=== PATIENT | male | born 1955 | race Caucasian/White ===

== ENCOUNTER 2021-09-06 19:02 | Inpatient (IN) | payer OTHER, SELFPAY ==
--- NOTE | 2021-08-29 16:23 | PTCARENOTE ---
Abnormal EKG. Dr. Massey made aware. No intervention needed.
[2021-09-06] VITALS (19 sets, daily range): BP systolic 2–166; BP diastolic 86–100; BMI 31.4
[2021-09-06 10:07] LABS: Glucose - Point of Care 189 mg/dl (65-99)
[2021-09-06] MEDS: NORMOSOL-R 1000 IV (10:10)
[2021-09-06 12:01] LABS: Glucose - Point of Care 175 mg/dl (65-99)
[2021-09-06 14:08] LABS: Glucose - Point of Care 209 mg/dl (65-99)
[2021-09-06 16:04] LABS: Glucose - Point of Care 207 mg/dl (65-99)
[2021-09-06] MEDS: MORPHINE SULFATE 2 MG IV (16:25)
[2021-09-06] MEDS: MORPHINE SULFATE 4 MG IV ×2 (16:43→20:44)
[2021-09-06] MEDS: SUBLIMAZE 50 MCG IV (17:13)
[2021-09-06] MEDS: NOVOLOG vial 2 UNITS SC (17:15)
[2021-09-06] MEDS: D5/0.45%NSS with KCL 20 MEQ 1000 IV (17:25)
[2021-09-06] MEDS: SUBLIMAZE 25 MCG IV (17:33)
[2021-09-06] MEDS: ANCEF 10 IV (20:44)
[2021-09-06] MEDS: COREG 12.5 MG PO (20:45)
[2021-09-06 23:46] LABS: Glucose - Point of Care 229 mg/dl (65-99)
[2021-09-06] MEDS: NOVOLOG FLEXPEN-MODERATE RESISTANCE SC (23:58)
[2021-09-07] VITALS (7 sets, daily range): BP systolic 124–191; BP diastolic 65–112
[2021-09-07] MEDS: D5/0.45%NSS with KCL 20 MEQ 1000 IV ×2 (02:44→13:16)
[2021-09-07] MEDS: ANCEF 10 IV ×3 (04:25→19:43)
[2021-09-07] MEDS: LOPRESSOR 5 MG IV (04:25)
[2021-09-07 04:55] LABS: Hematocrit 41.8 % (39.0-52.0); Hemoglobin 13.8 g/dL (13.0-18.0); Mean Corpuscular Hgb 30.1 pg (27.0-31.0); Mean Corpuscular Volume 91.3 fL (80.0-94.0); Platelet Count 234 10^3/uL (130-400); Red Blood Cell Count 4.58 10^6/uL (4.70-6.10); Red Cell Dist. Width 13.8 % (11.5-14.5); White Blood Cell Count 13.8 10^3/uL (4.8-10.8)
[2021-09-07 05:40] LABS: ALT (SGPT) 49 U/L (0-50); AST (SGOT) 59 U/L (17-59); Albumin 3.9 g/dl (3.5-5.0); Alkaline Phosphatase 80 U/L (38-126); Blood Urea Nitrogen 14 mg/dl (9-20); Calcium 8.9 mg/dl (8.4-10.2); Carbon Dioxide 27 mmol/L (22-30); Chloride 104 mmol/L (98-107); Estimated Creatinine Clearance > 125 ml/min; Glomerular Filtration Rate > 60.0; Glucose 246 mg/dl (65-99); Potassium 4.6 mmol/L (3.5-5.1); Sodium 137 mmol/L (135-145); Total Bilirubin 0.7 mg/dl (0.2-1.3); Total Protein 6.2 g/dl (6.3-8.2)
[2021-09-07 06:16] LABS: Glucose - Point of Care 226 mg/dl (65-99)
[2021-09-07] MEDS: MORPHINE SULFATE 2 MG IV (06:27)
[2021-09-07] MEDS: NOVOLOG FLEXPEN-MODERATE RESISTANCE 3 UNITS SC (06:31)
[2021-09-07] MEDS: ORETIC 25 MG PO (08:56)
[2021-09-07] MEDS: ZESTRIL 40 MG PO (08:56)
[2021-09-07] MEDS: COREG 12.5 MG PO ×2 (08:56→19:43)
[2021-09-07 09:23] LABS: Glycohemoglobin (HgbA1c) 6.9 % (4.0-5.6)
[2021-09-07] MEDS: MORPHINE SULFATE 4 MG IV ×3 (09:36→21:30)
--- NOTE | 2021-09-07 09:44 | W.PN.GS2 ---
Addendum entered and electronically signed by Karan Gonzales MD 09/07/21 17:35:
Pt. with adequate pain control. Avel. clears.
Abd.: soft, ND, mild inc. tenderness, drsg. WILFRIDO malik with non-bilious output.
POD#1 s/p lap converted to open simran
Adv. to low fat diet as avel.
Original Note:
Today's Communication / Plan
-
see below
Assessment / Plan
-
Assessment: 66M POD#1 s/p open cholecystectomy, recovering well.
Plan:
-- continue pain control prn
-- maintain drain to bulb suction, continue to monitor output
-- start clear liquid diet, advance as tolerated to low fat diet
-- continue to monitor glucose as diet is advanced, restart home diabetes medications (metformin, jardiance)
-- restart other po home medications, including aspirin
-- start lovenox for vte prophylaxis
Subjective Data
-
Patient seen and examined at bedside. He reports significant pain at the RUQ incision site, worsened by moving. He otherwise feels well. He denies nausea, vomiting, distension. He reports good appetite. Denies fever, chills.
Objective Data
-
Intake and Output
09/06/21 09/07/21 09/08/21
06:59 06:59 06:59
Intake Total 1580 / 1580
Output Total 902 / 902
Balance 678 / 678
Intake:
Oral fluids 60 / 60
IV fluids (Total) 1500 / 1500
Normosol R 300 / 300
IV piggybacks 20 / 20
Output:
Drain Output (Total) 2 / 2
Abdomen Reilly-Mark 2 / 2
Urine, Voided 900 / 900
Vital Signs
Temp Pulse Resp BP Pulse Ox
98.9 F 88 18 175/90 99
09/07/21 07:30 09/07/21 07:30 09/07/21 07:30 09/07/21 07:30 09/07/21 07:30
Lab Results
09/07/21 04:04
09/07/21 04:04
Calcium 8.9 mg/dl (8.4-10.2) 09/07/21 04:04
Total Bilirubin 0.7 mg/dl (0.2-1.3) 09/07/21 04:04
AST 59 U/L (17-59) 09/07/21 04:04
ALT 49 U/L (0-50) 09/07/21 04:04
Alkaline Phosphatase 80 U/L (38-126) 09/07/21 04:04
Total Protein 6.2 g/dl (6.3-8.2) L 09/07/21 04:04
Albumin 3.9 g/dl (3.5-5.0) 09/07/21 04:04
Physical Exam
-
General: lying in bed, NAD, uncomfortable-appearing when moving
Neuro: in tact, A&Ox3
Resp: breathing comfortably on room air
CV: warm and well perfused; tachycardic to 100s overnight, VSS this morning
Abd: soft, nontender, nondistended; tenderness noted at RUQ incision site; dressings dry; drain maintaining suction with 2cc serosanguinous output
[2021-09-07] MEDS: LIPITOR 40 MG PO (10:20)
[2021-09-07] MEDS: WELLBUTRIN XL (24 hour extended release) 300 MG PO (10:20)
[2021-09-07] MEDS: ASPIR LOW (ENTERIC COATED) 81 MG PO (10:20)
[2021-09-07] MEDS: CYMBALTA DELAYED RELEASE 60 MG PO (10:20)
[2021-09-07 11:53] LABS: Glucose - Point of Care 338 mg/dl (65-99)
[2021-09-07] MEDS: NOVOLOG FLEXPEN-MODERATE RESISTANCE 7 UNITS SC (11:56)
--- NOTE | 2021-09-07 13:39 | CM ---
Chart Reviewed.
Met with the pt and his at bedside to complete the initial assessment.
Pt lives with his in a 1SH with 10 steps to enter.
The pt stated that he has no hx with DME but did have [facility] prior to admission.
Pt stated that he has been independent with all care prior to admission.
Explained CM role and possible discharge planning needs.
Pt denies any concerns about his ability to return home but is requesting that [facility] resumes care.
Pharm: [facility] [address]
PCP: Jo Angeles
PLAN: Pt to return home with [facility] to resume care.
Pt's to provide transport to home.
CM to follow for ongoing discharge planning needs.
[2021-09-07 17:31] LABS: Glucose - Point of Care 252 mg/dl (65-99)
[2021-09-07] MEDS: LOVENOX 40 MG SC (17:53)
[2021-09-07] MEDS: NOVOLOG FLEXPEN-MODERATE RESISTANCE 5 UNITS SC (17:53)
[2021-09-07] MEDS: GLUCOPHAGE 1000 MG PO (17:53)
[2021-09-07 21:25] LABS: Glucose - Point of Care 229 mg/dl (65-99)
[2021-09-08] MEDS: D5/0.45%NSS with KCL 20 MEQ IV (01:07)
[2021-09-08] MEDS: ANCEF 10 IV ×3 (03:49→20:08)
[2021-09-08 05:54] VITALS: BMI 30.9
[2021-09-08 07:03] LABS: Glucose - Point of Care 249 mg/dl (65-99)
[2021-09-08 07:35] VITALS: BP 116/61
[2021-09-08] MEDS: MORPHINE SULFATE 4 MG IV (07:49)
[2021-09-08] MEDS: CYMBALTA DELAYED RELEASE 60 MG PO (07:51)
[2021-09-08] MEDS: COREG 12.5 MG PO ×2 (07:51→20:07)
[2021-09-08] MEDS: ZESTRIL 40 MG PO (07:51)
[2021-09-08] MEDS: ZETIA 10 MG PO (07:51)
[2021-09-08] MEDS: JARDIANCE 10 MG PO (07:52)
[2021-09-08] MEDS: WELLBUTRIN XL (24 hour extended release) 300 MG PO (07:52)
[2021-09-08] MEDS: ORETIC 25 MG PO (07:52)
[2021-09-08] MEDS: ASPIR LOW (ENTERIC COATED) 81 MG PO (07:52)
[2021-09-08] MEDS: GLUCOPHAGE 1000 MG PO ×2 (07:52→16:35)
[2021-09-08] MEDS: LIPITOR 40 MG PO (07:52)
[2021-09-08] MEDS: FLUSH (NSS) 2 FLUSH IV ×2 (07:53→12:15)
[2021-09-08] MEDS: NOVOLOG FLEXPEN-MODERATE RESISTANCE 3 UNITS SC (07:54)
--- NOTE | 2021-09-08 10:07 | W.PN.GS2 ---
Addendum entered and electronically signed by Karan Gonzales MD 09/08/21 19:28:
Pt. with adequate pain control. Avel. full liquids.
Abd.: soft, ND, mild inc. tenderness, drsg. okay, WILFRIDO with non-bilious output.
POD#2 s/p lap converted to open simran
Adv. to low fat diet for dinner.
Anticipate D/C home tomorrow with removal of WILFRIDO drain prior.
Original Note:
Today's Communication / Plan
-
see below
Assessment / Plan
-
Assessment: 66M POD#2 s/p laparoscopic converted to open cholecystectomy, recovering well. Pain is improving, and he is tolerating clear liquid diet with plan to advance today.
Plan:
-- advance diet to full liquids for lunch, with plan to advance to low fat diet for dinner if tolerating
-- continue pain control prn
-- maintain drain to bulb suction, continue to monitor output
-- continue to monitor glucose as diet is advanced, continue home PO diabetes medications
-- continue lovenox for vte prophylaxis
Subjective Data
-
Patient seen and examined at bedside. He reports feeling well this morning, with significantly improved incisional pain compared to yesterday. He denies abdominal discomfort, bloating, nausea, vomiting. He reports that he tolerated clear liquids
well yesterday; he did not advance to full liquids because he forgot. He is eager to trial full liquids for lunch and low fat diet for dinner if tolerated. No other acute complaints.
Objective Data
-
Intake and Output
09/07/21 09/08/21 09/09/21
06:59 06:59 06:59
Intake Total 1580 / 1580 1280 / 1280
Output Total 902 / 902 5 / 5
Balance 678 / 678 1275 / 1275
Intake:
Oral fluids 60 / 60 960 / 960
IV fluids (Total) 1500 / 1500 300 / 300
Normosol R 300 / 300
IV piggybacks
Output:
Drain Output (Total)
Abdomen Reilly-Mark
Urine, Voided 900 / 900
Other:
Number of approximated MODERATE 1
amounts of urine
Vital Signs
Temp Pulse Resp BP Pulse Ox
98.2 F 70 16 116/61 95
09/08/21 07:35 09/08/21 07:35 09/08/21 07:35 09/08/21 07:35 09/08/21 07:35
Lab Results
09/07/21 04:04
09/07/21 04:04
Calcium 8.9 mg/dl (8.4-10.2) 09/07/21 04:04
Total Bilirubin 0.7 mg/dl (0.2-1.3) 09/07/21 04:04
AST 59 U/L (17-59) 09/07/21 04:04
ALT 49 U/L (0-50) 09/07/21 04:04
Alkaline Phosphatase 80 U/L (38-126) 09/07/21 04:04
Total Protein 6.2 g/dl (6.3-8.2) L 09/07/21 04:04
Albumin 3.9 g/dl (3.5-5.0) 09/07/21 04:04
Physical Exam
-
General: NAD, sitting comfortably in bed
Neuro: A&Ox3, in tact, no focal deficits
CV: warm and well perfused
Resp: breathing comfortably on RA
Abd: soft, nontender, nondistended; dressings clean and dry; drain maintaining suction with minimal serosanguinous output
[2021-09-08] MEDS: NOVOLOG FLEXPEN-MODERATE RESISTANCE SC (12:17)
[2021-09-08 12:18] LABS: Glucose - Point of Care 147 mg/dl (65-99)
[2021-09-08 16:44] LABS: Glucose - Point of Care 166 mg/dl (65-99)
[2021-09-08 17:07] VITALS: BP 146/79
[2021-09-08] MEDS: NOVOLOG FLEXPEN-MODERATE RESISTANCE 1 UNITS SC (17:10)
[2021-09-08] MEDS: LOVENOX 40 MG SC (17:11)
[2021-09-08] MEDS: FLUSH (NSS) 1 FLUSH IV (20:08)
[2021-09-08] MEDS: PERCOCET 5/325 1 TABLET PO (20:15)
[2021-09-08 21:15] LABS: Glucose - Point of Care 175 mg/dl (65-99)
[2021-09-08 23:09] VITALS: BP 115/67
[2021-09-09] MEDS: PERCOCET 5/325 1 TABLET PO (03:29)
[2021-09-09] MEDS: ANCEF 10 IV (04:25)
--- NOTE | 2021-09-09 07:01 | W.PN.GS2 ---
Addendum entered and electronically signed by Karan Gonzales MD 09/27/21 15:10:
Apparently the gangrenous nature of the pt.'s GB qualifies his hospitalization as an inpatient admission as opposed to the post procedure/surgery recovery status which was selected at the time he was hospitalized.
Addendum entered and electronically signed by Ramone Cain MD 09/09/21 08:25:
Patient seen and examined.
Recovering well, without any complaints or issues. Pain well controlled. Tolerating a low-fat diet. Voiding. Ambulating.
Gen: NAD
Abd: soft, appropriately tender, obese, ND, nonperitoneal, incisions c/d/i - no erythema, ecchymosis, or drainage, geovanny in place, WILFRIDO drain removed with minor serous oozing from site
Patient is a 66 yo M POD#3 s/p laparoscopic converted to open cholecystectomy, recovering well
-- DC WILFRIDO
-- Resume home medications
-- DC today, follow-up with Dr. gonzales as outpatient
Original Note:
Today's Communication / Plan
-
see below
Assessment / Plan
-
Assessment: 66M POD#3 s/p laparoscopic converted to open cholecystectomy, recovering well. Pain is improving, and he is tolerating low fat diet with plan to pull drain and dc home today.
Plan:
-- continue low fat diet
-- pull WILFRIDO drain
-- continue pain control prn
-- continue lovenox for vte prophylaxis
-- d/c home today
Subjective Data
-
Patient seen and examined at bedside. He reports feeling well this morning, with improved incisional tenderness. He tolerated low fat diet yesterday, with continued flatus and a BM. Denies nausea, vomiting, diarrhea. No other acute complaints.
Objective Data
-
Intake and Output
09/08/21 09/09/21 09/10/21
06:59 06:59 06:59
Intake Total 1280 / 1280 1879
Output Total
Balance 1275 / 1275 1879
Intake:
Oral fluids 960 / 960 1879
IV fluids (Total) 300 / 300 0 / 0
IV piggybacks 0 / 0
Output:
Drain Output (Total)
Abdomen Reilly-Mark
Other:
Number of approximated MODERATE 1 4
amounts of urine
Vital Signs
Temp Pulse Resp BP Pulse Ox
97.9 F 78 20 115/67 95
09/08/21 23:09 09/08/21 23:09 09/08/21 23:09 09/08/21 23:09 09/08/21 23:09
Lab Results
09/07/21 04:04
09/07/21 04:04
Calcium 8.9 mg/dl (8.4-10.2) 09/07/21 04:04
Total Bilirubin 0.7 mg/dl (0.2-1.3) 09/07/21 04:04
AST 59 U/L (17-59) 09/07/21 04:04
ALT 49 U/L (0-50) 09/07/21 04:04
Alkaline Phosphatase 80 U/L (38-126) 09/07/21 04:04
Total Protein 6.2 g/dl (6.3-8.2) L 09/07/21 04:04
Albumin 3.9 g/dl (3.5-5.0) 09/07/21 04:04
Physical Exam
-
General: lying in bed comfortably, NAD
Neuro: in tact, A&Ox3
Resp: breathing comfortably on room air
CV: warm and well perfused
Abd: soft, nondistended, appropriately tender at incision; incisions c/d/i; drain with minimal serosanguinous output
[2021-09-09 07:40] LABS: Glucose - Point of Care 165 mg/dl (65-99)
[2021-09-09 07:50] VITALS: BP 159/89
[2021-09-09] MEDS: NOVOLOG FLEXPEN-MODERATE RESISTANCE 1 UNITS SC (08:06)
[2021-09-09] MEDS: CYMBALTA DELAYED RELEASE 60 MG PO (08:07)
[2021-09-09] MEDS: ZETIA 10 MG PO (08:07)
[2021-09-09] MEDS: ASPIR LOW (ENTERIC COATED) 81 MG PO (08:08)
[2021-09-09] MEDS: JARDIANCE 10 MG PO (08:08)
[2021-09-09] MEDS: COREG 12.5 MG PO (08:08)
[2021-09-09] MEDS: ORETIC 25 MG PO (08:08)
[2021-09-09] MEDS: GLUCOPHAGE 1000 MG PO (08:08)
[2021-09-09] MEDS: ZESTRIL 40 MG PO (08:08)
[2021-09-09] MEDS: WELLBUTRIN XL (24 hour extended release) 300 MG PO (08:08)
[2021-09-09] MEDS: LIPITOR 40 MG PO (08:09)
--- NOTE | 2021-09-09 08:25 | W.DS.TRANS ---
DC Summary - [employer]
-
Discharge Instructions:
Discharge Diagnosis/Procedures s/p laparoscopic converted to open
cholecystectomy
Diet Low Fat
Additional Diets low fat diet for one week.
Activity No strenuous activity,Other activity
Additional Activity No lifting >15-20 lbs.
Driving Restrictions None for 3-4 days.
Bathing Restrictions OK to Shower
Wound Care Apply a dry dressing as needed.
Instructions:
Stand-Alone Forms:
Changes to Home Medications: No
Discharge Medications:
DC Medications w/original date entered in [employer]
duloxetine 60 mg capsule,delayed release 60 mg PO DAILY Mental Health/Anxiety 10/15/15
insulin aspart U-100 100 unit/mL (3 mL) subcutaneous pen (Novolog Flexpen U-100 Insulin aspart) 20 - 25 units SC AC Diabetes 10/15/15
metformin 1,000 mg tablet 1,000 mg PO BID Diabetes 07/16/17
nitroglycerin 0.4 mg sublingual tablet 0.4 mg sublingual [id number] PRN cp 07/16/17
aspirin 81 mg tablet,delayed release 81 mg PO DAILY Blood clot prevention/tx 06/24/21
bupropion HCl 300 mg 24 hr tablet, extended release 300 mg PO DAILY Mental Health/Anxiety 06/24/21
carvedilol 12.5 mg tablet 12.5 mg PO BID Blood pressure 06/24/21
empagliflozin 10 mg tablet (Jardiance) 10 mg PO DAILY Diabetes 06/24/21
ezetimibe 10 mg tablet 10 mg PO DAILY High cholesterol 06/24/21
fexofenadine-pseudoephedrine ER 180 mg-240 mg tablet,ext.release 24 hr (Yelitza-D 24 Hour) 1 ea PO DAILY PRN allergies 06/24/21
insulin detemir U-100 100 unit/mL (3 mL) subcutaneous pen (Levemir FlexTouch U-100 Insulin) 100 unit SC HS Diabetes 06/24/21
atorvastatin 40 mg tablet 40 mg PO DAILY High cholesterol ##0 07/03/21
lisinopril 20 mg-hydrochlorothiazide 12.5 mg tablet 2 tab PO DAILY 09/05/21
oxycodone-acetaminophen 5 mg-325 mg tablet 1 tab PO Q4HPRN PRN moderate pain when phill PO's #20 tabs 09/09/21
Home Medication Changes
Pending Results: No
--- NOTE | 2021-09-09 09:53 | CM ---
Addendum entered by Lesly Scott RN 09/09/21 13:56:
CM received request from [facility] to check patient's actual address. Demographics just has a PO box.
CM called to the patient.
Provided address [address]
[place]
CM provided address to .
Original Note:
Patient is ready for discharge.
Patient would like to resume [facility] services.
CM sent referral in [facility].
CM notified [facility] of the referral.
CM messaged physician to please add the VN order.
PLAN:DC to home with [facility]
== END 2021-09-09 11:30 | disposition home health service (06) | DRG 415 ==
LOC: 2 SOUTH 19:02
PROVIDERS: ADMITTING PHYSICIAN Surgery
PROC: 0FT40ZZ Resection of Gallbladder, Open Approach (ICD-10-PCS; 2021-09-06)
DX: K80.00 Calculus of gallbladder with acute cholecystitis without obstruction (principal); K82.A2 Perforation of gallbladder in cholecystitis; K82.A1 Gangrene of gallbladder in cholecystitis; K66.0 Peritoneal adhesions (postprocedural) (postinfection); I10 Essential (primary) hypertension; I25.10 Atherosclerotic heart disease of native coronary artery without angina pectoris; E11.9 Type 2 diabetes mellitus without complications; Y83.6 Removal of other organ (partial) (total) as the cause of abnormal reaction of the patient, or of later complication, without mention of misadventure at the time of the procedure; I25.2 Old myocardial infarction; Z53.31 Laparoscopic surgical procedure converted to open procedure; Z79.4 Long term (current) use of insulin
CPT/HCPCS: 47600; 88304; 80053; 82962; 83036; 85027; A4648; J3480

== ENCOUNTER 2023-04-30 09:08 | Emergency (ER) | payer OTHER, SELFPAY ==
[2023-04-30 09:22] VITALS: BP 178/111
--- NOTE | 2023-04-30 09:49 | ED.GENMED ---
History of Present Illness
General
Chief Complaint: Back Pain
Time Seen by Provider: 04/30/23 09:30
Travel History
Have you had any contact with someone who has COVID-19?: No
Do you have any symptoms of coronavirus? Fever > 100 degrees, chills, cough, shortness of breath, sore throat, loss of taste or smell, muscle aches, or headache?: No
History of Present Illness
History of Present Illness:
67-year-old male with known history of lumbar spinal stenosis presents to the emergency department for evaluation of increased right lumbar radicular pain ongoing for the past 5 days. He did have an MRI performed approximately 6 weeks ago at this
hospital showing diffuse lumbar spine degenerative disc disease most pronounced at L4 and L5 noting increased central canal and lateral recess stenosis bilaterally. He reports worsening radiating symptoms down the right leg, cannot ambulate for
more than 20-30 steps before pain becomes limiting. He has been taking naproxen without relief. Denies any loss of bladder or bowel function, saddle anesthesias, or fevers. He is scheduled for an epidural injection on Thursday through his pain and
network diagnostic support specialist.
Past History
Past History
ED Past Medical History: CAD, HTN, IDDM and Other (kidney stones,)
ED Past Surgical History: None (Noncontributory)
Patient has exhibited threatening behavior?: No
PSI?: No
Social History
Tobacco: Non-smoker
Alcohol: None
Drug: None
Personal:
Living: with family
Employment: Employed
Family History
Family History: Other (Father with Parkinson's and diabetes)
Review of Systems
Review of Systems
Allergies reviewed?: Yes
All Other Systems: ROS reviewed and negative except as documented in HPI and ROS
Phy Exam
Physical Exam
Physical Exam:
GEN: Well appearing, NAD, WDWN
HEENT: Oral mucosa moist, no scleral icterus
Cardiac: Regular rate
Lung: No respiratory distress, no tachypnea
MSK: No gross deformity or injuries
Skin: Good color, no pallor or jaundice, no rashes
Neuro: AO x3, moves all extremities freely
Psych: Calm, cooperative
Course
Vital Signs
Initial and Last Documented VS:
Initial Vital Signs
Temp Pulse Resp BP Pulse Ox
97.9 F 101 18 178/111 96
04/30/23 09:22 04/30/23 09:22 04/30/23 09:22 04/30/23 09:22 04/30/23 09:22
Last Documented Vital Signs
Temp Pulse Resp BP Pulse Ox
97.9 F 101 18 178/111 96
04/30/23 09:22 04/30/23 09:22 04/30/23 09:22 04/30/23 09:22 04/30/23 09:22
MDM/Problems Addressed
MDM/Problems Addressed:
Patient with worsening pain secondary to known spinal stenosis. He has no new neurologic symptoms concerning for cauda equina. Will hold off on NSAIDs giving upcoming epidural injection, will start on opioids and muscle relaxants for supportive
relief. No indication for repeat imaging today
*Critical Care Note
Total Time (30-74mins, 75-104mins- exclusive of procedures): Not Applicable
ED Attending Note
-
Portions of this chart may have been created with voice recognition software.� Occasional wrong word or��sound alike� substitutions may have occurred due to the inherent limitations of voice recognition software.
Discharge Plan
Departure
Patient Disposition: Home (Routine Discharge)
Date of Disposition: 04/30/23
Time of Disposition: 09:52
Patient with high blood pressure during this ER visit?: No
Discharge Problem:
Lumbar spinal stenosis
Instructions: Radiculopathy (DC)
Prescriptions:
New
tizanidine 4 mg tablet
4 mg PO HS PRN (Reason: muscle spasticity) Qty: 10 0RF
oxycodone-acetaminophen [Percocet] 5-325 mg tablet
1 tab PO Q6HPRN PRN (Reason: pain) Qty: 15 0RF
No Action
insulin aspart U-100 [Novolog FlexPen U-100 Insulin] 300 UNITS/3 ML insulin pen
0 sliding scale dose SC MEALS
duloxetine 60 MG capsule,delayed release(DR/EC)
120 mg PO DAILY
metformin 1,000 MG tablet
1,000 mg PO BID
nitroglycerin 0.4 MG tablet, sublingual
0.4 mg sublingual [id number] PRN (Reason: chest pain)
Hold Instructions: until follow up with your primary care doctor
ezetimibe 10 MG tablet
10 mg PO DAILY
carvedilol 12.5 MG tablet
6.25 mg PO BID
Hold Instructions: until follow up with your primary care doctor
bupropion HCl 300 MG tablet extended release 24 hr
300 mg PO DAILY
atorvastatin 40 MG tablet
40 mg PO DAILY Qty: 0 0RF
Rx Instructions:
DO NOT RESUME UNTIL DIRECTED BY YOUR PHYSICIAN
lisinopril-hydrochlorothiazide 20-12.5 mg Tablet
1 tab PO DAILY
Hold Instructions: until follow up with your primary care doctor
temazepam 15 mg Capsule
15 mg PO HS
Patient Comments:
01/22/2022: last filled 12/25/21, 30 tabs for 30 days from [facility]#[id number]
tamsulosin 0.4 mg Capsule
0.4 mg PO QPM
Hold Instructions: until follow up with your primary care doctor
Levemir FlexTouch U100 Insulin 100 unit/mL (3 mL) insulin pen
0 unit SC HS
Jardiance 25 mg tablet
25 mg PO DAILY
lisinopril 10 mg tablet
10 mg PO DAILY Qty: 60 0RF
Referrals:
Jorge Angeles CRNP [Family Provider] -
Interventions
Interventions:
*Risk Screen - Suicide Last Done: 04/30/23 09:24
*General Assessment Last Done: 04/30/23 09:24
*Neglect/Abuse Screening Last Done: 04/30/23 09:24
*Nursing Disposition Last Done: 04/30/23 10:05
ED-Musculoskeletal Assessment Last Done: 04/30/23 10:04
Discharge Date and Time
Discharge Date/Time: 04/30/23 10:06
== END 2023-04-30 10:06 | disposition home or self-care (01) ==
LOC: EMR 09:08
PROVIDERS: EMERGENCY PHYSICIAN Emergency Medicine; FAMILY PHYSICIAN Nurse Practitioner Adult Health
DX: M48.061 Spinal stenosis, lumbar region without neurogenic claudication (principal)
CPT/HCPCS: 99283

== ENCOUNTER 2023-05-17 12:24 | Inpatient (IN) | payer OTHER, SELFPAY ==
[2023-05-16 23:17] VITALS: BMI 30.9
[2023-05-16 23:32] VITALS: BP 178/100
[2023-05-17] VITALS (28 sets, daily range): BP systolic 142–212; BP diastolic 79–134; BMI 30.6
--- NOTE | 2023-05-17 03:13 | ED.GENMED ---
History of Present Illness
<FANI Briones - Last Filed: 05/17/23 04:56>
General
Chief Complaint: Back Pain
Source: patient
Exam Limitations: none
Time Seen by Provider: 05/17/23 03:10
Nursing documentation reviewed up to this point in time: agreed with
Travel History
Have you had any contact with someone who has COVID-19?: No
Do you have any symptoms of coronavirus? Fever > 100 degrees, chills, cough, shortness of breath, sore throat, loss of taste or smell, muscle aches, or headache?: No
History of Present Illness
History of Present Illness:
patient is a 67 y/o male with PMH of diabetic neuropathy and lumbar spinal stenosis presenting for worsening back pain. Patient admits that he was sitting down when the pain began earlier today. patient admits that he sees a pain management doctor
for his spinal stenosis, which he received an epidural treatment for 2 weeks ago. Patient admits that he has felt this pain previously. Patient admits to bilateral pain that radiates to the anterior thigh, bilateral posterior thigh and groin region.
Patient admits that the pain become a 'pins and needles pain long-term through his thigh and to his toes.' Patient admits that the pain is bilateral but worse on the left side. Patient admits to urinating and having a bowel movement since the pain has
begun. Patient admits to weakness in b/l extremities which decreases his mobility. Patient was in the ED last week for the same problem and was prescribed oxycodone and a muscle relaxant which he said worked for his pain. Patients pressures on
admission were 198/108.
Past History
<FANI Briones - Last Filed: 05/17/23 04:56>
Past History
ED Past Medical History: CAD, HTN, IDDM and Other (kidney stones,)
ED Past Surgical History: None (Noncontributory)
Patient has exhibited threatening behavior?: No
PSI?: No
Social History
Tobacco: Non-smoker
Alcohol: None
Drug: None
Personal:
Living: with family
Employment: Employed
Family History
Family History: Other (Father with Parkinson's and diabetes)
Review of Systems
<ST [facility]ali[facility] - [facility] Filed: 05/17/23 04:56>
Review of Systems
All Other Systems: Not applicable
Constitutional: Reports no symptoms
EENT: Reports no symptoms
Respiratory: Reports no symptoms
Cardiac: Reports no symptoms
ABD/GI: Reports no symptoms
: Reports no symptoms
Musculoskeletal: Reports back pain
Skin: Reports no symptoms
Neurological: Reports no symptoms
Endocrine: Reports no symptoms
Hematologic/Lymphatic: Reports no symptoms
Psychiatric: Reports no symptoms
Phy Exam
<Gwendolyn Castellano [facility] Filed: 05/17/23 04:56>
General Physical Exam
General Presentation: well appearing and no apparent distress
General Skin: warm and dry
General Habitus: normal
General Mental: alert
General Hydration: appears well hydrated
ENT Exam
ENT Exam: EOMI, pharynx normal, neck supple and normocephalic
Eye Exam
Eye Exam: PERRL, cornea clear and conjunctiva normal
Cardiovascular Exam
Cardiovascular Exam: regular rate/rhythm, no edema, no murmur and normal peripheral pulses
Pulmonary Exam
Pulmonary Exam: lungs clear, no respiratory distress, no rales, no crackles, no rhonchi, no stridor, no wheezing and no cough
Gastrointestinal Exam
Gastrointestinal Exam: normal bowel sounds, non tender, soft, no organomegaly, no pulsatile mass and non distended
Neurological Exam
Neurological Exam: sensory deficit
Musculoskeletal Exam
Musculoskeletal Exam: back tenderness
Skin Exam
Skin Exam: normal color, warm/dry, no rash and no petechia
Psychiatric Exam
Psychiatric Exam: normal mood/affect
Course
<ST AnaliPA - Last Filed: 05/17/23 04:56>
Orders/Labs/Results
Orders:
Orders
05/17/23 04:10
Ketorolac [Toradol] 60 mg IM NOW STA
Lisinopril [Zestril] 10 mg PO NOW STA
05/17/23 04:57
Ketorolac [Toradol] 30 mg .ROUTE .STK-MED ONE
05/17/23 04:58
Ketorolac [Toradol] 30 mg IV NOW STA
05/17/23 06:11
Tizanidine [Zanaflex] 4 mg PO NOW STA
05/17/23 07:01
Oxycodone/Acetaminophen [Percocet 5/325] 2 tablet PO NOW STA
Vital Signs
Initial and Last Documented VS:
Initial Vital Signs
Temp Pulse Resp BP Pulse Ox
98.2 F 94 18 178/100 97
05/16/23 23:32 05/16/23 23:32 05/16/23 23:32 05/16/23 23:32 05/16/23 23:32
Last Documented Vital Signs
Temp Pulse Resp BP Pulse Ox
98.2 F 100 18 210/120 90
05/16/23 23:32 05/17/23 04:30 05/16/23 23:32 05/17/23 06:00 05/17/23 06:45
<Hector Nixon DO - Last Filed: 05/17/23 07:29>
Orders/Labs/Results
Orders:
Orders
05/17/23 04:10
Ketorolac [Toradol] 60 mg IM NOW STA
Lisinopril [Zestril] 10 mg PO NOW STA
05/17/23 04:57
Ketorolac [Toradol] 30 mg .ROUTE .STK-MED ONE
05/17/23 04:58
Ketorolac [Toradol] 30 mg IV NOW STA
05/17/23 06:11
Tizanidine [Zanaflex] 4 mg PO NOW STA
05/17/23 07:01
Oxycodone/Acetaminophen [Percocet 5/325] 2 tablet PO NOW STA
Vital Signs
Initial and Last Documented VS:
Initial Vital Signs
Temp Pulse Resp BP Pulse Ox
98.2 F 94 18 178/100 97
05/16/23 23:32 05/16/23 23:32 05/16/23 23:32 05/16/23 23:32 05/16/23 23:32
Last Documented Vital Signs
Temp Pulse Resp BP Pulse Ox
98.2 F 100 18 210/120 90
05/16/23 23:32 05/17/23 04:30 05/16/23 23:32 05/17/23 06:00 05/17/23 06:45
<FANI Briones - Last Filed: 05/17/23 04:56>
MDM/Problems Addressed
Differential Diagnosis Includes:
spinal stenosis worsening
cauda equina
herniated disc
sciatica
diabetic neuropathy
MDM/Problems Addressed:
worsening back pain
Chronic conditions affecting care: DM
<FANI Briones - Last Filed: 05/17/23 04:56>
*Critical Care Note
Total Time (30-74mins, 75-104mins- exclusive of procedures): Not Applicable
<Hector Nixon DO - Last Filed: 05/17/23 07:29>
*Pulse Oximetry
Patient hypoxic: no
<FANI Briones - Last Filed: 05/17/23 04:56>
Update Note
Update Note:
patient given lisinopril for HTn; patient denies history of high blood pressure; most recent BP 211/113
ED Attending Note
<FANI Briones - Last Filed: 05/17/23 04:56>
-
Portions of this chart may have been created with voice recognition software.� Occasional wrong word or��sound alike� substitutions may have occurred due to the inherent limitations of voice recognition software.
<Hector Nixon DO - Last Filed: 05/17/23 07:29>
ED Attending Note
Patient seen and examined by attending physician: Yes
I performed the substantive portion of visit, reviewed & personally made and approve the management plan that is documented in note by myself or CHASE.: Yes
ED Attending Note:
Pleasant 67-year-old male presents with back pain. Patient does have a history of lumbar spinal stenosis. He is followed by pain management. He has had several epidural injections for this pain. He is due to see his pain management physician on
Thursday. Patient states that the pain began yesterday midmorning. He states he was sitting down when he exacerbated his pain. Patient initially reported that the pain was [id number] but that has also since resolved. Patient was seen in the
emergency department 1 week ago for identical pain. He was prescribed oxycodone and muscle relaxant which did help but he has since ran out. Denies bowel or bladder retention or incontinence. Patient was seen in conjunction with the PA student.
I have reviewed and agree with the history and treatment plan presented. On my independent physical exam, patient is awake, alert, and oriented x3, resting comfortably on the bed. He is in minor acute distress. Moves all 4 extremities. Abdomen
soft and nontender. Skin is warm and dry.
Discharge Plan
Departure
Patient Disposition: Admit
Date of Disposition: 05/17/23
Time of Disposition: 07:28
Admit to: Telemetry
Presentation/result/management discussed w/ accepting MD/DO: Hospitalist
Patient with high blood pressure during this ER visit?: Yes
Condition: Good
Discharge Problem:
Back pain, Hypertension
Instructions: Low Back Pain (DC), BLOOD PRESSURE
Prescriptions:
No Action
insulin aspart U-100 [Novolog FlexPen U-100 Insulin] 300 UNITS/3 ML insulin pen
0 sliding scale dose SC MEALS
duloxetine 60 MG capsule,delayed release(DR/EC)
120 mg PO DAILY
metformin 1,000 MG tablet
1,000 mg PO BID
nitroglycerin 0.4 MG tablet, sublingual
0.4 mg sublingual [id number] PRN (Reason: chest pain)
Hold Instructions: Resume on 02/28/22. DO NOT RESUME TAKING THIS MEDICATION UNTIL INSTRUCTED TO DO SO BY YOUR PRIMARY CARE PROVIDER AND/OR GLASS LOADING EQUIPMENT TENDER
ezetimibe 10 MG tablet
10 mg PO DAILY
carvedilol 12.5 MG tablet
6.25 mg PO BID
Hold Instructions: Resume on 02/28/22. DO NOT START TAKING THIS MEDICATION AGAIN UNTIL INSTRUCTED BY YOUR PRIMARY CARE DOCTOR AND/OR YOUR GLASS LOADING EQUIPMENT TENDER
bupropion HCl 300 MG tablet extended release 24 hr
300 mg PO DAILY
atorvastatin 40 MG tablet
40 mg PO DAILY Qty: 0 0RF
Rx Instructions:
DO NOT RESUME UNTIL DIRECTED BY YOUR PHYSICIAN
tamsulosin 0.4 mg Capsule
0.4 mg PO QPM
Hold Instructions: until follow up with your primary care doctor
Levemir FlexTouch U100 Insulin 100 unit/mL (3 mL) insulin pen
0 unit SC HS
Jardiance 25 mg tablet
25 mg PO DAILY
lisinopril 10 mg tablet
10 mg PO DAILY Qty: 60 0RF
oxycodone-acetaminophen [Percocet] 5-325 mg tablet
1 tab PO Q6HPRN PRN (Reason: pain) Qty: 15 0RF
Referrals:
Jorge Angeles CRNP [Family Provider] -
Interventions
Interventions:
*Risk Screen - Suicide Last Done: 05/17/23 02:50
*General Assessment Last Done: 05/17/23 02:50
*Neglect/Abuse Screening Last Done: 05/17/23 00:30
*ED COVID-19 Vaccine History Last Done: 05/17/23 02:50
ED-Musculoskeletal Assessment Last Done: 05/17/23 02:50
[2023-05-17] MEDS: ZESTRIL 10 MG PO (04:30)
[2023-05-17] MEDS: TORADOL 30 MG IV (04:59)
[2023-05-17] MEDS: ZANAFLEX 4 MG PO (06:22)
[2023-05-17] MEDS: PERCOCET 5/325 2 TABLET PO (07:20)
--- NOTE | 2023-05-17 07:30 | EDRN ---
the pt pressed the call cotto and this RN entered the pts room, the pt stated to this RN, 'I really need a muscle relaxer or something, whatever you people are giving me isn't working for the pain and you people keep promising that you will help me
but nothing is helping', this RN assured the pt that he was just given oral pain medication and that he should give it some time to work, this RN also stated to the pt that Dr. Nixon would be notified, the pt stated to this RN, 'I just need you
to fix my problem, and people keep making promises that they can't keep, i'm not sure what's going on here, but i need help', this RN assured the pt that this RN would speak to the provider about medication for relief and about a plan if the oral
pain medication does not work, this RN notified Dr. Nixon and provider is currently at the pts bedside speaking to the pt, will continue to monitor the pt closely
--- NOTE | 2023-05-17 08:49 | EDRN ---
Dr. Saba notified of the pts elevated blood pressure
--- NOTE | 2023-05-17 08:58 | EDRN ---
provider notified again of the pts elevated blood pressure, this RN looked back into the pts past vital signs and the pt has been having elevated blood pressures since 0200, provider notified of this
--- NOTE | 2023-05-17 10:05 | EDRN ---
this RN checked the pts blood pressure and the pts blood pressure is currently still high at 202/120 (145), a hospitalist has not yet signed up for the pt to admit the pt, this RN notified Dr. Saba
--- NOTE | 2023-05-17 10:10 | EDRN ---
this RN entered the pts room and this RN repositioned the pt and retook the pts blood pressure, blood pressure 180/108 (128), the pt c/o headache, provider notified
--- NOTE | 2023-05-17 10:54 | HPS.HSE ---
Family Physician
-
Family Physician: Jorge Angeles
Chief Complaint
-
back pain
History of Present Illness
67-year-old male past medical history of severe lumbar spinal stenosis who is presenting with worsening back pain. Patient with a back pain has recently worsened in the last 3 days. Patient said he received epidural injection 2 weeks ago by his
pain doctor. States status post injection he did not notice any significant improvement in pain. States he continues remains with qsyu-rar-[id number] sensation bilateral thighs with radiation to his toes. States of severe amount of pain with
exertion/activity. Denies urinary or fecal incontinence. Denies any recent increase in loss of sensation. States he was unable to better pain overnight. Patient was in ER last week for similar follow-up and was prescribed pain meds and muscle
relaxant which she states led to improvement in pain. Overnight patient was also found to have a severely uncontrolled blood pressure. Denies any chest pain or headache or nausea or vomiting or palpitations. Currently watching TV.
Medical History
Past Medical History
Past Medical History: Reports Other
Additional Past Medical History:
Primary hypertension
Mood disorder
Neuropathy
Lumbar spinal stenosis
Hyperlipidemia
Diabetes mellitus
Chronic opioid dependent
CAD history of anterior wall motion NC
History of recurrent syncope
Past Surgical History: Reports Cholecystectomy
Social History
Tobacco: Non-smoker
Alcohol: None
Personal:
Living: With Family
Family History
Family History: Not pertinent
Allergies / Home Medications
Allergies reflects when Allergies were last updated in [facility].
Home Medications with original date entered in [facility]
Allergy/Medication List:
Allergies
Allergy/AdvReac Type Severity Reaction Status Date / Time
hydromorphone [From Dilaudid] Allergy Unknown Verified 05/16/23 23:26
Home Medications
duloxetine 60 mg capsule,delayed release 120 mg PO DAILY Mental Health/Anxiety 10/15/15
metformin 1,000 mg tablet 1,000 mg PO BID Diabetes 07/16/17
bupropion HCl 300 mg 24 hr tablet, extended release 300 mg PO DAILY Mental Health/Anxiety 06/24/21
ezetimibe 10 mg tablet 10 mg PO DAILY High cholesterol 06/24/21
atorvastatin 40 mg tablet 40 mg PO DAILY High cholesterol ##0 07/03/21
tamsulosin 0.4 mg capsule 0.4 mg PO HS Urinary issue 01/10/22
empagliflozin 25 mg tablet (Jardiance) 25 mg PO DAILY 01/22/22
lisinopril 10 mg tablet 10 mg PO DAILY #60 tabs 01/24/22
Metamucil 1 tbsp PO DAILYPRN PRN constipation 05/17/23
carvedilol 6.25 mg tablet 6.25 mg PO BID 05/17/23
dulaglutide 0.75 mg/0.5 mL subcutaneous pen injector (Trulicity) 0.75 mg SC TU@0800 05/17/23
insulin aspart U-100 100 unit/mL (3 mL) subcutaneous pen (Novolog FlexPen U-100 Insulin aspart) 15 - 20 sliding scale dose SC DIRECTED 05/17/23
insulin glargine 100 unit/mL (3 mL) subcutaneous pen (Lantus Solostar U-100 Insulin) 80 unit SC HS 05/17/23
meloxicam 7.5 mg tablet 7.5 mg PO DAILY 05/17/23
naproxen sodium 220 mg tablet (Aleve) 220 mg PO BID PRN mild pain 05/17/23
oxycodone-acetaminophen 5 mg-325 mg tablet (Percocet) 1 tab PO Q6HPRN PRN severe pain 05/17/23
tizanidine 4 mg tablet 4 mg PO HS PRN muscle spasms 05/17/23
Review of Systems
-
A 12 point ROS was completed and negative except as noted: Yes
Physical Exam
Vital Signs
Vital Signs
Temp Pulse Resp BP Pulse Ox
98.5 F 98 16 202/120 95
05/17/23 07:25 05/17/23 07:25 05/17/23 07:25 05/17/23 10:02 05/17/23 10:02
Physical Exam
General: Well Developed, Well Nourished, No Apparent Distress and Conversant
HEENT: NormoCephalic, Moist mucous membranes, Atraumatic, Nose Appears Normal and Ears Appear Normal
Respiratory: Clear
Cardiac: S1/S2 and Regular Rhythm; No Murmur or Rub
GI: Soft, Non Tender, Non Distended, Normal Bowel Sounds and Other (Right upper quadrant prior surgical scar noted); No Organomegaly
Rectal: Deferred by Provider
Genito-urinary: Deferred by me
Musculoskeletal: No Clubbing, No Cyanosis, No Edema and Other (No step-off. Tender to palpation lower back.)
Skin: No Rash
Neuro: Awake, Alert, Oriented, AO x 3, No Motor Deficits, Nonfocal/grossly intact and Other (Gait noted testing due to pain )
Psych: Calm
Impression/Plan
-
#Acute on chronic lumbar radiculopathy spondylosis secondary to severe spinal stenosis
Recent lumbar MRI 03/10/2023 with severe L4-L5 with increased spur disk and increased central canal and lateral recess stenosis bilaterally. Multilevel degenerative spinal disease noted.
X-ray of the lumbar spine without any fractures
Plan for pain control with p.o. meds and morphine as needed for severe breakthrough pain
Tolerated morphine .Dilaudid with hallucinations/delirium in past.
Valium for muscle spasm
PT and OT in the morning
Patient has outpatient pain management follow-up on Thursday which she said he will postpone for later in the week.
#Primary hypertension
#Hypertension urgency
Likely exacerbated due to severe pain
Restart carvedilol and lisinopril
IV hydralazine as needed
Monitor blood pressure with pain control
May need up titration of meds
Of note has history of recurrent syncope in the past with orthostatic hypotension
#Diabetes mellitus insulin-dependent
Restart Lantus takes 80 units nightly
Insulin sliding scale Accu-Cheks
Continue Jardiance
Continue metformin
Update a1c
#CAD
Not on any antiplatelet agents
No prior history of stents
#Hyperlipidemia
Continue statin
Diabetic neuropathy
Continue bupropion and duloxetine
BPH
Continue Flomax
Hypokalemia
Replete KCl
DVT prophylaxis heparin
I spent a total of 78 minutes with the patient or on the floor. More than 50% of this time involved counseling and coordination of care.
--- NOTE | 2023-05-17 11:10 | EDRN ---
this RN notified Dr. Hernandes the hospitalist that the pts blood pressures have been elevated, awaiting for orders
[2023-05-17] MEDS: APRESOLINE 10 MG IV ×3 (11:25→23:02)
[2023-05-17] MEDS: COREG 6.25 MG PO ×2 (11:27→19:46)
[2023-05-17 11:37] LABS: % Basophils 0.4 % (0-2); % Immature Granulocytes 0.3 % (0-0.5); % Lymphocytes 20.4 % (20.5-51.1); % Monocytes 9.2 % (1.7-9.3); % Neutrophils 68.7 % (42.2-75.2); Absolute Eosinophils 0.1 10^3/uL (0-0.7); Absolute Monocytes 0.9 10^3/uL (0.1-0.6); Absolute Neutrophils 6.7 10^3/uL (1.4-6.5); Hematocrit 47.2 % (39.0-52.0); Hemoglobin 16.1 g/dL (13.0-18.0); Mean Corp Hgb Conc. 34.1 g/dL (33.0-37.0); Mean Corpuscular Hgb 30.9 pg (27.0-31.0); Mean Corpuscular Volume 90.6 fL (80.0-94.0); Mean Platelet Volume 8.9 fL (7.4-10.4); Nucleated Red Blood Cells % 0 % (-); Platelet Count 242 10^3/uL (130-400); Red Blood Cell Count 5.21 10^6/uL (4.70-6.10); Red Cell Dist. Width 14.2 % (11.5-14.5); White Blood Cell Count 9.7 10^3/uL (4.8-10.8)
[2023-05-17 11:53] LABS: Blood Urea Nitrogen 15 mg/dl (9-20); Calcium 8.8 mg/dl (8.4-10.2); Carbon Dioxide 25 mmol/L (22-30); Chloride 105 mmol/L (98-107); Estimated Creatinine Clearance 117 ml/min; Glucose 157 mg/dl (70-99); Potassium 3.4 mmol/L (3.5-5.1); Sodium 137 mmol/L (135-145); eGFR > 60.00
--- NOTE | 2023-05-17 11:58 | EDRN ---
the pt is resting in stretcher in the lowest position, side rails up x2, call cotto within reach, HOB elevated, no s/o chest pain, no c/o SOB, pt back pain is currently a /, last BP 192/96 (123), no c/o headache, provider notified, will continue
to monitor the pt closely
--- NOTE | 2023-05-17 12:44 | EDRN ---
the pt does not want to change into a patient gown, the pt states to this RN, 'I don't want to get into a gown, i am comfortable in my clothes, there is no reason for me to get into a gown', this RN stated to the pt that this RN understands not
wanting to get into a patient gown, the pt remains in his street clothes, the pt is resting in stretcher in the lowest position, side rails up x2, call cotto within reach, HOB elevated, NSR in the 80's, last BP 181/109 (129) and provider was
notified, RA Sp02 96%, no c/o chest pain, no c/o SOB, no c/o headache, back pain currently a 2/10, will continue to monitor the pt closely
[2023-05-17] MEDS: VALIUM 2 MG PO (12:50)
[2023-05-17] MEDS: KCL 20 MEQ PO (12:50)
--- NOTE | 2023-05-17 12:52 | EDRN ---
the pt received dose of valium for c/o muscle spasms in his back
--- NOTE | 2023-05-17 14:00 | EDRN ---
this RN called the receiving unit and notified them that paper report was going to be tubed up
--- NOTE | 2023-05-17 14:38 | EDRN ---
this RN notified the pt that a bed is available for him and that he would be taken to the floor, this RN asked the pt if he would mind getting into a gown before he went up to the floor and the pt stated that he would not mind now getting into a
gown, the pt was able to get into patient gown with no issues, pt will be taken up to floor by PCT
[2023-05-17] MEDS: ROXICODONE 7.5 MG PO (16:12)
[2023-05-17] MEDS: HEPARIN 5000 UNITS SC ×2 (16:12→23:11)
--- NOTE | 2023-05-17 16:15 | PTCARENOTE ---
Pt admitted into room 403-1, ambulated with steady gait into room. AAOx3. BP elevated and patient reporting 8/10 back pain. PRN hydralazine and oxycodone administered. Tele showing NSR - ST 90-100's. Pt oriented to room and call cotto within reach.
[2023-05-17 16:37] LABS: Glucose - Point of Care 137 mg/dl (70-99)
[2023-05-17] MEDS: NOVOLOG FLEXPEN-LOW RESISTANCE SC (16:41)
[2023-05-17] MEDS: GLUCOPHAGE 1000 MG PO (16:41)
[2023-05-17] MEDS: FLOMAX 0.400000000000000022 MG PO (17:30)
[2023-05-17 21:10] LABS: Glucose - Point of Care 129 mg/dl (70-99)
[2023-05-17] MEDS: LANTUS 0.400000000000000022 UNITS SC (21:33)
[2023-05-17] MEDS: PERCOCET 5/325 1 TABLET PO (23:20)
[2023-05-18] VITALS (10 sets, daily range): BP systolic 104–162; BP diastolic 65–93
[2023-05-18] MEDS: APRESOLINE 10 MG IV (04:06)
--- NOTE | 2023-05-18 04:14 | PTCARENOTE ---
Pt with 10 beat run v tach on telemetry, asymptomatic, house [employer] aware strip mounted in chart.
[2023-05-18] MEDS: ROXICODONE 7.5 MG PO ×3 (05:23→20:05)
[2023-05-18 07:25] LABS: % Basophils 0.2 % (0-2); % Eosinophils 1.4 % (0-6); % Immature Granulocytes 0.1 % (0-0.5); % Lymphocytes 16.5 % (20.5-51.1); % Monocytes 9.4 % (1.7-9.3); % Neutrophils 72.4 % (42.2-75.2); Absolute Eosinophils 0.1 10^3/uL (0-0.7); Absolute Lymphocytes 1.4 10^3/uL (1.2-3.4); Absolute Monocytes 0.8 10^3/uL (0.1-0.6); Absolute Neutrophils 6.1 10^3/uL (1.4-6.5); Hemoglobin 15.1 g/dL (13.0-18.0); Mean Corp Hgb Conc. 32.1 g/dL (33.0-37.0); Mean Corpuscular Volume 93.3 fL (80.0-94.0); Mean Platelet Volume 9.2 fL (7.4-10.4); Nucleated Red Blood Cells % 0 % (-); Platelet Count 240 10^3/uL (130-400); Red Blood Cell Count 5.04 10^6/uL (4.70-6.10); Red Cell Dist. Width 14.6 % (11.5-14.5); White Blood Cell Count 8.5 10^3/uL (4.8-10.8)
[2023-05-18 07:36] LABS: Glucose - Point of Care 143 mg/dl (70-99)
[2023-05-18 07:51] LABS: Blood Urea Nitrogen 30 mg/dl (9-20); Calcium 8.9 mg/dl (8.4-10.2); Carbon Dioxide 24 mmol/L (22-30); Chloride 101 mmol/L (98-107); Estimated Creatinine Clearance 102 ml/min; Glucose 159 mg/dl (70-99); Magnesium 1.9 mg/dl (1.6-2.3); Potassium 3.5 mmol/L (3.5-5.1); Sodium 136 mmol/L (135-145); eGFR > 60.00
[2023-05-18] MEDS: CYMBALTA DELAYED RELEASE 120 MG PO (08:14)
[2023-05-18] MEDS: COREG 6.25 MG PO ×2 (08:14→19:56)
[2023-05-18] MEDS: ZETIA 10 MG PO (08:14)
[2023-05-18] MEDS: WELLBUTRIN XL (24 hour extended release) 300 MG PO (08:15)
[2023-05-18] MEDS: JARDIANCE 25 MG PO (08:15)
[2023-05-18] MEDS: GLUCOPHAGE 1000 MG PO ×2 (08:15→16:56)
[2023-05-18] MEDS: HEPARIN 5000 UNITS SC ×2 (08:15→16:57)
[2023-05-18] MEDS: ZESTRIL 10 MG PO (08:15)
[2023-05-18] MEDS: PERCOCET 5/325 1 TABLET PO (08:24)
[2023-05-18] MEDS: NOVOLOG FLEXPEN-LOW RESISTANCE SC (08:26)
[2023-05-18 10:05] LABS: Glycohemoglobin (HgbA1c) 6.7 % (4.0-5.6)
--- NOTE | 2023-05-18 10:18 | W.PN.HOSP.TC ---
Today's Communication/Plan
-
start gabapentin
PT/OT
Assessment / Plan
Assessment / Plan
#Acute on chronic lumbar radiculopathy spondylosis secondary to severe spinal stenosis
Recent lumbar MRI 03/10/2023 with severe L4-L5 with increased spur disk and increased central canal and lateral recess stenosis bilaterally. � Multilevel degenerative spinal disease noted.
Patient follows with outpatient follow up specialist
X-ray of the lumbar spine without any fractures
continue percocet/oxycodone PRN
start Gabapentin - can increase dose to 300 TID if tolerates
Tolerated morphine .Dilaudid with hallucinations/delirium in past.
Valium for muscle spasm
PT and OT in the morning
Patient has outpatient pain management follow-up on Thursday which she said he will postpone for later in the week.
#Primary hypertension
#Hypertension urgency
Likely exacerbated due to severe pain
Restart carvedilol and lisinopril
IV hydralazine as needed
Monitor blood pressure with pain control
May need up titration of meds
Of note has history of recurrent syncope in the past with orthostatic hypotension
#Diabetes mellitus insulin-dependent
Restart Lantus takes 80 units nightly
Insulin sliding scale Accu-Cheks
Continue Jardiance
Continue metformin
Update a1c
#CAD
Not on any antiplatelet agents
No prior history of stents
#Hyperlipidemia
Continue statin
Diabetic neuropathy
Continue bupropion and duloxetine
BPH
Continue Flomax
Hypokalemia
Replete KCl
DVT prophylaxis heparin
Anticipated Discharge: 24 - 48 hours
Subjective/Interval History
-
Date of Service: May 18, 2023
continues to have pain
states he follows with spine surgeon/specialist outpatient and surgery not recommended but procedure is that is hard for insurance to cover
states he is not leaving here unless pain < 5
Objective Data
-
Labs:
Laboratory Results
05/18/23
06:42
WBC 8.5
Hgb 15.1
Hct 47.0
Plt Count 240
Sodium 136
Potassium 3.5
Chloride 101
Carbon Dioxide 24
BUN 30 H
Creatinine 0.8
Glucose 159 H
Calcium 8.9
Vital Signs:
Vital Signs
Temp Pulse Resp BP Pulse Ox
98.2 F 100 16 149/93 97
05/18/23 07:20 05/18/23 08:14 05/18/23 07:20 05/18/23 08:14 05/18/23 07:20
I&O
05/17/23 05/18/23 05/19/23
06:59 06:59 06:59
Intake Total 480 / 480
Balance 480 / 480
Review of Systems
-
History Source: Patient
All other systems: Reviewed and negative
Physical Exam
-
General: No Apparent Distress
HEENT: Normocephalic and Atraumatic
Respiratory: Clear to Auscultation
Cardiac: Regular Rhythm and S1/S2
Breast: Deferred by me
GI: Soft, Nontender and Nondistended
Rectal: Deferred by Provider
Genito-urinary: Deferred by me
Musculoskeletal: No Clubbing, No Cyanosis, No Edema and Other (pain with lifting LE)
Neuro: AO x 3
Psych: Calm
Data Reviewed
-
Diagnostic Radiology: Report Reviewed by me
Labs: Labs Reviewed by me
[2023-05-18] MEDS: NEURONTIN 200 MG PO ×3 (10:54→21:48)
[2023-05-18 11:20] LABS: Glucose - Point of Care 233 mg/dl (70-99)
[2023-05-18] MEDS: NOVOLOG FLEXPEN-LOW RESISTANCE 2 UNITS SC (12:40)
[2023-05-18 16:49] LABS: Glucose - Point of Care 165 mg/dl (70-99)
[2023-05-18] MEDS: NOVOLOG FLEXPEN-LOW RESISTANCE 1 UNITS SC (16:59)
[2023-05-18] MEDS: FLOMAX 0.400000000000000022 MG PO (17:14)
--- NOTE | 2023-05-18 17:57 | CM ---
Alert awake oriented patient who lives with his Lisa in an apartment with 4and 6 steps to enter.HE is independent in driving and all activities of daily living.Offered VN she declined. No adaptive devices
No SNF/DH VN hx
Pharmacy [facility] [address]
PCP Jazmine
PLAN Home no needs
[2023-05-18 21:29] LABS: Glucose - Point of Care 131 mg/dl (70-99)
[2023-05-18] MEDS: LANTUS 0.400000000000000022 UNITS SC (21:44)
[2023-05-18] MEDS: SENOKOT-S 1 TABLET PO (21:48)
[2023-05-19] VITALS (8 sets, daily range): BP systolic 137–176; BP diastolic 83–102; PULSE 89
[2023-05-19] MEDS: HEPARIN 5000 UNITS SC ×3 (00:31→15:45)
[2023-05-19] MEDS: ROXICODONE 7.5 MG PO (06:42)
[2023-05-19 07:22] LABS: Glucose - Point of Care 129 mg/dl (70-99)
[2023-05-19] MEDS: NEURONTIN 200 MG PO (07:49)
[2023-05-19] MEDS: JARDIANCE 25 MG PO (07:49)
[2023-05-19] MEDS: ZETIA 10 MG PO (07:49)
[2023-05-19] MEDS: WELLBUTRIN XL (24 hour extended release) 300 MG PO (07:49)
[2023-05-19] MEDS: SENOKOT-S 1 TABLET PO (07:49)
[2023-05-19] MEDS: ZESTRIL 10 MG PO (07:49)
[2023-05-19] MEDS: COREG 6.25 MG PO ×2 (07:49→20:37)
[2023-05-19] MEDS: GLUCOPHAGE 1000 MG PO ×2 (07:49→17:40)
[2023-05-19] MEDS: NOVOLOG FLEXPEN-LOW RESISTANCE SC ×3 (07:50→17:40)
[2023-05-19] MEDS: CYMBALTA DELAYED RELEASE 120 MG PO (09:40)
--- NOTE | 2023-05-19 09:48 | W.PN.HOSP.TC ---
Today's Communication/Plan
-
increase gabapentin
lidocaine patch
standing tylenol
Assessment / Plan
Assessment / Plan
#Acute on chronic lumbar radiculopathy spondylosis secondary to severe spinal stenosis
Recent lumbar MRI 03/10/2023 with severe L4-L5 with increased spur disk and increased central canal and lateral recess stenosis bilaterally. � Multilevel degenerative spinal disease noted.
Patient follows with outpatient survival specialist
X-ray of the lumbar spine without any fractures
continue percocet/oxycodone PRN
increase gabapentin
lidocaine patch
standing tylenol
Tolerated morphine .Dilaudid with hallucinations/delirium in past.
Valium for muscle spasm
PT and OT - home versus outpatient
Patient has outpatient pain management follow-up on Thursday (rescheduled)
#Primary hypertension
#Hypertension urgency
Likely exacerbated due to severe pain
Restart carvedilol and lisinopril
IV hydralazine as needed
Monitor blood pressure with pain control
May need up titration of meds
Of note has history of recurrent syncope in the past with orthostatic hypotension
#Diabetes mellitus insulin-dependent
Restart Lantus takes 80 units nightly
Insulin sliding scale Accu-Cheks
Continue Jardiance
Continue metformin
Update a1c
#CAD
Not on any antiplatelet agents
No prior history of stents
#Hyperlipidemia
Continue statin
Diabetic neuropathy
Continue bupropion and duloxetine
BPH
Continue Flomax
Hypokalemia
Replete KCl
DVT prophylaxis heparin
Anticipated Discharge: 24 - 48 hours
Subjective/Interval History
-
Date of Service: May 19, 2023
patient still complains of pain
difficulty ambulating
has outpatient spine appt rescheduled for Thursday
Objective Data
-
Vital Signs:
Vital Signs
Temp Pulse Resp BP Pulse Ox
98.3 F 92 18 161/86 97
05/19/23 07:00 05/19/23 07:49 05/19/23 07:00 05/19/23 07:49 05/19/23 07:00
I&O
05/18/23 05/19/23 05/20/23
06:59 06:59 06:59
Intake Total 480 / 480 1160 / 1160
Balance 480 / 480 1160 / 1160
Review of Systems
-
History Source: Patient
All other systems: Reviewed and negative
Physical Exam
-
General: No Apparent Distress
HEENT: Normocephalic and Atraumatic
Respiratory: Clear to Auscultation
Cardiac: Regular Rhythm and S1/S2
Breast: Deferred by me
GI: Soft, Nontender and Nondistended
Rectal: Deferred by Provider
Genito-urinary: Deferred by me
Musculoskeletal: No Clubbing, No Cyanosis, No Edema and Other (pain with lifting LE; no midspine pain)
Neuro: AO x 3
Psych: Calm
Data Reviewed
-
Diagnostic Radiology: Report Reviewed by me
Labs: Labs Reviewed by me
[2023-05-19] MEDS: TYLENOL 1000 MG PO ×3 (09:59→21:25)
[2023-05-19] MEDS: LIDOCAINE 4% PATCH 1 PATCH TOPICAL (10:01)
[2023-05-19] MEDS: NEURONTIN 100 MG PO (10:01)
[2023-05-19 11:52] LABS: Glucose - Point of Care 97 mg/dl (70-99)
[2023-05-19] MEDS: NEURONTIN 300 MG PO ×2 (15:46→21:26)
[2023-05-19 16:51] LABS: Glucose - Point of Care 120 mg/dl (70-99)
[2023-05-19] MEDS: FLOMAX 0.400000000000000022 MG PO (17:40)
[2023-05-19] MEDS: SENOKOT-S PO (20:40)
[2023-05-19 21:25] LABS: Glucose - Point of Care 104 mg/dl (70-99)
[2023-05-19] MEDS: LANTUS 0.400000000000000022 UNITS SC (21:27)
[2023-05-19] MEDS: APRESOLINE 10 MG IV (22:22)
[2023-05-20] MEDS: HEPARIN 5000 UNITS SC ×2 (00:41→07:55)
[2023-05-20 03:55] VITALS: BP 156/90
[2023-05-20] MEDS: ROXICODONE 7.5 MG PO (05:34)
[2023-05-20 07:00] VITALS: BP 140/79
[2023-05-20 07:12] LABS: Glucose - Point of Care 112 mg/dl (70-99)
[2023-05-20] MEDS: NOVOLOG FLEXPEN-LOW RESISTANCE SC ×2 (07:52→12:16)
[2023-05-20] MEDS: GLUCOPHAGE 1000 MG PO (07:55)
[2023-05-20] MEDS: TYLENOL 1000 MG PO (07:56)
[2023-05-20] MEDS: CYMBALTA DELAYED RELEASE 120 MG PO (07:56)
[2023-05-20] MEDS: ZETIA 10 MG PO (07:56)
[2023-05-20] MEDS: NEURONTIN 300 MG PO (07:57)
[2023-05-20] MEDS: SENOKOT-S 1 TABLET PO (07:57)
[2023-05-20] MEDS: WELLBUTRIN XL (24 hour extended release) 300 MG PO (07:57)
[2023-05-20] MEDS: JARDIANCE 25 MG PO (07:58)
[2023-05-20] MEDS: COREG 6.25 MG PO (07:58)
[2023-05-20] MEDS: ZESTRIL 10 MG PO (07:58)
[2023-05-20] MEDS: LIDOCAINE 4% PATCH 1 PATCH TOPICAL (08:02)
--- NOTE | 2023-05-20 11:09 | W.PN.HOSP.TC ---
Today's Communication/Plan
-
OK for DC. Patient has an appt with Dr. Mora today at 3PM.
Assessment / Plan
Assessment / Plan
#Acute on chronic lumbar radiculopathy spondylosis secondary to severe spinal stenosis
Recent lumbar MRI 03/10/2023 with severe L4-L5 with increased spur disk and increased central canal and lateral recess stenosis bilaterally. � Multilevel degenerative spinal disease noted.
Patient follows with outpatient disability benefits specialist
X-ray of the lumbar spine without any fractures
*I discussed case with Dr. Mora on 05/18 and patient has an appt today to follow up at [address] Mora he likely needs surgery.
increased gabapentin
lidocaine patch
standing tylenol
Patient has outpatient pain management follow-up on Thursday (rescheduled)
#Primary hypertension
#Hypertension urgency
Likely exacerbated due to severe pain
Restart carvedilol and lisinopril
Monitor blood pressure with pain control
#Diabetes mellitus insulin-dependent
Restart Lantus takes 80 units nightly
Insulin sliding scale Accu-Cheks
Continue Jardiance
Continue metformin
Update a1c
#CAD
Not on any antiplatelet agents
No prior history of stents
#Hyperlipidemia
Continue statin
Diabetic neuropathy
Continue bupropion and duloxetine
BPH
Continue Flomax
Hypokalemia
Replete KCl
DVT prophylaxis heparin
Anticipated Discharge: Today
Subjective/Interval History
-
Date of Service: May 20, 2023
pain improved
feels ready to leave today and get to appointment with Dr. Mora
Objective Data
-
Vital Signs:
Vital Signs
Temp Pulse Resp BP Pulse Ox
97.9 F 90 16 140/79 100
05/20/23 07:00 05/20/23 07:58 05/20/23 07:00 05/20/23 07:58 05/20/23 07:00
I&O
05/19/23 05/20/23 05/21/23
06:59 06:59 06:59
Intake Total 1160 / 1160
Balance 1160 / 1160
Review of Systems
-
History Source: Patient
All other systems: Reviewed and negative
Physical Exam
-
General: No Apparent Distress
HEENT: Normocephalic and Atraumatic
Respiratory: Clear to Auscultation
Cardiac: Regular Rhythm and S1/S2
Breast: Deferred by me
GI: Soft, Nontender and Nondistended
Rectal: Deferred by Provider
Genito-urinary: Deferred by me
Musculoskeletal: No Clubbing, No Cyanosis, No Edema and Other (pain with lifting LE; no midspine pain)
Neuro: AO x 3
Psych: Calm
Data Reviewed
-
Diagnostic Radiology: Report Reviewed by me
Labs: Labs Reviewed by me
--- NOTE | 2023-05-20 11:20 | W.DS.TRANS ---
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
-
Discharge Instructions:
Discharge Diagnosis/Procedures acute on chronic back pain; degenerative disc
disease
Diet Diabetic, Carb Controlled
Activity No restrictions,As tolerated
Driving Restrictions As prior to admission
Bathing Restrictions None
Instructions:
Stand-Alone Forms:
Changes to Home Medications: Yes
Discharge Medications:
DC Medications w/original date entered in [facility]
duloxetine 60 mg capsule,delayed release 120 mg PO DAILY Mental Health/Anxiety 10/15/15
metformin 1,000 mg tablet 1,000 mg PO BID Diabetes 07/16/17
bupropion HCl 300 mg 24 hr tablet, extended release 300 mg PO DAILY Mental Health/Anxiety 06/24/21
ezetimibe 10 mg tablet 10 mg PO DAILY High cholesterol 06/24/21
atorvastatin 40 mg tablet 40 mg PO DAILY High cholesterol ##0 07/03/21
tamsulosin 0.4 mg capsule 0.4 mg PO HS Urinary issue 01/10/22
empagliflozin 25 mg tablet (Jardiance) 25 mg PO DAILY 01/22/22
lisinopril 10 mg tablet 10 mg PO DAILY #60 tabs 01/24/22
Metamucil 1 tbsp PO DAILYPRN PRN constipation 05/17/23
carvedilol 6.25 mg tablet 6.25 mg PO BID 05/17/23
dulaglutide 0.75 mg/0.5 mL subcutaneous pen injector (Trulicity) 0.75 mg SC TU@0800 05/17/23
insulin aspart U-100 100 unit/mL (3 mL) subcutaneous pen (Novolog FlexPen U-100 Insulin aspart) 15 - 20 sliding scale dose SC DIRECTED 05/17/23
insulin glargine 100 unit/mL (3 mL) subcutaneous pen (Lantus Solostar U-100 Insulin) 80 unit SC HS 05/17/23
meloxicam 7.5 mg tablet 7.5 mg PO DAILY 05/17/23
tizanidine 4 mg tablet 4 mg PO HS PRN muscle spasms 05/17/23
acetaminophen 500 mg tablet (Tylenol Extra Strength) 1,000 mg PO TID #0 tabs 05/20/23
gabapentin 300 mg capsule 300 mg PO TID #90 caps 05/20/23
lidocaine 4 % topical patch 1 patch topical DAILY #30 ea 05/20/23
oxycodone-acetaminophen 5 mg-325 mg tablet (Percocet) 1 tab PO Q6HPRN PRN severe pain #20 tabs 05/20/23
Home Medication Changes
addition lidocaine patch; gabapentin
refill percocet
Pending Results: No
[2023-05-20 12:00] LABS: Glucose - Point of Care 91 mg/dl (70-99)
--- NOTE | 2023-05-20 12:35 | CM ---
MD entered order for discharge.
Spoke with patient he said he was ready for dc and his Lisa will drive him home.
Offered VN he declined ,
IMM reviewed signed on chart.
PLAn Home no needs
[2023-05-20 12:42] VITALS: BP 144/82
--- NOTE | 2023-05-20 13:02 | PTCARENOTE ---
Reviewed discharge instructions with patient. Patient verbalizes understanding of all instructions and denies questions at this time. IV removed. Tele removed. Patient left via wheelchair with staff escort. is transport home.
--- NOTE | 2023-05-20 14:16 | W.DCSUMMARY ---
Discharge Summary
Discharge Data
Date of Admission: 05/17/23
Date of Discharge: 05/20/23
-
Pending Results: No
Hospital Course
Discharging Physician : Dr. Juanita Otero
Disposition : Home
Primary care physician : Dr. Jorge Angeles
Principal Discharge diagnosis : acute on chronic back pain from degenerative disc disease, spinal stenosis
Hospital Course :
Mr. Rohith Lacy is a 67 yo man with history essential hypertension, CAD, lumbar spinal stenosis and chronic back pain (follows with pain management spine) s/p recent epidural injection without relief of symptoms presents to the ER with worsening
pain. Patient denied any new bowel/bladder changes or saddle anesthesia. Ambulation limited 2/2 pain. Triage vitals signfiicant for hypertension 2/2 pain. He was admitted to medicine. During hospitalization he was started on Gabapentin,
uptitrated to 300mg PO TID. Lidocaine patch ordered, standing tylenol and he was given oxycodone PRN. Case discussed with neurosurgeon, Dr. Mora, who reviewed films from March and patient was able to arrange inpatient clinic appointment
today, on 05/20/23 to discuss further therapeutic options.
Patient is discharged with refill of Percocet (20 tabs); new script for Gabapentin and lidocaine patch. He is seeing Dr. Mora today at 3PM.
Time spent on discharge was 32 minutes.
Important imaging findings :
MRI 03/10/23
FINDINGS: I have labeled the lumbar spine vertebral bodies in keeping with the previous examination.
The vertebral bodies are normal in height and configuration without fracture. There is disk dehydration and desiccation at each level. There is mild disk narrowing in the lower thoracic levels, however no disk herniation. The conus medullaris is at
the L1 level and appears normal.
There is moderate spurring anteriorly at L1-2 and L2-3. The canal appears congenitally narrowed at L3 and L4.
Repeat imaging due to motion was performed with the axial T1-weighted images. Images however are still degraded by patient motion.
L1-L2: Broad-based disk bulge. Slight increase in facet and ligamentous hypertrophy, with increased inferior foraminal narrowing and lateral recess stenosis. No focal disk herniation.
L2-L3: Moderate broad-based diffuse disk bulge and posterior spurring. Moderate facet and ligamentous hypertrophy, slightly increased overall. No focal disk herniation. Slight increase in central canal and lateral recess stenosis. Spur disk abuts
and minimally impinges upon the exiting left L2 nerve root.
L3-L4: Moderate broad-based diffuse disk bulge, shallow central disk protrusion. Increased facet and ligamentous hypertrophy with slight increase in central canal and lateral recess stenosis. Spur disk extends into the exit foramen and may cause
minimal impingement upon the exiting right L3 nerve root. Moderate foraminal narrowing bilaterally.
L4-L5: Moderate broad-based diffuse disk bulge. Significant increase in overall bulge/protrusion, with significant increase in facet and ligamentous hypertrophy right greater than left with moderate to severe central canal and severe lateral recess
stenosis right greater than left. Spur disk abuts the exiting L4 nerve root on the left, and causes impingement on the right. Overall increased.
L5-S1: Slight increase in facet arthropathy on the left. This contributes to left lateral recess stenosis abutting the descending left S1 nerve root. There is mild diffuse disk bulge.
IMPRESSION:
Overall increased degenerative disk and joint disease when compared to the previous exam from 2 years ago. Please see above text for specific detail at each level.
This is most significant at L4-5, with increased spur disk and increased central canal and lateral recess stenosis bilaterally.
Procedure findings :
Discharge Plan
-
Patient Disposition: Home (Routine Discharge)
Discharge Diagnosis/Procedures: acute on chronic back pain; degenerative disc disease
Condition: Good
Diet: Diabetic, Carb Controlled
Activity: No restrictions and As tolerated
Driving Restrictions: As prior to admission
Bathing Restrictions: None
Referrals:
Jorge Angeles CRNP [Family Provider] -
Cosme Mora DO [Active] - 05/20/23 3:00 pm
Prescriptions:
New
lidocaine 4 % Adhesive Patch,Medicated
1 patch topical DAILY Qty: 30 0RF
acetaminophen [Tylenol Extra Strength] 500 mg Tablet
1,000 mg PO TID Qty: 0 0RF
gabapentin 300 mg capsule
300 mg PO TID Qty: 90 0RF
Continued
duloxetine 60 MG capsule,delayed release(DR/EC)
120 mg PO DAILY
metformin 1,000 MG tablet
1,000 mg PO BID
ezetimibe 10 MG tablet
10 mg PO DAILY
Patient Comments:
05/17/2023, last filled on 09/17/2022 for 90-day supply; per pt., he is finishing up his last prescription.
bupropion HCl 300 MG tablet extended release 24 hr
300 mg PO DAILY
atorvastatin 40 MG tablet
40 mg PO DAILY Qty: 0 0RF
tamsulosin 0.4 mg Capsule
0.4 mg PO HS
Hold Instructions: until follow up with your primary care doctor
Jardiance 25 mg tablet
25 mg PO DAILY
lisinopril 10 mg tablet
10 mg PO DAILY Qty: 60 0RF
carvedilol 6.25 mg Tablet
6.25 mg PO BID
tizanidine 4 mg Tablet
4 mg PO HS PRN (Reason: muscle spasms)
meloxicam 7.5 mg Tablet
7.5 mg PO DAILY
insulin aspart U-100 [Novolog FlexPen U-100 Insulin] 100 unit/mL (3 mL) Insulin Pen
15 - 20 sliding scale dose SC DIRECTED
Patient Comments:
05/17/2023, pt. unsure of breakdown of his sliding scale but states that he injects no less than 15 units per meal and other dosing depends on BS and what meal is.
insulin glargine [Lantus Solostar U-100 Insulin] 100 unit/mL (3 mL) Insulin Pen
80 unit SC HS
Trulicity 0.75 mg/0.5 mL Pen Injector
0.75 mg SC TU@0800
Metamucil
1 tbsp PO DAILYPRN PRN (Reason: constipation)
oxycodone-acetaminophen [Percocet] 5-325 mg tablet
1 tab PO Q6HPRN PRN (Reason: severe pain) Qty: 20 0RF
Discontinued
naproxen sodium [Aleve] 220 mg Tablet
220 mg PO BID PRN (Reason: mild pain)
Discharge Orders:
Discharge Patient (As Directed); Ordered 05/20/23
Ordered By: Juanita Otero
Discharge Date and Time
Discharge Date/Time: 05/20/23 12:52
== END 2023-05-20 12:52 | disposition home or self-care (01) | DRG 552 ==
LOC: 4 EAST ACU 12:24
PROVIDERS: ADMITTING PHYSICIAN Hospitalist; ATTENDING PHYSICIAN Student in an Organized Health Care Education/Training Program; EMERGENCY PHYSICIAN Student in an Organized Health Care Education/Training Program; FAMILY PHYSICIAN Nurse Practitioner Adult Health
DX: M54.16 Radiculopathy, lumbar region (principal); I10 Essential (primary) hypertension; I16.0 Hypertensive urgency; Z83.3 Family history of diabetes mellitus; E11.40 Type 2 diabetes mellitus with diabetic neuropathy, unspecified; Z79.4 Long term (current) use of insulin; I25.10 Atherosclerotic heart disease of native coronary artery without angina pectoris; E78.5 Hyperlipidemia, unspecified; N40.0 Benign prostatic hyperplasia without lower urinary tract symptoms; E87.6 Hypokalemia; G89.29 Other chronic pain; M48.061 Spinal stenosis, lumbar region without neurogenic claudication
CPT/HCPCS: 72100; 80048; 82962; 83036; 83735; 85025; 96372; 96374; 97162; 97166; 97530; 97535; 99284

== ENCOUNTER 2023-09-04 17:19 | Observation (INO) | payer OTHER, SELFPAY ==
[2023-09-04] VITALS (9 sets, daily range): BP systolic 141–187; BP diastolic 81–109; BMI 32.6; BMI 32.2
[2023-09-04 14:26] LABS: % Basophils 0.7 % (0-2); % Eosinophils 3.5 % (0-6); % Immature Granulocytes 0.5 % (0-0.5); % Lymphocytes 24.2 % (20.5-51.1); % Monocytes 8.4 % (1.7-9.3); % Neutrophils 62.7 % (42.2-75.2); Absolute Basophils 0.1 10^3/uL (0-0.2); Absolute Eosinophils 0.3 10^3/uL (0-0.7); Absolute Monocytes 0.7 10^3/uL (0.1-0.6); Absolute Neutrophils 5.2 10^3/uL (1.4-6.5); Hematocrit 42.9 % (39.0-52.0); Hemoglobin 14.9 g/dL (13.0-18.0); Mean Corp Hgb Conc. 34.7 g/dL (33.0-37.0); Mean Corpuscular Hgb 31.4 pg (27.0-31.0); Mean Corpuscular Volume 90.3 fL (80.0-94.0); Mean Platelet Volume 9.1 fL (7.4-10.4); Nucleated Red Blood Cells % 0 % (-); Platelet Count 247 10^3/uL (130-400); Red Blood Cell Count 4.75 10^6/uL (4.70-6.10); White Blood Cell Count 8.3 10^3/uL (4.8-10.8)
[2023-09-04 14:32] LABS: Urine Albumin 2+ (Neg - Trace); Urine Bilirubin Negative (Negative); Urine Character Clear (Clear); Urine Color Yellow; Urine Glucose 3+ (Negative); Urine Ketone Negative (Negative); Urine Leukocyte Negative (Negative); Urine Nitrite Negative (Negative); Urine Occult Blood Negative (Negative); Urine Urobilinogen Negative (Neg - 1+); Urine pH 6.5 (5.0-9.0)
[2023-09-04 14:36] LABS: INR 1.03; PT 13.4 Sec (11.4-14.6)
[2023-09-04 14:37] LABS: APTT 26.7 Sec (23.4-35.0)
[2023-09-04 14:42] LABS: ALT (SGPT) 19 U/L (0-50); AST (SGOT) 27 U/L (17-59); Alkaline Phosphatase 101 U/L (38-126); Blood Urea Nitrogen 14 mg/dl (9-20); Calcium 9.3 mg/dl (8.4-10.2); Carbon Dioxide 28 mmol/L (22-30); Chloride 104 mmol/L (98-107); Estimated Creatinine Clearance 92 ml/min; Glucose 97 mg/dl (70-99); Potassium 3.8 mmol/L (3.5-5.1); Sodium 140 mmol/L (135-145); Total Bilirubin 0.6 mg/dl (0.2-1.3); Total Protein 6.2 g/dl (6.3-8.2); eGFR > 60.00
[2023-09-04 14:52] LABS: Urine Granular Cast 0-2 /LPF (0)
[2023-09-04 14:53] LABS: Urine Urothelial Cell 0-2 /LPF (FEW); Urine White Cell 0-2 /HPF (0-5)
[2023-09-04 15:00] LABS: Troponin I 0.044 ng/ml
--- NOTE | 2023-09-04 16:04 | ED.GENMED ---
History of Present Illness
General
Chief Complaint: Change in Mental Status
Time Seen by Provider: 09/04/23 13:40
History of Present Illness
History of Present Illness:
68-year-old male with history of hypertension and diabetes presenting to the emergency department for brain fog and forgetfulness. Patient reports symptoms for the past 2 to 3 days. He arrives with his . He notes several episodes of complete
forgetfulness. Notes that he was driving, and suddenly did not know where he was going. Prior to arrival, he went to the [employer] to print out some form not operate the computer. His also reports that he has had increased agitation. He
denies focal weakness or sensory deficits to his extremities. He denies chest pain, reports some nausea. Notes history of cardiac event in the past. Denies difficulty breathing. Denies abdominal pain or GI symptoms. Denies any recent fall or
trauma. Denies any known history of dementia or Alzheimer's. Denies fever or infectious symptoms denies additional acute medical complaints
Past History
Past History
ED Past Medical History: CAD, HTN, IDDM and Other (kidney stones,)
ED Past Surgical History: None (Noncontributory)
Patient has exhibited threatening behavior?: No
PSI?: No
Social History
Tobacco: Non-smoker
Alcohol: None
Drug: None
Personal:
Living: with family
Employment: Employed
Family History
Family History: Other (Father with Parkinson's and diabetes)
Phy Exam
Physical Exam
Physical Exam:
General: Well-appearing, no clinical signs of dehydration, nontoxic and in no acute distress
HEENT: protecting airway
Neck: appears supple
CV: Normal heart rate, regular rhythm, no evidence of cyanosis
Resp: No accessory muscle use, no increased work of breathing, lungs clear to auscultation bilaterally
Abd: Soft and non-distended, no tenderness to palpation, normal bowel sounds
Extremities: No deformities, no swelling, no erythema, pulses and sensation intact
Neuro: alert, no focal neurologic deficit. Ambulating without difficulty
: deferred
Rectal: deferred
Psych: Normal affect
Skin: Intact
Scores
NIH Stroke Score
Level of Consciousness: 0 - Alert
LOC Questions: 0-Answers both correctly
LOC Commands: 0-Performs both correctly
Best Horizontal Gaze: 0-Normal
Visual Mistry: 0=Normal, no visual loss
Facial Palsy: 0=Normal, symmetrical
Motor - Right Arm: 0=No drift 10 seconds
Motor - Left Arm: 0=No drift 10 seconds
Motor - Right Le-No drift 5 seconds
Motor - Left Le-No drift 5 seconds
Limb Ataxia: 0-Absent
Sensation: 0-Normal
Best Language: 0-No aphasia
Dysarthria: 0-Normal
Extinction and Inattention: 0-No abnormality
Total Score:: 0
Course
Orders/Labs/Results
Orders:
Orders
09/04/23 14:13
Electrocardiogram (*1) Stat
Reason for Study: Other
Other Reason for Exam: neuro symptoms
CT Head W/o Iv Contrast Urgent
Comment:
Reason For Exam: forgetfulness
EKG- Treatment ONCE
09/04/23 14:19
Complete Blood Count/With Diff Urgent
Comprehensive Metabolic Panel Urgent
PTT Urgent
Prothrombin Time Urgent
Troponin I Urgent
Urinalysis Urgent
Date Specimen was Collected: 09/04/23
Time Specimen was Collected: 14:16
Urine Microscopic Urgent
Date Specimen was Collected: 09/04/23
Time Specimen was Collected: 14:16
Abnormal Lab Results
09/04/23 09/04/23
14:19 16:18
MCH 31.4 H pg
(27.0-31.0)
Absolute Monos (auto) 0.7 H 10^3/uL
(0.1-0.6)
Troponin I 0.044 H* ng/ml
Total Protein 6.2 L g/dl
(6.3-8.2)
Urine RBC 3-6 A /HPF
(0-2)
Urine Glucose 3+ A
(Negative)
Urine Albumin 2+ A
(Neg - Trace)
POC Glucose 69 L mg/dl
(70-99)
09/04/23 14:19
09/04/23 14:19
Vital Signs
Initial and Last Documented VS:
Initial Vital Signs
Temp Pulse BP Pulse Ox
98.1 F 85 149/85 96
09/04/23 13:22 09/04/23 13:22 09/04/23 13:22 09/04/23 13:22
Last Documented Vital Signs
Temp Pulse Resp BP Pulse Ox
98.1 F 79 9 147/88 94
09/04/23 13:22 09/04/23 14:15 09/04/23 14:15 09/04/23 15:00 09/04/23 15:15
MDM/Problems Addressed
MDM/Problems Addressed:
68-year-old male with history of diabetes and hypertension presenting for increased forgetfulness and brain fog for 2 to 3 days. Vital signs on arrival significant for mild hypertension.
On exam, patient resting comfortably, no acute distress or discomfort. Overall unremarkable neurologic exam. is at bedside, notes that patient is currently at his baseline. NIH stroke scale of 0. Patient not candidate for tPA, out of
window, and no significant deficits on exam. However concern for possible intracranial abnormality, with symptoms appearing acute to subacute in nature.. For this reason, will obtain CT brain imaging. Will also obtain EKG and screening laboratory
analysis.
16:15 - CT without acute intracranial abnormality. Discussed with neurology, feels can likely continue to be worked up outpatient. However, workup was additionally remarkable for elevated troponin with EKG changes. When discussing with patient,
notes about 6 years ago he did have a cardiac event where he was told he had a heart attack, presented with confusion, minimal chest pain. For this reason, do feel patient warrants admission for continued cardiac monitoring and troponin trending.
Will administer aspirin. Cardiology made aware.
*EKG
Interpreted by ED Provider?: Yes
EKG Intrepretation Date: 09/04/23
EKG Intrepretation Time: 15:00
Interpretation: abnormal
Comparison EKG: changes noted (01/22/22)
Heart Rate: 76
Rate: normal
Rhythm: sinus
[place]: normal axis
Interval: normal interval
QRS Pattern: normal QRS
Ischemia: T-wave inversion (Laterally, aVL and flattening V4 to V6)
*Critical Care Note
Total Time (30-74mins, 75-104mins- exclusive of procedures): Not Applicable
ED Attending Note
-
Portions of this chart may have been created with voice recognition software.� Occasional wrong word or��sound alike� substitutions may have occurred due to the inherent limitations of voice recognition software.
Discharge Plan
Departure
Prescriptions:
No Action
duloxetine 60 MG capsule,delayed release(DR/EC)
120 mg PO DAILY
metformin 1,000 MG tablet
1,000 mg PO BIDWMEAL
bupropion HCl 300 MG tablet extended release 24 hr
300 mg PO DAILY
atorvastatin 40 MG tablet
40 mg PO DAILY Qty: 0 0RF
tamsulosin 0.4 mg Capsule
0.4 mg PO HS
Hold Instructions: until follow up with your primary care doctor
Jardiance 25 mg tablet
25 mg PO DAILY
lisinopril 10 mg tablet
10 mg PO DAILY Qty: 60 0RF
carvedilol 6.25 mg Tablet
6.25 mg PO BID
meloxicam 7.5 mg Tablet
7.5 mg PO DAILY
insulin aspart U-100 [Novolog FlexPen U-100 Insulin] 100 unit/mL (3 mL) Insulin Pen
20 - 25 sliding scale dose SC DIRECTED
Patient Comments:
09/04/2023, pt. unsure of breakdown of his sliding scale but states that he injects no less than 20 units per meal and other dosing depends on BS and what meal is.
insulin glargine [Lantus Solostar U-100 Insulin] 100 unit/mL (3 mL) Insulin Pen
80 unit SC HS
Trulicity 0.75 mg/0.5 mL Pen Injector
0.75 mg SC TU@0800
gabapentin 300 mg capsule
300 mg PO TID Qty: 90 0RF
Patient Comments:
09/04/2023, last filled on 06/15/2023 for 30-day supply.
tizanidine 2 mg Tablet
2 mg PO BID
tetrahydrozoline [Visine] 0.05 % Drops
1 drp BOTH EYES BIDPRN PRN (Reason: dry eyes)
acetaminophen [Tylenol Extra Strength] 500 mg tablet
1,000 mg PO TIDPRN PRN (Reason: mild pain)
Referrals:
Jorge Angeles CRNP [Family Provider] -
Interventions
Interventions:
*Risk Screen - Suicide Last Done: 09/04/23 13:23
*General Assessment Last Done: 09/04/23 13:23
*Neglect/Abuse Screening Last Done: 09/04/23 13:23
*ED COVID-19 Vaccine History Last Done: 09/04/23 14:05
ED- Neurological Assessment Last Done: 09/04/23 14:06
ED Swallowing Screen Last Done: 09/04/23 14:06
Discharge Date and Time
Print Language: BENGALI
[2023-09-04 16:20] LABS: Glucose - Point of Care 69 mg/dl (70-99)
[2023-09-04 16:41] LABS: Glucose - Point of Care 88 mg/dl (70-99)
--- NOTE | 2023-09-04 16:47 | CON.CAR ---
Consultation
Consultation Request
Date/Time Consultation Requested: 09/04/2023 at 1600
Date/Time Consultation Performed: 09/04/2023 at 1700
Requesting Provider: Dr. Odette Suggs
Performing Provider: Dr. Tuan Sellers
Reason for Consultation: Detectable troponin
Medical History
-
Chief Complaint: Confusion
History of Present Illness:
68-year-old man with history of diabetes, hypertension, hyperlipidemia as well as CAD with a non-ST segment elevation PR in 2015 at which time he had 'brain fog' as the primary manifestation. Last seen in our office few months ago and doing well
from a cardiac standpoint. However over the last few days, he has had a change in mental status again, forgets where he is going, making mistakes, and wonders if this is a harbinger of recurrent coronary events. at bedside and states that he
is much different than usual. He has a lot of daytime fatigue and snores. Sugars have been poorly controlled of late, back pain remains his major symptom. He denies chest pain, shortness of breath, palpitations etc. no fevers, chills, anything to
suggest infection or inflammatory condition. He denies temporal artery discomfort, jaw claudication, etc. increasing visual problems.
Past Medical History
Past Medical History: CAD (Non-ST segment elevation anterior myocardial infarction 2015 with subtotal LAD occlusion and peak troponin of 1.9, treated conservatively), HTN, Hypercholesterolemia, NIDDM and Other (Orthostatic hypotension, renal
calculi, degenerative lumbar disc disease, chronic pain, diabetic retinopathy, history of malignant melanoma)
Past Surgical History: Cholecystectomy and Orthopedic (Lumbar laminectomy, deviated septum repair, cholecystostomy tube 2021 for hepatic abscess, open cholecystectomy)
Social History
Tobacco: Non-Smoker
Alcohol: None
Drug: None
Personal:
Living: With Family
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
Family History
Family History: Reviewed & Not Pertinent
Allergies / Home Medications
Allergy/AdvReac Type Severity Reaction Status Date / Time
hydromorphone [From Dilaudid] Allergy Unknown Verified 09/04/23 13:23
�Medication �Instructions �Recorded �Confirmed �Type
duloxetine 60 mg capsule,delayed 120 mg PO DAILY Mental 10/15/15 09/04/23 History
release Health/Anxiety
metformin 1,000 mg tablet 1,000 mg PO BIDWMEAL Diabetes 07/16/17 09/04/23 History
bupropion HCl 300 mg 24 hr tablet, 300 mg PO DAILY Mental 06/24/21 09/04/23 History
extended release Health/Anxiety
atorvastatin 40 mg tablet 40 mg PO DAILY High cholesterol ##0 07/03/21 09/04/23 Rx
tamsulosin 0.4 mg capsule 0.4 mg PO HS Urinary issue 01/10/22 09/04/23 History
empagliflozin 25 mg tablet 25 mg PO DAILY 01/22/22 09/04/23 History
(Jardiance)
lisinopril 10 mg tablet 10 mg PO DAILY #60 tabs 01/24/22 09/04/23 Rx
carvedilol 6.25 mg tablet 6.25 mg PO BID 05/17/23 09/04/23 History
dulaglutide 0.75 mg/0.5 mL 0.75 mg SC TU@0800 05/17/23 09/04/23 History
subcutaneous pen injector
(Trulicity)
insulin aspart U-100 100 unit/mL 20 - 25 sliding scale dose SC 05/17/23 09/04/23 History
(3 mL) subcutaneous pen (Novolog DIRECTED
FlexPen U-100 Insulin aspart)
insulin glargine 100 unit/mL (3 80 unit SC HS 05/17/23 09/04/23 History
mL) subcutaneous pen (Lantus
Solostar U-100 Insulin)
meloxicam 7.5 mg tablet 7.5 mg PO DAILY 05/17/23 09/04/23 History
gabapentin 300 mg capsule 300 mg PO TID #90 caps 05/20/23 09/04/23 Rx
acetaminophen 500 mg tablet 1,000 mg PO TIDPRN PRN mild pain 07/05/24 07/05/24 History
(Tylenol Extra Strength)
tetrahydrozoline 0.05 % eye drops 1 drp BOTH EYES BIDPRN PRN dry eyes 09/04/23 09/04/23 History
(Visine)
tizanidine 2 mg tablet 2 mg PO BID 09/04/23 09/04/23 History
Review of Systems
-
All other systems: Negative unless noted
Physical Exam
Vital Signs
Temp Pulse Resp BP Pulse Ox
36.7 C 79 9 147/88 94
09/04/23 13:22 09/04/23 14:15 09/04/23 14:15 09/04/23 15:00 09/04/23 15:15
Lab Results
09/04/23 14:19
09/04/23 14:19
Troponin I 0.044 ng/ml H* 09/04/23 14:19
Physical Exam
General: Other (Obese)
HEENT: Normocephalic (Prominent nontender temporal arteries)
Respiratory: Clear
Cardiac: S1/S2, Regular Rhythm and Murmur (No murmur)
GI: Soft, Non Tender and Normal Bowel Sounds
Musculoskeletal: No Edema
Skin: Warm and Dry
Neuro: AO x 3
Psych: Calm
Impression / Plan
-
Impression:
Brain fog/change in mental status
CAD, cardiac catheterization 2016 as below
Hypertension
Hyperlipidemia
Diabetes
Diabetic retinopathy
Degenerative disc disease
Orthostatic hypotension with history of syncope
Suspected obstructive sleep apnea
Echo March 2022: EF 50-55% without regional wall motion abnormality, mild LVH, mild mitral annular calcification, mild mitral regurgitation, aortic sclerosis with mild aortic regurgitation, normal RV, normal atria, normal pulmonary artery pressure
Exercise sestamibi study September 2020: 7 minutes Bryson protocol, small mildly decreased partially reversible basal inferior, mid inferior apical and apical inferior defect improving with prone imaging, EF is 44% but visually normal at 50 to 55%, no
ST segment changes, no 3 times daily
Cardiac catheterization October 2015: Normal left main, first diagonal with 60-70% stenosis at origin and midportion, moderate diffuse LAD atherosclerosis, very small caliber at apex and subtotally occluded wrapping around the apex, luminal
irregularities of circumflex, small RCA, nondominant, 99% mid stenosis, normal LV function, EF 65%
Plan:
He presents with 'brain fog' not classic transient global amnesia, with mental status changes of uncertain etiology. Screening CT scan of the head is unremarkable.
Would consider neurologic evaluation.
I suspect that his minimally elevated troponin is a nonischemic myocardial injury. It seems unlikely that his troponin represents an acute coronary syndrome, but we will trend troponin and consider repeat ischemic evaluation, likely a sestamibi
stress test as an outpatient and possibly with a repeat echocardiogram.
He should be on aspirin. It would be desirable to limit meloxicam. Continue carvedilol at this time.
I have taken the liberty of ordering a CRP, sed rate in the event that he has an underlying vasculitis causing mental status changes.
I have also taken the liberty of ordering nocturnal pulse oximetry as a screen for sleep apnea.
If his troponin and EKG remain unchanged he would be okay for discharge from a cardiac standpoint in the morning.
Data Reviewed
-
EKG: Tracing Personally Visualized and interpreted (Normal sinus rhythm, left anterior fascicular block, LVH, septal PR,)
CT Scan: Report Reviewed by me (CT 09/04/2023 parenchymal atrophy, no acute findings)
Medical Tests (Nuc Med, Echo etc): Report Reviewed by me
Labs: Labs Reviewed by me (Normal CBC, BUN and creatinine 14 and 0.9, potassium 3.8, troponin 0.044,)
Old Records: Reviewed
--- NOTE | 2023-09-04 17:04 | HPS.HSE ---
Family Physician
-
Family Physician: Jorge Angeles
Chief Complaint
-
brain fog/confusion
History of Present Illness
68-year-old male past medical history of CAD with IL 5 years ago without stent, hyperlipidemia, hypertension, diabetes, diabetic neuropathy, BPH, kidney stones, spinal stenosis status post laminectomy 2 weeks ago, presenting for brain fog and
forgetfulness for the past 2 to 3 days. 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 Yesterday he had an episode where he was going to the library to copy some pages and
print them and he forgot what he was trying to do. As per these episodes of confusion occur in discrete movements and patient is aware that he is confused during these episodes. Patient is normally agitated and gets angry when requested to do
certain things but notes that he has been more agitated and angry over the past few days when asked to do something he does not want to do. He notes that he does have some blurry vision when he gets confused. He denies any headache. He has
also been sleeping a lot recently. He denies any focal weakness or numbness and tingling apart from chronic weakness and numbness and tingling from spinal stenosis in his left lower extremity.
He had laminectomy 2 weeks ago for spinal stenosis. Since then he has not had any pain and has actually had relief from chronic pain. He has been taking tizanidine twice a day which is a new medication. He was started on gabapentin a month ago.
He denies taking any opiates which he was taking before the surgery. He denies any other new medications.
He did have some intermittent nausea but denies any vomiting. He denies any fevers or chills. He denies any chest pain or shortness of breath. He denies any diarrhea.
He states that his blood sugars have been fluctuating and they were as low as 60s today and he did have some headache at that time but this had improved after he was eating.
He denies smoking or alcohol use.
His father had Parkinson disease and stroke.
Medical History
Past Medical History
Past Medical History: Reports Other (CAD with IL 5 years ago without stent, hyperlipidemia, hypertension, diabetes, diabetic neuropathy, BPH, kidney stones, spinal stenosis status post laminectomy 2 weeks ago)
Past Surgical History: Reports Cholecystectomy and Other (laminectomy)
Social History
Tobacco: Non-smoker
Alcohol: None
Drug: None
Family History
Family History: Other
Allergies / Home Medications
Allergies reflects when Allergies were last updated in [employer].
Home Medications with original date entered in [employer]
Allergy/Medication List:
Allergies
Allergy/AdvReac Type Severity Reaction Status Date / Time
hydromorphone [From Dilaudid] Allergy Unknown Verified 09/04/23 13:23
Home Medications
duloxetine 60 mg capsule,delayed release 120 mg PO DAILY Mental Health/Anxiety 10/15/15
metformin 1,000 mg tablet 1,000 mg PO BIDWMEAL Diabetes 07/16/17
bupropion HCl 300 mg 24 hr tablet, extended release 300 mg PO DAILY Mental Health/Anxiety 06/24/21
atorvastatin 40 mg tablet 40 mg PO DAILY High cholesterol ##0 07/03/21
tamsulosin 0.4 mg capsule 0.4 mg PO HS Urinary issue 01/10/22
empagliflozin 25 mg tablet (Jardiance) 25 mg PO DAILY 01/22/22
lisinopril 10 mg tablet 10 mg PO DAILY #60 tabs 01/24/22
carvedilol 6.25 mg tablet 6.25 mg PO BID 05/17/23
dulaglutide 0.75 mg/0.5 mL subcutaneous pen injector (Trulicity) 0.75 mg SC TU@0800 05/17/23
insulin aspart U-100 100 unit/mL (3 mL) subcutaneous pen (Novolog FlexPen U-100 Insulin aspart) 20 - 25 sliding scale dose SC DIRECTED 05/17/23
insulin glargine 100 unit/mL (3 mL) subcutaneous pen (Lantus Solostar U-100 Insulin) 80 unit SC HS 05/17/23
meloxicam 7.5 mg tablet 7.5 mg PO DAILY 05/17/23
gabapentin 300 mg capsule 300 mg PO TID #90 caps 05/20/23
acetaminophen 500 mg tablet (Tylenol Extra Strength) 1,000 mg PO TIDPRN PRN mild pain 09/04/23
tetrahydrozoline 0.05 % eye drops (Visine) 1 drp BOTH EYES BIDPRN PRN dry eyes 09/04/23
tizanidine 2 mg tablet 2 mg PO BID 09/04/23
Review of Systems
-
History Source: Patient
A 12 point ROS was completed and negative except as noted: Yes
Constitutional: Reports No Symptoms
EENT: Reports No Symptoms
Respiratory: Reports No Symptoms
Cardiac: Reports No Symptoms
Abdomen/GI: Reports No Symptoms
: Reports No Symptoms
Musculoskeletal: Reports No Symptoms
Skin: Reports No Symptoms
Neurological: Reports No Symptoms
Endocrine: Reports No Symptoms
Hematologic/Lymphatic: Reports No Symptoms
Psych: Reports No Symptoms
Physical Exam
Vital Signs
Vital Signs
Temp Pulse Resp BP Pulse Ox
98.1 F 79 9 147/88 94
09/04/23 13:22 09/04/23 14:15 09/04/23 14:15 09/04/23 15:00 09/04/23 15:15
Physical Exam
General: Well Developed, Well Nourished and No Apparent Distress
HEENT: NormoCephalic, Moist mucous membranes and Atraumatic
Respiratory: Clear
Cardiac: S1/S2 and Regular Rhythm; No Murmur or Rub
GI: Soft, Non Tender, Non Distended and Normal Bowel Sounds; No Organomegaly
Rectal: Deferred by Provider
Musculoskeletal: No Clubbing, No Cyanosis and No Edema
Skin: No Rash
Neuro: Nonfocal/grossly intact
Laboratory Results
-
09/04/23 14:19
09/04/23 14:19
Laboratory Results
PT 13.4 Sec (11.4-14.6) 09/04/23 14:19
INR 1.03 09/04/23 14:19
APTT 26.7 Sec (23.4-35.0) 09/04/23 14:19
Total Bilirubin 0.6 mg/dl (0.2-1.3) 09/04/23 14:19
AST 27 U/L (17-59) 09/04/23 14:19
ALT 19 U/L (0-50) 09/04/23 14:19
Alkaline Phosphatase 101 U/L (38-126) 09/04/23 14:19
Troponin I 0.044 ng/ml H* 09/04/23 14:19
Data Reviewed
-
Lab Data: Labs Reviewed by me
Old Records: Reviewed
Impression/Plan
-
IMPRESSION:
PLAN:
# Episodic brain fog/memory impairment associated with blurry vision unclear etiology possibly secondary to metabolic encephalopathy from tizanidine/gabapentin vs CVA versus vs atypical presentation of IL
-Cognition is normal at this time
-No focal neurological deficits
-Hold tizanidine and gabapentin
-Check MRI brain
# Nonischemic myocardial injury versus IL
# History of CAD
-Troponin 0.044, continue to trend
-EKG shows sinus rhythm with sinus arrhythmia first-degree AV block with perhaps subtle nonspecific T wave changes in anterior lateral leads
-Cardiology consulted recommended aspirin
-Aspirin 325 mg followed by daily aspirin started
Essential hypertension
-Continue Coreg
-Continue lisinopril
Type 2 diabetes
-Possibly having hypoglycemic episodes
-Reduce Lantus from 80 to 40 units,
-Continue metformin
-High-dose insulin sliding scale
-Continue Jardiance
-On Trulicity
Diabetic neuropathy
Hyperlipidemia
-Continue statin
BPH
-Continue tamsulosin
Kidney stones
Severe spinal stenosis
-Continue meloxicam
-Hold tizanidine and gabapentin
Anxiety/depression
-Continue bupropion, duloxetine
Full code
DVT prophylaxis�SCDs
Diabetic diet
[2023-09-04] MEDS: ASPIRIN 325 MG PO (17:56)
[2023-09-04 19:11] LABS: Glucose - Point of Care 171 mg/dl (70-99)
[2023-09-04] MEDS: GLUCOPHAGE 1000 MG PO (19:25)
[2023-09-04 19:58] LABS: Erythrocyte Sed Rate 17 mm/hour (0-20)
[2023-09-04 20:06] LABS: C-Reactive Protein < 5.00 mg/L (0.0-10.00)
[2023-09-04 20:25] LABS: Troponin I 0.037 ng/ml
[2023-09-04 21:53] LABS: Glucose - Point of Care 104 mg/dl (70-99)
[2023-09-04] MEDS: COREG 6.25 MG PO (21:54)
[2023-09-04] MEDS: FLOMAX 0.400000000000000022 MG PO (21:54)
[2023-09-04] MEDS: LANTUS 0.400000000000000022 UNITS SC (21:55)
[2023-09-05] MEDS: APRESOLINE 10 MG IV (00:10)
[2023-09-05 01:14] LABS: Troponin I 0.042 ng/ml
[2023-09-05 03:49] VITALS: BP 153/96
[2023-09-05 07:00] VITALS: BP 147/68
[2023-09-05 07:31] LABS: Glucose - Point of Care 134 mg/dl (70-99)
[2023-09-05] MEDS: COREG 6.25 MG PO (08:16)
[2023-09-05] MEDS: WELLBUTRIN XL (24 hour extended release) 300 MG PO (08:16)
[2023-09-05] MEDS: ZESTRIL 10 MG PO (08:16)
[2023-09-05] MEDS: CYMBALTA DELAYED RELEASE 120 MG PO (08:16)
[2023-09-05] MEDS: GLUCOPHAGE 1000 MG PO (08:16)
[2023-09-05] MEDS: JARDIANCE 25 MG PO (08:16)
[2023-09-05] MEDS: MOBIC 7.5 MG PO (08:16)
[2023-09-05] MEDS: LOW STRENGTH ASPIRIN 81 MG PO (08:16)
[2023-09-05] MEDS: LIPITOR 40 MG PO (08:17)
[2023-09-05 09:20] LABS: % Basophils 0.5 % (0-2); % Eosinophils 3.3 % (0-6); % Immature Granulocytes 0.3 % (0-0.5); % Lymphocytes 17.9 % (20.5-51.1); % Monocytes 6.9 % (1.7-9.3); % Neutrophils 71.1 % (42.2-75.2); Absolute Eosinophils 0.3 10^3/uL (0-0.7); Absolute Lymphocytes 1.4 10^3/uL (1.2-3.4); Absolute Monocytes 0.6 10^3/uL (0.1-0.6); Absolute Neutrophils 5.6 10^3/uL (1.4-6.5); Hematocrit 42.3 % (39.0-52.0); Hemoglobin 14.6 g/dL (13.0-18.0); Mean Corp Hgb Conc. 34.5 g/dL (33.0-37.0); Mean Corpuscular Hgb 31.3 pg (27.0-31.0); Mean Corpuscular Volume 90.8 fL (80.0-94.0); Mean Platelet Volume 9.2 fL (7.4-10.4); Nucleated Red Blood Cells % 0 % (-); Platelet Count 217 10^3/uL (130-400); Red Blood Cell Count 4.66 10^6/uL (4.70-6.10); Red Cell Dist. Width 13.2 % (11.5-14.5); White Blood Cell Count 7.9 10^3/uL (4.8-10.8)
[2023-09-05 09:42] LABS: Troponin I 0.034 ng/ml
[2023-09-05 10:01] LABS: Glycohemoglobin (HgbA1c) 7.5 % (4.0-5.6)
[2023-09-05 10:14] LABS: ALT (SGPT) 19 U/L (0-50); AST (SGOT) 26 U/L (17-59); Albumin 3.8 g/dl (3.5-5.0); Alkaline Phosphatase 89 U/L (38-126); Blood Urea Nitrogen 14 mg/dl (9-20); Calcium 8.9 mg/dl (8.4-10.2); Carbon Dioxide 24 mmol/L (22-30); Chloride 102 mmol/L (98-107); Estimated Creatinine Clearance 117 ml/min; Glucose 222 mg/dl (70-99); Potassium 3.9 mmol/L (3.5-5.1); Sodium 135 mmol/L (135-145); Total Bilirubin 1.2 mg/dl (0.2-1.3); eGFR > 60.00
[2023-09-05 11:00] VITALS: BP 154/88
--- NOTE | 2023-09-05 12:01 | W.PN.HOSP.TC ---
Addendum entered and electronically signed by Hudson Pierre MD 09/05/23 12:08:
time of discharge 36-minutes
Original Note:
Today's Communication/Plan
-
Monitor vital signs see plan
Discharge today
cw aspirin
Assessment / Plan
Assessment / Plan
General: Well Developed, Well Nourished and No Apparent Distress
HEENT: Normocephalic, Moist mucous membranes and Atraumatic
Respiratory: Clear
Cardiac: S1/S2 and Regular Rhythm; No Murmur or Rub
GI: Soft, Non Tender, Non Distended and Normal Bowel Sounds
Musculoskeletal: No Clubbing, No Cyanosis and No Edema
Neuro: Nonfocal/grossly intact
Episodic brain fog/memory impairment associated with blurry vision unclear etiology possibly secondary to metabolic encephalopathy from tizanidine/gabapentin vs CVA versus vs atypical presentation of CT
-Cognition is normal at this time
-No focal neurological deficits
-Hold tizanidine; advised patient to dc; restart gabapentin on dc
-Check MRI brain neg for CVA; does show atrophy; advised patient to follow with neurology outpatient
# Nonischemic myocardial injury likely
# History of CADcardiology rec outpatient stress likely
-EKG shows sinus rhythm with sinus arrhythmia first-degree AV block with perhaps subtle nonspecific T wave changes in anterior lateral leads
-Cardiology consulted recommended aspirin
cw aspirin
Essential hypertension
-Continue Coreg
-Continue lisinopril
Type 2 diabetes
-Possibly having hypoglycemic episodes
-Reduce Lantus from 80 to 40 units,
-Continue metformin
-High-dose insulin sliding scale
-Continue Jardiance
-On Trulicity
Diabetic neuropathy
Hyperlipidemia
-Continue statin
BPH
-Continue tamsulosin
Kidney stones
Severe spinal stenosis
-Continue meloxicam
-Hold tizanidine and gabapentin
Anxiety/depression
-Continue bupropion, duloxetine
Full code
DVT prophylaxis�SCDs
Anticipated Discharge: Today
Subjective/Interval History
-
Date of Service: September 05, 2023
denies pain
Objective Data
-
Labs:
Laboratory Results
09/05/23
09:04
WBC 7.9
Hgb 14.6
Hct 42.3
Plt Count 217
Sodium 135
Potassium 3.9
Chloride 102
Carbon Dioxide 24
BUN 14
Creatinine 0.7
Glucose 222 H
Calcium 8.9
Total Bilirubin 1.2
AST 26
ALT 19
Alkaline Phosphatase 89
Vital Signs:
Vital Signs
Temp Pulse Resp BP Pulse Ox
97.7 F 90 14 147/68 97
09/05/23 07:00 09/05/23 08:16 09/05/23 07:00 09/05/23 08:16 09/05/23 10:43
I&O
09/04/23 09/05/23 09/06/23
06:59 06:59 06:59
Intake Total 640 / 640
Balance 640 / 640
--- NOTE | 2023-09-05 12:08 | W.DCSUMMARY ---
Discharge Summary
Discharge Data
Date of Admission: 09/04/23
Date of Discharge: 09/05/23
-
Pending Results: No
Hospital Course
68-year-old male with past medical history of type 2 diabetes mellitus, essential hypertension, diabetic neuropathy, hyperlipidemia, BPH, kidney stones, severe spinal stenosis, anxiety, depression came to the hospital with episodic brain fog/memory
impairment. Patient symptoms were likely thought was related to recent tizanidine use. CT scan and MRI was done which was negative for any acute CVA. MRI did show atrophy for which patient was instructed to follow-up with neurology for full neuro
examination. On admission patient also had mild troponin elevation which was likely thought was secondary to nonischemic myocardial injury. Patient was seen by cardiology and was instructed to follow-up with them outpatient. Given all these
findings patient was started on aspirin which was continued upon discharge. Patient Lantus was also decreased on this hospitalization due to episodes of hypoglycemia. Once patient symptoms continue to improve, he was then discharged home with
instructions to follow-up with all his physicians outpatient.
Discharge Plan
-
Patient Disposition: Home (Routine Discharge)
Discharge Diagnosis/Procedures: Memory impairment likely secondary to recent tizanidine use and possible progressing dementia
Nonischemic myocardial injury
Diet: As tolerated
Activity: As tolerated
Driving Restrictions: As prior to admission
Bathing Restrictions: None
Activity Restrictions/Additional Instructions:
Please stop tizanidine
Referrals:
Jorge Angeles CRNP [Family Provider] - in less than 1 week
Darvin Menchaca MD [Active] - in two to three weeks
Tuan Sellers MD [Active] -
Prescriptions:
New
aspirin 81 mg Tablet,Chewable
81 mg PO DAILY Qty: 30 0RF
Continued
duloxetine 60 MG capsule,delayed release(DR/EC)
120 mg PO DAILY
metformin 1,000 MG tablet
1,000 mg PO BIDWMEAL
bupropion HCl 300 MG tablet extended release 24 hr
300 mg PO DAILY
atorvastatin 40 MG tablet
40 mg PO DAILY Qty: 0 0RF
tamsulosin 0.4 mg Capsule
0.4 mg PO HS
Hold Instructions: until follow up with your primary care doctor
Jardiance 25 mg tablet
25 mg PO DAILY
lisinopril 10 mg tablet
10 mg PO DAILY Qty: 60 0RF
carvedilol 6.25 mg Tablet
6.25 mg PO BID
meloxicam 7.5 mg Tablet
7.5 mg PO DAILY
insulin aspart U-100 [Novolog FlexPen U-100 Insulin] 100 unit/mL (3 mL) Insulin Pen
20 - 25 sliding scale dose SC DIRECTED
Patient Comments:
09/04/2023, pt. unsure of breakdown of his sliding scale but states that he injects no less than 20 units per meal and other dosing depends on BS and what meal is.
Trulicity 0.75 mg/0.5 mL Pen Injector
0.75 mg SC TU@0800
tetrahydrozoline [Visine] 0.05 % Drops
1 drp BOTH EYES BIDPRN PRN (Reason: dry eyes)
acetaminophen [Tylenol Extra Strength] 500 mg tablet
1,000 mg PO TIDPRN PRN (Reason: mild pain)
gabapentin 300 mg capsule
300 mg PO TID
Patient Comments:
09/04/2023, last filled on 06/15/2023 for 30-day supply.
Changed
insulin glargine [Lantus Solostar U-100 Insulin] 100 unit/mL (3 mL) Insulin Pen
40 unit SC HS Qty: 0 0RF
Discontinued
tizanidine 2 mg Tablet
2 mg PO BID
Discharge Orders:
Discharge Patient (As Directed); Ordered 09/05/23
Ordered By: Hudson Pierre
Discharge Date and Time
Discharge Date/Time: 09/05/23 13:23
Print Language: KHMER
[2023-09-05 12:10] LABS: Glucose - Point of Care 142 mg/dl (70-99)
--- NOTE | 2023-09-05 12:19 | W.PN.CARDCBS ---
Today's Communication / Plan
-
Okay for discharge
Cardiac status stable
We will arrange for outpatient stress test given detectable troponin and outpatient follow-up
Impression / Plan
-
Impression:
Brain fog/change in mental status
CAD, cardiac catheterization 2015 as below
Hypertension
Hyperlipidemia
Diabetes
Diabetic retinopathy
Degenerative disc disease
Orthostatic hypotension with history of syncope
Suspected obstructive sleep apnea
Echo March 2022: EF 50-55% without regional wall motion abnormality, mild LVH, mild mitral annular calcification, mild mitral regurgitation, aortic sclerosis with mild aortic regurgitation, normal RV, normal atria, normal pulmonary artery pressure
Exercise sestamibi study September 2020: 7 minutes Bryson protocol, small mildly decreased partially reversible basal inferior, mid inferior apical and apical inferior defect improving with prone imaging, EF is 44% but visually normal at 50 to 55%, no
ST segment changes, no 3 times daily
Cardiac catheterization October 2015: Normal left main, first diagonal with 60-70% stenosis at origin and midportion, moderate diffuse LAD atherosclerosis, very small caliber at apex and subtotally occluded wrapping around the apex, luminal
irregularities of circumflex, small RCA, nondominant, 99% mid stenosis, normal LV function, EF 65%
Plan:
He looks better. Cardiac status is stable.
EKG and troponin acceptable.
Sed rate and CRP are normal.
He has mild desaturation on nocturnal pulse oximetry, unclear that CPAP is required, can be followed as outpatient.
Okay for discharge, we will set up sestamibi study and consider echo as outpatient.
We will arrange for outpatient cardiac follow-up.
Progress Note - Wire Web Worker
Subjective
Date of Service: September 05, 2023:
PMH/PSH/FH/SH: Reviewed
Allergies: Dilaudid
Outpatient medications: Aspirin 81 mg daily, atorvastatin 40 mg a day, Wellbutrin, carvedilol 6.25 twice daily, duloxetine, gabapentin, insulin, Jardiance, lisinopril 10 mg a day, meloxicam, metformin, tamsulosin, Trulicity
Current meds atorvastatin 40 mg a day, bupropion 300 mg a day, carvedilol 6.25 twice daily, duloxetine 120 mg a day, Jardiance 25 mg a day, lisinopril 10 mg daily, meloxicam 7.5 twice daily, metformin, tamsulosin 0.4 at bedtime, aspirin 81 mg a day,
insulin
ROS: Negative except as above
MRI brain no acute abnormality
ECG sinus rhythm, LVH, cannot exclude anterior DE, left anterior fascicular block
Hemoglobin 14.6, BUN and creatinine 14 and 0.7, potassium 3.9, troponin peak 0.042, CRP, sed rate normal,
Nocturnal pulse oximetry, some desaturations but total time below 89% 11 minutes 46 seconds, longest episode 22 seconds, minimal pulse ox was 83%
Objective
Labs:
09/05/23 09:04
09/05/23 09:04
Labs
Hgb 14.6 g/dL (13.0-18.0) 09/05/23 09:04
Hct 42.3 % (39.0-52.0) 09/05/23 09:04
Plt Count 217 10^3/uL (130-400) 09/05/23 09:04
PT 13.4 Sec (11.4-14.6) 09/04/23 14:19
INR 1.03 09/04/23 14:19
APTT 26.7 Sec (23.4-35.0) 09/04/23 14:19
Sodium 135 mmol/L (135-145) 09/05/23 09:04
Potassium 3.9 mmol/L (3.5-5.1) 09/05/23 09:04
BUN 14 mg/dl (9-20) 09/05/23 09:04
Creatinine 0.7 mg/dL (0.7-1.3) 09/05/23 09:04
Glucose 222 mg/dl (70-99) H 09/05/23 09:04
Troponins
09/04/23 09/04/23 09/05/23
14:19 19:38 00:43
Troponin I 0.044 H* 0.037 H* 0.042 H*
09/05/23
09:04
Troponin I 0.034
Vital Signs and I&O:
Vital Signs
Temp Pulse Resp BP Pulse Ox
36.7 C 83 18 154/88 97
09/05/23 11:00 09/05/23 11:00 09/05/23 11:00 09/05/23 11:00 09/05/23 11:00
Vital Signs
Temp Pulse Resp BP Pulse Ox
36.7 C 83 18 154/88 97
09/05/23 11:00 09/05/23 11:00 09/05/23 11:00 09/05/23 11:00 09/05/23 11:00
Intake & Output
09/03/23 09/04/23 09/05/23 09/06/23
07:59 07:59 07:59 07:59
Intake Total 640 / 640
Balance 640 / 640
Physical Exam
Physical Exam
154/88, pulse 83, respirate 18, head neck exam unremarkable, lungs are clear, soft systolic murmur, JVD okay, abdomen benign extremities without clubbing cyanosis or edema, patient states neurostatus is improved
--- NOTE | 2023-09-05 17:17 | CM ---
Alert awake oriented patient who lives with his iLsa who lives in an apartment 10 steps to enter.He is independent in driving and in all activities of daily living.He was offered VN he declined need.[facility] letter copy given reviewed . Signed on
chart.
DH VN hx / No SNF history
Pharmacy [facility]
PCP DR Angeles
PLAN Home Declined VN
== END 2023-09-05 13:23 | disposition home or self-care (01) ==
LOC: 3 WEST ACU 17:19
PROVIDERS: ADMITTING PHYSICIAN Hospitalist; ATTENDING PHYSICIAN Internal Medicine; CONSULT PHYSICIAN Internal Medicine Cardiovascular Disease; EMERGENCY PHYSICIAN Student in an Organized Health Care Education/Training Program; FAMILY PHYSICIAN Nurse Practitioner Adult Health
DX: R41.82 Altered mental status, unspecified (principal); I5A Non-ischemic myocardial injury (non-traumatic); H53.8 Other visual disturbances; M48.00 Spinal stenosis, site unspecified; R53.1 Weakness; I25.10 Atherosclerotic heart disease of native coronary artery without angina pectoris; E11.9 Type 2 diabetes mellitus without complications; I10 Essential (primary) hypertension; N20.0 Calculus of kidney; E78.5 Hyperlipidemia, unspecified; E11.40 Type 2 diabetes mellitus with diabetic neuropathy, unspecified; N40.0 Benign prostatic hyperplasia without lower urinary tract symptoms; R20.0 Anesthesia of skin; R20.2 Paresthesia of skin; F41.9 Anxiety disorder, unspecified; F32.A Depression, unspecified; R53.83 Other fatigue; R06.83 Snoring; I95.1 Orthostatic hypotension; G89.29 Other chronic pain; E78.00 Pure hypercholesterolemia, unspecified; I49.8 Other specified cardiac arrhythmias; I44.0 Atrioventricular block, first degree; E11.319 Type 2 diabetes mellitus with unspecified diabetic retinopathy without macular edema; G47.33 Obstructive sleep apnea (adult) (pediatric); I25.2 Old myocardial infarction; Z90.49 Acquired absence of other specified parts of digestive tract; Z88.5 Allergy status to narcotic agent; Z87.442 Personal history of urinary calculi; Z83.3 Family history of diabetes mellitus; Z79.84 Long term (current) use of oral hypoglycemic drugs; Z79.1 Long term (current) use of non-steroidal anti-inflammatories (NSAID); Z79.4 Long term (current) use of insulin; Z79.85 Long-term (current) use of injectable non-insulin antidiabetic drugs; Z85.820 Personal history of malignant melanoma of skin
CPT/HCPCS: 70450; 70551; 80053; 81003; 81015; 82962; 83036; 84484; 85025; 85610; 85652; 85730; 86140; 93005; 94762; 99285; G0378

== ENCOUNTER → 2023-09-14 06:49 | Outpatient (REF) | payer OTHER, SELFPAY | LOC: RCS 06:49 | PROVIDERS: ATTENDING PHYSICIAN Internal Medicine Cardiovascular Disease; FAMILY PHYSICIAN Nurse Practitioner Adult Health | DX: I25.10 Atherosclerotic heart disease of native coronary artery without angina pectoris (principal); R07.89 Other chest pain | CPT/HCPCS: 78452; 93017; A9500; J2785 ==

== ENCOUNTER → 2023-09-22 06:54 | Outpatient (REF) | payer OTHER, SELFPAY | LOC: RCS 06:54 | PROVIDERS: ATTENDING PHYSICIAN Internal Medicine Cardiovascular Disease; FAMILY PHYSICIAN Nurse Practitioner Adult Health | DX: I42.9 Cardiomyopathy, unspecified (principal) | CPT/HCPCS: 93306 ==

== ENCOUNTER 2024-03-17 03:15 | Inpatient (IN) | payer OTHER, SELFPAY ==
[2024-03-16 20:42] VITALS: BP 177/118
[2024-03-16 21:04] LABS: % Basophils 0.5 % (0-2); % Eosinophils 2.3 % (0-6); % Immature Granulocytes 0.2 % (0-0.5); % Lymphocytes 25.2 % (20.5-51.1); % Monocytes 9.8 % (1.7-9.3); Absolute Eosinophils 0.2 10^3/uL (0-0.7); Absolute Lymphocytes 2.2 10^3/uL (1.2-3.4); Absolute Monocytes 0.8 10^3/uL (0.1-0.6); Absolute Neutrophils 5.3 10^3/uL (1.4-6.5); Hematocrit 40.9 % (39.0-52.0); Hemoglobin 13.6 g/dL (13.0-18.0); Mean Corp Hgb Conc. 33.3 g/dL (33.0-37.0); Mean Corpuscular Volume 93.2 fL (80.0-94.0); Mean Platelet Volume 8.9 fL (7.4-10.4); Nucleated Red Blood Cells % 0 % (-); Platelet Count 238 10^3/uL (130-400); Red Blood Cell Count 4.39 10^6/uL (4.70-6.10); Red Cell Dist. Width 14.1 % (11.5-14.5); White Blood Cell Count 8.6 10^3/uL (4.8-10.8)
[2024-03-16 21:24] LABS: ALT (SGPT) 17 U/L (0-50); AST (SGOT) 24 U/L (17-59); Albumin 3.5 g/dl (3.5-5.0); Alkaline Phosphatase 113 U/L (38-126); Blood Urea Nitrogen 16 mg/dl (9-20); Calcium 9.2 mg/dl (8.4-10.2); Carbon Dioxide 27 mmol/L (22-30); Chloride 103 mmol/L (98-107); Glucose 114 mg/dl (70-99); Potassium 3.2 mmol/L (3.5-5.1); Sodium 136 mmol/L (135-145); Total Bilirubin 0.7 mg/dl (0.2-1.3); Total Protein 5.9 g/dl (6.3-8.2); eGFR > 60.00
[2024-03-16 21:38] LABS: Troponin I 0.086 ng/ml
[2024-03-16 22:39] LABS: NT-proBNP 2360 pg/ml
[2024-03-16 23:00] VITALS: BP 167/113
--- NOTE | 2024-03-16 23:05 | ED.GENMED ---
History of Present Illness
General
Chief Complaint: Swelling
Source: patient, spouse and previous hospital records (Hospitalizations August 2023 for confusion, elevated troponin. Confusion thought to be related to tizanidine use. Evaluated by cardiology who felt elevated troponins related to nonischemic
myocardial injury)
Time Seen by Provider: 03/16/24 22:16
History of Present Illness
History of Present Illness:
This is a 68-year-old gentleman with history of insulin requiring diabetes, hypertension, hyperlipidemia, CAD with non-STEMI 2015 which at that time he presented with fatigue/brain fog as primary manifestation.
Last hospitalized August of this year with somewhat similar complaint of brain fog. Unremarkable neurologic evaluation, MRI showing no evidence of stroke. Troponins were mildly elevated 0.044 peak. Evaluated by cardiology did not feel that this was
ACS. Confusion thought to be related to tizanidine use. He had follow-up nuclear stress test September 13 which showed no evidence of ischemia but noted EF of 33% which was significantly reduced from previous stress test 2020. An echocardiogram in
August showed EF of 44%.
Patient has history of chronic low back pain, lumbar DJD and underwent lumbar laminectomy end of August and does admit to significant improvement in low back pain but admits that he has not followed up with physical therapy recommendations and admits
that his overall physical stamina remains limited.
He started Trulicity 2 months ago and admits to modest weight loss, his blood sugars have been fairly well-controlled with a few mild hypoglycemic episodes, he has been titrating his insulin down.
Over the past few days he has noticed some bilateral feet swelling, progressive and much worse today. He is also noticed some moderate fatigue, night sweats and a several day history of 'congestion in his throat' with no definitive cough, no chest
pain or palpitations, no shortness of breath but does admit to feeling that he is unable to take a full deep breath. He admits to some dyspnea on exertion but believes this is somewhat chronic, unsure if dyspnea on exertion has worsened over the
past few days.
He has not noticed a fever. No close contacts with similar symptoms.
No recent travel.
Patient does note that he yesterday, after unplugging an air conditioner, he lost his balance and fell backward. He denies injury, no head injury nor loss of consciousness. He admits to chronic issues with balance. He denies frequent falls. He
takes no anticoagulants.
Blood pressure moderately elevated in the ED. Patient states his blood pressure is generally well-controlled 130/80.
Other than addition of Trulicity, no other medication changes recently.
Past History
Past History
ED Past Medical History: CAD, Cancer (Malignant melanoma), HTN, Hypercholesterolemia, IDDM, NE (Non-STEMI 2016 peak troponin 1.9-treated conservatively. Cath at that time showed subtotal LAD occlusion) and Other (kidney stones, lumbar DJD,
peripheral neuropathy)
ED Past Surgical History: Cholecystectomy and Orthopedic (Lumbar laminectomy August 2023)
Patient has exhibited threatening behavior?: No
PSI?: No
Social History
Tobacco: Non-smoker
Alcohol: None
Drug: None
Personal:
Living: with family
Employment: Retired
Family History
Family History: Other (Father with Parkinson's and diabetes)
Phy Exam
Physical Exam
Physical Exam:
GENERAL: 68-year-old gentleman appears his stated age, bright and alert, pleasant, appears in no acute distress. is accompanying. Oral temperature 98.9 �F. BP 167/113
EYE: pupils equal and reactive. anicteric
NECK: Supple, nontender, no meningismus, no significant adenopathy.
ENT: posterior pharynx is without injection, scant clear to pearly postnasal drip is noted, oral mucosa is moist. TM clear b/l, nares patent.
CARDIAC: Regular rate and rhythm. no murmur.
LUNGS: no acute respiratory distress, scant rales at bases.
ABDOMEN: Soft, nondistended, without focal tenderness, no r/g, no cvat. normoactive BS.
NEUROLOGICAL: Alert and oriented x3, no focal neuro deficits. Motor strength is 5/5 bilaterally. Gross sensation is intact.
SKIN: Warm and dry, normal color, skin intact. No rash.
MUSCULOSKELETAL: No clubbing or cyanosis. Trace pretibial edema bilateral lower extremities. Peripheral pulses are full and equal b/l. No palpable tenderness.
PSYCH: Normal and appropriate interaction.
Scores
Heart Failure Risk
Heart Failure Risk Score: Yes
History of Stroke or TIA: No
History of intubation for respiratory distress: No
Heart rate on ED arrival >/= 110: No
SaO2 <90% on arrival on room air: No
HR >/=110 during 3min walk test (or too ill to perform test): Yes
ECG has acute ischemic changes: Yes
Urea >/=12mmol/L (BUN 33.6mg/dL): No
Serum CO2>/=35mmol/L: No
Troponin I or T elevated to NE Level (0.4mg/dL): No
NT-proBNP >/=5,000ng/L (5,000pg/ml): No
HF Risk Score: 4
Admission Status: HIGH RISK 26.1% Consider SNF treatment or admission to hospital
Course
Orders/Labs/Results
Orders:
Orders
03/16/24 20:44
Electrocardiogram (*1) Urgent
Reason for Study: Chest Pain
EKG- Treatment ONCE
03/16/24 20:56
Complete Blood Count/With Diff Urgent
Comprehensive Metabolic Panel Urgent
NT-proBNP Urgent
Comment: ADD ON
Troponin I Urgent
03/16/24 21:55
Add On- LAB Urgent
Tests Added?: bnp
03/16/24 23:04
Electrocardiogram (*1) Urgent
Reason for Study: Shortness of Breath
Other Reason for Exam: repeat with troponin
EKG- Treatment ONCE
03/16/24 23:41
COVID-19 Antigen Urgent
Source: Nasal Swab
Troponin I Urgent
Influenza A+B Rapid Molecular Urgent
MARIZOL Source: Nasal Swab
Specimen Description:
03/17/24 00:00
CR Chest - 2 Views Urgent
Reason For Exam: congestion x few days, MARTINEZ
US Periph Venous LOWER Ext Ananda Urgent
03/17/24 01:30
Potassium Chloride [KCl] 40 meq PO NOW STA
03/17/24 01:31
Furosemide [Lasix] 20 mg IV NOW STA
03/17/24 01:32
Nitroglycerin Ointment [Nitro-Bid] 1 inch TOPICAL NOW STA
Abnormal Lab Results
03/16/24 03/16/24
20:56 23:41
RBC 4.39 L 10^6/uL
(4.70-6.10)
Absolute Monos (auto) 0.8 H 10^3/uL
(0.1-0.6)
Monocytes % 9.8 H %
(1.7-9.3)
Potassium 3.2 L mmol/L
(3.5-5.1)
Glucose 114 H mg/dl
(70-99)
Troponin I 0.086 H* ng/ml 0.087 H* ng/ml
Total Protein 5.9 L g/dl
(6.3-8.2)
03/16/24 20:56
03/16/24 20:56
Vital Signs
Initial and Last Documented VS:
Initial Vital Signs
Temp Pulse Resp BP Pulse Ox
97.7 F 93 16 177/118 100
03/16/24 20:42 03/16/24 20:42 03/16/24 20:42 03/16/24 20:42 03/16/24 20:42
Last Documented Vital Signs
Temp Pulse Resp BP Pulse Ox
97.7 F 94 22 180/108 92
03/16/24 20:42 03/17/24 01:30 03/17/24 01:30 03/17/24 01:27 03/17/24 01:30
MDM/Problems Addressed
Differential Diagnosis Includes:
Concern for CHF, ACS, DVT, anemia, pneumonia, viral URI such as COVID/flu. He is noted to have borderline low-grade fever. Will check COVID and influenza as well as chest x-ray.
EKG shows normal sinus rhythm, LVH with left bundle branch block which is unchanged from previous however there is flattened to mild ST depression laterally in V5 and V6 which is new compared to previous EKG August 2023.
Troponin is again mildly elevated 0.086. Concerning for coronary ischemia.
BNP is elevated at 2360 which is much higher than previous result May 2021 at 200.
Will check ultrasound bilateral lower extremities assess for potential DVT.
He does have history of peripheral neuropathy which may be exacerbated. There is no evidence of arterial ischemia on exam and nothing in history to suggest peripheral vascular disease. He denies claudication symptoms.
Will repeat troponin and EKG.
Patient has CGM in place. Current blood sugar reading of 68. He may still need 1 piece of pizza for dinner. Currently eating a snack.
Will continue to monitor blood sugar frequently.
Chronic conditions affecting care: DM, HTN, CAD and Neurological disorder
*Radiology
Radiology exam reviewed: preliminary read by ED provider (Chest x-ray concerning for mild interstitial fullness, concerning for mild CHF.) and other (Preliminary report; venous Doppler bilateral lower extremities negative for DVT)
*Pulse Oximetry
Patient hypoxic: no
*EKG
Interpreted by ED Provider?: Yes
Comparison EKG: changes noted (Lateral flipped T waves/mild ST depression in V3 5 and V6 are new compared to previous EKG)
Rate: normal
Rhythm: sinus
Prospect: left axis deviation
Interval: first degree heart block
QRS Pattern: left bundle branch block and left vent hypertrophy
Ischemia: ST depression
*Animation Producer Interpretation
Rate: normal
Rhythm: sinus
*Critical Care Note
Total Time (30-74mins, 75-104mins- exclusive of procedures): Not Applicable
Update Note
Update Note:
01:30
Repeat troponin 0.087.
Venous Doppler bilateral lower extremities negative for DVT.
Chest x-ray concerning for mild bilateral interstitial fullness concerning for mild CHF.
Patient continues with moderate hypertension, continues to deny chest pain but with known CAD, diabetes, hyperlipidemia significant concern for silent ischemia, ACS with concern for CHF.
He is mildly hypokalemic thus will replete with oral potassium 40 mg first and then plan for a small dose of IV Lasix at 20 mg.
Will initiate Nitropaste and will admit to hospitalist service.
Initial hypoglycemia resolved with consumption of a snack and orange juice.
Will continue frequent CGM monitoring.
ED Attending Note
-
Portions of this chart may have been created with voice recognition software.� Occasional wrong word or��sound alike� substitutions may have occurred due to the inherent limitations of voice recognition software.
Discharge Plan
Departure
Patient Disposition: Admit
Date of Disposition: 03/17/24
Time of Disposition: 01:40
Admit to: Telemetry
Admit to doctor: Tonio
Presentation/result/management discussed w/ accepting MD/DO: Hospitalist
Condition: Fair
Discharge Problem:
Acute CHF (congestive heart failure), Elevated troponin I level
Prescriptions:
No Action
carvedilol 6.25 mg Tablet
6.25 mg PO BID
insulin glargine [Lantus U-100 Insulin] 100 unit/mL Solution
0 unit SC QPM
insulin aspart U-100 [Novolog U-100 Insulin aspart] 100 unit/mL Solution
1 sliding scale dose SC .WITH MEALS
Rx Instructions:
MAX 20 UNITS
metformin 1,000 mg Tablet
1,000 mg PO BID
lisinopril 10 mg Tablet
10 mg PO DAILY
duloxetine [Cymbalta] 60 mg Capsule,Delayed Release(Dr/Ec)
120 mg PO DAILY
Jardiance
1 tab PO DAILY
Rx Instructions:
DOESNT KNOW MG
bupropion HCl
30 mg PO DAILY
Referrals:
Jorge Angeles CRNP [Family Provider] -
Interventions
Interventions:
*Risk Screen - Suicide Last Done: 03/16/24 20:42
*Neglect/Abuse Screening Last Done: 03/16/24 20:42
ED- Fall Risk Assessment Last Done: 03/16/24 23:15
ED- Cardiac Assessment Last Done: 03/16/24 23:15
ED- Pulmonary Assessment Last Done: 03/16/24 23:15
ED-Skin Assessment Last Done: 03/16/24 23:15
Discharge Date and Time
Print Language: WELSH
[2024-03-16 23:30] VITALS: BP 186/113
[2024-03-17] VITALS (54 sets, daily range): BP systolic 125–199; BP diastolic 80–115; BMI 30.5
[2024-03-17 00:10] LABS: COVID-19 Antigen Negative (Negative)
[2024-03-17 00:29] LABS: Troponin I 0.087 ng/ml
[2024-03-17] MEDS: KCL 40 MEQ PO (01:48)
[2024-03-17] MEDS: NITRO-BID 1 INCH TOPICAL (01:49)
[2024-03-17] MEDS: LASIX 20 MG IV (01:49)
--- NOTE | 2024-03-17 02:53 | HPS.HSE ---
Family Physician
-
Family Physician: Jorge Angeles
Chief Complaint
-
LE swelling, SOB
History of Present Illness
Patient is a 68y M with PMH significant for ASCVD, hypertension and DM-II who presents to ED complaining of LE swelling and SOB. Patient states that he has appreciated swelling in the legs / ankles over the past 2-3 days. He notes that he has
been feeling more SOB with exertion / activity over the past week or so. Patient denies any chest pain or pressure. Not lightheaded or dizzy. No fevers or chills. No cough. No GI complaints.
His most recent medication change was Trulicity which was started about 2 months ago. He reports some weight loss since beginning this.
Medical History
Past Medical History
Past Medical History: Reports Other
Additional Past Medical History:
Coronary Artery Disease
Essential Hypertension
Hyperlipidemia
Insulin-Dependent Type II Diabetes Mellitus
Mood Disorder
BPH
Recurrent Syncope secondary to Orthostatic Hypotension
Past Surgical History: Reports Other
Additional Past Surgical History:
Cholecystectomy
Laminectomy
Deviated Septum
Social History
Tobacco: Non-smoker
Alcohol: None
Drug: None
Personal:
Living: With Family
Family History
Family History: Not pertinent
Allergies / Home Medications
Allergies reflects when Allergies were last updated in [facility].
Home Medications with original date entered in [facility]
Allergy/Medication List:
Allergies
Allergy/AdvReac Type Severity Reaction Status Date / Time
hydromorphone [From Dilaudid] Allergy Unknown Verified 03/16/24 20:42
Home Medications
Jardiance 1 tab PO DAILY 03/17/24
bupropion HCl 30 mg PO DAILY 03/17/24
carvedilol 6.25 mg tablet 6.25 mg PO BID 03/17/24
duloxetine 60 mg capsule,delayed release (Cymbalta) 120 mg PO DAILY 03/17/24
insulin aspart U-100 100 unit/mL subcutaneous solution (Novolog U-100 Insulin aspart) 1 sliding scale dose SC .WITH MEALS 03/17/24
insulin glargine 100 unit/mL subcutaneous solution (Lantus U-100 Insulin) 0 unit SC QPM SLIDING SCALE 0 TO 40 03/17/24
lisinopril 10 mg tablet 10 mg PO DAILY 03/17/24
metformin 1,000 mg tablet 1,000 mg PO BID 03/17/24
Review of Systems
-
History Source: Patient
A 12 point ROS was completed and negative except as noted: Yes
Constitutional: Reports Fatigue; Denies Fever or Chills
EENT: Denies Sore Throat
Respiratory: Reports Trouble Breathing; Denies Cough
Cardiac: Denies Chest Pain
Abdomen/GI: Denies Abdominal Pain, Nausea, Vomiting or Diarrhea
: Denies Dysuria, Frequency or Flank Pain
Musculoskeletal: Reports Edema
Neurological: Denies Dizzy or Headache
Psych: Denies Depression or Anxiety
Physical Exam
Vital Signs
Vital Signs
Temp Pulse Resp BP Pulse Ox
97.7 F 93 22 180/108 92
03/16/24 20:42 03/17/24 01:49 03/17/24 01:30 03/17/24 01:49 03/17/24 01:30
Physical Exam
General: Other (68y M in no acute distress.)
HEENT: Moist mucous membranes, PERRLA and Other (No JVD. )
Respiratory: Other (Few bibasilar rales.)
Cardiac: S1/S2 and Regular Rhythm (with ectopy.); No Murmur
GI: Soft, Non Tender, Non Distended and Normal Bowel Sounds
Musculoskeletal: No Clubbing, No Cyanosis and Other (1+ edema b/l ankles.)
Neuro: AO x 3
Laboratory Results
-
03/16/24 20:56
03/16/24 20:56
Laboratory Results
Total Bilirubin 0.7 mg/dl (0.2-1.3) 03/16/24 20:56
AST 24 U/L (17-59) 03/16/24 20:56
ALT 17 U/L (0-50) 03/16/24 20:56
Alkaline Phosphatase 113 U/L (38-126) 03/16/24 20:56
Troponin I 0.087 ng/ml H* 03/16/24 23:41
Impression/Plan
-
A/P: Patient is a 68y M with PMH significant for ASCVD, HTN and DM-II who presents to ED complaining of lower extremity swelling, MARTINEZ and weakness over the past several days.
Hypertensive Emergency
Abnormal Troponin - Likely BP / CHF > ACS
- Admit for further evaluation and treatment.
- BP in the ED 180-200 systolic / 100+ diastolic.
- No chest pain, but detectable troponin. EKG with chronic LBBB / repol changes.
- New edema and dyspnea concerning for development of CHF (see below).
- Begin IV NTG and titrate as needed for BP control.
- Trend troponin and follow for any new symptoms / complaints.
- Adjust PO antihypertensive regimen as needed for improved control.
- Cardiology evaluation.
Acute HFmrEF
- New edema, MARTINEZ and 10-fold increase in BNP.
- Not on chronic diuretics (other than Jardiance).
- Last Echo (August 2023) with LVEF = 45-50% and severe LVH.
- Begin IV Lasix and follow I/Os, daily weights, etc.
- Update Echo.
- Cardiology evaluation.
Hypokalemia
- Potassium replacement now prior to initiation of Lasix.
- Continue KCl BID and adjust dosing as needed.
DM-II
- Stable. Adjusting insulin regimen since initiation of Trulicity about 2 months ago.
- Continue basal : bolus insulin at decreased doses.
- Follow glucose and cover with SSI as needed.
- Update A1C.
ASCVD
- No complaints of chest pain - but elevated troponin as noted above.
- Continue CV med regimen. ASA daily (not on current OP list?)
- Follow troponin, etc as noted above.
Mood Disorder
- Stable. Continue current med regimen.
DVT Prophylaxis: Lovenox
Code Status: Full
[2024-03-17] MEDS: KCL ELIXIR 40 MEQ PO (03:36)
[2024-03-17] MEDS: FLUSH (NSS) 1 FLUSH IV (03:38)
[2024-03-17] MEDS: NITROGLYCERIN PREMIX 250 IV (03:43)
[2024-03-17 06:32] LABS: Hematocrit 43.6 % (39.0-52.0); Hemoglobin 14.3 g/dL (13.0-18.0); Mean Corp Hgb Conc. 32.8 g/dL (33.0-37.0); Mean Corpuscular Hgb 30.8 pg (27.0-31.0); Mean Platelet Volume 9.3 fL (7.4-10.4); Platelet Count 239 10^3/uL (130-400); Red Blood Cell Count 4.64 10^6/uL (4.70-6.10); Red Cell Dist. Width 14.2 % (11.5-14.5); White Blood Cell Count 9.5 10^3/uL (4.8-10.8)
[2024-03-17 06:40] LABS: Blood Urea Nitrogen 14 mg/dl (9-20); Calcium 8.8 mg/dl (8.4-10.2); Carbon Dioxide 25 mmol/L (22-30); Chloride 106 mmol/L (98-107); Glucose 141 mg/dl (70-99); HDL Cholesterol 52 mg/dl; LDL Cholesterol, Calculated 39 mg/dl; Sodium 140 mmol/L (135-145); Total Cholesterol 117 mg/dl (50-199); Triglyceride 132 mg/dl (10-149); Very Low Density Lipoprotein 26 mg/dl (0-30); eGFR > 60.00
[2024-03-17 06:55] LABS: Troponin I 0.088 ng/ml
[2024-03-17 07:26] LABS: TSH Reflex To Free T4 2.52 uIU/ml (0.47-4.68)
[2024-03-17 08:06] LABS: Glucose - Point of Care 138 mg/dl (70-99)
[2024-03-17] MEDS: NOVOLOG FLEXPEN-MODERATE RESISTANCE SC ×2 (08:22→17:04)
[2024-03-17] MEDS: FARXIGA 10 MG PO (08:24)
[2024-03-17] MEDS: CYMBALTA DELAYED RELEASE 120 MG PO (08:24)
[2024-03-17] MEDS: WELLBUTRIN XL (24 hour extended release) 300 MG PO (08:24)
[2024-03-17] MEDS: COREG 6.25 MG PO ×2 (08:25→20:07)
[2024-03-17] MEDS: ZESTRIL 10 MG PO (08:25)
[2024-03-17] MEDS: LOW STRENGTH ASPIRIN 81 MG PO (08:25)
[2024-03-17] MEDS: KLOR-CON 20 MEQ PO ×2 (08:25→20:07)
[2024-03-17] MEDS: LASIX 40 MG IV ×2 (08:28→16:03)
[2024-03-17 08:51] LABS: Glycohemoglobin (HgbA1c) 7.3 % (4.0-5.6)
--- NOTE | 2024-03-17 09:11 | W.PN.HOSP.TC ---
Today's Communication/Plan
-
Continue diuresis
Transfer to IVU
Wean off nitro drip
Cath Tomorrow
Assessment / Plan
Assessment / Plan
68-year-old with lower extremity edema also shortness of breath with exertion
Awake alert
Feels a lot better
Cardiovascular system S1-S2 appreciated
Chest decreased breath sounds, no rales
Lower extremity edema Much better
# Hypertensive emergency blood pressure was 199/101 mm HG in ER
Started on IV nitroglycerin, weaning now
Continue Coreg, lisinopril
# Acute HFrEF
Chest x-ray reviewed by me-pulmonary edema with mild bilateral effusions
Elevated proBNP
Echo August 2023-EF 40 to 45% and severe LVH
Stress test 09/14/2023-no ischemia. Fixed inferior and inferior apical defects artifact versus chronic infarct
IV Lasix to be continued
Continue Coreg, Jardiance, lisinopril
Check repeat echo
Cardiology evaluation noted
Planning for cardiac catheterization tomorrow
# Mild troponin elevation-likely nonischemic myocardial injury secondary to CHF
# Bmlhfkjgedr-fttdehrj-[id number] with Lasix
# Diabetes type 2 -Hemoglobin A1c 7.3
On Trulicity as outpatient-started 2 months ago
Also on Lantus insulin on a sliding scale from 0-40 and NovoLog sliding scale as outpatient
Patient stated that he has required Much lower amounts of Lantus recently
Lantus 20 units and NovoLog sliding scale
Continue metformin, Jardiance
# Anxiety/depression-continue Cymbalta
# Multinodular goiter-normal TSH
# History of melanoma removal from chest in 2004
# Lumbar laminectomy 2004/spinal stenosis
# History of nephrolithiasis
# Diverticulosis
# Obesity per BMI criteria
# DVT prophylaxis-Lovenox
Discussed with cardiology
Discussed with nursing
Called and discussed
cc time more than 30 min
Anticipated Discharge: 24 - 48 hours
Subjective/Interval History
-
Date of Service: March 17, 2024
Objective Data
-
Labs:
Laboratory Results
03/16/24 03/17/24
20:56 06:15
WBC 9.5
Hgb 14.3
Hct 43.6
Plt Count 239
Sodium 136 140
Potassium 3.2 L 4.0
Chloride 103 106
Carbon Dioxide 27 25
BUN 16 14
Creatinine 0.9 0.8
Glucose 114 H 141 H
Calcium 9.2 8.8
Total Bilirubin 0.7
AST 24
ALT 17
Alkaline Phosphatase 113
Vital Signs:
Vital Signs
Temp Pulse Resp BP Pulse Ox
97.2 F 87 20 179/96 88
03/17/24 08:49 03/17/24 07:20 03/17/24 07:20 03/17/24 07:20 03/17/24 08:22
I&O
03/16/24 03/17/24 03/18/24
06:59 06:59 06:59
Output Total 700 / 700
Balance -700 / -700
--- NOTE | 2024-03-17 09:19 | CON.CAR ---
Addendum entered and electronically signed by Jo Mulligan MD 03/17/24 11:54:
I saw and examined the patient.
The De Alcoholizer's note was reviewed and I agree with the note.
Comment: Patient known to our service who tells me that for the past few months he is having dyspnea on exertion. Over the past 2 weeks he has noted worsening dyspnea on exertion, decline in activity level at home and increasing lower extremity
edema prompting ER visit. His blood pressure was elevated, he was in pulmonary edema with hypertensive urgency. He is on an IV nitroglycerin drip and has been diuresing with improving blood pressure and is feeling better overall. Echocardiogram
with slight decline in left ventricular ejection fraction 35 to 40% (previously 46%). Troponin is mildly elevated 0.8. Recent previous admission with troponin 0.4 and stress test without significant ischemia. Given new heart failure with
decompensation/pulmonary edema which is acute on chronic onset, change in echocardiogram and troponin likely representing non-Q wave myocardial infarction the risks and benefits of proceeding with more invasive testing including cardiac
catheterization discussed with the patient and then later his .
Plan at this time:
-Continue diuresis
-Continue IV nitroglycerin
-Start IV heparin
-Continue to trend troponins
-Continue with good blood pressure control
-Add statin
-Follow telemetry
-Echocardiogram reviewed.
-We discussed the risks and benefits of proceeding with cardiac catheterization and they are agreeable to proceed. Would like to see patient diuresed a little bit more so plan for cardiac catheterization tomorrow unless any acute change. Patient
without chest pain. EKG without acute abnormalities today but initial EKG with some more pronounced T wave abnormalities. Discussed with primary service.
Original Note:
Consultation
Consultation Request
Date/Time Consultation Requested: 03/17/24 at 0518
Date/Time Consultation Performed: 03/17/24 at 1024
Requesting Provider: Dr. Reilly
Performing Provider: Dr. Jo Mulligan
Reason for Consultation: Elevated troponin, acute HF
Medical History
-
History of Present Illness:
Patient came to [facility] last night with MARTINEZ and edema and was admitted with HTN emergency and acute HF and cardiology has been consulted. Patient started with MARTINEZ months ago and in the last 2-3 weeks he started with LE edema. He denies chest pain.
Patient's forced him to go to the ER last night because his shoes no longer fit on his feet and he was markedly HTN at 177/118. Initial Troponin 0.086 and then flat. Patient was started on NTP and then switched to Nitro gtt. pro-BNP 2360 and
CXR with interstitial pulmonary edema. Patient was admitted with acute HF. Patient reports symptomatic improvement overnight and is down to 1 L NC and LE edema has improved.
PMH:
CAD
NSTEMI and subtotal occlusion of LAD by cath 2015
HTN
Hyperlipidemia
DM 2
Diabetic retinopathy
Degenerative disc disease
Orthostatic hypotension with history of syncope
Suspected obstructive sleep apnea
Possible dementia, work-up ongoing at [facility]
Past Medical History
Past Medical History: CAD (Non-ST segment elevation anterior myocardial infarction 2015 with subtotal LAD occlusion and peak troponin of 1.9, treated conservatively), HTN, Hypercholesterolemia, NIDDM and Other (Orthostatic hypotension, renal
calculi, degenerative lumbar disc disease, chronic pain, diabetic retinopathy, history of malignant melanoma)
Past Surgical History: Cholecystectomy and Orthopedic (Lumbar laminectomy, deviated septum repair, cholecystostomy tube 2021 for hepatic abscess, open cholecystectomy)
Social History
Tobacco: Non-Smoker
Alcohol: None
Drug: None
Personal:
Living: With Family
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
Family History
Family History: Cancer, Diabetes and Hypertension
Allergies / Home Medications
Allergy/AdvReac Type Severity Reaction Status Date / Time
hydromorphone [From Dilaudid] Allergy Unknown Verified 03/16/24 20:42
�Medication �Instructions �Recorded �Confirmed �Type
Jardiance 1 tab PO DAILY 03/17/24 03/17/24 History
bupropion HCl 300 mg PO DAILY 03/17/24 03/17/24 History
carvedilol 6.25 mg tablet 6.25 mg PO BID 03/17/24 03/17/24 History
duloxetine 60 mg capsule,delayed 120 mg PO DAILY 03/17/24 03/17/24 History
release (Cymbalta)
insulin aspart U-100 100 unit/mL 1 sliding scale dose SC .WITH MEALS 03/17/24 03/17/24 History
subcutaneous solution (Novolog
U-100 Insulin aspart)
insulin glargine 100 unit/mL 0 unit SC QPM SLIDING SCALE 0 TO 40 03/17/24 03/17/24 History
subcutaneous solution (Lantus
U-100 Insulin)
lisinopril 10 mg tablet 10 mg PO DAILY 03/17/24 03/17/24 History
metformin 1,000 mg tablet 1,000 mg PO BID 03/17/24 03/17/24 History
Review of Systems
-
History Source: Patient and Family ( helping with HPI by phone)
All other systems: Negative unless noted
Physical Exam
Vital Signs
Temp Pulse Resp BP Pulse Ox
97.2 F 87 20 179/96 98
03/17/24 08:49 03/17/24 07:20 03/17/24 07:20 03/17/24 07:20 03/17/24 08:51
GEN: NAD. AAOx3
HEENT: EOMI, MMM
LUNGS: 1 L NC. Coarse BS throughout with slight expiratory wheeze
CV: SR on tele. Reg, S1/S2, no murmur
ABD: soft, BS+, NT, ND
EXT: +1-2 B/L LE edema. No clubbing, cyanosis or lesions B/L
NEURO: Gross non-focal
SKIN: Warm, dry and pink. No rash
Lab Results
03/17/24 06:15
03/17/24 06:15
Troponin I 0.088 ng/ml H* 03/17/24 06:15
Lwa-N-Tpxudndkhbx Pept 2360 pg/ml 03/16/24 20:56
Impression / Plan
-
PCP: Karthik SHARMA
Cardiology: Dr. Yañez
Impression:
Admitted with edema, MARTINEZ, CHF and HTN 03/16/24
HTN emergency
NSTEMI
Acute HFrEF
Hypokalemia
CAD
NSTEMI and subtotal occlusion of LAD by cath 2015
HTN
Hyperlipidemia
DM 2
Diabetic retinopathy
Degenerative disc disease
Orthostatic hypotension with history of syncope
Suspected obstructive sleep apnea
Possible dementia, work-up ongoing at [facility]
Lexiscan nuclear stress test 09/14/23: Negative Lexiscan sestamibi for ischemia, fixed inferior and inferior apical defects C/W soft tissue attenuation, moderately decreased systolic function EF 33% with global hypokinesis
Echo 03/2022: EF 50-55% without regional wall motion abnormality, mild LVH, mild mitral annular calcification, mild mitral regurgitation, aortic sclerosis with mild aortic regurgitation, normal RV, normal atria, normal pulmonary artery pressure
Echo 03/07/2024: EF 35% by Grayson's method but closer to 35 to 40% visually, segmental wall motion abnormalities most pronounced in the mid to distal anterior, mid to distal lateral, mid to distal septal and possibly mild hypokinesis inferior wall,
mild concentric LVH, stage I diastolic dysfunction, normal RV size and function, mild MR, trace aortic regurgitation
Plan:
-Patient came to [facility] last night with MARTINEZ and edema and was admitted with HTN emergency and acute HF and cardiology has been consulted. Patient started with MARTINEZ months ago and in the last 2-3 weeks he started with LE edema. He denies chest pain.
Patient's forced him to go to the ER last night because his shoes no longer fit on his feet and he was markedly HTN at 177/118. Initial Troponin 0.086 and then flat. Patient was started on NTP and then switched to Nitro gtt. pro-BNP 2360 and
CXR with interstitial pulmonary edema. Patient was admitted with acute HF. Patient reports symptomatic improvement overnight and is down to 1 L NC and LE edema has improved.
-ECG reviewed by me shows SR with LVH. Tele reviewed by me and is SR.
-Echo noted above. EF reduced with new WMA. Troponin was 0.088 and flat, will check again in AM, ordered by me.
-Talked with patient in room while his was on speakerphone and reviewed hospital course and findings thus far. Patient and agreeable to cardiac cath in AM. Patient added to cath schedule and updated hospitalist attending.
-Cont aspirin 81 mg daily which is new this admission.
-Check CVE. Patient was not taking a statin prior to admission.
-EF 35% by echo.
-Outpatient dose of Coreg 6.25 mg BID has been continued.
-Outpatient dose of lisinopril 10 mg daily has been continued.
-Outpatient dose of Jardiance 25 mg daily has been continued.
-Nitro gtt started in ER last night and running at 60 mcg. Will cont Nitro gtt with weaning protocol as BP improves with diuresis.
-Weight is down at least 2 lbs overnight and LE edema has improved. Cont Lasix 40 mg IV BID. Patient was not taking a diuretic prior to admission.
-Outpatient dose of metformin on hold. Insulin ordered.
--- NOTE | 2024-03-17 09:42 | PTCARENOTE ---
Pt arrived from ED via stretcher. Ambulated to unit bed with minimal assistance. AAOx3. Denying pain. SaO2 88% on room air. 2L NC applied and SaO2 to 98%. Lungs clear to auscultation. Sinus tach on heel cementer. HR 90s - 100s. Trace pitting LE
edema. Palpable pedal pulses. Nitro gtt infusing @ 65mcg/min with goal of SBP < 160. Abdomen full. (+) bowel sounds. Good appetite. Ate 100% of breakfast. Voiding yellow into urinal. Heart failure education packet provided.
--- NOTE | 2024-03-17 11:03 | CM ---
CM following re: discharge planning.
Reviewed pt's chart, met with pt.
Pt is a 68 year old male, admitted with primary dx of Hypertensive emergency, Acute HFrEF.
Pt reports he lives with spouse in an apartment, 4+5 steps to enter, has supportive son. 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 No DME, VN or SNF history.
PCP: Jo Angeles
Pharmacy: [facility]
D/C plan: home with anticipated no needs. Spouse to transport at discharge.
CM will follow with discharge plan updates as hospitalization progresses
[2024-03-17 11:13] LABS: Magnesium 1.4 mg/dl (1.6-2.3)
[2024-03-17 12:08] LABS: Troponin I 0.079 ng/ml
[2024-03-17] MEDS: HEPARIN 25000 UNITS/250 ML IV (12:39)
[2024-03-17 12:42] LABS: APTT 28.9 Sec (23.4-35.0)
[2024-03-17 13:00] LABS: Glucose - Point of Care 178 mg/dl (70-99)
[2024-03-17] MEDS: NOVOLOG FLEXPEN-MODERATE RESISTANCE 1 UNITS SC (13:20)
--- NOTE | 2024-03-17 16:50 | PTCARENOTE ---
Rec'd pt from ICU. Pt is AOx3. Tele - SR 90s. BP 142/93. Nitro gtt infusing at 20 mcg/min and heparin gtt infusing at 1000 units/hr. Pt has no complaints at this time. Voiding clear yellow urine into urinal. Oriented pt to room. Call kirti w/in
reach.
[2024-03-17 17:03] LABS: Glucose - Point of Care 136 mg/dl (70-99)
[2024-03-17] MEDS: LIPITOR 40 MG PO (17:47)
[2024-03-17 18:12] LABS: APTT 32.9 Sec (23.4-35.0)
[2024-03-17 18:27] LABS: Troponin I 0.079 ng/ml
--- NOTE | 2024-03-17 20:14 | PTCARENOTE ---
pt received at change of shift, pt seen and assessed in room. Pt AOx3, tele reading NSR w occ PVCs. Nitro gtt running at 40mcg/min, titrating per protocol. Heparin gtt running at 1200u/hr next PTT at 12:15am. This RN explained plan of care to
patient, pt verbalizes understanding. No complaints of pain at this time. Call cotto within reach. Continuing to monitor at this time.
[2024-03-17] MEDS: TYLENOL 650 MG PO (22:18)
[2024-03-17 22:19] LABS: Glucose - Point of Care 131 mg/dl (70-99)
[2024-03-17] MEDS: LANTUS 0.2 UNITS SC (22:19)
[2024-03-18] VITALS (22 sets, daily range): BP systolic 135–184; BP diastolic 83–119; BMI 30.1
[2024-03-18 00:31] LABS: APTT 41.6 Sec (23.4-35.0)
[2024-03-18 01:07] LABS: Troponin I 0.071 ng/ml
[2024-03-18] MEDS: HEPARIN 25000 UNITS/250 ML IV (04:27)
[2024-03-18 06:32] LABS: Hematocrit 37.8 % (39.0-52.0); Hemoglobin 12.7 g/dL (13.0-18.0); Mean Corp Hgb Conc. 33.6 g/dL (33.0-37.0); Mean Corpuscular Hgb 31.1 pg (27.0-31.0); Mean Corpuscular Volume 92.6 fL (80.0-94.0); Mean Platelet Volume 9.3 fL (7.4-10.4); Platelet Count 220 10^3/uL (130-400); Red Blood Cell Count 4.08 10^6/uL (4.70-6.10); Red Cell Dist. Width 14.1 % (11.5-14.5)
[2024-03-18 06:41] LABS: APTT 42.3 Sec (23.4-35.0)
[2024-03-18 06:50] LABS: Blood Urea Nitrogen 17 mg/dl (9-20); Calcium 8.3 mg/dl (8.4-10.2); Carbon Dioxide 28 mmol/L (22-30); Chloride 102 mmol/L (98-107); Estimated Creatinine Clearance 88 ml/min; Glucose 127 mg/dl (70-99); Potassium 3.5 mmol/L (3.5-5.1); Sodium 138 mmol/L (135-145); eGFR > 60.00
[2024-03-18] MEDS: FARXIGA 10 MG PO (07:41)
[2024-03-18] MEDS: LOW STRENGTH ASPIRIN 81 MG PO (07:41)
[2024-03-18] MEDS: KLOR-CON 20 MEQ PO ×2 (07:41→19:44)
[2024-03-18] MEDS: COREG 6.25 MG PO (07:42)
[2024-03-18] MEDS: NOVOLOG FLEXPEN-MODERATE RESISTANCE SC ×2 (07:42→13:20)
[2024-03-18] MEDS: CYMBALTA DELAYED RELEASE 120 MG PO (07:42)
[2024-03-18] MEDS: WELLBUTRIN XL (24 hour extended release) 300 MG PO (07:42)
[2024-03-18] MEDS: ZESTRIL 10 MG PO (07:42)
--- NOTE | 2024-03-18 07:52 | PTCARENOTE ---
Addendum entered by Sona Stapleton RN 03/18/24 07:58:
4 beat runs of VT noted on the monitor at 0027 & 0209
Original Note:
The patient is aaox3, vss, 98% on RA. NSR with a 1st degree AVB is noted on the monitor. Heparin gtt running at 1600 units/hr. Nitro gtt running at 5.3ml/hr. He has no complaints of cough, SOB, or pain.
[2024-03-18 08:11] LABS: Glucose - Point of Care 114 mg/dl (70-99)
--- NOTE | 2024-03-18 08:31 | W.PN.HOSP.TC ---
Today's Communication/Plan
-
Cardiac catheterization today
Continue diuresis
Assessment / Plan
Assessment / Plan
68-year-old with lower extremity edema also shortness of breath with exertion
Awake alert
Cardiovascular system S1-S2 appreciated
Chest decreased breath sounds, no rales
Lower extremity edema
# Hypertensive emergency blood pressure was 199/101 mm HG in ER
Started on IV nitroglycerin, weaning slowly
Continue Coreg, lisinopril
# Acute HFrEF
Chest x-ray reviewed by me-pulmonary edema with mild bilateral effusions
Elevated proBNP
Stress test 09/14/2023-no ischemia. Fixed inferior and inferior apical defects artifact versus chronic infarct
Echo 03/17/2024-normal LV size. EF 35% segmental wall motion abnormalities mid to distal anterior, mid to distal lateral, mid to distal septal and possibly mild hypokinesis inferior wall. Mild concentric LVH. Stage I diastolic dysfunction. Mild
MR. Trace AI.
IV Lasix to be continued
Continue Coreg, Jardiance, lisinopril, Statin added this admit
Planning for cardiac catheterization today
# NSTEMI - IV Heparin,ASA, BB, lisinopril
# [id number] with Lasix
# Diabetes type 2 -Hemoglobin A1c 7.3
On Trulicity as outpatient-started 2 months ago
Also on Lantus insulin on a sliding scale from 0-40 and NovoLog sliding scale as outpatient
Patient stated that he has required Much lower amounts of Lantus recently
Lantus 20 units and NovoLog sliding scale
Continue Jardiance.
Hold Metformin for cath
# Anxiety/depression-continue Cymbalta
# Multinodular goiter-normal TSH
# History of melanoma removal from chest in 2004
# Lumbar laminectomy 2004/spinal stenosis
# History of nephrolithiasis
# Diverticulosis
# Obesity per BMI criteria
# DVT prophylaxis-Heparin gtt
Discussed with nursing at bed side
Anticipated Discharge: 24 - 48 hours
Subjective/Interval History
-
Date of Service: March 18, 2024
Objective Data
-
Labs:
Laboratory Results
03/18/24 03/18/24 03/18/24
00:12 05:56 12:10
WBC 8.0
Hgb 12.7 L
Hct 37.8 L
Plt Count 220
APTT 41.6 H 42.3 H Cancelled
Sodium 138
Potassium 3.5
Chloride 102
Carbon Dioxide 28
BUN 17
Creatinine 0.9
Glucose 127 H
Calcium 8.3 L
03/18/24
12:45
WBC
Hgb
Hct
Plt Count
APTT Pending
Sodium
Potassium
Chloride
Carbon Dioxide
BUN
Creatinine
Glucose
Calcium
Vital Signs:
Vital Signs
Temp Pulse Resp BP Pulse Ox
98.5 F 97 20 157/91 98
03/18/24 07:31 03/18/24 07:32 03/18/24 07:31 03/18/24 07:32 03/18/24 07:31
I&O
03/17/24 03/18/24 03/19/24
06:59 06:59 06:59
Intake Total 882.7 / 882.7
Output Total 700 / 700 4200 / 4200
Balance -700 / -700 -3317.3 / -3317.3
--- NOTE | 2024-03-18 09:15 | PTCARENOTE ---
The patient went to the bathroom in an attempt to have a BM. I removed his O2 to see how his oxygen sat was without O2. The patient was in the bathroom for approximately 10-15 minutes. When returned from the bathroom, his O2 on RA was 96%. He has no
complaint of SOB. Will leave the O2 off the patient
[2024-03-18] MEDS: LASIX 40 MG IV ×2 (12:40→16:31)
[2024-03-18] MEDS: FLUSH (NSS) 2 FLUSH IV ×2 (12:42→16:32)
--- NOTE | 2024-03-18 12:48 | PTCARENOTE ---
Received the patient from the landscape laborer in his bed. The patient is aaox3. Sinus tach is noted on the monitor with a HR of 102. His right R-band is in place. A right radial pulse is noted. Right brachial dressing is c/d/i. He has no complaints other
than being thirsty. I instructed him on his activity restrictions and his fluid restrictions.
He used the urinal upon returning from the landscape laborer and his urine is a milky maxx color. Dr. Reilly notified.
--- NOTE | 2024-03-18 13:02 | W.PN.UPDATE ---
Update Note
Progress Note Update
urine cloudy . Will get UA and CX
[2024-03-18 13:08] LABS: Glucose - Point of Care 121 mg/dl (70-99)
[2024-03-18] MEDS: PLAVIX 300 MG PO (13:24)
[2024-03-18] MEDS: NORVASC 2.5 MG PO (13:24)
[2024-03-18] MEDS: PROTONIX 40 MG PO (13:24)
[2024-03-18 13:29] LABS: Urine Albumin 3+ (Neg - Trace); Urine Bilirubin Negative (Negative); Urine Character Very Cloudy (Clear); Urine Color Brown; Urine Glucose 3+ (Negative); Urine Ketone 1+ (Negative); Urine Leukocyte 2+ (Negative); Urine Nitrite Negative (Negative); Urine Occult Blood 4+ (Negative); Urine Urobilinogen Negative (Neg - 1+)
[2024-03-18 13:41] LABS: Urine Red Blood Cell >100 /HPF (0-2); Urine White Cell >100 /HPF (0-5)
--- NOTE | 2024-03-18 14:32 | CM ---
CM following for DC planning needs.
Met w/ patient at bedside. He has been transferred to IVU from alternative unit.
Pt. confirms that he resides in a private apartment w/ spouse. Apartment has approx. [address]. Functionally, patient is quiet indep. w/ ADLs, mobility without the use of any assisted device.
Pt. anticipates DC to home once medically stable, without needs.
Plan is for home, no needs.
Will remain available.
--- NOTE | 2024-03-18 15:11 | ITS.CL.CATH ---
Plant Protection Supervisor - Catheterization
Cardiac Catheterization
Procedure Report:
RIGHT AND LEFT HEART STUDY
Date of Procedure: March 18, 2024
Referring: Dr. Jose Yañez
PROCEDURES:
1. Right heart catheterization
2. Left heart catheterization with coronary and single-plane left ventriculography
INDICATION: This is a has a 68-year-old gentleman who presented to [facility] with a few month history of increased dyspnea on exertion and a 2-week history of worsened lower extremity edema and weight gain. He generally follows with
[facility] once per year. His blood pressures were quite elevated and he was started on an IV nitroglycerin drip. Blood pressures have been improving and diuresis has been ongoing. A repeat echocardiogram was notable for worsening in heart function
with an estimated ejection fraction of 35-40%. His troponin peaked at 0.088 ng/mL and trended lower. His diabetes has been under reasonable control within the past several months but states that it had been poorly controlled previously. His last
cardiac catheterization from October 15, 2015 was notable for diffuse distal LAD atherosclerosis and occlusion of the apical LAD. The right coronary artery was a nondominant vessel that was subtotally occluded in its midportion. This branch vessel
disease was managed conservatively. He denies any active anginal symptoms stating that his only symptoms related to exertional dyspnea but no chest discomfort.
ACCESS: Right radial artery, 6 Grenadian sheath in right brachial vein, 5 Grenadian sheath. Ultrasound guidance was utilized to access both vessels.
HEMODYNAMICS : mmHg
RA (m) : 12
RV (s/d) : 52/8
PA (s/d, m) : 56/26, 39
PCWP (m) : 32
AO (s/d, m) : 154/91, 118
LV (s/d) : 155/20
LVEDP : 34
Estimated Evelyne Cardiac Output: 5.8 L / min and Cardiac Index: 2.7 L/ min / m-2
Systemic vascular resistance: 18.3 Wood units or 1462 [id number]-pg(-5)
Pulmonary vascular resistance: 1.2 Wood units or 96.6 zedop-wco-vo(-5)
CORONARY FINDINGS :
Dominance: Left
LEFT MAIN: Normal
LEFT ANTERIOR DESCENDING: The LAD arises from the left main and has a 40% proximal stenosis. The mid LAD beyond the origin of the first diagonal branch has a 30% stenosis. The LAD tapers to a very small caliber vessel as it approaches the apex and
becomes occluded apically with the distal LAD filling via left to left collaterals. The first diagonal branch arises from the proximal third of the LAD and is a medium caliber vessel that has an 80% ostial stenosis then bifurcates proximally to a
larger and smaller daughter branch. The larger daughter branch has a 90% proximal stenosis.
CIRCUMFLEX: The circumflex is a medium caliber nondominant vessel. The first sizable obtuse marginal branch arises from the mid circumflex and has an 80% ostial/proximal stenosis and 70% stenosis in its midportion the circumflex continues in the AV
groove supplying a moderate caliber terminal obtuse marginal branch
RIGHT CORONARY ARTERY: Small nondominant vessel occluded in its midportion
VENTRICULOGRAPHY: Left ventriculography was performed in an AGRAWAL projection. The digital single-plane left ventricular ejection fraction is visually estimated at 20%. The ventricle is dilated and globally hypokinetic.
RADIATION SUMMARY: Fluoro Time (min): 4.7, Dose (mGy): 581.4, DAP (Gy.cm2) : 48.2
CONCLUSIONS
1. Elevated right and left ventricular filling pressures
2. Severe branch vessel coronary artery disease involving the first diagonal branch, mid to distal/apical LAD, and proximal to mid OM1. Troponin peaked at 0.088 ng/mL and trending lower.
RECOMMENDATIONS
1. Continue IV diuresis
2. Needs aggressive titration for blood pressure control and initiation of guideline directed medical therapy for LV dysfunction. Have increased carvedilol to 12.5 mg p.o. twice daily, lisinopril to 20 mg daily, and added amlodipine 2.5 mg daily
for better blood pressure control. He states that home blood pressures typically run above 150 mmHg for the past several years. Would consider changing MICHELLE to ARNI at some point, however, for now I would like achieve better blood pressure control.
3. Add spironolactone if renal function remains stable on higer doses of MICHELLE
Copy to: Dr. Jose Yañez
[2024-03-18 16:41] LABS: Glucose - Point of Care 179 mg/dl (70-99)
[2024-03-18] MEDS: NOVOLOG FLEXPEN-MODERATE RESISTANCE 1 UNITS SC (16:41)
[2024-03-18] MEDS: LIPITOR 40 MG PO (17:22)
[2024-03-18] MEDS: KCL 20 MEQ PO (17:22)
[2024-03-18] MEDS: COREG 12.5 MG PO (19:44)
[2024-03-18 20:55] LABS: Glucose - Point of Care 178 mg/dl (70-99)
[2024-03-18] MEDS: LANTUS 0.2 UNITS SC (22:18)
[2024-03-19] VITALS (7 sets, daily range): BP systolic 115–138; BP diastolic 77–92; BMI 29.0
[2024-03-19 03:48] LABS: Hematocrit 42.8 % (39.0-52.0); Hemoglobin 14.2 g/dL (13.0-18.0); Mean Corp Hgb Conc. 33.2 g/dL (33.0-37.0); Mean Corpuscular Hgb 30.9 pg (27.0-31.0); Platelet Count 226 10^3/uL (130-400); Red Cell Dist. Width 14.2 % (11.5-14.5); White Blood Cell Count 7.5 10^3/uL (4.8-10.8)
--- NOTE | 2024-03-19 03:49 | PTCARENOTE ---
Pt rec'd at change of shift sleeping ,easily aroused. Slept until approx 0300. Sinus with first degree block on telemetry. Pt reports having voided only once in bathroom. Pt states it still looked cloudy, denies blood. right radial and right
brachial site with DDI. No hematoma noted-good radial pulse.
[2024-03-19 04:10] LABS: Blood Urea Nitrogen 17 mg/dl (9-20); Calcium 8.7 mg/dl (8.4-10.2); Carbon Dioxide 32 mmol/L (22-30); Chloride 99 mmol/L (98-107); Estimated Creatinine Clearance 79 ml/min; Glucose 127 mg/dl (70-99); Magnesium 1.6 mg/dl (1.6-2.3); Potassium 3.5 mmol/L (3.5-5.1); Sodium 138 mmol/L (135-145); eGFR > 60.00
--- NOTE | 2024-03-19 04:43 | PTCARENOTE ---
Pt had 18 beat run of VT while sitting oob in recliner chair, asympt denied palpitations or dizziness. . b/p 137/84. House Lead Producer notified. am labs showed K+ of 3.5, mag 1.6. Awaiting orders by TRUCK OPERATOR to replace.
[2024-03-19] MEDS: KCL 20 MEQ PO ×4 (04:59→21:26)
[2024-03-19] MEDS: MAGNESIUM SULFATE 102 GRAMS IV (05:29)
[2024-03-19] MEDS: REFRESH EYE DROPS (PF) 1 DROPS OPHTH (05:36)
--- NOTE | 2024-03-19 05:59 | W.PN.HOSP.TC ---
Today's Communication/Plan
-
Cont diuresis, ASA Plavix, Blood pressure control as per Cardio
Glycemic control
Lovenox DVT ppx
Monitor and replete K as necessary
Assessment / Plan
Assessment / Plan
Physical Exam
General: no acute distress appears comfortable at this time.
HEENT: normocephalic atraumatic PERRLA EOMI
Pulm: clear to auscultation b/l
Cardio: S1 S2 NSR no murmurs/rub/gallops
Abd: soft nontender bowel sounds present
Ext: no cyanosis, clubbing, edema
Neuro: AOx3
Psych: Calm intact insight/judgement
68M ASCVD HTN DMII here for acute HFrEF and NSTEMI
# Hypertensive emergency blood pressure was 199/101 mm HG in ER
Started on IV nitroglycerin, weaned off
Continue Coreg, lisinopril titrated up as per cardio
Amlodipine added as per cardio, cont
#Acute HFrEF
Chest x-ray appreciated interstitial pulm edema, small bilateral pleural effusion
Elevated proBNP 2360
Stress test 09/14/2023-no ischemia. Fixed inferior and inferior apical defects artifact versus chronic infarct
Echo 03/17/2024-normal LV size. EF 35% segmental wall motion abnormalities mid to distal anterior, mid to distal lateral, mid to distal septal and possibly mild hypokinesis inferior wall. Mild concentric LVH. Stage I diastolic dysfunction. Mild
MR. Trace AI.
cont IV Lasix as per Cardio
Continue Coreg, Jardiance substitute Farxiga while inpt (to resume home Jardiance on discharge), lisinopril, Statin added this admit
# NSTEMI
Cardiac Cath appreciated severe branch CAD 1st diagonal branch, mid to distal/apical LAD, and proximal to mid OM1
troponin peaked 0.088 since trended down
IV hep gtt completed
cont ASA plavix as per cardio
# Hypokalemia
monitor and replete as necessary
PO K 20MeQ TID as per cardio
# Diabetes type 2 -Hemoglobin A1c 7.3
On Trulicity as outpatient-started 2 months ago
cont Lantus 20 units and NovoLog sliding scale
Continue Farxiga (substitute for Jardiance while Inpt)
cont hold Metformin following recent cath
# Anxiety/depression-continue Cymbalta
# Multinodular goiter-normal TSH
# History of melanoma removal from chest in 2004
# Lumbar laminectomy 2004/spinal stenosis
# History of nephrolithiasis
# Diverticulosis
# Obesity per BMI criteria
# DVT prophylaxis Lovenox
I spent a total of 50 minutes with the patient or on the floor. More than 50% of this time involved counseling and coordination of care.
Anticipated Discharge: 24 - 48 hours
Subjective/Interval History
-
Date of Service: March 19, 2024
No acute distress sitting up comfortably in chair. Overall reports feeling well. Denies dyspnea chest pain palpitations.
Objective Data
-
Labs:
Laboratory Results
03/19/24
03:18
WBC 7.5
Hgb 14.2
Hct 42.8
Plt Count 226
Sodium 138
Potassium 3.5
Chloride 99
Carbon Dioxide 32 H
BUN 17
Creatinine 0.9
Glucose 127 H
Calcium 8.7
Vital Signs:
Vital Signs
Temp Pulse Resp BP Pulse Ox
98.0 F 80 18 138/84 95
03/19/24 03:06 03/19/24 03:05 03/19/24 03:06 03/19/24 03:05 03/19/24 03:06
I&O
03/17/24 03/18/24 03/19/24
06:59 06:59 06:59
Intake Total 882.7 / 882.7 1300 / 1300
Output Total 700 / 700 4200 / 4200 3275 / 3275
Balance -700 / -700 -3317.3 / -3317.3 -1974 /
[2024-03-19 07:17] LABS: Glucose - Point of Care 100 mg/dl (70-99)
[2024-03-19] MEDS: NOVOLOG FLEXPEN-MODERATE RESISTANCE SC ×3 (07:18→16:35)
[2024-03-19] MEDS: FARXIGA 10 MG PO (07:45)
[2024-03-19] MEDS: CYMBALTA DELAYED RELEASE 120 MG PO (07:45)
[2024-03-19] MEDS: PROTONIX 40 MG PO (07:45)
[2024-03-19] MEDS: WELLBUTRIN XL (24 hour extended release) 300 MG PO (07:45)
[2024-03-19] MEDS: COREG 12.5 MG PO ×2 (07:45→19:57)
[2024-03-19] MEDS: PLAVIX 75 MG PO (07:45)
[2024-03-19] MEDS: KLOR-CON 20 MEQ PO (07:46)
[2024-03-19] MEDS: FLUSH (NSS) 3 FLUSH IV (07:46)
[2024-03-19] MEDS: NORVASC 2.5 MG PO (07:46)
[2024-03-19] MEDS: ZESTRIL 20 MG PO (07:46)
[2024-03-19] MEDS: LASIX 40 MG IV ×2 (07:46→16:20)
[2024-03-19] MEDS: LOW STRENGTH ASPIRIN 81 MG PO (07:46)
--- NOTE | 2024-03-19 08:26 | PTCARENOTE ---
Addendum entered by Sona Stapleton RN 03/19/24 09:06:
Urine is a cloudy tea color this morning
Original Note:
Received the patient at change of shift. He is aaox3, vss, 97% on RA. NSR with a 1st degree AVB. His right wrist and right brachial dressings are c/d/i. No edema noted in his legs BL, lungs are clear. His weight is down 7.48 lbs since yesterday.
Reiterated his fluid restriction with the patient.
--- NOTE | 2024-03-19 08:59 | W.PN.CARDCBS ---
Addendum entered and electronically signed by Kevin Mulligan MD 03/19/24 11:45:
Patient seen, interviewed and examined by me.
Well-appearing, no acute distress
Regular rate and rhythm with normal S1 and S2, no S3 no S4. There is a grade 1/6 apical holosystolic murmur and no rubs. PMI is normally placed.
Lungs are clear to auscultation bilaterally without wheezes rales or rhonchi.
Abdomen soft nontender nondistended with normoactive bowel sounds
Extremities show trace pretibial edema bilaterally no clubbing or cyanosis.
Neurologic exam is grossly nonfocal.
Assessment and plan
HTN emergency
Blood pressure trend is improving
Maintain carvedilol 12.5 mg twice daily, lisinopril 20 mg daily, Norvasc 2.5 mg daily
NSTEMI
Cath 03/18/24: Severe branch vessel coronary artery disease involving the first diagonal branch, mid to distal/apical LAD, and proximal to mid OM1
Plan is medical therapy which would include aggressive blood pressure control
Acute HFrEF
On right heart cath 03/18/2024 elevated filling pressures with pulmonary capillary wedge pressure of 32, and clinically still volume overloaded
Continue diuresis 40 mg IV twice daily as he is diuresing well and weight continues to drop, creatinine stable at 0.9. Keep K 4-5 and magnesium 2-3
Continue carvedilol which has been recently uptitrated
He does have HFrEF, ideally he would be an ARNI but this will require discontinuation of lisinopril for 48 hours and given hypertensive emergency on presentation we will hold off on this for now, consider when BP stable
Continued empagliflozin
Can consider addition of spironolactone
Original Note:
Today's Communication / Plan
-
Increase daily dose of potassium to 60 mEq daily (20 meq TID)
Check daily K and mag
Carvedilol doubled to 12.5 mg twice daily yesterday, could consider further up titration.
Impression / Plan
-
PCP: Karthik BOX PULLER
Cardiology: Dr. Yañez
Impression:
Admitted with edema, MARTINEZ, CHF and HTN 03/16/24
HTN emergency
NSTEMI
Acute HFrEF
Nonsustained VT on telemetry
Hypokalemia
CAD
NSTEMI and subtotal occlusion of LAD by cath 2015
HTN
Hyperlipidemia
DM 2
Diabetic retinopathy
Degenerative disc disease
Orthostatic hypotension with history of syncope
Suspected obstructive sleep apnea
Possible dementia, work-up ongoing at [facility]
Cardiac cath 03/18/2024: RA 12, PA 56/26, PCWP 32, CO/CI 5.8/2.7.
Left main: Normal
LAD: 40% proximal, 30% mid, occluded apically with the distal LAD filling via [id number] collaterals
D1 80% ostial stenosis that bifurcates to a larger and smaller branch. Larger branch has 90% proximal stenosis
Circumflex: OM1 80% ostial/proximal stenosis and 70% mid stenosis
RCA small nondominant vessel occluded at midportion
Lexiscan nuclear stress test 09/14/23: Negative Lexiscan sestamibi for ischemia, fixed inferior and inferior apical defects C/W soft tissue attenuation, moderately decreased systolic function EF 33% with global hypokinesis
Echo 03/2022: EF 50-55% without regional wall motion abnormality, mild LVH, mild mitral annular calcification, mild mitral regurgitation, aortic sclerosis with mild aortic regurgitation, normal RV, normal atria, normal pulmonary artery pressure
Echo 03/07/2024: EF 35% by Grayson's method but closer to 35 to 40% visually, segmental wall motion abnormalities most pronounced in the mid to distal anterior, mid to distal lateral, mid to distal septal and possibly mild hypokinesis inferior wall,
mild concentric LVH, stage I diastolic dysfunction, normal RV size and function, mild MR, trace aortic regurgitation
Plan:
-Patient came to [facility] 03/16/2024 with MARTINEZ and edema and was admitted with HTN emergency and acute HF and cardiology has been consulted. Patient started with MARTINEZ months ago and in the last 2-3 weeks he started with LE edema. He denies chest pain.
Patient's forced him to go to the ER last night because his shoes no longer fit on his feet and he was markedly HTN at 177/118. Initial Troponin 0.086 and then flat. Patient was started on NTP and then switched to Nitro gtt. pro-BNP 2360 and
CXR with interstitial pulmonary edema. Patient was admitted with acute HF. Patient reports symptomatic improvement overnight and is down to 1 L NC and LE edema has improved.
-Echo 03/07/2024 with new WMAs and reduced EF to 35%
-s/p cath 03/18/2024 Showing elevated right and left filling pressures and severe branch vessel coronary disease of the first diagonal branch, mid to distal apical LAD and proximal to mid OM1.
-Plavix added post cath 03/18/2024, continues on ASA 81 mg which is new this admission
-Aggressive diuresis advised as well as up titration for blood pressure control and initiation of GDMT for LV dysfunction
-Carvedilol increased to 12.5 mg twice daily 03/18/2024
�Lisinopril increased to 20 mg daily 03/18/2024, could consider change to ARNI in future
�Amlodipine 2.5 mg added 03/18/2024
--Outpatient dose of Jardiance 25 mg daily has been continued.
�If renal function stable on higher dose MICHELLE to consider spironolactone. Will monitor renal function for now.
-Labs today 03/19/2524: BUN/creatinine 17/0.9, K3.5, NA 138, mag 1.6
-BPs today 03/19/2024 improved 130s/80s
-Had 18 beat run nonsustained VT at 0430 today. Patient was awake sitting in chair. Denies palpitations, lightheadedness. Of note K3.5, mag 1.6. Received 1 g of IV mag and extra 20 mEq of potassium chloride.
-On standing dose of KCl 20 mEq twice daily and has received a couple PRN doses. K has been 3.2-4 during admission. Would increase daily potassium dose to total of 60 mEq daily (20 meq TID) and check daily K and mag. I ordered
-FLP 03/17/2024: LDL 39,HDL 52, TG 132, Tchol 117 Patient was not taking a statin prior to admission but now on Atorvastatin 40 mg daily
-Weight is down at least 12 lbs since admission. overnight and LE edema has improved. Cont Lasix 40 mg IV BID. Patient was not taking a diuretic prior to admission.
-Outpatient dose of metformin on hold. Insulin ordered.
Progress Note - Dumpling Machine Operator
Subjective
Date of Service: March 19, 2024
BPs improved overnight with up titration of antihypertensives
Had 18 beat run nonsustained VT, asymptomatic, K3.5, mag 1.6, both repleted
Objective
Labs:
03/19/24 03:18
03/19/24 03:18
Labs
Hgb 14.2 g/dL (13.0-18.0) 03/19/24 03:18
Hct 42.8 % (39.0-52.0) 03/19/24 03:18
Plt Count 226 10^3/uL (130-400) 03/19/24 03:18
APTT Cancelled 03/18/24 12:45
Sodium 138 mmol/L (135-145) 03/19/24 03:18
Potassium 3.5 mmol/L (3.5-5.1) 03/19/24 03:18
BUN 17 mg/dl (9-20) 03/19/24 03:18
Creatinine 0.9 mg/dL (0.7-1.3) 03/19/24 03:18
Glucose 127 mg/dl (70-99) H 03/19/24 03:18
Troponins
03/16/24 03/16/24 03/17/24
20:56 23:41 06:15
Troponin I 0.086 H* 0.087 H* 0.088 H*
01/16/25 01/16/25 01/17/25
11:18 17:55 00:12
Troponin I 0.079 H* 0.079 H* 0.071 H*
03/18/24 03/18/24
06:00 12:10
Troponin I Cancelled Cancelled
Vital Signs and I&O:
Vital Signs
Temp Pulse Resp BP Pulse Ox
98.2 F 78 18 138/82 97
03/19/24 07:18 03/19/24 07:14 03/19/24 07:18 03/19/24 07:14 03/19/24 07:18
Vital Signs
Temp Pulse Resp BP Pulse Ox
98.2 F 78 18 138/82 97
03/19/24 07:18 03/19/24 07:14 03/19/24 07:18 03/19/24 07:14 03/19/24 07:18
Intake & Output
03/17/24 03/18/24 03/19/24 03/20/24
06:59 06:59 06:59 06:59
Intake Total 882.7 / 882.7 1300 / 1300 360 / 360
Output Total 700 / 700 4200 / 4200 3275 / 3275
Balance -700 / -700 -3317.3 / -3317.3 -1974 / -1974 360 / 360
Physical Exam
Physical Exam
GEN: No distress, awake, Ox3
HEENT: supple, anicteric, mmm
LUNGS: CTA, no wheezes/rales
CV: Reg, S1/S2, no murmur
ABD: soft, BS+, NT/ND
EXT: No edema
NEURO: Gross non-focal
SKIN: No rash
[2024-03-19 12:18] LABS: Glucose - Point of Care 141 mg/dl (70-99)
[2024-03-19] MEDS: FLUSH (NSS) 2 FLUSH IV (16:20)
[2024-03-19 16:27] LABS: Glucose - Point of Care 127 mg/dl (70-99)
[2024-03-19] MEDS: LIPITOR 40 MG PO (17:49)
[2024-03-19] MEDS: LOVENOX 40 MG SC (17:49)
--- NOTE | 2024-03-19 20:25 | PTCARENOTE ---
Received patient at change of shift. Patient sitting on side of bed, awake and oriented x3. Right radial site clean, dry, and intact. Right brachial site clean, dry, and intact. Positive pulses, extremity warm, pink and cap refill <2 seconds. BP
115/92, SR w/ 1st degree and BBB 80s, occasional PVCs , 96% on room air. Discussed plan of care for evening. Patient verbalized understanding. Call cotto within reach.
[2024-03-19 21:26] LABS: Glucose - Point of Care 129 mg/dl (70-99)
[2024-03-19] MEDS: LANTUS 0.2 UNITS SC (21:28)
[2024-03-20] VITALS (7 sets, daily range): BP systolic 119–146; BP diastolic 77–92; BMI 29.0
[2024-03-20 03:33] LABS: Hematocrit 42.2 % (39.0-52.0); Hemoglobin 13.9 g/dL (13.0-18.0); Mean Corp Hgb Conc. 32.9 g/dL (33.0-37.0); Mean Corpuscular Hgb 31.1 pg (27.0-31.0); Mean Corpuscular Volume 94.4 fL (80.0-94.0); Platelet Count 233 10^3/uL (130-400); Red Blood Cell Count 4.47 10^6/uL (4.70-6.10); White Blood Cell Count 6.5 10^3/uL (4.8-10.8)
[2024-03-20 03:59] LABS: Blood Urea Nitrogen 22 mg/dl (9-20); Calcium 8.6 mg/dl (8.4-10.2); Carbon Dioxide 33 mmol/L (22-30); Chloride 99 mmol/L (98-107); Estimated Creatinine Clearance 71 ml/min; Glucose 132 mg/dl (70-99); Potassium 4.9 mmol/L (3.5-5.1); Sodium 138 mmol/L (135-145); eGFR > 60.00
--- NOTE | 2024-03-20 06:24 | W.PN.HOSP.TC ---
Today's Communication/Plan
-
monitor
cont blood pressure control
PO lasix as per Cardio
possible discharge tomorrow when clear as per Cardio
Assessment / Plan
Assessment / Plan
Physical Exam
General: no acute distress appears comfortable at this time.
HEENT: normocephalic atraumatic PERRLA EOMI
Pulm: clear to auscultation b/l
Cardio: S1 S2 NSR no murmurs/rub/gallops
Abd: soft nontender bowel sounds present
Ext: no cyanosis, clubbing, edema
Neuro: AOx3
Psych: Calm intact insight/judgement
68M ASCVD HTN DMII here for acute HFrEF and NSTEMI
# Hypertensive emergency blood pressure was 199/101 mm HG in ER
Started on IV nitroglycerin, weaned off
Continue Coreg, lisinopril titrated up as per cardio
Amlodipine added as per cardio, cont
#Acute HFrEF
Chest x-ray appreciated interstitial pulm edema, small bilateral pleural effusion
Elevated proBNP 2360
Stress test 09/14/2023-no ischemia. Fixed inferior and inferior apical defects artifact versus chronic infarct
Echo 03/17/2024-normal LV size. EF 35% segmental wall motion abnormalities mid to distal anterior, mid to distal lateral, mid to distal septal and possibly mild hypokinesis inferior wall. Mild concentric LVH. Stage I diastolic dysfunction. Mild
MR. Trace AI.
cont Lasix transitioned to PO as per Cardio
Continue Coreg, Jardiance substitute Farxiga while inpt (to resume home Jardiance on discharge), lisinopril, Statin added this admit
# NSTEMI
Cardiac Cath appreciated severe branch CAD 1st diagonal branch, mid to distal/apical LAD, and proximal to mid OM1
troponin peaked 0.088 since trended down
IV hep gtt completed
cont ASA plavix as per cardio
# Hypokalemia
monitor and replete as necessary
# Diabetes type 2 -Hemoglobin A1c 7.3
On Trulicity as outpatient-started 2 months ago
cont Lantus 20 units and NovoLog sliding scale
Continue Farxiga (substitute for Jardiance while Inpt)
cont hold Metformin following recent cath
# Anxiety/depression-continue Cymbalta
# Multinodular goiter-normal TSH
# History of melanoma removal from chest in 2004
# Lumbar laminectomy 2004/spinal stenosis
# History of nephrolithiasis
# Diverticulosis
# Obesity per BMI criteria
# DVT prophylaxis Lovenox
I spent a total of 35 minutes with the patient or on the floor. More than 50% of this time involved counseling and coordination of care.
Anticipated Discharge: Within 24 hours
Subjective/Interval History
-
Date of Service: March 20, 2024
No acute distress sitting up comfortably in chair. overall reports feeling well. Denies new acute issues at this time.
Objective Data
-
Labs:
Laboratory Results
03/20/24
03:19
WBC 6.5
Hgb 13.9
Hct 42.2
Plt Count 233
Sodium 138
Potassium 4.9 D
Chloride 99
Carbon Dioxide 33 H
BUN 22 H
Creatinine 1.0
Glucose 132 H
Calcium 8.6
Vital Signs:
Vital Signs
Temp Pulse Resp BP Pulse Ox
98.0 F 81 18 125/79 97
03/20/24 03:13 03/20/24 02:00 03/20/24 03:13 03/19/24 23:25 03/20/24 03:13
I&O
03/18/24 03/19/24 03/20/24
06:59 06:59 06:59
Intake Total 882.7 / 882.7 1300 / 1300 1320 / 1320
Output Total 4200 / 4200 3275 / 3275 1974
Balance -3317.3 / -3317.3 -1974 -1974 -655 / -655
[2024-03-20] MEDS: FLUSH (NSS) 3 FLUSH IV (08:09)
[2024-03-20] MEDS: PROTONIX 40 MG PO (08:10)
[2024-03-20] MEDS: COREG 12.5 MG PO ×2 (08:10→20:58)
[2024-03-20] MEDS: KCL 20 MEQ PO (08:10)
[2024-03-20] MEDS: NORVASC 2.5 MG PO (08:10)
[2024-03-20] MEDS: PLAVIX 75 MG PO (08:10)
[2024-03-20] MEDS: CYMBALTA DELAYED RELEASE 120 MG PO (08:10)
[2024-03-20] MEDS: ZESTRIL 20 MG PO (08:10)
[2024-03-20] MEDS: WELLBUTRIN XL (24 hour extended release) 300 MG PO (08:10)
[2024-03-20] MEDS: FARXIGA 10 MG PO (08:10)
[2024-03-20] MEDS: LASIX 40 MG IV (08:10)
[2024-03-20] MEDS: LOW STRENGTH ASPIRIN 81 MG PO (08:10)
--- NOTE | 2024-03-20 08:10 | W.PN.CARDCBS ---
Today's Communication / Plan
-
No more chest pain.
Blood pressure is better controlled
He has diuresed rather effectively
Will stop IV Lasix today and start oral Lasix 40 mg daily
Impression / Plan
-
PCP: Karthik SHARMA
Cardiology: Dr. Yañez
Patient came to [facility] 03/16/2024 with MARTINEZ and edema and was admitted with HTN emergency and acute HF and cardiology has been consulted. Patient started with MARTINEZ months ago and in the last 2-3 weeks he started with LE edema. He denies chest pain.
Patient's forced him to go to the ER last night because his shoes no longer fit on his feet and he was markedly HTN at 177/118. Initial Troponin 0.086 and then flat. Patient was started on NTP and then switched to Nitro gtt. pro-BNP 2360 and
CXR with interstitial pulmonary edema. Patient was admitted with acute HF and hypertensive emergency
Impression:
Admitted with edema, MARTINEZ, CHF and HTN 03/16/24
HTN emergency
NSTEMI
Acute HFrEF
Nonsustained VT on telemetry
Hypokalemia
CAD
NSTEMI and subtotal occlusion of LAD by cath 2015
HTN
Hyperlipidemia
DM 2
Diabetic retinopathy
Degenerative disc disease
Orthostatic hypotension with history of syncope
Suspected obstructive sleep apnea
Possible dementia, work-up ongoing at [facility]
Cardiac cath 03/18/2024: RA 12, PA 56/26, PCWP 32, CO/CI 5.8/2.7.
Left main: Normal
LAD: 40% proximal, 30% mid, occluded apically with the distal LAD filling via [id number] collaterals
D1 80% ostial stenosis that bifurcates to a larger and smaller branch. Larger branch has 90% proximal stenosis
Circumflex: OM1 80% ostial/proximal stenosis and 70% mid stenosis
RCA small nondominant vessel occluded at midportion
Lexiscan nuclear stress test 09/14/23: Negative Lexiscan sestamibi for ischemia, fixed inferior and inferior apical defects C/W soft tissue attenuation, moderately decreased systolic function EF 33% with global hypokinesis
Echo 03/2022: EF 50-55% without regional wall motion abnormality, mild LVH, mild mitral annular calcification, mild mitral regurgitation, aortic sclerosis with mild aortic regurgitation, normal RV, normal atria, normal pulmonary artery pressure
Echo 03/07/2024: EF 35% by Grayson's method but closer to 35 to 40% visually, segmental wall motion abnormalities most pronounced in the mid to distal anterior, mid to distal lateral, mid to distal septal and possibly mild hypokinesis inferior wall,
mild concentric LVH, stage I diastolic dysfunction, normal RV size and function, mild MR, trace aortic regurgitation
Assessment and plan:
HTN emergency
Blood pressure trend is improving
Maintain carvedilol 12.5 mg twice daily, lisinopril 20 mg daily, Norvasc 2.5 mg daily
NSTEMI
Echo 03/07/2024 with new WMAs and reduced EF to 35%
Cath 03/18/24: Severe branch vessel coronary artery disease involving the first diagonal branch, mid to distal/apical LAD, and proximal to mid OM1
Plan is medical therapy which would include aggressive blood pressure control
Plavix added post cath 03/18/2024, continues on ASA 81 mg which is new this admission
LDL 39,HDL 52, TG 132, Tchol 117 Patient was not taking a statin prior to admission but now on Atorvastatin 40 mg daily
Acute HFrEF
On right heart cath 03/18/2024 elevated filling pressures with pulmonary capillary wedge pressure of 32, and clinically still volume overloaded
With diuresis, Lasix 40 mg IV twice daily, weight is down 13 pounds since admission and BUN creatinine ratio was starting to rise along with the development of an alkalosis, likely contraction alkalosis
Will stop IV Lasix today and start oral Lasix 40 mg daily. Of note patient was not taking a diuretic prior to this admission
Continue carvedilol which has been recently uptitrated
He does have HFrEF, ideally he would be an ARNI but this will require discontinuation of lisinopril for 48 hours and given hypertensive emergency on presentation we will hold off on this for now, consider when BP stable
Continued empagliflozin
Can consider addition of spironolactone
total time 51 min
Progress Note - Roving Technician
Subjective
Date of Service: March 20, 2024
Denies chest pain shortness of breath palpitations or dizziness.
Objective
Labs:
03/20/24 03:19
03/20/24 03:19
Labs
Hgb 13.9 g/dL (13.0-18.0) 03/20/24 03:19
Hct 42.2 % (39.0-52.0) 03/20/24 03:19
Plt Count 233 10^3/uL (130-400) 03/20/24 03:19
APTT Cancelled 03/18/24 12:45
Sodium 138 mmol/L (135-145) 03/20/24 03:19
Potassium 4.9 mmol/L (3.5-5.1) D 03/20/24 03:19
BUN 22 mg/dl (9-20) H 03/20/24 03:19
Creatinine 1.0 mg/dL (0.7-1.3) 03/20/24 03:19
Glucose 132 mg/dl (70-99) H 03/20/24 03:19
Troponins
03/17/24 03/17/24 03/18/24
11:18 17:55 00:12
Troponin I 0.079 H* 0.079 H* 0.071 H*
03/18/24 03/18/24
06:00 12:10
Troponin I Cancelled Cancelled
Vital Signs and I&O:
Vital Signs
Temp Pulse Resp BP Pulse Ox
97.9 F 74 18 137/80 97
03/20/24 07:30 03/20/24 06:00 03/20/24 07:30 03/20/24 03:12 03/20/24 07:30
Vital Signs
Temp Pulse Resp BP Pulse Ox
97.9 F 74 18 137/80 97
03/20/24 07:30 03/20/24 06:00 03/20/24 07:30 03/20/24 03:12 03/20/24 07:30
Intake & Output
03/18/24 03/19/24 03/20/24 03/21/24
06:59 06:59 06:59 06:59
Intake Total 882.7 / 882.7 1300 / 1300 1320 / 1320
Output Total 4200 / 4200 3275 / 3275 1974
Balance -3317.3 / -3317.3 -1974 / -1974 -655 / -655
Physical Exam
Physical Exam
Well-appearing, no acute distress
Regular rate and rhythm with normal S1 and S2, no S3 no S4. There is a grade 1/6 apical holosystolic murmur and no rubs. PMI is normally placed.
Lungs are clear to auscultation bilaterally without wheezes rales or rhonchi.
Abdomen soft nontender nondistended with normoactive bowel sounds
Extremities show trace pretibial edema bilaterally no clubbing or cyanosis.
Neurologic exam is grossly nonfocal.
[2024-03-20 08:14] LABS: Glucose - Point of Care 124 mg/dl (70-99)
[2024-03-20] MEDS: NOVOLOG FLEXPEN-MODERATE RESISTANCE SC (08:14)
[2024-03-20] MEDS: LASIX PO (08:55)
--- NOTE | 2024-03-20 11:20 | PTCARENOTE ---
The patient is aaox3, vss, NSR with a 1st degree AVB noted on the monitor. His right wrist and right brachial dressings were removed. A positive right radial pulse is noted. His urine is a cloudy tea color. He has no complaints. He has been
compliant with his fluid restriction.
[2024-03-20 11:55] LABS: Glucose - Point of Care 167 mg/dl (70-99)
[2024-03-20] MEDS: NOVOLOG FLEXPEN-MODERATE RESISTANCE 1 UNITS SC ×2 (12:33→17:36)
[2024-03-20] MEDS: LOVENOX 40 MG SC (17:14)
[2024-03-20] MEDS: LIPITOR 40 MG PO (17:15)
[2024-03-20 17:17] LABS: Glucose - Point of Care 152 mg/dl (70-99)
--- NOTE | 2024-03-20 19:59 | PTCARENOTE ---
Received patient at change of shift. Patient sitting in chair, oriented x3. Right radial and brachial sites SCHEDULE MANAGER. No swelling or ecchymosis. No c/o of SOB. BP 132/87, NSR with 1st degree and BBB, PVCS, PACs 80s, 96% on room air. Discussed plan of
care for the evening. Patient verbalized understanding. Call cotto within reach.
[2024-03-20 20:58] LABS: Glucose - Point of Care 153 mg/dl (70-99)
[2024-03-20] MEDS: LANTUS 0.2 UNITS SC (20:59)
[2024-03-21 03:22] VITALS: BP 134/86
[2024-03-21 03:40] LABS: Hematocrit 41.7 % (39.0-52.0); Hemoglobin 13.9 g/dL (13.0-18.0); Mean Corp Hgb Conc. 33.3 g/dL (33.0-37.0); Mean Corpuscular Volume 92.9 fL (80.0-94.0); Mean Platelet Volume 8.9 fL (7.4-10.4); Platelet Count 260 10^3/uL (130-400); Red Blood Cell Count 4.49 10^6/uL (4.70-6.10); Red Cell Dist. Width 13.7 % (11.5-14.5); White Blood Cell Count 7.1 10^3/uL (4.8-10.8)
[2024-03-21 03:54] VITALS: BMI 28.9
[2024-03-21 04:04] LABS: Blood Urea Nitrogen 24 mg/dl (9-20); Calcium 8.5 mg/dl (8.4-10.2); Carbon Dioxide 27 mmol/L (22-30); Chloride 101 mmol/L (98-107); Estimated Creatinine Clearance 71 ml/min; Glucose 135 mg/dl (70-99); Phosphorus 3.1 mg/dl (2.5-4.5); Potassium 3.8 mmol/L (3.5-5.1); Sodium 135 mmol/L (135-145); eGFR > 60.00
--- NOTE | 2024-03-21 06:23 | W.PN.HOSP.TC ---
Today's Communication/Plan
-
Possible discharge later today if medically cleared as per Cardiology.
Assessment / Plan
Assessment / Plan
Physical Exam
General: no acute distress appears comfortable at this time.
HEENT: normocephalic atraumatic PERRLA EOMI
Pulm: clear to auscultation b/l
Cardio: S1 S2 NSR no murmurs/rub/gallops
Abd: soft nontender bowel sounds present
Ext: no cyanosis, clubbing, edema
Neuro: AOx3
Psych: Calm intact insight/judgement
68M ASCVD HTN DMII here for acute HFrEF and NSTEMI
# Hypertensive emergency blood pressure was 199/101 mm HG in ER
Started on IV nitroglycerin, weaned off
Continue Coreg, lisinopril titrated up as per cardio
Amlodipine added as per cardio, cont
#Acute HFrEF
Chest x-ray appreciated interstitial pulm edema, small bilateral pleural effusion
Elevated proBNP 2360
Stress test 09/14/2023-no ischemia. Fixed inferior and inferior apical defects artifact versus chronic infarct
Echo 03/17/2024-normal LV size. EF 35% segmental wall motion abnormalities mid to distal anterior, mid to distal lateral, mid to distal septal and possibly mild hypokinesis inferior wall. Mild concentric LVH. Stage I diastolic dysfunction. Mild
MR. Trace AI.
cont Lasix transitioned to PO as per Cardio
Continue Coreg, Jardiance substitute Farxiga while inpt (to resume home Jardiance on discharge), lisinopril, Statin added this admit
# NSTEMI
Cardiac Cath appreciated severe branch CAD 1st diagonal branch, mid to distal/apical LAD, and proximal to mid OM1
troponin peaked 0.088 since trended down
IV hep gtt completed
cont ASA plavix as per cardio
# Hypokalemia
monitor and replete as necessary
# Diabetes type 2 -Hemoglobin A1c 7.3
On Trulicity as outpatient-started 2 months ago
cont Lantus 20 units and NovoLog sliding scale
Continue Farxiga (substitute for Jardiance while Inpt)
cont hold Metformin following recent cath
# Anxiety/depression-continue Cymbalta
# Multinodular goiter-normal TSH
# History of melanoma removal from chest in 2004
# Lumbar laminectomy 2004/spinal stenosis
# History of nephrolithiasis
# Diverticulosis
# Obesity per BMI criteria
# DVT prophylaxis Lovenox
I spent a total of 35 minutes with the patient or on the floor. More than 50% of this time involved counseling and coordination of care.
Anticipated Discharge: Today
Subjective/Interval History
-
Date of Service: March 21, 2024
No acute distress. overall reports feeling well. denies new acute issues. Eager to go home.
Objective Data
-
Labs:
Laboratory Results
03/21/24
03:32
WBC 7.1
Hgb 13.9
Hct 41.7
Plt Count 260
Sodium 135
Potassium 3.8
Chloride 101
Carbon Dioxide 27
BUN 24 H
Creatinine 1.0
Glucose 135 H
Calcium 8.5
Vital Signs:
Vital Signs
Temp Pulse Resp BP Pulse Ox
98.2 F 79 16 134/86 97
03/21/24 03:54 03/21/24 03:22 03/21/24 03:54 03/21/24 03:22 03/21/24 03:54
I&O
03/19/24 03/20/24 03/21/24
06:59 06:59 06:59
Intake Total 1300 / 1300 1320 / 1320 960 / 960
Output Total 3275 / 3275 1974 / 1974 1500 / 1500
Balance -1974 / -1974 -5 / -65 - / -540
[2024-03-21 07:19] LABS: Glucose - Point of Care 136 mg/dl (70-99)
[2024-03-21] MEDS: NOVOLOG FLEXPEN-MODERATE RESISTANCE SC (07:52)
--- NOTE | 2024-03-21 08:25 | W.PN.CARDCBS ---
Addendum entered and electronically signed by Scotty Perez DO 03/21/24 12:19:
I saw and examined the patient.
The Bridal Sales Consultant's note was reviewed and I agree with the note.
Comment:
Plan:
Transition to oral diuretics, lasix 40 mg daily.
Cont medical therapy of CAD
Cont DAPT
Echo reviewed.
CM noted and pt will have repeat echo as outpt after further med titration as outpt.
Outpt cardiac follow up.
Stable cardiac status for d/c.
Original Note:
Today's Communication / Plan
-
-transition to oral diuretic today
-discharge planning
Impression / Plan
-
PCP: Karthik SHARMA
Cardiology: Dr. Yañez
Patient came to [facility] 03/16/2024 with MARTINEZ and edema and was admitted with HTN emergency and acute HF and cardiology has been consulted. Patient started with MARTINEZ months ago and in the last 2-3 weeks he started with LE edema. He denies chest pain.
Patient's forced him to go to the ER last night because his shoes no longer fit on his feet and he was markedly HTN at 177/118. Initial Troponin 0.086 and then flat. Patient was started on NTP and then switched to Nitro gtt. pro-BNP 2360 and
CXR with interstitial pulmonary edema. Patient was admitted with acute HF and hypertensive emergency
Impression:
Admitted with edema, MARTINEZ, CHF and HTN 03/16/24
HTN emergency
NSTEMI
Acute HFrEF
Nonsustained VT on telemetry
Hypokalemia
CAD
NSTEMI and subtotal occlusion of LAD by cath 2015
cardiac cath 03/18/2024: severe branch vessel disease, RA 12, PA 56/26, PCWP 32, CO/CI 5.8/2.7.
HTN
Hyperlipidemia
DM 2
Diabetic retinopathy
Degenerative disc disease
Orthostatic hypotension with history of syncope
Suspected obstructive sleep apnea
Possible dementia, work-up ongoing at [facility]
Cardiac cath 03/18/2024: RA 12, PA 56/26, PCWP 32, CO/CI 5.8/2.7.
Left main: Normal
LAD: 40% proximal, 30% mid, occluded apically with the distal LAD filling via [id number] collaterals
D1 80% ostial stenosis that bifurcates to a larger and smaller branch. Larger branch has 90% proximal stenosis
Circumflex: OM1 80% ostial/proximal stenosis and 70% mid stenosis
RCA small nondominant vessel occluded at midportion
Lexiscan nuclear stress test 09/14/23: Negative Lexiscan sestamibi for ischemia, fixed inferior and inferior apical defects C/W soft tissue attenuation, moderately decreased systolic function EF 33% with global hypokinesis
Echo 03/2022: EF 50-55% without regional wall motion abnormality, mild LVH, mild mitral annular calcification, mild mitral regurgitation, aortic sclerosis with mild aortic regurgitation, normal RV, normal atria, normal pulmonary artery pressure
Echo 03/07/2024: EF 35% by Grayson's method but closer to 35 to 40% visually, segmental wall motion abnormalities most pronounced in the mid to distal anterior, mid to distal lateral, mid to distal septal and possibly mild hypokinesis inferior wall,
mild concentric LVH, stage I diastolic dysfunction, normal RV size and function, mild MR, trace aortic regurgitation
Assessment and plan:
HTN emergency
Blood pressure trend is improving, but still elevated 130s/80s
Maintain carvedilol 12.5 mg twice daily, lisinopril 20 mg daily, Norvasc 2.5 mg daily
NSTEMI
Echo 03/07/2024 with new WMAs and reduced EF to 35%
Cath 03/18/24: Severe branch vessel coronary artery disease involving the first diagonal branch, mid to distal/apical LAD, and proximal to mid OM1
Plan is medical therapy which would include aggressive blood pressure control
Plavix added post cath 03/18/2024, continues on ASA 81 mg which is new this admission
LDL 39,HDL 52, TG 132, Tchol 117 Patient was not taking a statin prior to admission but now on Atorvastatin 40 mg daily
Acute HFrEF
On right heart cath 03/18/2024 elevated filling pressures with pulmonary capillary wedge pressure of 32, and clinically still volume overloaded
With diuresis, Lasix 40 mg IV twice daily, weight is down 13 pounds since admission and stable at 201 lbs. BUN creatinine ratio was starting to rise along with the development of an alkalosis, likely contraction alkalosis
starting oral Lasix as of today 03/21/2024. Of note patient was not taking a diuretic prior to this admission. Will discharge on daily diuretic, Lasix 40 mg daily
Continue carvedilol which has been recently uptitrated
He does have HFrEF, ideally he would be an ARNI but this will require discontinuation of lisinopril for 48 hours and given hypertensive emergency on presentation we will hold off on this for now, consider when BP stable
Continued empagliflozin
consider addition of spironolactone, K had been low earlier in admission. K 03/21/2024 3.8.
check BMP one week after discharge
outpt cardiology f/u is arranged
Telemetry personally reviewed: NSR 70-90.
total time35
Progress Note - Lamination Assembler
Subjective
Date of Service: March 21, 2024
feels good, no SOB, CP, edema
BPs improved
transitioning to oral Lasix today
Objective
Labs:
03/21/24 03:32
03/21/24 03:32
Labs
Hgb 13.9 g/dL (13.0-18.0) 03/21/24 03:32
Hct 41.7 % (39.0-52.0) 03/21/24 03:32
Plt Count 260 10^3/uL (130-400) 03/21/24 03:32
APTT Cancelled 03/18/24 12:45
Sodium 135 mmol/L (135-145) 03/21/24 03:32
Potassium 3.8 mmol/L (3.5-5.1) 03/21/24 03:32
BUN 24 mg/dl (9-20) H 03/21/24 03:32
Creatinine 1.0 mg/dL (0.7-1.3) 03/21/24 03:32
Glucose 135 mg/dl (70-99) H 03/21/24 03:32
Vital Signs and I&O:
Vital Signs
Temp Pulse Resp BP Pulse Ox
98.2 F 79 16 134/86 97
03/21/24 03:54 03/21/24 03:22 03/21/24 03:54 03/21/24 03:22 03/21/24 03:54
Vital Signs
Temp Pulse Resp BP Pulse Ox
98.2 F 79 16 134/86 97
03/21/24 03:54 03/21/24 03:22 03/21/24 03:54 03/21/24 03:22 03/21/24 03:54
Intake & Output
03/19/24 03/20/24 03/21/24 03/22/24
06:59 06:59 06:59 06:59
Intake Total 1300 / 1300 1320 / 1320 960 / 960
Output Total 3275 / 3275 1974 1500 / 1500
Balance -1974 / -655 / -655 - / -540
Physical Exam
Physical Exam
GEN: No distress, awake, Ox3
HEENT: supple, anicteric, mmm
LUNGS: CTA, no wheezes/rales
CV: Reg, S1/S2, 1/6 syst mumur apex
ABD: soft, BS+, NT/ND
EXT: No edema
NEURO: Gross non-focal
SKIN: No rash
[2024-03-21 08:31] VITALS: BP 139/79
[2024-03-21] MEDS: PLAVIX 75 MG PO (08:40)
[2024-03-21] MEDS: CYMBALTA DELAYED RELEASE 120 MG PO (08:41)
[2024-03-21] MEDS: LASIX 40 MG PO (08:41)
[2024-03-21] MEDS: COREG 12.5 MG PO (08:41)
[2024-03-21] MEDS: WELLBUTRIN XL (24 hour extended release) 300 MG PO (08:41)
[2024-03-21] MEDS: FARXIGA 10 MG PO (08:41)
[2024-03-21] MEDS: LOW STRENGTH ASPIRIN 81 MG PO (08:42)
[2024-03-21] MEDS: ZESTRIL 20 MG PO (08:42)
[2024-03-21] MEDS: PROTONIX 40 MG PO (08:42)
[2024-03-21] MEDS: NORVASC 2.5 MG PO (08:42)
--- NOTE | 2024-03-21 10:02 | PTCARENOTE ---
Pt ambulating in room ,gait steady, offers no complaints.
[2024-03-21 12:00] LABS: Glucose - Point of Care 151 mg/dl (70-99)
[2024-03-21] MEDS: NOVOLOG FLEXPEN-MODERATE RESISTANCE 1 UNITS SC (12:03)
--- NOTE | 2024-03-21 12:16 | CM ---
Reviewedchart. Met with Mr. Lacy to review discharge plans. He states he is feeling well and maybe able to go home soon. He states prior to admission he resides with his spouse in an apartment with fourteen steps to enter. He states prior to
admission he was independent with ambulation and adls. He states he does not have any DME in the home. He states he was concerned about his co-pay for Jardiance. Last year he did not have a co-pay. Telephone call to [facility] to check on
co-pay. His first script will be $860.16 . He has a $530.00 yearly deductible that has to be met, then he pays 25 percent of the medications. which would be $329.47 a month. Once he gets to $2000.00 out of pocket his medications will be free. If
he is having trouble covering the cost of medications. He can call [facility], ([phone]) to see if they can lower his co-pay. He can also call [facility] for living ([phone]) to see if they can provide any assistance with his deductibles.
Reviewed about with him and he states he was getting extra help last year. He will call them to see if they can assist him with his co-pays. Gave him the one month free coupon for Jardiance. Medical work-up in progress. The discharge plan is to
return home with his spouse when medically stable.
--- NOTE | 2024-03-21 12:37 | W.DCSUMMARY ---
Discharge Summary
Discharge Data
Date of Admission: 03/17/24
Date of Discharge: 03/21/24
-
Pending Results: No
Discharge Plan
-
Patient Disposition: Home (Routine Discharge)
Discharge Diagnosis/Procedures: Cardiac catheterization
Hypertensive emergency
Acute Heart Failure with Restricted Ejection Fraction
NSTEMI
Coronary Artery Disease
Condition: Fair
Diet: Low Cholesterol, 2 Gram Sodium and Restrict fluids to 48 oz
Activity: As tolerated
Driving Restrictions: No driving for 24 hours
Bathing Restrictions: None
Blood Work: Repeat BMP with primary care provider in 1 week of discharge.
Specialty Instructions: Weigh Daily- Call MD for wt gain/loss 3 lbs overnight/5 lbs in 1 week
Activity Restrictions/Additional Instructions:
Please follow up with primary care provider in 1 week of discharge and keep your appointment with Cardiology.
amlodipine 2.5 mg tablet 2.5 mg PO DAILY started for hypertension
aspirin 81 mg chewable tablet 81 mg PO DAILY started for coronary artery disease
atorvastatin 40 mg tablet 40 mg PO QPM started for coronary artery disease
carvedilol 12.5 mg tablet 12.5 mg PO BID increased from home dose 6.25 mg BID for better blood pressure control
clopidogrel 75 mg tablet 75 mg PO DAILY started for coronary artery disease
furosemide 40 mg tablet 40 mg PO DAILY started for Heart Failure
lisinopril 20 mg tablet 20 mg PO DAILY Started for better blood pressure control and treatment Heart Failure
Please take medications as prescribed/recommended and follow up with primary care provider and/or other healthcare provider involved in your care for refills and/or further adjustment of your medication regimen as necessary.
Instructions: *DCA Heart Failure Instructions
Stand Alone Forms: DC Instructions- Cath/EP Lab
Referrals:
Jorge Angeles CRNP [Family Provider] - in one week
Livia Price CRNP [Specified Professional Personl] - 04/08/24 2:20 pm
Prescriptions:
New
furosemide 40 mg Tablet
40 mg PO DAILY Qty: 30 0RF
atorvastatin 40 mg Tablet
40 mg PO QPM Qty: 30 0RF
carvedilol 12.5 mg Tablet
12.5 mg PO BID Qty: 60 0RF
lisinopril 20 mg Tablet
20 mg PO DAILY Qty: 30 0RF
amlodipine 2.5 mg Tablet
2.5 mg PO DAILY Qty: 30 0RF
clopidogrel 75 mg Tablet
75 mg PO DAILY Qty: 30 0RF
aspirin 81 mg Tablet,Chewable
81 mg PO DAILY Qty: 30 0RF
Continued
insulin glargine [Lantus U-100 Insulin] 100 unit/mL Solution
0 - 40 unit SC QPM
insulin aspart U-100 [Novolog U-100 Insulin aspart] 100 unit/mL Solution
1 sliding scale dose SC .WITH MEALS
Rx Instructions:
MAX 20 UNITS
metformin 1,000 mg Tablet
1,000 mg PO BID
lisinopril 10 mg Tablet
10 mg PO DAILY
duloxetine [Cymbalta] 60 mg Capsule,Delayed Release(Dr/Ec)
120 mg PO DAILY
bupropion HCl 300 mg Tablet Extended Release 24 Hr
300 mg PO DAILY
empagliflozin 25 mg Tablet
25 mg PO DAILY
Discontinued
carvedilol 6.25 mg Tablet
6.25 mg PO BID
Discharge Orders:
Discharge Patient (As Directed); Ordered 03/21/24
Ordered By: Sherman Mehta
Care Plan Goals
Care Plan Goals:
Problem: Readiness for enhanced knowledge related to diagnosis and treatment plan
Goal: Understand your diagnosis and treatment plan needs, including medications if applicable.
Instructions: Know your diagnosis, underlying causes and treatment plan options, including medications if applicable. Consult with your health care team to learn about your diagnosis and treatment plan, including medications if applicable.
Discharge Date and Time
Print Language: GUATEMALAN
--- NOTE | 2024-03-22 15:00 | W.HF.CON ---
Heart Failure
- LV Function
Left ventricular function study result: LV Ejection fraction 36-40%
Ejection Fraction Percentage: 35-40
- ARNI
Patient already on ARNI: No
Heart Failure ARNI Contraindication: Worsening Renal Function
- ACEI/ARB
Patient already on ACEI/ARB: Yes
- Beta Liz
Patient already on Evidence Based Beta Liz: Yes
- Mineralocorticord Receptor Antagonist
Patient already on MRA: No
Heart Failure MRA Contraindication: Potentially Non-compliant (dementia)
- SGLT-2 Inhibitor
Patient already on SGLT-2 Inhibitor: Yes
- NYHA CHF Classification
NYHA CHF Classification Level: Class III - Symptoms w/ min exertion, interferes w/ nml daily activity
- ACC/AHA Stage
ACC/AHA Stage: Stage C: Symptomatic Heart Failure
== END 2024-03-21 14:40 | disposition home or self-care (01) | DRG 280 ==
LOC: IVU 03:15
PROVIDERS: Emergency Medicine; Hospitalist; Internal Medicine Interventional Cardiology; Physician Assistant Medical; ADMITTING PHYSICIAN Hospitalist; ATTENDING PHYSICIAN Internal Medicine; EMERGENCY PHYSICIAN Emergency Medicine; FAMILY PHYSICIAN Nurse Practitioner Adult Health; OTHER PHYSICIAN Internal Medicine Cardiovascular Disease
PROC: B2151ZZ Fluoroscopy of Left Heart using Low Osmolar Contrast (ICD-10-PCS; 2024-03-18)
PROC: 4A023N8 Measurement of Cardiac Sampling and Pressure, Bilateral, Percutaneous Approach (ICD-10-PCS; 2024-03-18)
PROC: B2111ZZ Fluoroscopy of Multiple Coronary Arteries using Low Osmolar Contrast (ICD-10-PCS; 2024-03-18)
DX: I16.1 Hypertensive emergency (principal); I50.21 Acute systolic (congestive) heart failure; I21.4 Non-ST elevation (NSTEMI) myocardial infarction; I25.10 Atherosclerotic heart disease of native coronary artery without angina pectoris; E11.319 Type 2 diabetes mellitus with unspecified diabetic retinopathy without macular edema; I11.0 Hypertensive heart disease with heart failure; E78.00 Pure hypercholesterolemia, unspecified; Z79.4 Long term (current) use of insulin; N40.0 Benign prostatic hyperplasia without lower urinary tract symptoms; I95.1 Orthostatic hypotension; Z90.49 Acquired absence of other specified parts of digestive tract; Z79.84 Long term (current) use of oral hypoglycemic drugs; Z79.899 Other long term (current) drug therapy; E87.6 Hypokalemia; F41.9 Anxiety disorder, unspecified; F32.A Depression, unspecified; E04.2 Nontoxic multinodular goiter; Z85.820 Personal history of malignant melanoma of skin; K57.90 Diverticulosis of intestine, part unspecified, without perforation or abscess without bleeding; E66.9 Obesity, unspecified; E11.40 Type 2 diabetes mellitus with diabetic neuropathy, unspecified; E11.649 Type 2 diabetes mellitus with hypoglycemia without coma; I25.2 Old myocardial infarction; I44.0 Atrioventricular block, first degree; I44.7 Left bundle-branch block, unspecified; M51.369 Other intervertebral disc degeneration, lumbar region without mention of lumbar back pain or lower extremity pain; W01.0XXA Fall on same level from slipping, tripping and stumbling without subsequent striking against object, initial encounter; Z82.0 Family history of epilepsy and other diseases of the nervous system; Z83.3 Family history of diabetes mellitus; F03.90 Unspecified dementia, unspecified severity, without behavioral disturbance, psychotic disturbance, mood disturbance, and anxiety; Z68.28 Body mass index [BMI] 28.0-28.9, adult; Z11.52 Encounter for screening for COVID-19
CPT/HCPCS: 71046; 80048; 80053; 80061; 81003; 81015; 82962; 83036; 83735; 83880; 84100; 84443; 84484; 85025; 85027; 85730; 87086; 87502; 87811; 93005; 93306; 93460; 93970; 96365; 96366; 96375; 99285; C1894; Q9967

== ENCOUNTER → 2024-07-06 07:56 | Outpatient (REF) | payer OTHER, SELFPAY | LOC: RCS 07:56 | PROVIDERS: ATTENDING PHYSICIAN Nurse Practitioner; FAMILY PHYSICIAN Nurse Practitioner Adult Health | DX: I50.23 Acute on chronic systolic (congestive) heart failure (principal) | CPT/HCPCS: 93306 ==

== ENCOUNTER 2024-07-08 19:57 | Emergency (ER) | payer OTHER, SELFPAY ==
[2024-07-08] VITALS (7 sets, daily range): BP systolic 170–200; BP diastolic 82–106
[2024-07-08 20:28] LABS: % Basophils 0.5 % (0-2); % Eosinophils 2.9 % (0-6); % Immature Granulocytes 0.4 % (0-0.5); % Lymphocytes 31.7 % (20.5-51.1); % Monocytes 10.5 % (1.7-9.3); Absolute Eosinophils 0.2 10^3/uL (0-0.7); Absolute Lymphocytes 2.4 10^3/uL (1.2-3.4); Absolute Monocytes 0.8 10^3/uL (0.1-0.6); Absolute Neutrophils 4.2 10^3/uL (1.4-6.5); Hematocrit 38.6 % (39.0-52.0); Hemoglobin 13.1 g/dL (13.0-18.0); Mean Corp Hgb Conc. 33.9 g/dL (33.0-37.0); Mean Corpuscular Hgb 31.4 pg (27.0-31.0); Mean Corpuscular Volume 92.6 fL (80.0-94.0); Mean Platelet Volume 9.1 fL (7.4-10.4); Nucleated Red Blood Cells % 0 % (-); Platelet Count 241 10^3/uL (130-400); Red Blood Cell Count 4.17 10^6/uL (4.70-6.10); Red Cell Dist. Width 13.9 % (11.5-14.5); White Blood Cell Count 7.7 10^3/uL (4.8-10.8)
--- NOTE | 2024-07-08 20:41 | ED.GENMED ---
History of Present Illness
General
Chief Complaint: Blood Pressure Problem
Source: patient
Exam Limitations: none
Time Seen by Provider: 07/08/24 20:38
Nursing documentation reviewed up to this point in time: agreed with
History of Present Illness
History of Present Illness:
68-year-old male with history of diabetic neuropathy, IDDM, CHF, CAD, HTN, HLD, AL, edema, GERD, diabetic retinopathy, anxiety/depression presents for high blood pressure. States his BP typically 130's/70-80s. At 4 p.m. he started feeling fatigued,
lightheaded, slightly nauseous (this has subsided), took his blood pressure and it was:
6 p.m. 181/112
6:30 p.m. 192/110
7:15 p.m. 179/100
Pt states he's afraid he's having a heart attack. He had no chest pain with his last AL he states.
Pt denies CP, SOB but states she has noted him being SOB at times.
Started on Spironolactone one month ago and had the dose increased from 1/2 a pill to a whole pill 2 weeks ago. Takes his Lisinopril, Amlodipine and Carvedilol as ordered
states 'I gave him some bad news earlier' and he cuts her off and tells her to stop talking. When asked about it he states there is financial problem and 'that's the end of it!'
Past History
Past History
ED Past Medical History: CAD, Cancer (Malignant melanoma), HTN, Hypercholesterolemia, IDDM, AL (Non-STEMI 2015 peak troponin 1.9-treated conservatively. Cath at that time showed subtotal LAD occlusion) and Other (kidney stones, lumbar DJD,
peripheral neuropathy)
ED Past Surgical History: Cholecystectomy and Orthopedic (Lumbar laminectomy August 2023)
Patient has exhibited threatening behavior?: No
PSI?: No
Social History
Tobacco: Non-smoker
Alcohol: None
Drug: None
Personal:
Living: with family
Employment: Retired
Family History
Family History: Other (Father with Parkinson's and diabetes)
Review of Systems
Review of Systems
Allergies reviewed?: Yes
All Other Systems: ROS reviewed and negative except as documented in HPI and ROS
Constitutional: Reports fatigue; Denies fever
Respiratory: Denies trouble breathing
Cardiac: Denies chest pain, diaphoresis or palpitations
ABD/GI: Reports nausea (nausea earlier this evening, none now) and diarrhea (chronic intermittent diarrhea); Denies abdominal pain, vomiting, bloody stools or black stools
: Reports difficulty voiding (chronic); Denies dysuria
Musculoskeletal: Reports no symptoms; Denies edema
Skin: Reports no symptoms
Neurological: Reports no symptoms
Phy Exam
Physical Exam
Physical Exam:
GENERAL: No acute distress. A&Ox3.
CONSTITUTIONAL: Afebrile.
EYES: clear, conjunctivae normal
ENMT: moist mucus membranes, Pharynx nl
RESPIRATORY: Regular respirations, nonlabored, lungs clear.
CARDIOVASCULAR: Regular rate and rhythm, no murmurs, no rubs.
GI: Soft, nontender, normal BS
MUSCULOSKELETAL: Moves with ease. Well perfused.
SKIN: Warm, dry, pink
PSYCH: Normal mood and affect. Well kept, interactive and appropriate
NEUROLOGIC: Awake, alert and oriented.Speech clear. No focal neurological deficits
Course
Orders/Labs/Results
Orders:
Orders
07/08/24 20:01
Electrocardiogram (*1) Urgent
Reason for Study: Hypertension, Benign
EKG- Treatment ONCE
07/08/24 20:11
Complete Blood Count/With Diff Urgent
Comprehensive Metabolic Panel Urgent
NT-proBNP Urgent
Comment: ADD ON
07/08/24 21:10
Troponin I Urgent
07/08/24 21:16
Carvedilol [Coreg] 12.5 mg PO NOW STA
07/09/24 00:02
Troponin I Urgent
Abnormal Lab Results
07/08/24 07/08/24 07/09/24
20:11 21:10 00:02
RBC 4.17 L 10^6/uL
(4.70-6.10)
Hct 38.6 L %
(39.0-52.0)
MCH 31.4 H pg
(27.0-31.0)
Absolute Monos (auto) 0.8 H 10^3/uL
(0.1-0.6)
Monocytes % 10.5 H %
(1.7-9.3)
BUN 22 H mg/dl
(9-20)
Glucose 169 H mg/dl
(70-99)
Alkaline Phosphatase 156 H U/L
(38-126)
Troponin I 0.069 H* ng/ml 0.073 H* ng/ml
07/08/24 20:11
07/08/24 20:11
Vital Signs
Initial and Last Documented VS:
Initial Vital Signs
Temp Pulse Resp BP Pulse Ox
98.7 F 89 16 200/106 96
07/08/24 20:00 07/08/24 20:00 07/08/24 20:00 07/08/24 20:00 07/08/24 20:00
Last Documented Vital Signs
Temp Pulse Resp BP Pulse Ox
98.1 F 76 23 172/90 97
07/09/24 00:39 07/09/24 00:39 07/09/24 00:39 07/09/24 00:39 07/09/24 00:39
Floriculturist consulted with Physician
Floriculturist consulted with physician?: Yes
Name of Physician Consulted: Xenia
MDM/Problems Addressed
Differential Diagnosis Includes:
ACS, AL, stress. Hypertensive urgency
MDM/Problems Addressed:
68-year-old male with history of diabetic neuropathy, IDDM, CHF, CAD, HTN, HLD, AL, edema, GERD, diabetic retinopathy, anxiety/depression presents for high blood pressure. States his BP typically 130's/70-80s. At 4 p.m. he started feeling fatigued,
lightheaded, slightly nauseous (this has subsided), took his blood pressure and it was:
6 p.m. 181/112
6:30 p.m. 192/110
7:15 p.m. 179/100
Pt states he's afraid he's having a heart attack. He had no chest pain with his last AL he states.
Started on Spironolactone one month ago and had the dose increased from 1/2 a pill to a whole pill 2 weeks ago. Takes his Lisinopril, Amlodipine and Carvedilol as ordered
Pt denies CP, SOB but states she has noted him being SOB at times.
states 'I gave him some bad news earlier' and he cuts her off and tells her to stop talking. When asked about it he states there is financial problem and 'that's the end of it!'
9:30 p.m.
Echocardiogram from 2 days ago reviewed, EF 44% which has improved from 35% on 03/17/2024
CBC unremarkable.
CMP unremarkable
Troponin: 0.069 (has chronic elevated Troponin, no chest pain, doubt acute cardiac etiology)
No neuro symptoms, BP coming down after his p.m. dose of Carvedilol
Case discussed with Dr. Michaels who will assume care from this point. Agrees pt can be discharged if Troponin #2 unremarkable. He will check it.
Chronic conditions affecting care: DM, HTN and CAD
*Critical Care Note
Total Time (30-74mins, 75-104mins- exclusive of procedures): Not Applicable
ED Attending Note
-
Portions of this chart may have been created with voice recognition software.� Occasional wrong word or��sound alike� substitutions may have occurred due to the inherent limitations of voice recognition software.
Discharge Plan
Departure
Patient Disposition: Home (Routine Discharge)
Patient with high blood pressure during this ER visit?: Yes
Condition: Fair
Discharge Problem:
Hypertension, Stress
Prescriptions:
No Action
insulin glargine [Lantus U-100 Insulin] 100 unit/mL Solution
0 - 40 unit SC QPM
insulin aspart U-100 [Novolog U-100 Insulin aspart] 100 unit/mL Solution
1 sliding scale dose SC .WITH MEALS
Rx Instructions:
MAX 20 UNITS
metformin 1,000 mg Tablet
1,000 mg PO BID
lisinopril 10 mg Tablet
10 mg PO DAILY
duloxetine [Cymbalta] 60 mg Capsule,Delayed Release(Dr/Ec)
120 mg PO DAILY
bupropion HCl 300 mg Tablet Extended Release 24 Hr
300 mg PO DAILY
empagliflozin 25 mg Tablet
25 mg PO DAILY
furosemide 40 mg Tablet
40 mg PO DAILY Qty: 30 0RF
atorvastatin 40 mg Tablet
40 mg PO QPM Qty: 30 0RF
carvedilol 12.5 mg Tablet
12.5 mg PO BID Qty: 60 0RF
lisinopril 20 mg Tablet
20 mg PO DAILY Qty: 30 0RF
amlodipine 2.5 mg Tablet
2.5 mg PO DAILY Qty: 30 0RF
clopidogrel 75 mg Tablet
75 mg PO DAILY Qty: 30 0RF
aspirin 81 mg Tablet,Chewable
81 mg PO DAILY Qty: 30 0RF
Referrals:
Jorge Angeles CRNP [Family Provider] - As needed
Jose Yañez MD [Active] - Keep scheduled appt
Activity Restrictions/Additional Instructions:
As we discussed, your workup here shows nothing worrisome.
Your Troponin is mildly elevated but this is chronic with you.
Your blood pressure is improving, continue your current medications.
Stress can be a major factor in blood pressure. Stress reduction techniques may help.
Continue your blood pressure medications as prescribed
Take your blood pressure daily and record it. If it is above 150/90 more than 50% of the time, please discuss with your production control pegboard clerk within the next week as you may need medication adjustments.
Keep your August 10 cardiology appointment.
Return here immediately for chest pain, headache, slurred speech, weakness or feeling worse in any way
Interventions
Interventions:
*Risk Screen - Suicide Last Done: 07/08/24 21:13
*General Assessment Last Done: 07/08/24 21:13
*Neglect/Abuse Screening Last Done: 07/08/24 21:13
*ED- Fall Risk Assessment Last Done: 07/08/24 21:13
*ED COVID-19 Vaccine History Last Done: 07/08/24 21:13
*Nursing Disposition Last Done: 07/09/24 00:44
ED- Cardiac Assessment Last Done: 07/08/24 20:49
ED- Neurological Assessment Last Done: 07/08/24 20:49
ED- Pulmonary Assessment Last Done: 07/08/24 20:49
Discharge Date and Time
Discharge Date/Time: 07/09/24 00:46
Print Language: AMHARIC
[2024-07-08 20:48] LABS: ALT (SGPT) 27 U/L (0-50); AST (SGOT) 32 U/L (17-59); Alkaline Phosphatase 156 U/L (38-126); Blood Urea Nitrogen 22 mg/dl (9-20); Calcium 9.4 mg/dl (8.4-10.2); Carbon Dioxide 28 mmol/L (22-30); Chloride 106 mmol/L (98-107); Glucose 169 mg/dl (70-99); Potassium 3.9 mmol/L (3.5-5.1); Sodium 140 mmol/L (135-145); Total Bilirubin 0.5 mg/dl (0.2-1.3); Total Protein 6.5 g/dl (6.3-8.2); eGFR > 60.00
[2024-07-08] MEDS: COREG 12.5 MG PO (21:23)
[2024-07-08 21:27] LABS: NT-proBNP 546 pg/ml
[2024-07-08 21:51] LABS: Troponin I 0.069 ng/ml
[2024-07-09 00:34] LABS: Troponin I 0.073 ng/ml
[2024-07-09 00:39] VITALS: BP 172/90
== END 2024-07-09 00:46 | disposition home or self-care (01) ==
LOC: EMR 19:57
PROVIDERS: Registered Nurse; Student in an Organized Health Care Education/Training Program; EMERGENCY PHYSICIAN Emergency Medicine; FAMILY PHYSICIAN Nurse Practitioner Adult Health
DX: I11.0 Hypertensive heart disease with heart failure (principal); F43.9 Reaction to severe stress, unspecified; I50.9 Heart failure, unspecified; E78.00 Pure hypercholesterolemia, unspecified; I25.10 Atherosclerotic heart disease of native coronary artery without angina pectoris; I25.2 Old myocardial infarction; F41.8 Other specified anxiety disorders; E11.42 Type 2 diabetes mellitus with diabetic polyneuropathy; E11.319 Type 2 diabetes mellitus with unspecified diabetic retinopathy without macular edema; Z83.3 Family history of diabetes mellitus; Z85.820 Personal history of malignant melanoma of skin; Z87.442 Personal history of urinary calculi
CPT/HCPCS: 99283; 80053; 83880; 84484; 85025; 93005

== ENCOUNTER 2024-08-24 18:35 | Inpatient (IN) | payer OTHER, SELFPAY ==
[2024-08-24] VITALS (15 sets, daily range): BP systolic 81–138; BP diastolic 49–71; PULSE 75–98; BMI 30.1; BMI 29.9
[2024-08-24] MEDS: ZOFRAN 4 MG IV (13:02)
[2024-08-24 13:27] LABS: % Basophils 0.4 % (0-2); % Immature Granulocytes 0.5 % (0-0.5); % Lymphocytes 11.9 % (20.5-51.1); % Monocytes 7.5 % (1.7-9.3); % Neutrophils 76.7 % (42.2-75.2); Absolute Eosinophils 0.3 10^3/uL (0-0.7); Absolute Immature Granulocytes 0.1 10^3/uL (0-0.05); Absolute Lymphocytes 1.3 10^3/uL (1.2-3.4); Absolute Monocytes 0.8 10^3/uL (0.1-0.6); Absolute Neutrophils 8.3 10^3/uL (1.4-6.5); Hematocrit 43.4 % (39.0-52.0); Hemoglobin 14.7 g/dL (13.0-18.0); Mean Corp Hgb Conc. 33.9 g/dL (33.0-37.0); Mean Corpuscular Hgb 30.8 pg (27.0-31.0); Mean Corpuscular Volume 90.8 fL (80.0-94.0); Mean Platelet Volume 9.5 fL (7.4-10.4); Nucleated Red Blood Cells % 0 % (-); Platelet Count 260 10^3/uL (130-400); Red Blood Cell Count 4.78 10^6/uL (4.70-6.10); Red Cell Dist. Width 13.2 % (11.5-14.5); White Blood Cell Count 10.8 10^3/uL (4.8-10.8)
[2024-08-24 13:41] LABS: ALT (SGPT) 22 U/L (0-50); AST (SGOT) 20 U/L (17-59); Albumin 4.4 g/dl (3.5-5.0); Alkaline Phosphatase 89 U/L (38-126); Blood Urea Nitrogen 32 mg/dl (9-20); Calcium 9.5 mg/dl (8.4-10.2); Carbon Dioxide 15 mmol/L (22-30); Chloride 109 mmol/L (98-107); Glucose 184 mg/dl (70-99); Potassium 4.9 mmol/L (3.5-5.1); Sodium 137 mmol/L (135-145); Total Bilirubin 0.9 mg/dl (0.2-1.3); Total Protein 6.8 g/dl (6.3-8.2); eGFR 54.07
[2024-08-24 13:52] LABS: Troponin I 0.027 ng/ml
--- NOTE | 2024-08-24 14:56 | ED.GENMED ---
History of Present Illness
General
Chief Complaint: Fainting/Passed Out
Source: patient
Exam Limitations: none
Time Seen by Provider: 08/24/24 14:52
Nursing documentation reviewed up to this point in time: agreed with
History of Present Illness
History of Present Illness:
TIME OF INITIAL EVALUATION
-15:11
REVIEW OF OLD RECORDS
- Cardiac echo from 07/06/2024�EF 44%
- Cardiac catheterization 03/18/2024 which reveals severe branch vessel CAD involving LAD
CHIEF COMPLAINT(S)
Syncope and weakness.
HISTORY OF PRESENT ILLNESS
The patient is a 68-year-old male presenting with an episode of syncope today. He reports having had a late breakfast and feeling slightly dizzy as he accompanied his spouse to a doctors appointment. The dizziness progressed to lightheadedness,
prompting his spouse to drive him home. Upon arriving and exiting the car, he experienced spinning vertigo, resulting in a syncope episode lasting a few seconds. He was subsequently brought to the emergency department by passenger car cleaning supervisor. During transport, he
became nauseous and vomited. He reports ongoing weakness for the last two weeks, along with watery bowel movements for the same duration, but denies any significant abdominal pain or chest symptoms. He describes a mild headache localized to the back
of the head. He has been feeling dehydrated, with increased thirst but no significant changes in urination.
Past History
Past History
ED Past Medical History: CAD, Cancer (Malignant melanoma), HTN, Hypercholesterolemia, IDDM, [place] (Non-STEMI 2016 peak troponin 1.9-treated conservatively. Cath at that time showed subtotal LAD occlusion) and Other (kidney stones, lumbar DJD,
peripheral neuropathy)
ED Past Surgical History: Cholecystectomy and Orthopedic (Lumbar laminectomy August 2023)
Patient has exhibited threatening behavior?: No
PSI?: No
Social History
Tobacco: Non-smoker
Alcohol: None
Drug: None
Personal:
Living: with family
Employment: Retired
Family History
Family History: Other (Father with Parkinson's and diabetes)
Review of Systems
Review of Systems
Allergies reviewed?: Yes
All Other Systems: ROS reviewed and negative except as documented in HPI and ROS
Phy Exam
Physical Exam
Physical Exam:
- Vitals: BP soft, otherwise vital signs stable. Afebrile
- General: Well appearing in no distress
- HEENT: Dry mucous membranes
- Cardiovascular: No murmurs, normal heart rate, regular rhythm, No chest wall tenderness
- Pulmonary: No respiratory distress, breath sounds are clear and equal
- Abdomen: Soft with no peritoneal signs, no tenderness
- Neurologic: Alert and oriented, excellent strength all extremities, no coordination deficits
- Psychiatric: Appropriate mental status, normal insight and judgement
- Extremities: no edema, moves all extremities equally
- Skin: No rash, no lesions
Course
Orders/Labs/Results
Orders:
Orders
08/24/24 Lunch
2000 calorie (17 carb) Diabetic
At Your Request: Full Participation
08/24/24 12:57
Ondansetron Injectable [Zofran] 4 mg .ROUTE .STK-MED ONE
08/24/24 13:02
Ondansetron Injectable [Zofran] 4 mg IV NOW STA
08/24/24 13:04
Electrocardiogram (*1) Urgent
Reason for Study: Vertigo / Dizzy
EKG- Treatment ONCE
08/24/24 13:10
Complete Blood Count/With Diff Urgent
Comprehensive Metabolic Panel Urgent
Magnesium Urgent
Comment: ADD ON
Troponin I Urgent
08/24/24 15:12
Orthostatic VS- Treatment ONCE
08/24/24 15:13
Add On- LAB Urgent
Tests Added?: magnesium
0.9% Sodium Chloride 500 ml [Nss] 500 ml IV BOLUS
08/24/24 15:20
COVID-19 Antigen Urgent
Source: Nasal Swab
Urinalysis Reflex To Culture Urgent
Date Specimen was Collected: 08/24/24
Time Specimen was Collected: 15:14
Urine Microscopic Reflex Cult Urgent
Urine Culture Urgent
MARIZOL Source: U
Specimen Description:
Date Specimen was Collected: 08/24/24
Time Specimen was Collected: 15:14
08/24/24 17:09
Acetaminophen [Tylenol] 650 mg PO NOW STA
08/24/24 18:28
Admit/Transfer Patient As Directed
Co-Sign Provider:
Level of Care: Inpatient admission
Assign to:: Telemetry
Physician / Group: Juanita Otero
Diagnosis: syncope, orthostasis
Reason for Telemetry: Syncope
Date to Stop Telemetry: 08/26/24
Time to Stop Telemetry: 11:00
Reason for Hospitalization: syncope, orthostasis
Expected length of stay greater than two midnights?: Yes
ELOS- Estimated Length of Stay in days: 2
I certify the patient meets the requirements for IP care: Yes
PRN Pain Medication Management As Directed
May give lesser potent ordered pain med per pt: Yes
preference::
Protocol:: Medication orders for pain may be administered in a
manner that supports deferring to patient preference
when the pt is:
- Requesting an ordered lesser potent pain medication.
Least to most potent pain medications are defined
as: acetaminophen < NSAID < tramadol < opioids
(morphine, oxycodone, hydromorphone).
- Requesting a lesser dose of the same medication IF
ORDERED.
- Requesting a less intrusive route of administration
if both routes are prescribed by the provider (PO <
IV).
08/24/24 18:29
Code Status As Directed
Resuscitation Status: Full Code
08/24/24 19:25
Norovirus by PCR Routine
MARIZOL Source: Feces/Stool
Specimen Description:
Date Specimen was Collected: 08/24/24
Time Specimen was Collected: 19:23
STOOL [C difficile Antigen & Toxins] Urgent
MARIZOL Source: Feces/Stool
Specimen Description:
Date Specimen was Collected: 08/24/24
Time Specimen was Collected: 19:23
Stool Culture Urgent
MARIZOL Source: Feces/Stool
Specimen Description:
Date Specimen was Collected: 08/24/24
Time Specimen was Collected: 19:23
08/24/24 20:12
0.9% Sodium Chloride 500 ml [Nss] 500 ml IV 100 mls/hr
Acetaminophen [Tylenol] 650 mg PO Q4HPRN PRN
Dextrose 50%-Water [Dextrose 50% Syringe] 12.5 grams IV [id number] PRN
Glucagon [GlucaGen] 1 mg IM PRN PRN
Heparin 5,000 units SC Q12
08/24/24 20:12
Activity As Directed
Activity Level: As Tolerated
Bedside Glucose Monitoring As Directed
Frequency: AC&HS
Additional Instructions:: Change to q6h if pt on TPN, tube feeding or not eating
Orthostatic Vital Signs As Directed
Orthostatic VS Frequency: BID
Vital Signs As Directed
Frequency: Per unit guidelines
Pt Eval And Treat Routine
Activity Level: As Tolerated
DX Deep Vein Thrombosis Video Routine
08/24/24 21:00
Carvedilol [Coreg] 6.25 mg PO BID
08/24/24 22:00
Donepezil [Aricept] 5 mg PO HS
Tamsulosin [Flomax] 0.4 mg PO HS
insulin glargine [Lantus Solostar U-100 Insulin] 30 unit SC HS
08/24/24 23:01
Troponin I Q6H
08/25/24 07:14
Basic Metabolic Panel IN AM
Complete Blood Count/No Diff IN AM
Glycohemoglobin (HgbA1c) IN AM
Magnesium IN AM
TSH IN AM
08/25/24 07:30
Insulin Aspart Corrective Low [Novolog Flexpen-Low Resistance] See Protocol SC AC
08/25/24 08:00
Atorvastatin [Lipitor] 40 mg PO DAILY
Clopidogrel Bisulfate [Plavix] 75 mg PO DAILY
Dapagliflozin [Farxiga] 10 mg PO DAILY
Duloxetine Delayed Release [Cymbalta Delayed Release] 120 mg PO DAILY
08/26/24 11:00
DC Protocol for Telemetry ONCE
Abnormal Lab Results
08/24/24 08/24/24
13:10 15:20
Abs Immat Gran (auto) 0.1 H 10^3/uL
(0-0.05)
Absolute Neuts (auto) 8.3 H 10^3/uL
(1.4-6.5)
Absolute Monos (auto) 0.8 H 10^3/uL
(0.1-0.6)
Neutrophils % 76.7 H %
(42.2-75.2)
Lymphocytes % 11.9 L %
(20.5-51.1)
Chloride 109 H mmol/L
(98-107)
Carbon Dioxide 15 L mmol/L
(22-30)
BUN 32 H mg/dl
(9-20)
Creatinine 1.4 H mg/dL
(0.7-1.3)
Glucose 184 H mg/dl
(70-99)
Ur Occult Blood Reflex 4+ A
(Negative)
Leukocyte Esterase Rfl 3+ A
(Negative)
Urine RBC >100 A /HPF
(0-2)
Urine WBC (Reflex) >100 A /HPF
(0-5)
Urine Bacteria (Reflex) Many A
(Negative)
Urine Glucose 4+ A
(Negative)
Urine Albumin (Reflex) 3+ A
(Neg - Trace)
08/24/24 13:10
08/24/24 13:10
Vital Signs
Initial and Last Documented VS:
Initial Vital Signs
Temp Pulse Resp BP Pulse Ox
98.3 F 74 16 120/68 97
08/24/24 12:53 08/24/24 12:53 08/24/24 12:53 08/24/24 12:53 08/24/24 12:53
Last Documented Vital Signs
Temp Pulse Resp BP Pulse Ox
98.2 F 79 18 156/89 99
08/25/24 11:31 08/25/24 11:31 08/25/24 11:31 08/25/24 11:31 08/25/24 11:31
MDM/Problems Addressed
Differential Diagnosis Includes:
DIFFERENTIAL DIAGNOSIS
The Differential Diagnosis includes, in no particular order and is not limited to:
- Dehydration
- Gastroenteritis
- Hypoglycemia
- Orthostatic hypotension
- Vasovagal syncope
- Electrolyte imbalance
- Infection
- Medication side effect (e.g., recent medication changes)
- Cardiovascular event (e.g., arrhythmia)
- Neurological event (e.g., transient ischemic attack)
MDM/Problems Addressed:
A 68-year-old male presented to the emergency department following a syncopal episode preceded by lightheadedness and followed by a single episode of vomiting. He reported approximately two weeks of diarrhea and fatigue preceding today's
lightheadedness. Patient has a soft BP and appears dry on examination. Otherwise physical exam unremarkable.
ED plan:
- Check basic labs, EKG, UA and stool studies given recent diarrheal illness
- Administer IV fluids for suspected dehydration
- Tylenol for headache
Labs reviewed which reveal evidence of acute dehydration likely secondary to GI losses indicated by acidosis and mild SONYA creatinine of 1.4.
These symptoms, along with laboratory findings, suggested significant dehydration, resulting in orthostatic syncope. Dehydration was suspected to be due to excessive fluid loss from diarrhea, contributing to acute kidney injury. The patient appeared
visibly dehydrated upon examination. Do not suspect underlying cardiac etiology
DISPOSITION
The decision was made to admit the patient to the hospital for overnight monitoring and continued IV hydration due to symptoms of dehydration and an acute kidney injury.
PLAN
The plan includes continued IV fluid administration, hospital admission for monitoring, and further evaluation with stool and urine tests to determine any underlying gastrointestinal etiology. Kidney function and hydration status will be closely
monitored.
Chronic conditions affecting care:
CHF, hypertension, hyperlipidemia, diabetes
Acute Exacerbation and/or Progression of Chronic Illness:
Acute hyperglycemia
*Pulse Oximetry
SaO2: 97
Oxygen Mode of Delivery: Room air
Patient hypoxic: no
*EKG
Interpreted by ED Provider?: Yes
EKG Intrepretation Date: 08/25/24
Interpretation: abnormal
Comparison EKG: changes noted
Heart Rate: 73
Rate: normal
Rhythm: sinus
[place]: left axis deviation
Interval: first degree heart block
QRS Pattern: left vent hypertrophy
Ischemia: non-specific ST changes
*Trimming Inspector Interpretation
Rate: normal
Interpretation: normal
Heart Rate: 72
Rhythm: sinus
*Critical Care Note
Total Time (30-74mins, 75-104mins- exclusive of procedures): Not Applicable
Patient Management
Discussion with other providers: Hospitalist
Escalation/DeEscalation of care consider admission/obs:
Admit for continued monitoring and IV fluids
ED Attending Note
-
Portions of this chart may have been created with voice recognition software.� Occasional wrong word or��sound alike� substitutions may have occurred due to the inherent limitations of voice recognition software.
Discharge Plan
Departure
Patient Disposition: Admit
Date of Disposition: 08/24/24
Time of Disposition: 17:10
Presentation/result/management discussed w/ accepting MD/DO: Hospitalist
Discharge Problem:
Acute dehydration, SONYA (acute kidney injury), Syncope
Interventions
Interventions:
*Risk Screen - Suicide Last Done: 08/24/24 15:05
*General Assessment Last Done: 08/24/24 15:05
*Neglect/Abuse Screening Last Done: 08/24/24 15:05
*ED- Fall Risk Assessment Last Done: 08/24/24 15:05
*ED COVID-19 Vaccine History Last Done: 08/24/24 15:05
*Nursing Disposition Last Done: 08/24/24 19:58
ED- Cardiac Assessment Last Done: 08/24/24 15:05
ED- Neurological Assessment Last Done: 08/24/24 15:05
Discharge Date and Time
Discharge Date/Time: 08/24/24 20:03
[2024-08-24] MEDS: NSS 500 IV ×2 (15:14→20:45)
[2024-08-24 15:43] LABS: Magnesium 1.7 mg/dl (1.6-2.3)
[2024-08-24 15:45] LABS: COVID-19 Antigen Negative (Negative)
[2024-08-24 17:18] LABS: Urine Albumin 3+ (Neg - Trace); Urine Bilirubin Negative (Negative); Urine Character Cloudy (Clear); Urine Color Yellow; Urine Glucose 4+ (Negative); Urine Ketone Negative (Negative); Urine Leukocyte 3+ (Negative); Urine Nitrite Negative (Negative); Urine Occult Blood 4+ (Negative); Urine Specific Gravity 1.015 (<1.030); Urine Urobilinogen Negative (Neg - 1+)
[2024-08-24 17:43] LABS: Urine Bacteria Many (Negative); Urine Red Blood Cell >100 /HPF (0-2); Urine Squamous Cell 0-2 /LPF (Few); Urine White Cell >100 /HPF (0-5)
[2024-08-24] MEDS: TYLENOL 650 MG PO (17:48)
--- NOTE | 2024-08-24 17:57 | HPS.HSE ---
Family Physician
-
Family Physician: Jorge Angeles
Chief Complaint
-
passing out
History of Present Illness
Mr. Rohith Lacy is a 68 yo man with hx HFrEF, CAD treated medically, essential HTN, HLD, DM II, STIVEN presents to the ER after an episode of syncope.
Patient reports feeling dizzy as accompanied spouse to a doctor's appointment. He sat in waiting room and she drove them home. He reports that when he stood to get out of his car he passed out for a couple of minutes. EMS arrived. [facility] he had episode of vomiting.
Patient reports chronic diarrhea but over past 2 weeks has increased in frequency where he is having loose bowel movements multiple times a day. Not black or bloody. He has no abodminal pain. No fevers.
He reports history of orthostatic syncope that resolved when started taking Flomax in evenings rather than mornings.
He denies chest pain or shortness of breath. No LE swelling. He takes his lasix daily. He denies any dysuria or increased urinary frequency or suprapubic pain.
Medical History
Past Medical History
Past Medical History: Reports Other
Additional Past Medical History:
Coronary Artery Disease
Essential Hypertension
Hyperlipidemia
Insulin-Dependent Type II Diabetes Mellitus
Mood Disorder
BPH
Recurrent Syncope secondary to Orthostatic Hypotension
Past Surgical History: Reports Other
Additional Past Surgical History:
Cholecystectomy
Laminectomy
Deviated Septum
Social History
Tobacco: Non-smoker
Alcohol: None
Drug: None
Personal:
Living: With Family
Family History
Family History: Not pertinent
Allergies / Home Medications
Allergies reflects when Allergies were last updated in [facility].
Home Medications with original date entered in [facility]
Allergy/Medication List:
Allergies
Allergy/AdvReac Type Severity Reaction Status Date / Time
hydromorphone (From Dilaudid) Allergy Unknown Verified 08/24/24 13:02
Home Medications
duloxetine 60 mg capsule,delayed release (Cymbalta) 120 mg PO DAILY Mental Health/Anxiety 03/17/24
empagliflozin 25 mg tablet 25 mg PO DAILY Diabetes 03/17/24
metformin 1,000 mg tablet 1,000 mg PO BID Diabetes 03/17/24
amlodipine 2.5 mg tablet 2.5 mg PO DAILY #30 tabs 03/21/24
carvedilol 12.5 mg tablet 12.5 mg PO BID #60 tabs 03/21/24
clopidogrel 75 mg tablet 75 mg PO DAILY #30 tabs 03/21/24
furosemide 40 mg tablet 40 mg PO DAILY #30 tabs 03/21/24
lisinopril 20 mg tablet 20 mg PO DAILY #30 tabs 03/21/24
atorvastatin 40 mg tablet 40 mg PO DAILY 08/24/24
donepezil 5 mg tablet 5 mg PO HS 08/24/24
insulin aspart U-100 100 unit/mL (3 mL) subcutaneous pen (Novolog FlexPen U-100 Insulin aspart) 15 - 20 sliding scale dose SC DIRECTED 08/24/24
insulin glargine 100 unit/mL (3 mL) subcutaneous pen (Lantus Solostar U-100 Insulin) 60 unit SC HS 08/24/24
meloxicam 7.5 mg tablet 7.5 mg PO DAILY 08/24/24
potassium chloride 20 mEq tablet,extended release 20 meq PO DAILY 08/24/24
spironolactone 25 mg tablet 25 mg PO DAILY 08/24/24
tamsulosin 0.4 mg capsule 0.4 mg PO HS 08/24/24
Review of Systems
-
History Source: Patient
A 12 point ROS was completed and negative except as noted: Yes
Physical Exam
Vital Signs
Vital Signs
Temp Pulse Resp BP Pulse Ox
98.3 F 82 22 129/68 100
08/24/24 12:53 08/24/24 17:45 08/24/24 17:45 08/24/24 17:00 08/24/24 17:45
Physical Exam
General: No Apparent Distress and Conversant
HEENT: PERRLA
Respiratory: Clear; No Wheezes
Cardiac: S1/S2 and Regular Rhythm
GI: Soft and Non Tender
Musculoskeletal: No Edema
Skin: Warm and Dry; No Rash
Neuro: AO x 3
Psych: Calm
Laboratory Results
-
08/24/24 13:10
08/24/24 13:10
Laboratory Results
Total Bilirubin 0.9 mg/dl (0.2-1.3) 08/24/24 13:10
AST 20 U/L (17-59) 08/24/24 13:10
ALT 22 U/L (0-50) 08/24/24 13:10
Alkaline Phosphatase 89 U/L (38-126) 08/24/24 13:10
Troponin I 0.027 ng/ml 08/24/24 13:10
Data Reviewed
-
Diagnostic Radiology: Report Reviewed by me
Lab Data: Labs Reviewed by me
Impression/Plan
-
Mr. Rohith Lacy is a 68 yo man with hx HFrEF (EF 35%), CAD treated medically, essential HTN, HLD, DM II, STIVEN, spinal stenosis s/p laminectomy 08/2023, presents to the ER after an episode of syncope. Patient reports acute worsening of chronic
diarrhea over past 2 weeks and found to be orthostatic in the ER.
Triage VS: T 98.3, P 74, RR 16, BP 120/68, SpO2 97%
LABS: WBC 10.8, Hg 14.7, PLT 260, Na 137, K+ 4.9, Cl 109, CO2 15, BUN 32, Cr 1.4, Glucose 184, liver enzymes WNL, Mag 1.7
UA with > 100 WBC
covid negative
MAR: NS 500cc, IV Zofran, tylenol
Orthostasis
Syncope
-history suggestive of orthostasis and orthostatic vital signs positive on admission
-admit to telemetry
-s/p NS 500cc, will order additional 500 over 5 hours
-trend Troponins
-orthostatic VS BID
-hold CENTRIFUGE SEPARATOR TENDER Lasix, Spironolactone, Lisinopril, Amlodipine for now; 1/2 dose CENTRIFUGE SEPARATOR TENDER Coreg
Diarrhea
-patient reports loose stools over many months but has had increased frequency with 3 watery stools/day over past 2 weeks
-test for C. Diff, stool culture, norovirus, ova and parasites
-start probiotics
-consider GI consult if above results negative and no improvement.
Essential HTN
-as above - hold CENTRIFUGE SEPARATOR TENDER Lisinopril, Amlodipine for now; 1/2 dose CENTRIFUGE SEPARATOR TENDER Coreg
-monitor BP closely and low threshold to resume home med regimen once fluid resuscitated; hx hypertensive urgency
Mild SONYA
-gentle fluids as above, hold CENTRIFUGE SEPARATOR TENDER Lisinopril
IDDM
-hold CENTRIFUGE SEPARATOR TENDER Metformin
-patient is on Lantus 60 units and sliding scale 12-20 units AC at home
-will order 30 units Lantus with aspart 5 units AC - adjust as needed
-ISS low
-CENTRIFUGE SEPARATOR TENDER Empaglifozin
HFrEF
-TTE 07/06/24 with EF 44%; patient is on Lasix 40mg PO QD at home
-hold CENTRIFUGE SEPARATOR TENDER Lasix, Spironolactone
-hold Lisinopril
-1/2 dose Coreg - return to full dose if blood pressure increases
CAD - CENTRIFUGE SEPARATOR TENDER Plavix, Statin
HLD
BPH
-CENTRIFUGE SEPARATOR TENDER Flomax qhs
DVT PPx Hep subQ
FULL CODE
76 minutes spent on patient care
[2024-08-24] MEDS: FLOMAX 0.4 MG PO (20:44)
[2024-08-24] MEDS: COREG 6.25 MG PO (20:44)
[2024-08-24] MEDS: ARICEPT 5 MG PO (20:45)
[2024-08-24] MEDS: HEPARIN 5000 UNITS SC (20:45)
[2024-08-24 21:58] LABS: Glucose - Point of Care 146 mg/dl (70-99)
[2024-08-24] MEDS: LANTUS 0.3 UNITS SC (22:13)
--- NOTE | 2024-08-24 23:24 | PTCARENOTE ---
ax3 sinus 1st degree afebrile ortho vitals with tilt- maxx urine. fluids running per orders- chf packet given - rings for all assistance
[2024-08-24 23:37] LABS: Troponin I 0.039 ng/ml
[2024-08-25] VITALS (9 sets, daily range): BP systolic 94–177; BP diastolic 64–99; PULSE 76–92; BMI 29.9
--- NOTE | 2024-08-25 03:13 | PTCARENOTE ---
pt ambulated twice withour dizziness- urine is dak maxx. iv fluids stopped per orders
[2024-08-25 07:30] LABS: Glucose - Point of Care 152 mg/dl (70-99)
[2024-08-25 07:34] LABS: Hemoglobin 13.8 g/dL (13.0-18.0); Mean Corp Hgb Conc. 33.7 g/dL (33.0-37.0); Mean Corpuscular Hgb 30.7 pg (27.0-31.0); Mean Corpuscular Volume 91.1 fL (80.0-94.0); Mean Platelet Volume 9.5 fL (7.4-10.4); Platelet Count 216 10^3/uL (130-400); Red Cell Dist. Width 13.2 % (11.5-14.5)
[2024-08-25 08:08] LABS: Troponin I 0.034 ng/ml
[2024-08-25 08:27] LABS: TSH 0.63 uIU/ml (0.47-4.68)
[2024-08-25 08:28] LABS: Blood Urea Nitrogen 33 mg/dl (9-20); Calcium 9.3 mg/dl (8.4-10.2); Carbon Dioxide 16 mmol/L (22-30); Chloride 111 mmol/L (98-107); Estimated Creatinine Clearance 55 ml/min; Glucose 149 mg/dl (70-99); Magnesium 1.8 mg/dl (1.6-2.3); Potassium 4.5 mmol/L (3.5-5.1); Sodium 138 mmol/L (135-145)
[2024-08-25] MEDS: NOVOLOG FLEXPEN 5 UNITS SC ×3 (08:46→18:22)
[2024-08-25] MEDS: NOVOLOG FLEXPEN-LOW RESISTANCE 1 UNITS SC (08:47)
[2024-08-25] MEDS: LIPITOR 40 MG PO (08:50)
[2024-08-25] MEDS: COREG 6.25 MG PO ×2 (08:50→19:56)
[2024-08-25] MEDS: PLAVIX 75 MG PO (08:50)
[2024-08-25] MEDS: HEPARIN 5000 UNITS SC ×2 (08:51→19:56)
[2024-08-25] MEDS: CYMBALTA DELAYED RELEASE 120 MG PO (08:51)
[2024-08-25] MEDS: FARXIGA 10 MG PO (08:51)
[2024-08-25] MEDS: VISBIOME 1 CAP PO (08:51)
[2024-08-25 08:58] LABS: Glycohemoglobin (HgbA1c) 6.4 % (4.0-5.6)
[2024-08-25 12:04] LABS: Glucose - Point of Care 144 mg/dl (70-99)
[2024-08-25] MEDS: NOVOLOG FLEXPEN-LOW RESISTANCE SC ×2 (12:56→18:23)
--- NOTE | 2024-08-25 15:44 | CM ---
account manager relief reviewed patient's chart and met with patient and patient lives with his spouse in a multilevel apartment, patient independent with adl's and ambulation, no dme, home when stable, no needs.
PCP: Jorge Angeles
Pharmacy: [facility]
--- NOTE | 2024-08-25 17:08 | W.PN.HOSP.TC ---
Today's Communication/Plan
-
empiric Rocephin
not yet ready for resumption of BP Rx
Assessment / Plan
Assessment / Plan
Mr. Rohith Lacy is a 68 yo man with hx HFrEF (EF 35%), CAD treated medically, essential HTN, HLD, DM II, STIVEN, spinal stenosis s/p laminectomy 08/2023, presents to the ER after an episode of syncope. Patient reports acute worsening of chronic
diarrhea over past 2 weeks and found to be orthostatic in the ER.
Triage VS: T 98.3, P 74, RR 16, BP 120/68, SpO2 97%
LABS: WBC 10.8, Hg 14.7, PLT 260, Na 137, K+ 4.9, Cl 109, CO2 15, BUN 32, Cr 1.4, Glucose 184, liver enzymes WNL, Mag 1.7
UA with > 100 WBC
covid negative
MAR: NS 500cc, IV Zofran, tylenol
Orthostasis
still ongoing: supine 159/84, sitting 118/77, standing 94/64
Syncope
-history suggestive of orthostasis and orthostatic vital signs positive on admission
-admit to telemetry
-s/p NS 500cc, followed by additional 500 over 5 hours
-trend Troponins
-orthostatic VS BID
-hold CUSTOMER EXPERIENCE CONSULTANT Lasix, Spironolactone, Lisinopril, Amlodipine for now; 1/2 dose CUSTOMER EXPERIENCE CONSULTANT Coreg
Diarrhea
-patient reports loose stools over many months but has had increased frequency with 3 watery stools/day over past 2 weeks
-test for C. Diff, stool culture, norovirus, ova and parasites
-start probiotics
-consider GI consult if above results negative and no improvement.
no diarrhea today, actually no BM's
stool neg for Norovisur, enteric pathogens neg to date
Essential HTN
-as above - hold CUSTOMER EXPERIENCE CONSULTANT Lisinopril, Amlodipine for now; 1/2 dose CUSTOMER EXPERIENCE CONSULTANT Coreg
-monitor BP closely and low threshold to resume home med regimen once fluid resuscitated; hx hypertensive urgency
unfortunately
UTI
Strep species in urine
?contaminant, await species identification
will tx empirically with Rocephin pending finalization
Mild SONYA
-gentle fluids as above, hold CUSTOMER EXPERIENCE CONSULTANT Lisinopril
IDDM
-hold CUSTOMER EXPERIENCE CONSULTANT Metformin
-patient is on Lantus 60 units and sliding scale 12-20 units AC at home
-will order 30 units Lantus with aspart 5 units AC - adjust as needed
-ISS low
-CUSTOMER EXPERIENCE CONSULTANT Empaglifozin
Hga1c 6.4%
glu 144-152
HFrEF
-TTE 07/06/24 with EF 44%; patient is on Lasix 40mg PO QD at home
-hold CUSTOMER EXPERIENCE CONSULTANT Lasix, Spironolactone
-hold Lisinopril
-1/2 dose Coreg - return to full dose if blood pressure increases
CAD - CUSTOMER EXPERIENCE CONSULTANT Plavix, Statin
HLD
BPH
-CUSTOMER EXPERIENCE CONSULTANT Flomax qhs
DVT PPx Hep subQ
FULL CODE
Anticipated Discharge: 24 - 48 hours
Subjective/Interval History
-
Date of Service: August 25, 2024
He feels better, but not back to baseline status
Objective Data
-
Labs:
Laboratory Results
08/25/24
07:14
WBC 7.0
Hgb 13.8
Hct 41.0
Plt Count 216
Sodium 138
Potassium 4.5
Chloride 111 H
Carbon Dioxide 16 L
BUN 33 H
Creatinine 1.3
Glucose 149 H
Calcium 9.3
Vital Signs:
Vital Signs
Temp Pulse Resp BP Pulse Ox
98.2 F 81 18 177/99 97
08/25/24 15:43 08/25/24 15:43 08/25/24 15:43 08/25/24 15:43 08/25/24 15:43
I&O
08/24/24 08/25/24 08/26/24
06:59 06:59 06:59
Intake Total 940 / 940
Output Total 925 / 925
Balance
Review of Systems
-
History Source: Patient and Coordinated Provider
Constitutional: Denies Fever
Respiratory: Reports No Symptoms
Cardiac: Reports No Symptoms; Denies Chest Pain
Abdomen/GI: Reports No Symptoms; Denies Abdominal Pain
Genitourinary: Reports No Symptoms; Denies Dysuria
Neuro: Denies Dizzy (resolved)
Physical Exam
-
General: Well Developed, Well Nourished and No Apparent Distress
HEENT: Normocephalic, Atraumatic and Moist Mucous Membranes
Respiratory: Clear to Auscultation; Negative Wheezes, Rales or Rhonchi
Cardiac: Regular Rhythm and S1/S2
GI: Nontender and Nondistended
Musculoskeletal: No Clubbing, No Cyanosis and No Edema
Skin: Warm and Dry
Neuro: Awake and Alert
[2024-08-25 17:17] LABS: Glucose - Point of Care 148 mg/dl (70-99)
[2024-08-25] MEDS: ROCEPHIN 1000 MG IV (18:24)
[2024-08-25] MEDS: STERILE WATER FOR INJECTION 10 ML IV (18:25)
[2024-08-25 21:40] LABS: Glucose - Point of Care 115 mg/dl (70-99)
[2024-08-25] MEDS: ARICEPT 5 MG PO (21:53)
[2024-08-25] MEDS: FLOMAX 0.4 MG PO (21:53)
[2024-08-25] MEDS: LANTUS 0.3 UNITS SC (21:53)
[2024-08-26] VITALS (9 sets, daily range): BP systolic 97–162; BP diastolic 68–91; PULSE 71–97; O2SAT 99; BMI 29.9
[2024-08-26 08:09] LABS: Glucose - Point of Care 125 mg/dl (70-99)
[2024-08-26] MEDS: NOVOLOG FLEXPEN 5 UNITS SC ×3 (08:43→16:53)
[2024-08-26] MEDS: LIPITOR 40 MG PO (08:44)
[2024-08-26] MEDS: PLAVIX 75 MG PO (08:44)
[2024-08-26] MEDS: FARXIGA 10 MG PO (08:44)
[2024-08-26] MEDS: VISBIOME 1 CAP PO (08:44)
[2024-08-26] MEDS: CYMBALTA DELAYED RELEASE 120 MG PO (08:44)
[2024-08-26] MEDS: NOVOLOG FLEXPEN-LOW RESISTANCE SC ×2 (08:44→16:54)
[2024-08-26] MEDS: COREG 6.25 MG PO ×2 (08:45→20:22)
[2024-08-26] MEDS: HEPARIN 5000 UNITS SC ×2 (08:45→20:22)
[2024-08-26 11:07] LABS: Glucose - Point of Care 190 mg/dl (70-99)
[2024-08-26] MEDS: NOVOLOG FLEXPEN-LOW RESISTANCE 1 UNITS SC (12:55)
--- NOTE | 2024-08-26 15:02 | CM ---
CM reviewed chart, patient seen bedside, reports no needs to CM at this time. Plan remains home no needs. CM will continue to follow for all discharge planning needs.
Plan; home no needs when stable
--- NOTE | 2024-08-26 16:38 | W.PN.HOSP.TC ---
Today's Communication/Plan
-
resume IVF
continue empiric abx
Assessment / Plan
Assessment / Plan
Mr. Rohith Lacy is a 68 yo man with hx HFrEF (EF 35%), CAD treated medically, essential HTN, HLD, DM II, STIVEN, spinal stenosis s/p laminectomy 08/2023, presents to the ER after an episode of syncope. Patient reports acute worsening of chronic
diarrhea over past 2 weeks and found to be orthostatic in the ER.
Triage VS: T 98.3, P 74, RR 16, BP 120/68, SpO2 97%
LABS: WBC 10.8, Hg 14.7, PLT 260, Na 137, K+ 4.9, Cl 109, CO2 15, BUN 32, Cr 1.4, Glucose 184, liver enzymes WNL, Mag 1.7
UA with > 100 WBC
covid negative
MAR: NS 500cc, IV Zofran, tylenol
Orthostasis
still ongoin/26 supine 159/84, sitting 118/77, standing 94/64 08/26 156/90 supine, 123/78 sitting, 113/77 standing
Syncope
-history suggestive of orthostasis and orthostatic vital signs positive on admission
-admit to telemetry
-s/p NS 500cc, followed by additional 500 over 5 hours
-trend Troponins
-orthostatic VS BID
-hold BOND ANALYST Lasix, Spironolactone, Lisinopril, Amlodipine for now; 1/2 dose BOND ANALYST Coreg
will resume IVF
Diarrhea
-patient reports loose stools over many months but has had increased frequency with 3 watery stools/day over past 2 weeks
-test for C. Diff, stool culture, norovirus, ova and parasites all neg to date
-start probiotics
-consider GI consult if above results negative and no improvement.
no diarrhea today, actually no BM's
stool neg for Norovirus, enteric pathogens neg to date
Essential HTN
-as above - hold BOND ANALYST Lisinopril, Amlodipine for now; 1/2 dose BOND ANALYST Coreg
-monitor BP closely and low threshold to resume home med regimen once fluid resuscitated; hx hypertensive urgency
unfortunately
UTI
Strep species in urine
?contaminant, await species identification
will tx empirically with Rocephin pending finalization
Mild SONYA
-gentle fluids as above, hold BOND ANALYST Lisinopril
IDDM
-hold BOND ANALYST Metformin
-patient is on Lantus 60 units and sliding scale 12-20 units AC at home
-will order 30 units Lantus with aspart 5 units AC - adjust as needed
-ISS low
-BOND ANALYST Empaglifozin
Hga1c 6.4%
glu 144-152
HFrEF
-TTE 07/06/24 with EF 44%; patient is on Lasix 40mg PO QD at home
-hold BOND ANALYST Lasix, Spironolactone
-hold Lisinopril
-1/2 dose Coreg - return to full dose if blood pressure increases
CAD - BOND ANALYST Plavix, Statin
HLD
BPH
-BOND ANALYST Flomax qhs
DVT PPx Hep subQ
FULL CODE
Anticipated Discharge: 24 - 48 hours
Subjective/Interval History
-
Date of Service: August 26, 2024
believes he is feeling better
Objective Data
-
Vital Signs:
Vital Signs
Temp Pulse Resp BP Pulse Ox
98.0 F 77 16 159/88 99
08/26/24 15:50 08/26/24 15:50 08/26/24 15:50 08/26/24 15:50 08/26/24 15:50
I&O
08/25/24 08/26/24 08/27/24
06:59 06:59 06:59
Intake Total 940 / 940 960 / 960
Output Total 925 / 925
Balance 960 / 960
Review of Systems
-
History Source: Patient and Coordinated Provider
Constitutional: Denies Fever
Respiratory: Reports No Symptoms
Cardiac: Reports No Symptoms; Denies Chest Pain
Abdomen/GI: Reports No Symptoms; Denies Abdominal Pain
Genitourinary: Reports No Symptoms; Denies Dysuria
Neuro: Denies Dizzy (resolved)
Physical Exam
-
General: Well Developed, Well Nourished and No Apparent Distress
HEENT: Normocephalic, Atraumatic and Moist Mucous Membranes
Respiratory: Clear to Auscultation; Negative Wheezes, Rales or Rhonchi
Cardiac: Regular Rhythm and S1/S2
GI: Nontender and Nondistended
Musculoskeletal: No Clubbing, No Cyanosis and No Edema
Skin: Warm and Dry
Neuro: Awake and Alert
[2024-08-26 16:43] LABS: Glucose - Point of Care 120 mg/dl (70-99)
[2024-08-26] MEDS: ROCEPHIN 1000 MG IV (16:54)
[2024-08-26] MEDS: STERILE WATER FOR INJECTION 10 ML IV (16:55)
[2024-08-26] MEDS: SODIUM BICARBONATE 1150 MEQ IV (17:47)
[2024-08-26 21:08] LABS: Glucose - Point of Care 141 mg/dl (70-99)
[2024-08-26] MEDS: FLOMAX 0.4 MG PO (21:40)
[2024-08-26] MEDS: ARICEPT 5 MG PO (21:40)
[2024-08-26] MEDS: LANTUS 0.3 UNITS SC (21:40)
[2024-08-27 03:44] VITALS: BP 142/83
[2024-08-27 05:38] VITALS: BMI 30.2
[2024-08-27 07:08] VITALS: BP 155/89
[2024-08-27 07:10] VITALS: BP 105/66; BP 137/81; BP 155/89; PULSE 77; PULSE 87; PULSE 92
[2024-08-27 07:15] LABS: Glucose - Point of Care 151 mg/dl (70-99)
[2024-08-27 08:36] VITALS: BP 105/66; BP 137/81; BP 155/89; PULSE 77; PULSE 87; PULSE 92
[2024-08-27] MEDS: NOVOLOG FLEXPEN-LOW RESISTANCE 1 UNITS SC (08:56)
[2024-08-27] MEDS: NOVOLOG FLEXPEN 5 UNITS SC ×2 (08:56→12:03)
[2024-08-27] MEDS: PLAVIX 75 MG PO (08:58)
[2024-08-27] MEDS: CYMBALTA DELAYED RELEASE 120 MG PO (08:59)
[2024-08-27] MEDS: COREG 6.25 MG PO (08:59)
[2024-08-27] MEDS: FARXIGA 10 MG PO (08:59)
[2024-08-27] MEDS: LIPITOR 40 MG PO (08:59)
[2024-08-27] MEDS: HEPARIN 5000 UNITS SC (09:00)
[2024-08-27] MEDS: VISBIOME 1 CAP PO (09:07)
[2024-08-27 09:11] LABS: % Basophils 0.5 % (0-2); % Eosinophils 2.6 % (0-6); % Immature Granulocytes 0.2 % (0-0.5); % Lymphocytes 27.8 % (20.5-51.1); % Monocytes 9.7 % (1.7-9.3); % Neutrophils 59.2 % (42.2-75.2); Absolute Eosinophils 0.2 10^3/uL (0-0.7); Absolute Lymphocytes 1.6 10^3/uL (1.2-3.4); Absolute Monocytes 0.6 10^3/uL (0.1-0.6); Absolute Neutrophils 3.4 10^3/uL (1.4-6.5); Hematocrit 39.8 % (39.0-52.0); Hemoglobin 13.7 g/dL (13.0-18.0); Mean Corp Hgb Conc. 34.4 g/dL (33.0-37.0); Mean Corpuscular Hgb 30.8 pg (27.0-31.0); Mean Corpuscular Volume 89.4 fL (80.0-94.0); Mean Platelet Volume 9.4 fL (7.4-10.4); Nucleated Red Blood Cells % 0 % (-); Platelet Count 195 10^3/uL (130-400); Red Blood Cell Count 4.45 10^6/uL (4.70-6.10); Red Cell Dist. Width 13.1 % (11.5-14.5); White Blood Cell Count 5.8 10^3/uL (4.8-10.8)
[2024-08-27] MEDS: SODIUM BICARBONATE 1150 MEQ IV (09:39)
[2024-08-27 09:45] LABS: Blood Urea Nitrogen 11 mg/dl (9-20); Calcium 9.1 mg/dl (8.4-10.2); Carbon Dioxide 26 mmol/L (22-30); Chloride 103 mmol/L (98-107); Estimated Creatinine Clearance 100 ml/min; Glucose 210 mg/dl (70-99); Potassium 4.2 mmol/L (3.5-5.1); Sodium 137 mmol/L (135-145); eGFR > 60.00
[2024-08-27 11:10] VITALS: BP 134/83
[2024-08-27 11:38] LABS: Glucose - Point of Care 130 mg/dl (70-99)
[2024-08-27] MEDS: NOVOLOG FLEXPEN-LOW RESISTANCE SC ×2 (12:03→17:00)
--- NOTE | 2024-08-27 15:39 | W.PN.HOSP.TC ---
Today's Communication/Plan
-
dc to home
Assessment / Plan
Assessment / Plan
Mr. Rohith Lacy is a 68 yo man with hx HFrEF (EF 35%), CAD treated medically, essential HTN, HLD, DM II, STIVEN, spinal stenosis s/p laminectomy 08/2023, presents to the ER after an episode of syncope. Patient reports acute worsening of chronic
diarrhea over past 2 weeks and found to be orthostatic in the ER.
Triage VS: T 98.3, P 74, RR 16, BP 120/68, SpO2 97%
LABS: WBC 10.8, Hg 14.7, PLT 260, Na 137, K+ 4.9, Cl 109, CO2 15, BUN 32, Cr 1.4, Glucose 184, liver enzymes WNL, Mag 1.7
UA with > 100 WBC
covid negative
given IVF overnight
Orthostasis
still ongoin/26 supine 159/84, sitting 118/77, standing 94/64 08/26 156/90 supine, 123/78 sitting, 113/77 standing, 08/27: 155/89 supine, 137/81 sitting, 101/66 standing
Syncope
-history suggestive of orthostasis and orthostatic vital signs positive on admission
-admit to telemetry
-orthostatic VS BID
-hold APPLIANCE ASSEMBLER Lasix, Spironolactone, Lisinopril, Amlodipine for now; 1/2 dose APPLIANCE ASSEMBLER Coreg
Diarrhea
-patient reports loose stools over many months but has had increased frequency with 3 watery stools/day over past 2 weeks
-test for C. Diff, stool culture, norovirus, ova and parasites all neg to date
-start probiotics
-consider GI consult if above results negative and no improvement.
no diarrhea today, actually no BM's
stool neg for Norovirus, enteric pathogens neg to date
Essential HTN
-as above - hold APPLIANCE ASSEMBLER Lisinopril, Amlodipine for now; 1/2 dose APPLIANCE ASSEMBLER Coreg
-monitor BP closely and low threshold to resume home med regimen once fluid resuscitated; hx hypertensive urgency
UTI
Strep species in urine
?contaminant, await species identification
will tx empirically with Rocephin and dc on 7 days of oral Keflex
Mild SONYA
-gentle fluids as above, hold APPLIANCE ASSEMBLER Lisinopril
Acidosis/dehydration fully resolved
IDDM
-hold APPLIANCE ASSEMBLER Metformin
-patient is on Lantus 60 units and sliding scale 12-20 units AC at home
-will order 30 units Lantus with aspart 5 units AC - adjust as needed
-ISS low
-APPLIANCE ASSEMBLER Empaglifozin
Hga1c 6.4%
glu 144-152
HFrEF
-TTE 07/06/24 with EF 44%; patient is on Lasix 40mg PO QD at home
-hold APPLIANCE ASSEMBLER Lasix, Spironolactone
-hold Lisinopril
-1/2 dose Coreg - return to full dose if blood pressure increases
CAD - APPLIANCE ASSEMBLER Plavix, Statin
HLD
BPH
-APPLIANCE ASSEMBLER Flomax qhs
DVT PPx Hep subQ
Pt feels absolutely fine and wants to go home. Still shows evidence of orhtostatic changes, but [facility] probability that this is a chronic finding associated with his dm. will not keep in hospital and will send home
will dc
FULL CODE
see dictated note
More than 30 minutes spent in discharge including
Final examination of the patient
Summarizing hospital stay
Instructions for continuing care to all relevant caregivers
Preparation of discharge records, prescriptions, and referral forms
Total time spent (in minutes): 45
Anticipated Discharge: Today
Subjective/Interval History
-
Date of Service: August 27, 2024
No dizziness, walking around the unit without dizziness
Objective Data
-
Labs:
Laboratory Results
08/27/24
08:53
WBC 5.8
Hgb 13.7
Hct 39.8
Plt Count 195
Sodium 137
Potassium 4.2
Chloride 103
Carbon Dioxide 26
BUN 11
Creatinine 0.8
Glucose 210 H
Calcium 9.1
Vital Signs:
Vital Signs
Temp Pulse Resp BP Pulse Ox
98.4 F 80 18 134/83 99
08/27/24 11:10 08/27/24 11:10 08/27/24 11:10 08/27/24 11:10 08/27/24 11:10
I&O
08/26/24 08/27/24 08/28/24
06:59 06:59 06:59
Intake Total 960 / 960 1440 / 1440
Balance 960 / 960 1440 / 1440
Review of Systems
-
History Source: Patient and Coordinated Provider
Constitutional: Denies Fever
Respiratory: Reports No Symptoms
Cardiac: Reports No Symptoms; Denies Chest Pain
Abdomen/GI: Reports No Symptoms; Denies Abdominal Pain
Genitourinary: Reports No Symptoms; Denies Dysuria
Neuro: Denies Dizzy (resolved)
Physical Exam
-
General: Well Developed, Well Nourished and No Apparent Distress
HEENT: Normocephalic, Atraumatic and Moist Mucous Membranes
Respiratory: Clear to Auscultation; Negative Wheezes, Rales or Rhonchi
Cardiac: Regular Rhythm and S1/S2
GI: Nontender and Nondistended
Musculoskeletal: No Clubbing, No Cyanosis and No Edema
Skin: Warm and Dry
Neuro: Awake and Alert
--- NOTE | 2024-08-27 16:28 | CM ---
Plan is for patient to d/c home today. VN/home care ordered, spoke w/ spouse, agreeable to [facility]. Referral placed in [facility]
IMM verbally reviewed
Plan: Home w/ [facility]
--- NOTE | 2024-08-27 16:58 | W.DS.TRANS ---
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
-
Discharge Instructions:
Sleep Apnea Risk High
Discharge Diagnosis/Procedures Dehydration with orthostatic hypotension
Diet Diabetic, Carb Controlled
Activity No strenuous activity
Driving Restrictions Not until seen by your Dr
Bathing Restrictions with shower chair
Blood Work CBC, BMP, UA with C&S in 2 weeks
Others Tests Blood Pressure Cuff, check 2-3 per day and
orthostatic daily
Other Services VN
Instructions:
Stand-Alone Forms:
Changes to Home Medications: Yes
Discharge Medications:
DC Medications w/original date entered in [employer]
duloxetine 60 mg capsule,delayed release (Cymbalta) 120 mg PO DAILY Mental Health/Anxiety 03/17/24
empagliflozin 25 mg tablet 25 mg PO DAILY Diabetes 03/17/24
metformin 1,000 mg tablet 1,000 mg PO BID Diabetes 03/17/24
Held on 08/27/24. Instructions: resume when blood sugar starts to climb
amlodipine 2.5 mg tablet 2.5 mg PO DAILY #30 tabs 03/21/24
Held on 08/27/24. Instructions: resume when BP >140/90 sitting on other meds
carvedilol 12.5 mg tablet 12.5 mg PO BID #60 tabs 03/21/24
clopidogrel 75 mg tablet 75 mg PO DAILY #30 tabs 03/21/24
furosemide 40 mg tablet 40 mg PO DAILY #30 tabs 03/21/24
Held on 08/27/24. Instructions: resume if ankles start to swell
lisinopril 20 mg tablet 20 mg PO DAILY #30 tabs 03/21/24
Held on 08/27/24. Instructions: resume when systolic BP is >140 for twice while sitting
atorvastatin 40 mg tablet 40 mg PO DAILY 08/24/24
donepezil 5 mg tablet 5 mg PO HS 08/24/24
insulin aspart U-100 100 unit/mL (3 mL) subcutaneous pen (Novolog FlexPen U-100 Insulin aspart) 15 - 20 sliding scale dose SC DIRECTED 08/24/24
insulin glargine 100 unit/mL (3 mL) subcutaneous pen (Lantus Solostar U-100 Insulin) 60 unit SC HS 08/24/24
potassium chloride 20 mEq tablet,extended release 20 meq PO DAILY 08/24/24
spironolactone 25 mg tablet 25 mg PO DAILY 08/24/24
tamsulosin 0.4 mg capsule 0.4 mg PO HS 08/24/24
cephalexin 500 mg capsule 500 mg PO QID 10 days #40 caps 08/27/24
Home Medication Changes
Keflex is new
Metformin is to be on hold until glucose starts to climb to avoid drop in sugars
Lisinopril and Amlodipine are on hold and to be resumed once BP rises to systolic
greater than 140. Resume Lisinopril first followed by Amlodipine
Pending Results: No
[2024-08-27] MEDS: NOVOLOG FLEXPEN SC (17:00)
[2024-08-27] MEDS: STERILE WATER FOR INJECTION 10 ML IV (17:00)
[2024-08-27] MEDS: ROCEPHIN 1000 MG IV (17:01)
[2024-08-27 17:44] VITALS: BP 162/91
== END 2024-08-27 18:01 | disposition home health service (06) | DRG 312 ==
LOC: 4 WEST ACU 18:35
PROVIDERS: Emergency Medicine; Physician Assistant; ADMITTING PHYSICIAN Student in an Organized Health Care Education/Training Program; ATTENDING PHYSICIAN Internal Medicine; EMERGENCY PHYSICIAN Emergency Medicine; FAMILY PHYSICIAN Nurse Practitioner Adult Health
DX: I95.1 Orthostatic hypotension (principal); I50.22 Chronic systolic (congestive) heart failure; N17.9 Acute kidney failure, unspecified; N39.0 Urinary tract infection, site not specified; E87.20 Acidosis, unspecified; E86.0 Dehydration; E11.40 Type 2 diabetes mellitus with diabetic neuropathy, unspecified; I11.0 Hypertensive heart disease with heart failure; E78.00 Pure hypercholesterolemia, unspecified; I16.0 Hypertensive urgency; I25.10 Atherosclerotic heart disease of native coronary artery without angina pectoris; N40.0 Benign prostatic hyperplasia without lower urinary tract symptoms; K52.9 Noninfective gastroenteritis and colitis, unspecified
CPT/HCPCS: 80048; 80053; 81003; 81015; 82962; 83036; 83735; 84443; 84484; 85025; 85027; 87045; 87046; 87077; 87086; 87324; 87328; 87329; 87427; 87449; 87798; 87811; 93005; 96361; 96374; 97162; 97530; 99285

== ENCOUNTER → 2024-09-21 11:17 | Outpatient (REF) | payer OTHER, SELFPAY | LOC: RAD 11:17 | PROVIDERS: ATTENDING PHYSICIAN Nurse Practitioner Adult Health | DX: E11.59 Type 2 diabetes mellitus with other circulatory complications (principal); M25.551 Pain in right hip; M54.41 Lumbago with sciatica, right side | CPT/HCPCS: 72110; 73502 ==

== ENCOUNTER 2024-12-11 16:32 | Inpatient (IN) | payer OTHER, SELFPAY ==
[2024-12-11] VITALS (25 sets, daily range): BP systolic 102–182; BP diastolic 60–102; BMI 35.8; BMI 35.3
--- NOTE | 2024-12-11 14:27 | ED.GENMED ---
History of Present Illness
General
Chief Complaint: Chest Pain
Source: patient, records and ambulance crew
Exam Limitations: none
Time Seen by Provider: 12/11/24 14:21
Nursing documentation reviewed up to this point in time: agreed with
History of Present Illness
History of Present Illness:
69-year-old male CAD no stents hypertension heart failure
Chest pain describes a pressure 30 minutes ago across his mid chest with dyspnea can take a deep breath, similar episode yesterday
No nausea vomiting slight lower extremity edema no fever or chills he is feeling better after nitroglycerin that he took at home and aspirin by EMS
Described now as 2 out of 10 pressure
He has had a 15 pound weight gain he describes dietary indiscretion
Past History
Past History
ED Past Medical History: CAD, Cancer (Malignant melanoma), HTN, Hypercholesterolemia, IDDM, [place] (Non-STEMI 2015 peak troponin 1.9-treated conservatively. Cath at that time showed subtotal LAD occlusion) and Other (kidney stones, lumbar DJD,
peripheral neuropathy)
ED Past Surgical History: Cholecystectomy and Orthopedic (Lumbar laminectomy August 2023)
Patient has exhibited threatening behavior?: No
PSI?: No
Social History
Tobacco: Non-smoker
Alcohol: None
Drug: None
Personal:
Living: with family
Employment: Retired
Family History
Family History: Other (Father with Parkinson's and diabetes)
Review of Systems
Review of Systems
All Other Systems: Not applicable
Constitutional: Denies fever or fatigue
Respiratory: Reports trouble breathing
Cardiac: Reports chest pain
ABD/GI: Reports no symptoms
: Reports no symptoms
Musculoskeletal: Reports no symptoms
Skin: Reports no symptoms
Neurological: Reports no symptoms
Endocrine: Reports no symptoms
Hematologic/Lymphatic: Reports no symptoms
Psychiatric: Reports no symptoms
Phy Exam
Physical Exam
Physical Exam:
Physical Exam
General: no apparent distress, not acutely ill
Neck: JVD
Heart: s1/s2 regular rate and rhythm, no murmur. equal radial pulses.
Lungs: no acute respiratory distress. clear bilaterally
Abdomen: Nontender
Neuro: alert and oriented. no focal neurological deficits
Skin: no rash
Psychiatric: well kept. interactive and cooperative
Extremities: Edema is present
Scores
Heart Score for Chest Pain Patients
STEMI patient?: No
History: Highly Suspicious
ECG: Nonspecific Repolarization
Age: >/= 65 years
Risk Factors: >/= 3 Risk Factors or History of CAD
Troponin: </= Normal Limit
Heart Score for Chest Pain Patients: 7
Heart Score Risk: 72.7 % MACE over next 6 weeks
Course
Orders/Labs/Results
Orders:
Orders
12/11/24 14:21
Nitroglycerin Sublingual [Nitrostat (Sublingual)] 0.4 mg SL [id number] PRN
12/11/24 14:25
Complete Blood Count/With Diff Urgent
Comprehensive Metabolic Panel Urgent
Magnesium Urgent
NT-proBNP Urgent
PTT Urgent
Prothrombin Time Urgent
Troponin I Urgent
Metoprolol [Lopressor] 5 mg IV NOW STA
12/11/24 14:26
CR Chest Portable - 1 View Urgent
Comment:
Reason For Exam: cp sob
Reason Study Needs to be Portable: Patient Unstable
12/11/24 14:36
Nitroglycerin 100 mg/250 ml [Nitroglycerin Premix] 100 mg in 250 ml .ROUTE .STK-MED
12/11/24 14:45
Nitroglycerin 100 mg/250 ml [Nitroglycerin Premix] 100 mg in 250 ml IV PER PROTOCOL
Initial dose in mcg/min, then titrate:: 20
Titrate to keep:: Chest Pain Free
Titrate by mcg/min:: 5 mcg/min, may increase by 10 mcg/min if dose > 20 mcg/min
Frequency of titrations (minutes):: every 3-5 minutes
Maximum dose in mcg/min:: 200
Begin to taper infusion when:: Remained at goal for 2hrs
Taper by mcg/min:: 5 mcg/min
Frequency of taper (minutes) if patient maintains goal:: 30
Taper to off?: Yes
If infusion off & no longer maintaining goal:: Contact Provider
12/11/24 15:39
Heparin 4,000 units IV NOW STA
12/11/24 15:[address] See Dose Instructions PO NOW STA
Discontinue all Active Warfarin orders?: Yes
Nursing to Place Non Medication Order As Directed
Physician Order: PTT 6 hours after initial start of Heparin infusion
12/11/24 15:45
Heparin 82177 Units/250 ml 25,000 units in 250 ml IV PER PROTOCOL
Weight to be used for heparin protocol in kilograms (kg):: 113.2
Protocol:: Cardiac Tx/Acute Coronary
PTT Goal Range to be used:: PTT 73 to 111 seconds
Order type:: Initial
INITIAL Infusion Dose (UNITS/KG/hr) & then follow protocol:: 12 units/kg/hr
Infusion Dose in UNITS/hr & then follow protocol (UNITS/hr):: 1,000
INFUSION RATE in mL/hr & then follow protocol (mL/hr):: 10
PTT less than or equal to 64 seconds:: Increase rate by 200 units/hr (+ 2 mL/hr)
PTT 64.1 to 72.9 seconds:: Increase rate by 100 units/hr (+ 1 mL/hr)
PTT 73 to 111 seconds:: Target Range. No change in rate.
PTT 111.1 to 130.9 seconds:: Decrease rate by 100 units/hr (- 1 mL/hr)
PTT 131 to 199.9 seconds:: HOLD for 1 hr. Then decrease rate by 200 units/hr (- 2 mL/hr)
PTT greater than or equal to 200 seconds:: HOLD for 2 hrs & Notify Provider. Then decrease by 200 units/hr (-
2 mL/hr)
Lab follow-up:: Each change, PTT q6h until 2 consecutive are therapeutic. Then PTT
daily.
12/11/24 15:54
CARDIOLOGY CONSULT Routine
Consulting Provider: Jair Weaver
Was physician already notified: Yes
12/11/24 16:[address] See Dose Instructions IV DIRECTED
Abnormal Lab Results
12/11/24
14:25
RBC 4.00 L 10^6/uL
(4.70-6.10)
Hgb 12.4 L g/dL
(13.0-18.0)
Hct 37.2 L %
(39.0-52.0)
Absolute Monos (auto) 0.7 H 10^3/uL
(0.1-0.6)
Lymphocytes % 20.2 L %
(20.5-51.1)
Monocytes % 9.5 H %
(1.7-9.3)
Glucose 233 H mg/dl
(70-99)
Alkaline Phosphatase 136 H U/L
(38-126)
Troponin I 0.161 H* ng/ml
Total Protein 6.1 L g/dl
(6.3-8.2)
12/11/24 14:25
12/11/24 14:25
Vital Signs
Initial and Last Documented VS:
Initial Vital Signs
Temp Pulse Resp BP Pulse Ox
98.4 F 102 21 159/76 98
12/11/24 14:21 12/11/24 14:21 12/11/24 14:21 12/11/24 14:21 12/11/24 14:21
Last Documented Vital Signs
Temp Pulse Resp BP Pulse Ox
98.4 F 82 16 129/72 97
12/11/24 14:21 12/11/24 15:45 12/11/24 15:45 12/11/24 15:45 12/11/24 15:45
MDM/Problems Addressed
Differential Diagnosis Includes:
ACS non-STEMI noncardiac chest pain less likely PE
MDM/Problems Addressed:
Chest pain
Chronic conditions affecting care: DM, HTN, CAD and Cardiomyopathy
Acute Exacerbation and/or Progression of Chronic Illness: DM, HTN, CAD and Cardiomyopathy
*Radiology
Radiology exam reviewed: preliminary read by ED provider
*Pulse Oximetry
SaO2: 98
Oxygen Mode of Delivery: Room air
Patient hypoxic: no
*EKG
Interpreted by ED Provider?: Yes
Interpretation: abnormal
Comparison EKG: no comparison EKG present
Heart Rate: 78
Rate: normal
Rhythm: sinus
Ischemia: other (Similar to prior trace)
*[employer] Interpretation
Rate: normal
Interpretation: normal
Heart Rate: 78
*Critical Care Note
Total Time (30-74mins, 75-104mins- exclusive of procedures): 32
Data Reviewed
Review of Other/Old Records Reveals: Labs, Operative Reports and Discharge Summary
Source: patient and records
Update Note
Update Note:
4 PM update troponin noted patient chest pain-free started on IV heparin admitted contact cardiology earlier will admit to the hospitalist service
ED Attending Note
-
Portions of this chart may have been created with voice recognition software.� Occasional wrong word or��sound alike� substitutions may have occurred due to the inherent limitations of voice recognition software.
Discharge Plan
Departure
Patient Disposition: Admit
Date of Disposition: 12/11/24
Time of Disposition: 15:57
Admit to: IVU
Presentation/result/management discussed w/ accepting MD/DO: Hospitalist
Patient with high blood pressure during this ER visit?: Yes
Condition: Fair
Covid-19: Not Applicable
Discharge Problem:
ACS (acute coronary syndrome)
Prescriptions:
No Action
carvedilol 12.5 mg Tablet
12.5 mg PO BID Qty: 60 0RF
donepezil 5 mg Tablet
5 mg PO HS
spironolactone 25 mg Tablet
25 mg PO DAILY
tamsulosin 0.4 mg Capsule
0.4 mg PO HS
insulin aspart U-100 [Novolog FlexPen U-100 Insulin] 100 unit/mL (3 mL) Insulin Pen
30 sliding scale dose SC AC
insulin glargine [Lantus Solostar U-100 Insulin] 100 unit/mL (3 mL) Insulin Pen
70 unit SC HS
potassium chloride 20 mEq Tablet Extended Release
20 meq PO DAILY
aspirin 325 mg Tablet
325 mg PO BIDPRN PRN (Reason: MILD PAIN)
amlodipine [Norvasc] 2.5 mg Tablet
2.5 mg PO DAILY
furosemide [Lasix] 40 mg Tablet
40 mg PO DAILY
lisinopril 20 mg Tablet
20 mg PO DAILY
metformin 1,000 mg Tablet
1,000 mg PO BID
duloxetine [Cymbalta] 60 mg Capsule,Delayed Release(Dr/Ec)
120 mg PO DAILY
Referrals:
Jorge Angeles CRNP [Family Provider, Internal Medicine]
Interventions
Interventions:
*Risk Screen - Suicide Last Done: 12/11/24 14:30
*General Assessment Last Done: 12/11/24 14:30
*Neglect/Abuse Screening Last Done: 12/11/24 14:30
*ED- Fall Risk Assessment Last Done: 12/11/24 14:30
*ED COVID-19 Vaccine History Last Done: 12/11/24 14:30
*ED Influenza Vaccine History Last Done: 12/11/24 14:30
ED- Cardiac Assessment Last Done: 12/11/24 14:28
Discharge Date and Time
Print Language: KOREAN
[2024-12-11] MEDS: LOPRESSOR 5 MG IV (14:37)
[2024-12-11] MEDS: NITROSTAT (SUBLINGUAL) 0.4 MG SL (14:38)
[2024-12-11 14:40] LABS: Hematocrit 37.2 % (39.0-52.0); Hemoglobin 12.4 g/dL (13.0-18.0); Mean Corp Hgb Conc. 33.3 g/dL (33.0-37.0); Mean Corpuscular Volume 93.0 fL (80.0-94.0); Nucleated Red Blood Cells % 0 % (-); Platelet Count 225 10^3/uL (130-400); Red Cell Dist. Width 14.2 % (11.5-14.5)
[2024-12-11] MEDS: NITROGLYCERIN PREMIX 250 IV (14:50)
[2024-12-11 14:53] LABS: INR 0.99; PT 13.4 Sec (11.4-14.6)
[2024-12-11 14:54] LABS: ALT (SGPT) 26 U/L (0-50); AST (SGOT) 29 U/L (17-59); Albumin 3.6 g/dl (3.5-5.0); Alkaline Phosphatase 136 U/L (38-126); Blood Urea Nitrogen 18 mg/dl (9-20); Calcium 9.5 mg/dl (8.4-10.2); Carbon Dioxide 25 mmol/L (22-30); Chloride 106 mmol/L (98-107); Estimated Creatinine Clearance 107 ml/min; Glucose 233 mg/dl (70-99); Magnesium 1.6 mg/dl (1.6-2.3); Potassium 4.2 mmol/L (3.5-5.1); Sodium 137 mmol/L (135-145); Total Protein 6.1 g/dl (6.3-8.2); eGFR > 60.00
[2024-12-11 14:55] LABS: APTT 26.1 Sec (23.4-35.0)
[2024-12-11 15:23] LABS: Troponin I 0.161 ng/ml
--- NOTE | 2024-12-11 15:53 | HPS.HSE ---
Family Physician
-
Family Physician: Jorge Angeles
Chief Complaint
-
Midsternal chest pain, shortness of breath
History of Present Illness
69-year-old male from home who states he has had bilateral leg edema for the past few days. Yesterday he reports developing chest tightness in the midsternal aspect of his chest which was relieved by 2 nitroglycerin. He reports the chest pain
returned today around 2 PM when he called EMS to bring him to the hospital due to also feeling short of breath. He is currently on IV nitro drip which brought his chest pain from 3 out of 10 to 0.5 out of 10. He is a poorly controlled diabetic
states he does not follow a diabetic diet he stress eats prior to arrival he ate a hamburger and ice cream. He is on high-dose insulin and Lantus he states he is unable to afford his Trulicity and Jardiance due to high co-pays. He currently has no
desire to change his diet. He denies headache, sore throat, fever, chills, palpitations, cough, abdominal pain, nausea, vomiting, diarrhea, urinary symptoms.
He has a past medical history of CAD/NSTEMI HTN, chronic systolic heart failure with reduced EF 44%, DM 2, diabetic neuropathy, dementia with history of sundowning, BPH, spinal stenosis/lumbar radiculopathy, UTI with prostatitis, orthostatic
hypotension, melanoma removal from chest 2004, sleep apnea, GERD, anxiety depression, class II obesity.
Medical History
Past Medical History
Past Medical History: Reports Other
Additional Past Medical History:
CAD/NSTEMI
HTN
Orthostatic hypotension
Chronic systolic heart failure with reduced EF 44%
DM 2
diabetic neuropathy
Diabetic retinopathy
Dementia with history of sundowning
BPH
spinal stenosis/lumbar radiculopathy
UTI with prostatitis
Melanoma removal from chest 2004
Sleep apnea
GERD
Anxiety depression
Past Surgical History: Reports Other
Additional Past Surgical History:
Cholecystectomy
Laminectomy
Deviated septum
Cardiac cath with stents
Melanoma removal chest 2004
Social History
Tobacco: Non-smoker
Alcohol: None
Drug: None
Living: With Family
Employment: Retired
Family History
Family History: Other (Father history Parkinson's, melanoma, DM 2, mother lung CA)
Allergies / Home Medications
Allergies reflects when Allergies were last updated in [facility] [employer].
Home Medications with original date entered in [employer] [employer]
Allergy/Medication List:
Allergies
Allergy/AdvReac Type Severity Reaction Status Date / Time
hydromorphone (From Dilaudid) Allergy Unknown Verified 08/24/24 13:02
Home Medications
carvedilol 12.5 mg tablet 12.5 mg PO BID #60 tabs 03/21/24
donepezil 5 mg tablet 5 mg PO HS 08/24/24
insulin aspart U-100 100 unit/mL (3 mL) subcutaneous pen (Novolog FlexPen U-100 Insulin aspart) 30 sliding scale dose SC AC 08/24/24
insulin glargine 100 unit/mL (3 mL) subcutaneous pen (Lantus Solostar U-100 Insulin) 70 unit SC HS 08/24/24
potassium chloride 20 mEq tablet,extended release 20 meq PO DAILY 08/24/24
spironolactone 25 mg tablet 25 mg PO DAILY 08/24/24
tamsulosin 0.4 mg capsule 0.4 mg PO HS 08/24/24
amlodipine 2.5 mg tablet (Norvasc) 2.5 mg PO DAILY 12/11/24
aspirin 325 mg tablet 325 mg PO BIDPRN PRN MILD PAIN 12/11/24
duloxetine 60 mg capsule,delayed release 120 mg PO DAILY 12/11/24
furosemide 40 mg tablet (Lasix) 40 mg PO DAILY 12/11/24
lisinopril 20 mg tablet 20 mg PO DAILY 12/11/24
metformin 1,000 mg tablet 1,000 mg PO BID 12/11/24
Review of Systems
-
History Source: Patient and Family
A 12 point ROS was completed and negative except as noted: Yes
Constitutional: Denies Fever or Chills
EENT: Denies Sore Throat or Runny Nose
Respiratory: Reports Trouble Breathing; Denies Cough
Cardiac: Reports Chest Pain; Denies Diaphoresis, Palpitations or Syncope
Abdomen/GI: Denies Abdominal Pain, Nausea, Vomiting, Diarrhea, Constipated or Bloody Stools
: Denies Dysuria, Frequency or Urgency
Musculoskeletal: Denies Joint Pain or Edema
Skin: Denies Itching or Rash
Neurological: Denies Dizzy or Headache
Endocrine: Reports No Symptoms
Hematologic/Lymphatic: Reports No Symptoms
Psych: Reports Calm
Physical Exam
Vital Signs
Vital Signs
Temp Pulse Resp BP Pulse Ox
98.4 F 82 16 129/72 97
12/11/24 14:21 12/11/24 15:45 12/11/24 15:45 12/11/24 15:45 12/11/24 15:45
Physical Exam
General: Conversant and Pain; No Fever or Chills
HEENT: NormoCephalic, Anicteric, Moist mucous membranes, PERRLA, [place] Conjunctivae and No Ptosis
Respiratory: Clear; No Wheezes, Rales or Rhonchi
Cardiac: S1/S2 and Peripheral Edema (+1 bilateral nonpitting)
Breast: Deferred by me
GI: Soft, Normal Bowel Sounds and Other (Protuberant abdomen unable to palpate liver or spleen)
Rectal: Deferred by Provider
Genito-urinary: Deferred by me
Musculoskeletal: No Clubbing, No Cyanosis and Edema, Left Lower Extremity; No Edema, Left Upper Extremity or Edema, Right Upper Extremity
Laboratory Results
-
12/11/24 14:25
12/11/24 14:25
Laboratory Results
PT 13.4 Sec (11.4-14.6) 12/11/24 14:25
INR 0.99 12/11/24 14:25
APTT 26.1 Sec (23.4-35.0) 12/11/24 14:25
Total Bilirubin 0.5 mg/dl (0.2-1.3) 12/11/24 14:
AST 29 U/L (17-59) 12/11/24 14:25
ALT 26 U/L (0-50) 12/11/24 14:25
Alkaline Phosphatase 136 U/L (38-126) H 12/11/24 14:
Troponin I 0.161 ng/ml H* 12/11/24 14:25
Impression/Plan
-
Impression/plan:
Admit to IVU
#ACS
Troponin 0.161 will trend
-Follow EKGs
- Check lipid profile, HgbA1c
-Patient took 325 mg aspirin today
-Continue aspirin 81 mg daily(patient is taking 325 mg twice daily as needed pain)
-Continue carvedilol 12.5 mg twice daily
- IV heparin drip
- IV nitro drip
- Iv lopressor 5mg given In Er
- Consult cardiology [facility]
- 1800 ada diet today NPO after midnight incase cath tmr
CXR: No acute disease of the chest. Cardiomegaly
#DM 2/diabetic neuropathy
Accu-Cheks with SSI, check HgbA1c
Blood sugar 233
-Hold metformin 1000 mg twice daily
-States cannot afford Trulicity
-Lantus 70 units SQ at bedtime will give 30 units at bedtime this evening 12/11/2024 patient takes NovoLog 30 units with meals will decrease to 10 units with meals while inpatient on 1800 ADA diet
#HTN�benign
#History symptomatic orthostatic hypotension July 2024
-Continue lisinopril 20 mg daily with hold parameters
#Chronic systolic heart failure reduced EF
I/O, daily weights
Lasix 40 mg daily, spironolactone 25 mg daily
* states cannot afford Jardiance
2D echo 07/06/2024: EF 44%, mild reduced LVSF, mild hypokinetic apical anterior and apical lateral segments, mild LVH, stage I diastolic dysfunction, mild MR, mild aortic stenosis
#Dementia with history of sundowning
-Continue donepezil
#BPH
-Continue tamsulosin 0.4 mg daily with hold parameters
#Spinal stenosis/lumbar radiculopathy
-Continue Cymbalta
#Sleep apnea
#GERD
No reported meds
#Anxiety depression
#Class II obesity�BMI 35.8 kg
Affects all aspects of care
Discussed diabetic diet with patient who at current time does not care to change his diet
Other PMH:
Diabetic retinopathy
History of UTI with prostatitis
DVT prophylaxis
Continue current IV heparin drip
Full code
[2024-12-11] MEDS: HEPARIN 4000 UNITS IV (16:04)
[2024-12-11] MEDS: HEPARIN 25000 UNITS/250 ML IV (16:07)
--- NOTE | 2024-12-11 16:17 | W.PN.UPDATE ---
Update Note
Progress Note Update
This note serves as an addendum to the H&P by composition floor setter CHASE�
Janay Hari
HPI�
69M Non smoker, class II obesity, HX IDDM, on [place] diet and stress eating non CAD, no stents, HTN, chr HFrEF seen at ER :
- 2 episode of CP/ Chest pressure since yesterday
- CP - mid central chest pressure with dyspnea
- Described now as 04/11
- No nausea vomiting
- feeling better after nitroglycerin that he took at home and aspirin by EMS
He has had a 15 pound weight gain he describes dietary indiscretion
PHX : CAD, (Malignant melanoma HTN, Hypercholesterolemia, IDDM, [place] (Non-STEMI 2016 peak troponin 1.9-treated conservatively. Cath at that time showed subtotal LAD occlusion) kidney stones, lumbar DJD, peripheral neuropathy
Relevant VS
Temp Pulse Resp BP Pulse Ox
98.4 F 101 22 149/90 97
12/11/24 14:21 12/11/24 16:15 12/11/24 16:15 12/11/24 16:15 12/11/24 16:00
PE
Gen: NAD BMI 35 c/w class II obesity
Neck: thick short neck
Lungs: CTA
Cor: RRR . No M
Abdomen:�obese
AUTOMOTIVE SERVICE ADVISOR: AAO3
MS:no edema
Relevant Data
07/08/24 08/25/24 12/11/24
20:11 07:14 14:25
WBC 7.8
Hgb 12.4 L
Plt Count 225
INR 0.99
Creatinine 0.8
eGFR > 60.00
Glucose 233 H
Alkaline Phosphatase 136 H
Troponin I 0.034 0.161 H*
Xth-I-Yaljtmgttjl Pept 546 1440
EKG : Not loaded yet
07/06/24 TTE
Normal left ventricular size. Mildly reduced systolic function.
LV ejection fraction is 44% by Grayson's biplane method of discs.
Mild hypokinetic apical anterior and apical lateral segments.
Mild concentric left ventricular hypertrophy.
Stage I diastolic dysfunction suggestive of abnormal relaxation.
Normal right ventricular size and function.
Mild mitral regurgitation.
Mild aortic stenosis.
Compared to previous echo 03/17/24, the LVEF has improved from 35% to 44%.
03/08/24 CC
1. Elevated right and left ventricular filling pressures
2. Severe branch vessel coronary artery disease involving the first diagonal branch, mid to distal/apical LAD, and proximal to mid OM1. Troponin peaked at 0.088 ng/mL and trending lower.
Last hospitalist admission: 08/24/2024 - 08/27/2024
DC DX:
1. Symptomatic orthostatic hypotension.
2. Syncope due to #1.
3. Insulin-dependent diabetes mellitus.
4. Chronic diarrhea that had worsened immediately prior to symptomatic orthostasis.
5. Dehydration with prerenal azotemia.
6. History of essential hypertension.
8. Heart failure, reduced ejection fraction (echocardiogram 07/06/2024 demonstrated ejection fraction of 44%).
9. Benign prostatic hypertrophy.
10. Urinary tract infection, most consistent with infectious prostatitis.
ASSESSMENT & PLAN
Pending Rx reconciliation
Suspect NSTEMI presumed ACS
CP with POS TPNI+ Unremarkable EKG for STEMI
- patient took 325 mg ASA today - c/w baby ASA
- At ER: IV Metoprolol, Heparin gtt and Nitro gtt are initiated
- Trend TPNI
- NPO after MN in case
- [facility] card consulted
Chr HFrEF - suspect occult decompensation due to ACS
Stage I DD
- Need aggressive BP control but limited by indiscriminately liberal diet and cost of Rx
- On GDMT - Mildly hypertensive 149/90, renal function remain stable
- Diuretics: on PO lasix
- BB: on Carvedilol 12.5 mg BID
- ACEI/ARB/ARNi: on Lisinopril
- MRA : On spironolactone 25mg daily
- SGLT2i: Cannot afford Jardiance
Essential HTN
HX HTN crisis
Need aggressive BP control but limited by indiscriminately liberal diet and cost of Rx
- home BP un above 150 mmHg for the past several years.
- [employer]LE [employer] Lisinopril, Amlodipine and Coreg
IDDM
- Last A1 C 6.4
- hold [employer] Metformin
- de escalade Lantus 30 PM and 10 U NovoLog AC ( At home: Lantus 80 units PM + 35 units NovoLog AC )
- ISS low
DVT Px: Heparin gtt
Full code
IVU
[2024-12-11 17:44] LABS: Glucose - Point of Care 174 mg/dl (70-99)
[2024-12-11 18:31] LABS: Troponin I 0.247 ng/ml
--- NOTE | 2024-12-11 18:32 | PTCARENOTE ---
admitted patient from ER, monitor shows NSR, BP 171/92, IV nitroglycerin drip was at 5mcg/min upon arrival, as ordered increased to 20mcg/min as ordered and per protocol. IV heparin @ 1000units/hr via left ant. INT in left hand flushes well. patient
at present is CP free. lung flores diminished throughout, on RA o2 sat 97%. dinner was ordered. BS 174, called to pharmacy to send up insulin pen. troponin drawn at 1800 as ordered. I walked out to main lobby, she stated that patient was
diagnosed with dementia and at night he can become 'belligerent', bed alarm placed on bed for patient safety. patient demonstrated how to use call cotto to call if he needs to use the bathroom.
[2024-12-11] MEDS: COREG 6.25 MG PO (20:22)
[2024-12-11] MEDS: COREG 12.5 MG PO (20:22)
[2024-12-11 22:38] LABS: Glucose - Point of Care 234 mg/dl (70-99)
[2024-12-11] MEDS: FLOMAX 0.4 MG PO (22:40)
[2024-12-11] MEDS: LANTUS 0.3 UNITS SC (22:40)
[2024-12-11] MEDS: ARICEPT 5 MG PO (22:40)
[2024-12-11] MEDS: TYLENOL 650 MG PO (22:42)
[2024-12-11 23:06] LABS: APTT 34.8 Sec (23.4-35.0)
[2024-12-11 23:21] LABS: Troponin I 0.287 ng/ml
[2024-12-12] VITALS (18 sets, daily range): BP systolic 105–155; BP diastolic 51–88; BMI 35.2
--- NOTE | 2024-12-12 00:57 | PTCARENOTE ---
Received pt @ change of shift. AAOx3, BP 179/95-- other vitals stable. Heparin gtt running @ 20mcg and heparin gtt running @ 1000 units/hr through left AC. Denies chest pain @ this time. Discussed plan of care, including being NPO @ midnight. Pt
verbalizes understanding. Call cotto within reach.
[2024-12-12 05:25] LABS: Hematocrit 34.4 % (39.0-52.0); Hemoglobin 11.4 g/dL (13.0-18.0); Mean Corp Hgb Conc. 33.1 g/dL (33.0-37.0); Mean Corpuscular Volume 93.2 fL (80.0-94.0); Nucleated Red Blood Cells % 0 % (-); Platelet Count 207 10^3/uL (130-400); Red Cell Dist. Width 14.2 % (11.5-14.5)
[2024-12-12 05:40] LABS: APTT 37.9 Sec (23.4-35.0)
[2024-12-12 05:54] LABS: ALT (SGPT) 24 U/L (0-50); AST (SGOT) 26 U/L (17-59); Albumin 3.2 g/dl (3.5-5.0); Alkaline Phosphatase 93 U/L (38-126); Blood Urea Nitrogen 18 mg/dl (9-20); Calcium 8.9 mg/dl (8.4-10.2); Carbon Dioxide 26 mmol/L (22-30); Chloride 107 mmol/L (98-107); Estimated Creatinine Clearance 94 ml/min; Glucose 252 mg/dl (70-99); HDL Cholesterol 42 mg/dl; LDL Cholesterol, Calculated 148 mg/dl; Potassium 4.5 mmol/L (3.5-5.1); Sodium 136 mmol/L (135-145); Total Protein 5.6 g/dl (6.3-8.2); Very Low Density Lipoprotein 46 mg/dl (0-30); eGFR > 60.00
[2024-12-12 06:02] LABS: Troponin I 0.181 ng/ml
--- NOTE | 2024-12-12 07:27 | CON.CAR ---
Addendum entered and electronically signed by Tuan Holcomb MD 12/12/24 11:52:
Attending addendum: Patient seen and examined. PA note was reviewed and fine by me. I met independently with the patient and examined him in his hospital room. I spoke with his on the telephone and in person and spoke with his orthopedist
Dr. Jeevan Mcfadden ([phone]).
Briefly, this is a 69-year-old gentleman with a past medical history notable for an ischemic, coronary artery disease, diabetes, poorly controlled hyperlipidemia, hypertension, history of orthostatic hypotension, suspected sleep apnea, anxiety, and
severe right hip discomfort. He has been marginally compliant with his medication. He was supposed to be taking aspirin, clopidogrel, and atorvastatin and he is currently on none of these meds. He presented to [facility] for evaluation
significant weight gain, lower extremity edema, and chest discomfort beginning 2 to 3 days before admission. The chest discomfort was nitrate responsive. Yesterday, he experienced recurring symptoms and took a sublingual nitroglycerin tablet then
called 911.
He ruled in for non-ST segment elevation myocardial infarction with a peak troponin of 0.287 ng/mL.
-12/12/2024: Total chol: 237, Trigl 233, HDL 42, LDL 148, AST/ALT 26/24, BUN/Cr 18/0.9, K 4.5
I personally reviewed the echocardiogram from 07/06/2024 and from 03/17/2024 were reviewed. The cardiac catheterization images from 03/18/2024 were reviewed.
Physical exam
GEN: AAO x 3. No acute distress
HEENT: NC/AT, sclera are anicteric, hearing and nares are normal. MMM
NECK: Supple. JVP difficult to assess
LUNGS: Clear to bases bilaterally. No wheezing or rhonchi
CV: Regular rate and rhythm. Normal S1/S2. No S3, No S4. Murmur: 1/6 murmur at upper sternal border and 2/6 lower left sternal border
ABD : Soft, NT, ND, No HSM. Bowel sounds are present.
EXT: No CCE
NEURO: No focal neurologic deficits
Impression:
-Non-ST segment elevation myocardial infarction
- Medical noncompliance: Stressed the need for absolute compliance with aspirin and clopidogrel
- Ischemic cardiomyopathy
-Diabetes
- Hypertension
- Mixed hyperlipidemia
-DJD/tendinitis
RECOMMENDATION
-I spoke with Dr. Jeevan Mcfadden who states that there is nothing in the hip for him to operate on. The patient's severe right hip discomfort is most likely related to tendinitis involving the iliopsoas. There would be no contraindication to
injections in this area on dual antiplatelet therapy per Dr. Mcfadden.
-I reviewed the angiograms from March 2024. He does have significant coronary artery disease and had been on a good medical regimen. He now presents with recurrent anginal symptoms and rules in for non-ST segment elevation myocardial infarction.
I believe we should coronary angiography with further management decisions to be made after the angiogram is completed. However, was reassuring to hear from orthopedic perspective that dual antiplatelet therapy would not be contraindicated. I do
have a concern with patient's compliance and have stressed the need to remain compliant with medical therapy
-Continue aspirin and stressed the need for compliance with aspirin and possibly clopidogrel
-Will need high intensity statin therapy
-Risks and benefits of coronary angiography have been explained to the patient at length.
-I spent 70 minutes reviewing films, discussing plans with the patient, his , and discussing with orthopedic surgery
Original Note:
Consultation
Consultation Request
Date/Time Consultation Requested: 12/11/2024 at 1554
Date/Time Consultation Performed: 12/12/2024 at 0725
Requesting Provider: Dr. Sudeep Dickson
Performing Provider: Dr. Holcomb
Reason for Consultation: Chest pain, edema, elevated troponin
Medical History
-
History of Present Illness:
Patient came to the ER yesterday with complaints of chest pain and LE edema for 2 days and cardiology is now consulted. Patient was last seen in the office 08/10/2024 and was still taking his Plavix, but had actually stopped taking his aspirin back
in May for unclear reasons. Patient had also stopped taking his atorvastatin for unclear reasons. Patient reports being under an incredible amount of stress due to right hip pain. I reviewed ER visit in June and admission in July both for
orthostasis and syncope and it appears patient was under a lot of anxiety and stress at that time for financial reasons that he does not want to elaborate on. Patient says that starting 2 days ago he had increased LE edema and feels swollen in his
hands. He says his feet are painful to walk on. He denies any bloating. He denies any orthopnea. He says he also started with chest pain that happens at rest and with exertion. He came to the ER for ongoing chest pain yesterday and chest pain
was improved following a second NTG SL. Patient was started on nitro gtt and is now pain-free at 20 mcg. Heparin gtt is also running. Patient was admitted in March of this year with chest pain in the setting of HTN emergency and had cardiac
cath that showed Diag-1, mid to distal/apical LAD and proximal to mid OM1 lesions by cardiac cath that were managed medically. He was started on aspirin and Plavix at that time, but as noted above he stopped taking his aspirin in May for unclear
reasons, but remains on Plavix 75 mg daily. In the last 2 weeks he has had increased right hip pain and says he is taking aspirin 325 mg 2-3 times a day for his hip pain. Patient stopped taking atorvastatin
PMH:
Previous admission for orthostasis and syncope 08/24/2024 until 08/19/2024
Previous admission for acute HF, newly reduced EF and HTN emergency 03/17/2024 until 03/21/2024
CAD
s/p NSTEMI with peak troponin 0.088 and CAD with Diag-1, mid to distal/apical LAD and proximal to mid OM1 lesions by cardiac cath that were managed medically in the setting of HTN emergency 03/18/2024
Chronic HFmrEF
ICM with EF as low as 35% by echo 03/17/2024 and improved a bit to 44% by echo 07/06/2024
HTN
Hyperlipidemia
DM 2
Diabetic retinopathy
Degenerative disc disease
h/p orthostatic hypotension and syncope 07/19/2024 and 08/19/2024
Suspected obstructive sleep apnea
Past Medical History
Past Medical History: CAD (Non-ST segment elevation anterior myocardial infarction 2015 with subtotal LAD occlusion and peak troponin of 1.9, treated conservatively), HTN, Hypercholesterolemia, NIDDM and Other (Orthostatic hypotension, renal
calculi, degenerative lumbar disc disease, chronic pain, diabetic retinopathy, history of malignant melanoma)
Past Surgical History: Cholecystectomy and Orthopedic (Lumbar laminectomy, deviated septum repair, cholecystostomy tube 2021 for hepatic abscess, open cholecystectomy)
Social History
Tobacco: Non-Smoker
Alcohol: None
Drug: None
Personal:
Living: With Family
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
Family History
Family History: Cancer, Diabetes and Hypertension
Allergies / Home Medications
Allergy/AdvReac Type Severity Reaction Status Date / Time
hydromorphone (From Dilaudid) Allergy Unknown Verified 08/24/24 13:02
�Medication �Instructions �Recorded �Confirmed �Type
carvedilol 12.5 mg tablet 12.5 mg PO BID #60 tabs 03/21/24 12/11/24 Rx
donepezil 5 mg tablet 5 mg PO HS 08/24/24 12/11/24 History
insulin aspart U-100 100 unit/mL 30 sliding scale dose SC AC 08/24/24 12/11/24 History
(3 mL) subcutaneous pen (Novolog
FlexPen U-100 Insulin aspart)
insulin glargine 100 unit/mL (3 70 unit SC HS 08/24/24 12/11/24 History
mL) subcutaneous pen (Lantus
Solostar U-100 Insulin)
potassium chloride 20 mEq 20 meq PO DAILY 08/24/24 12/11/24 History
tablet,extended release
spironolactone 25 mg tablet 25 mg PO DAILY 08/24/24 12/11/24 History
tamsulosin 0.4 mg capsule 0.4 mg PO HS 08/24/24 12/11/24 History
amlodipine 2.5 mg tablet (Norvasc) 2.5 mg PO DAILY 12/11/24 12/11/24 History
aspirin 325 mg tablet 325 mg PO BIDPRN PRN MILD PAIN 12/11/24 12/11/24 History
duloxetine 60 mg capsule,delayed 120 mg PO DAILY 12/11/24 12/11/24 History
release
furosemide 40 mg tablet (Lasix) 40 mg PO DAILY 12/11/24 12/11/24 History
lisinopril 20 mg tablet 20 mg PO DAILY 12/11/24 12/11/24 History
metformin 1,000 mg tablet 1,000 mg PO BID 12/11/24 12/11/24 History
Review of Systems
-
History Source: Patient
All other systems: Negative unless noted
Physical Exam
Vital Signs
Temp Pulse Resp BP Pulse Ox
98.6 F 70 18 123/78 99
12/12/24 05:19 12/12/24 06:30 12/12/24 05:19 12/12/24 06:30 12/12/24 05:19
GEN: NAD. AAOx3
HEENT: EOMI, MMM
LUNGS: RA. CTA B/L, no wheeze
CV: SR on tele. Reg, S1/S2, no murmur
ABD: ND
EXT: +1 B/L LE edema. No clubbing, cyanosis or lesions B/L
NEURO: Gross non-focal
SKIN: Warm, dry and pink. No rash
Lab Results
12/12/24 05:09
12/12/24 05:09
Troponin I 0.181 ng/ml H* D 12/12/24 05:09
Vxj-O-Tpfqpkebzik Pept 1440 pg/ml 12/11/24 14:25
Impression / Plan
-
PCP: Karthik VISITING PROFESSOR
Cardiology: Dr. Yañez
Impression:
Admitted with edema and chest pain 12/11/2024
Previous admission for orthostasis and syncope 08/24/2024 until 08/19/2024
Previous admission for acute HF, newly reduced EF and HTN emergency 03/17/2024 until 03/21/2024
Chest pain
Elevated troponin
CAD
s/p NSTEMI with peak troponin 0.088 and CAD with Diag-1, mid to distal/apical LAD and proximal to mid OM1 lesions by cardiac cath that were managed medically in the setting of HTN emergency 03/18/2024
Acute HFmrEF
ICM with EF as low as 35% by echo 03/17/2024 and improved a bit to 44% by echo 07/06/2024
HTN
Hyperlipidemia
DM 2
Diabetic retinopathy
Degenerative disc disease
h/p orthostatic hypotension and syncope 07/19/2024 and 08/19/2024
Suspected obstructive sleep apnea
Lexiscan nuclear stress test 09/14/23: Negative Lexiscan sestamibi for ischemia, fixed inferior and inferior apical defects C/W soft tissue attenuation, moderately decreased systolic function EF 33% with global hypokinesis
Echo 03/2022: EF 50-55% without regional wall motion abnormality, mild LVH, mild mitral annular calcification, mild mitral regurgitation, aortic sclerosis with mild aortic regurgitation, normal RV, normal atria, normal pulmonary artery pressure
Echo 03/07/2024: EF 35% by Grayson's method but closer to 35 to 40% visually, segmental wall motion abnormalities most pronounced in the mid to distal anterior, mid to distal lateral, mid to distal septal and possibly mild hypokinesis inferior wall,
mild concentric LVH, stage I diastolic dysfunction, normal RV size and function, mild MR, trace aortic regurgitation
Echo 07/06/2024: EF 44%, mild hypokinesis apical anterior and apical lateral segments, stage I diastolic dysfunction, normal RV size and function, mild MR, mild
Plan:
-Patient came to the ER yesterday with complaints of chest pain and LE edema for 2 days and cardiology is now consulted. Patient was last seen in the office 08/10/2024 and was still taking his Plavix, but had actually stopped taking his aspirin back
in May for unclear reasons. Patient had also stopped taking his atorvastatin for unclear reasons. Patient reports being under an incredible amount of stress due to right hip pain. I reviewed ER visit in June and admission in July both for
orthostasis and syncope and it appears patient was under a lot of anxiety and stress at that time for financial reasons that he does not want to elaborate on. Patient says that starting 2 days ago he had increased LE edema and feels swollen in his
hands. He says his feet are painful to walk on. He denies any bloating. He denies any orthopnea. He says he also started with chest pain that happens at rest and with exertion. He came to the ER for ongoing chest pain yesterday and chest pain
was improved following a second NTG SL. Patient was started on nitro gtt and is now pain-free at 20 mcg. Heparin gtt is also running. Patient was admitted in March of this year with chest pain in the setting of HTN emergency and had cardiac
cath that showed Diag-1, mid to distal/apical LAD and proximal to mid OM1 lesions by cardiac cath that were managed medically. He was started on aspirin and Plavix at that time, but as noted above he stopped taking his aspirin in May for unclear
reasons, but remains on Plavix 75 mg daily. In the last 2 weeks he has had increased right hip pain and says he is taking aspirin 325 mg 2-3 times a day for his hip pain. Patient stopped taking atorvastatin
-ECG reviewed by me is sinus tachycardia with early repolarization
-Initial troponin was 0.161 and then peaked at 0.287 and is now trending down. No recurrence of chest pain following NTG SL x 2 on admission and initiation of nitro gtt. Chest pain is new over the last 2 days and patient with known CAD.
-Check urgent echo to assess EF and look for any new WMA
-Consider cardiac cath and will leave n.p.o. for now.
-Continue nitro gtt at 20 mcg
-Continue heparin gtt
-Patient was given aspirin 324 mg PO in the ambulance and reports he was taking 325 mg BID for the last 2 weeks leading up to admission for hip pain. Continue aspirin 81 mg daily for now
-Of note, on his own patient stopped aspirin in May for unclear reasons. He continued to take Plavix 75 mg daily which was started at the time of his NSTEMI and CAD diagnosis 03/2024. Plavix is now on hold, will consider restarting pending
outcome of echo and possible cardiac cath.
-Patient also stopped taking atorvastatin 40 mg daily on his own, LDL is now 148. Restart atorvastatin 40 mg daily now.
-Patient has a history of HTN emergency 03/2024, but BP has been relatively well-controlled so far this admission.
-Outpatient dose of Coreg increased to 25 mg BID
-Outpatient dose of lisinopril 20 mg daily has been continued
-Outpatient dose of spironolactone 25 mg daily has been continued
-Outpatient dose of amlodipine 2.5 mg daily has been continued
-Suspect acute HF as well. EF was as low as 35% by echo 03/07/2024, but then improved to 44% by echo 07/06/2024. Recheck echo now, ordered by me is urgent and coordinated with echo lab staff by me.
-Lasix 40 mg IV now and then daily. Patient was taking Lasix 40 mg PO daily prior to admission.
-Follow volume status as patient has had ER visit for orthostasis and syncope in 07/19/2024 and admission 07/2024
-Coreg, lisinopril and spironolactone as above. Jardiance was stopped as patient cannot afford and as outlined above this is not something he wishes to discuss again or get into currently it is very stressful for him.
[2024-12-12 07:53] LABS: Glucose - Point of Care 255 mg/dl (70-99)
[2024-12-12] MEDS: NOVOLOG FLEXPEN 10 UNITS SC ×2 (08:22→17:49)
[2024-12-12] MEDS: CYMBALTA DELAYED RELEASE 120 MG PO (08:23)
[2024-12-12] MEDS: ASPIR LOW (ENTERIC COATED) 81 MG PO (08:23)
[2024-12-12] MEDS: COREG 25 MG PO ×2 (08:24→19:35)
[2024-12-12] MEDS: TYLENOL 650 MG PO (08:24)
[2024-12-12] MEDS: NORVASC 2.5 MG PO (08:24)
[2024-12-12] MEDS: ZESTRIL 20 MG PO (08:25)
[2024-12-12] MEDS: ALDACTONE 25 MG PO (08:25)
[2024-12-12 08:40] LABS: Glycohemoglobin (HgbA1c) 7.5 % (4.0-5.6)
--- NOTE | 2024-12-12 09:17 | PTCARENOTE ---
received patient this am sitting up in chair c/o right chronic hip pain, Tylenol po given as ordered. IV heparin @ 1400units/hr and IV nitroglycerin @ 20mcg/min or 3 cc/hr. via left ant. Christen KAIS[facility] in to see patient, will diureses with IV Lasix
as ordered and Echo presently in room along with Dr. Holcomb talking to patient. patient still remains NPO. monitor shows NSR with a first degree, VSS. patient has no c/o SOB or chest pain. patient aware of todays plan, verbalizes understanding.
[2024-12-12] MEDS: LASIX 40 MG IV (09:56)
[2024-12-12 12:11] LABS: Glucose - Point of Care 213 mg/dl (70-99)
--- NOTE | 2024-12-12 12:43 | W.PN.HOSP.TC ---
Today's Communication/Plan
-
Follow-up echocardiogram report
Follow weight and creatinine with IV diuretics
Heparin drip/nitro drip per cardiology
Assessment / Plan
Assessment / Plan
1. Chest pain
Rule out ACS
- Troponin max of 0.287 trending down
- Currently on aspirin and nitro/heparin drip
- EKG reviewed
- Cardio ordered echocardiogram
- Await further input for need of possible heart catheterization/stress test
2. Insulin-dependent diabetes mellitus
-Noncompliant with diet
-Hbga1c of 7.5
-Currently on low-dose of NovoLog Premeal 10 units and Lantus 30 unit at night time
-Metformin on hold due to potential need for heart catheterization/contrast need
-Unable to afford Trulicity
3. Acute on chronic systolic congestive heart failure
- Patient getting IV diuretic therapy
- Monitor weight and creatinine
- Not hypoxic/dyspneic
4. Mild cognitive impairment
- Reported some sundowning issues
- Continue supportive measures
- Continue donepezil
Essential hypertension
History of orthostatic hypotension
Benign prostatic hyperplasia
History of spinal stenosis/lumbar radiculopathy
Obstructive sleep apnea
Gastroesophageal reflux disease
Depression/anxiety
Obesity
Diabetic retinopathy
DVT prophylaxis Continue current IV heparin drip
Full code
Anticipated Discharge: 24 - 48 hours
Subjective/Interval History
-
Date of Service: December 12, 2024
Denies of having chest pain
some headache
no nausea/vomiting
Objective Data
-
Labs:
Laboratory Results
12/12/24 12/12/24
05:09 12:30
WBC 8.4
Hgb 11.4 L
Hct 34.4 L
Plt Count 207
APTT 37.9 H Pending
Sodium 136
Potassium 4.5
Chloride 107
Carbon Dioxide 26
BUN 18
Creatinine 0.9
Glucose 252 H
Calcium 8.9
Total Bilirubin 0.9
AST 26
ALT 24
Alkaline Phosphatase 93
Vital Signs:
Vital Signs
Temp Pulse Resp BP Pulse Ox
98.2 F 74 20 117/75 93
12/12/24 12:07 12/12/24 09:56 12/12/24 07:00 12/12/24 09:56 12/12/24 12:07
Review of Systems
-
Respiratory: Reports No Symptoms
Cardiac: Reports No Symptoms
Abdomen/GI: Reports No Symptoms
Physical Exam
-
General: No Apparent Distress
HEENT: Negative Oxygen
Respiratory: Clear to Auscultation; Negative Wheezes
Cardiac: Regular Rhythm and S1/S2; Negative Murmur
GI: Soft, Nontender and Nondistended
Musculoskeletal: No Edema
Neuro: Awake, Alert, Oriented and No Motor Deficits
--- NOTE | 2024-12-12 12:57 | CM ---
spoke to pt in room, he is prev indep, lives with his in an apt with 8 steps to enter. he has a cane he uses. he denies any dc planning needs. viki is for dc to home when medically stable.
[2024-12-12] MEDS: NOVOLOG FLEXPEN SC (13:37)
--- NOTE | 2024-12-12 14:23 | ITS.CL.CATH ---
[employer] - Catheterization
Cardiac Catheterization
Procedure Report:
LEFT HEART CATHETERIZATION
Date of Procedure: December 12, 2024
Referring: Dr. Jose Yañez
PROCEDURES:
1. Left heart catheterization, coronary angiogram.
INDICATION: This is a 69-year-old gentleman with a past medical history notable for LV dysfunction and medically managed coronary artery disease. His last cardiac catheterization in March 2024 was notable for significant coronary disease in a
diagonal branch, mid and distal/apical LAD and obtuse marginal branch. He has a history of marginal compliance with medical therapy and has since self terminated his aspirin, clopidogrel, and atorvastatin. 3 days prior to this admission he
reported the onset of substernal chest pressure and ruled in for a small non-ST segment elevation myocardial infarction with peak troponin of 0.287 ng/mL. He has been chest pain-free since shortly after arrival and is now referred for coronary
angiography.
ACCESS: Right radial artery, 6Fr. sheath, under US guidance.
HEMODYNAMICS : (mmHg)
AO (s/d, m) : 105/72, 80
LV (s/d): 121/11
LVEDP : 23
CORONARY FINDINGS
Dominance: Left
Left Main: Large caliber vessel that gives rise to the LAD and LCx branches and is free of angiographic disease.
Left Anterior Descending Artery (LAD): The LAD arises normally from the left main and runs in the anterior interventricular groove. The proximal LAD has a 30% stenosis. The mid LAD beyond the first diagonal branch has a 60% stenosis then tapers to
a small distal vessel and is occluded at the apex with the distal vessel filling via collaterals. The first diagonal branch has a proximal 80-90% stenosis. This diagonal branch is a small-medium caliber vessel that supplies a moderate territory
Left Circumflex Artery (LCx): The circumflex is a dominant vessel and supplies a medium sized OM1 that has a 80% proximal stenosis and tandem 60% and 70% mid vessel stenosis. The circumflex continues in the AV groove and tapers with 50% distal
stenosis extending to a terminal posterolateral branch and the PDA is 100% in the mid vessel with bridging collaterals.
Right Coronary Artery (RCA): Large caliber dominant vessel that gives rise to the posterior descending artery (RPDA) and postero-lateral ventricular (RPLV) branches distally. The RCA and its branches are free of angiographic disease.
LEFT VENTRICULOGRAPHY: The digital single-plane left ventricular ejection fraction is visually estimated at 40%. There is anterolateral hypokinesis and focal apical hypokinesis
SEDATION: 27 minutes of procedural sedation was utilized. An independent coroner/medical examiner was present to assist with and help manage the patient's level of consciousness and physiologic status.
RADIATION SUMMARY: Fluoro Time (min): 4, Dose (mGy): 658, DAP (Gy.cm2) : 38.7
Closure Device: There were no immediate intra-procedural complications. The sheath was pulled in the powerhouse laborer and a vascular-band applied to the right wrist for radial artery hemostasis using the patent hemostasis technique.
CONCLUSIONS
1. Multivessel coronary artery disease
2. Mild LV dysfunction
RECOMMENDATIONS:
1. Consult CT surgery: Diabetes, LV dysfunction, and poor medical compliance (simone with aspirin and clopidogrel) suggest surgical revascularization may have survival benefit. CT surgery to review and determine if anatomy is reasonable for surgical
revascularization.
Copy to: Dr. Jose Yañez
--- NOTE | 2024-12-12 14:23 | CONSULT.CT ---
Consultation
-
Date/Time Consultation Requested: 12/12/24 at 1330
Date/Time Consultation Performed: 12/12/24 at 1400
Requesting Provider: Dr. Tuan Holcomb
Performing Provider: KIT Lieberman for Dr. Liz Mares
Reason for Consultation: Multivessel Coronary Artery Disease, CABG
Patient History
Physicians
Family Physician: Dr. Jo Angeles
Outpatient Marriage Counselor: Dr. Jose Yañez
Inpatient Marriage Counselor: [facility]
History of Present Illness
Mr. Rohith Lacy is a 69-year-old male with a PMHx significant for ICM with HFmrEF (EF 44% in 06/2024), CAD with prior NSTEMI secondary to HTN emergency, T2DM (7.4% A1C), diabetic neuropathy, orthostasis with prior syncopal episodes (~ 3-months
ago), and chronic R Hip pain secondary to prior fall (prior cortisone injections) who presented to [facility] ED with complaints of weight gain, lower extremity edema, chest discomfort. Patient reported symptoms started 2 to 3 days prior to arrival.
Initial symptoms consisted of lower extremity edema with progression to chest tightness and shortness of breath at rest. He reported taking sublingual nitroglycerin x 1 without alleviation of chest discomfort leading to calling EMS. Upon ED
arrival he ruled in for ACS/NSTEMI with peak troponin of 0.28. On 12/12/24, he was taken for a cardiac catheterization in which he was found to have multivessel CAD and referred for surgical revascularization.
Of note, over the last 3 months, patient reported decreased mobility due to right hip pain. Patient reported a fall 3 months ago due to orthostasis in which he injured his hip. He followed up with an orthopedist in and obtained a cortisone
injection with relief of pain. He shares that he ambulates within his home using a single-point cane and occasionally uses his steps. He reported frequent episodes orthostasis in which he was instructed to stop his Plavix. He reported stopping his
Lipitor for his orthostasis as well but was unclear who instructed him to do so. He shared following up with his budget technician, primary care provider, internal medicine, and orthopedic routinely. He shared his diet has been poor over the last 3
months due to his being previously hospitalized a eating as a coping mechanism for his stress and pain. His reported that they have relied on food delivery services as well.
Past Medical History
- Orthostasis with syncope s/p prior admission 08/14/24-08/19/24
- Chronic HFmrEF with acute exacerbation secondary to HTN emergency s/p prior admission 03/17/24-03/21/24
- CAD s/p NSTEMI secondary to HTN emergency 03/18/24
- ICM with EF 35% (03/2024) > 44% 06/2024)
- HTN
- HLD
- Renal calculi
- Chronic pain
- DM (A1C 7.5%)
- Diabetic retinopathy
- Degenerative disc disease
- Suspected STIVEN
- BPH
- Anxiety/Depression
- GERD
- Spinal Stenosis
- Mild cognitive impairment (donepezil)
Past Surgical History
- Cholecystectomy with cholecystostomy tube 2021 for hepatic abscess
- Orthopedic (Lumbar laminectomy, deviated septum repair)
Family History
Family Medical History: Cancer and Other (Parkinsons)
Social History
Alcohol: None
Drug: None
Tobacco: Non-Smoker
Personal:
Living: With Spouse
Allergies
Allergy/AdvReac Type Severity Reaction Status Date / Time
hydromorphone (From Dilaudid) Allergy Unknown Verified 08/24/24 13:02
Home Medications
�Medication �Instructions �Recorded �Confirmed �Type
carvedilol 12.5 mg tablet 12.5 mg PO BID #60 tabs 03/21/24 12/11/24 Rx
donepezil 5 mg tablet 5 mg PO HS 08/24/24 12/11/24 History
insulin aspart U-100 100 unit/mL 30 sliding scale dose SC AC 08/24/24 12/11/24 History
(3 mL) subcutaneous pen (Novolog Diabetes
FlexPen U-100 Insulin aspart)
insulin glargine 100 unit/mL (3 70 unit SC HS Diabetes 08/24/24 12/11/24 History
mL) subcutaneous pen (Lantus
Solostar U-100 Insulin)
potassium chloride 20 mEq 20 meq PO DAILY Supplement 08/24/24 12/11/24 History
tablet,extended release
spironolactone 25 mg tablet 25 mg PO DAILY Fluid 08/24/24 12/11/24 History
Retention/Swelling
tamsulosin 0.4 mg capsule 0.4 mg PO HS Urinary Issue 08/24/24 12/11/24 History
amlodipine 2.5 mg tablet (Norvasc) 2.5 mg PO DAILY Blood Pressure 12/11/24 12/11/24 History
aspirin 325 mg tablet 325 mg PO BIDPRN PRN MILD PAIN 12/11/24 12/11/24 History
duloxetine 60 mg capsule,delayed 120 mg PO DAILY Mental 12/11/24 12/11/24 History
release Health/Anxiety
furosemide 40 mg tablet (Lasix) 40 mg PO DAILY Fluid 12/11/24 12/11/24 History
Retention/Swelling
lisinopril 20 mg tablet 20 mg PO DAILY Blood Pressure 12/11/24 12/11/24 History
metformin 1,000 mg tablet 1,000 mg PO BID Diabetes 12/11/24 12/11/24 History
Review of Systems
-
History Source: Patient and Family
General: Reports Weight Gain and Fatigue
HEENT: Reports No Symptoms
Respiratory: Reports SOB
Cardiac: Reports Chest Pain, CAD and Edema
Abdomen/GI: Reports No Symptoms
: Reports No Symptoms
Musculoskeletal: Reports Other (Right Hip Pain (for last 3-months), uses single-point cane)
Skin: Reports No Symptoms
Neurological: Reports No Symptoms
Vascular: Reports No Symptoms
Physical Exam
Vital Signs
Temp 98.2 F 12/12/24 12:07
Temp route: Oral 12/12/24 12:07
Pulse 82 12/12/24 12:15
Rhythm: Normal sinus rhythm 12/12/24 08:30
With- First Degree Heart Block 12/12/24 08:30
Resp Rate 20 12/12/24 07:00
Blood pressure 110/68 12/12/24 12:06
Blood pressure extremity used: Right upper arm 12/12/24 07:00
Position: Sitting 12/12/24 07:00
MAP (cuff-Ancelmo Monitor) 81 12/12/24 12:06
MAP 99 12/11/24 14:21
SaO2 93 12/12/24 12:07
Oxygen Mode of Delivery Room air 12/12/24 12:07
Can the patient verbally communicate their pain? Yes 12/12/24 09:24
Pain scale ratin 12/12/24 09:24
Actual Weight 111.3 kg 12/12/24 05:19
Body Mass Index (BMI) 35.2 12/12/24 05:19
Labs
12/12/24 05:09
12/12/24 05:09
PT 13.4 Sec (11.4-14.6) 12/11/24 14:25
APTT Cancelled 12/12/24 12:30
Hemoglobin A1c 7.5 % (4.0-5.6) H 12/12/24 05:09
Troponin I 0.181 ng/ml H* D 12/12/24 05:09
Ixl-G-Sjvltoewdhw Pept 1440 pg/ml 12/11/24 14:25
Exam
General: Comfortable and Good Appetite
HEENT: Moist Mucous Membranes, PERRLA and EOMI
Respiratory: Clear
Cardiac: S1/S2 and Regular Rhythm
GI: Soft, Non Tender, Non Distended and Normal Bowel Sounds
Rectal: Deferred by Provider
Skin: Warm and Dry
Neuro: AO x 3 and No Motor Deficits
Extremities: Lower Level Edema
Psych: Calm
Assessment / Plan
-
#Coronary Artery Disease with NSTEMI
- Patient currently without complaints of chest pain or worsening cardiopulmonary symptoms
- Patient shared he would consider surgical intervention if warranted
- Patient's case will be discussed with the Attending Physician. Further details regarding surgical timing intervention will be determined after Attending Physician�s full evaluation
- Routine preoperative cardiothoracic surgery orders will be initiated.��
- TTE obtained 12/12, report pending.
- Non-contrast CT Chest
- Carotid Artery US
- US Vascular Mapping B/L
- Pre-op Labs including T & S
- STS risk stratification score will be calculated after preoperative testing is complete
- Continue nitroglycerin and heparin gtt per Cardiology.
- Following medications placed on hold in anticipation for surgery:
- Lisinopril 20 mg/day on hold, last dose 12/12 at 0800
- Norvasc 2.5 mg/day on hold, last dose 12/12 at 0800
[2024-12-12] MEDS: HEPARIN 25000 UNITS/250 ML IV (17:12)
[2024-12-12 17:49] LABS: Glucose - Point of Care 228 mg/dl (70-99)
[2024-12-12] MEDS: NOVOLOG FLEXPEN-LOW RESISTANCE 2 UNITS SC (17:49)
[2024-12-12] MEDS: LIPITOR 80 MG PO (18:05)
--- NOTE | 2024-12-12 20:32 | PTCARENOTE ---
Received pt @ change of shift. Resting in bed, breathing rhythmically and not in distress. VSS-- NSR w/ BBB and 1st degree AV Block on monitor. Heparin gtt running @ 1400 units/hr and nitro gtt running @ 20 mcg/min through left AC. Right radial site
clean, dry, and intact. No swelling or ecchymosis. Discussed plan of care for evening. Pt verbalizes understanding. Call cotto within reach.
[2024-12-12] MEDS: LANTUS 0.3 UNITS SC (21:49)
[2024-12-12] MEDS: FLOMAX 0.4 MG PO (21:49)
[2024-12-12] MEDS: ARICEPT 5 MG PO (21:49)
[2024-12-12 21:52] LABS: Glucose - Point of Care 186 mg/dl (70-99)
[2024-12-13] VITALS (8 sets, daily range): BP systolic 98–134; BP diastolic 60–75; BMI 35.2
[2024-12-13 01:29] LABS: APTT 45.6 Sec (23.4-35.0)
[2024-12-13] MEDS: TYLENOL 650 MG PO (04:50)
--- NOTE | 2024-12-13 05:29 | PTCARENOTE ---
Pt resting quietly during the night. Arousal to sound. Sleep apnea observed. Snoring observed. Pt c/o 05/09 back pain with morning vitals-- Tylenol given-- see MAR. Discussed CVOR workup tests for today. Pt verbalizes understanding. Call cotto within
reach.
[2024-12-13] MEDS: ALDACTONE 25 MG PO (08:21)
[2024-12-13] MEDS: CYMBALTA DELAYED RELEASE 120 MG PO (08:21)
[2024-12-13] MEDS: LASIX 40 MG IV (08:23)
[2024-12-13] MEDS: FLUSH (NSS) 1 FLUSH IV (08:23)
[2024-12-13] MEDS: COREG 25 MG PO ×2 (08:24→19:47)
[2024-12-13] MEDS: LOW STRENGTH ASPIRIN 81 MG PO (08:25)
--- NOTE | 2024-12-13 09:02 | PTCARENOTE ---
received patient this am, already called to go to cat scan, patient returned. patient still needs U/S 's completed, called to dept. and left a message. monitor shows NSR with PVC's, BP 98/60, decreased IV nitroglycerin to 15mcg/min , IV heparin @
1400units/hr via left ant. INT in left hand has bleeding around site but works well. patient still c/o right chronic hip pain but doesn't need medication at this time.
[2024-12-13 09:14] LABS: Glucose - Point of Care 246 mg/dl (70-99)
[2024-12-13] MEDS: HEPARIN 25000 UNITS/250 ML IV ×2 (09:27→23:23)
--- NOTE | 2024-12-13 09:28 | W.PN.CARDCBS ---
Addendum entered and electronically signed by Amari Mckenzie MD 12/13/24 10:28:
I saw and examined the patient.
The Principal Database Developer's note was reviewed and I agree with the note.
Comment: Briefly, 69-year-old man with past medical history of multivessel CAD and ischemic cardiomyopathy (prior EF 35%) who presented with edema and chest discomfort found to have elevated troponin peaking at 0.287 consistent with NSTEMI.
Transthoracic echocardiogram with low normal LVEF 50% here. Left heart catheterization 12/12/2024 with elevated LV filling pressures and multivessel CAD.
Chest pain-free at the time of my evaluation on nitro drip
Continue aspirin, high intensity statin and beta-demetra
Appreciate CT surgery input� currently being evaluated for surgical revascularization
Still with mild edema on exam
Would continue IV Lasix and Aldactone
Follow daily weights and Cr/electrolytes
Rest per Livia Price
Original Note:
Today's Communication / Plan
-
CABG eval in progress
Impression / Plan
-
PCP: Karthik SHARMA
Cardiology: Dr. Yañez
Impression:
Admitted with edema and chest pain 12/11/2024
Previous admission for orthostasis and syncope 08/24/2024 until 08/19/2024
Previous admission for acute HF, newly reduced EF and HTN emergency 03/17/2024 until 03/21/2024
Chest pain
Elevated troponin
CAD
s/p NSTEMI with peak troponin 0.088 and CAD with Diag-1, mid to distal/apical LAD and proximal to mid OM1 lesions by cardiac cath that were managed medically in the setting of HTN emergency 03/18/2024
Acute HFmrEF
ICM with EF as low as 35% by echo 03/17/2024 and improved a bit to 44% by echo 07/06/2024
HTN
Hyperlipidemia
DM 2
Diabetic retinopathy
Degenerative disc disease
h/p orthostatic hypotension and syncope 07/19/2024 and 08/19/2024
Suspected obstructive sleep apnea
Cardiac cath 12/11/2024: Multivessel coronary artery disease, EF 40%
Left main: Free of angiographic disease
LAD: Proximal LAD 30% stenosis, mid LAD 60% stenosis that tapers to small distal vessel and occluded at apex with distal vessel filling via collaterals.
D1 proximal 80 to 90% stenosis
Left circumflex: Supplies medium size OM1 that has 80% proximal stenosis in tandem 60 and 70% mid vessel stenosis. Circumflex continues in the AV groove and tapers with 50% distal stenosis extending to a terminal posterolateral branch
PDA 100% mid with bridging collaterals
RCA large dominant vessel gives rise to RPDA and R PLV distally RCA and branches free of disease
Lexiscan nuclear stress test 09/14/23: Negative Lexiscan sestamibi for ischemia, fixed inferior and inferior apical defects C/W soft tissue attenuation, moderately decreased systolic function EF 33% with global hypokinesis
Echo 03/2022: EF 50-55% without regional wall motion abnormality, mild LVH, mild mitral annular calcification, mild mitral regurgitation, aortic sclerosis with mild aortic regurgitation, normal RV, normal atria, normal pulmonary artery pressure
Echo 03/07/2024: EF 35% by Grayson's method but closer to 35 to 40% visually, segmental wall motion abnormalities most pronounced in the mid to distal anterior, mid to distal lateral, mid to distal septal and possibly mild hypokinesis inferior wall,
mild concentric LVH, stage I diastolic dysfunction, normal RV size and function, mild MR, trace aortic regurgitation
Echo 07/06/2024: EF 44%, mild hypokinesis apical anterior and apical lateral segments, stage I diastolic dysfunction, normal RV size and function, mild MR, mild
Echo 12/12/2024: LVEF 50%, mild anterior and anterolateral hypokinesis, mild to moderate cLVH, mild aortic stenosis peak/mean 14/9 mmHg, mild MR
Plan:
-Admitted with Non-ST elevation OR peak troponin 0.28 after presenting with chest pain and lower extremity edema x 2 days duration
-Left heart cath 12/12/2024 with multivessel CAD, now seeking CT surgery evaluation for possible CABG
-Currently chest pain-free on nitro drip at 15 mcg and also on heparin drip
-Noncompliance with aspirin, statin in outpatient setting. Was taking Plavix at time of admission. Has known history of CAD with cardiac cath 03/2024 showing disease in Diag-1, mid to distal/apical LAD and proximal to mid OM1 that were managed
medically w/ DAPT and statin
-Patient reports being under an incredible amount of stress due to right hip pain. His case was reviewed with his orthopedist, Dr. Jeevan Mcfadden on 12/12/2024. His severe right hip discomfort is likely related to tendinitis and there is no plan for
surgery. No contraindication to dual antiplatelet therapy from orthopedic standpoint.
-echo 12/12/2024 with EF 50% and mild ant and ant/lat HK- WMAs stable compared to June 2024 echo with improvement in EF (had been 44%)
-Continue aspirin 81 mg daily for now
-Of note, on his own patient stopped aspirin in May for unclear reasons. He continued to take Plavix 75 mg daily which was started at the time of his NSTEMI and CAD diagnosis 03/2024. Plavix is now on hold
-Patient also stopped taking atorvastatin 40 mg daily on his own, LDL is now 148. Restart atorvastatin 40 mg daily 12/12/2024.
-Patient has a history of HTN emergency 03/2024, but BP has been relatively well-controlled so far this admission.
-Outpatient dose of Coreg increased to 25 mg BID
-Outpatient dose of spironolactone 25 mg daily has been continued
-Outpatient dose of lisinopril 20 mg and amlodipine 2.5 mg on hold in anticipation for poss surgery
-Suspected acute HF. proBNP 1440 on admit. EF was as low as 35% by echo 03/07/2024, but then improved to 44% by echo 07/06/2024, and 50% echo 12/12/2024.
-Lasix 40 mg IV daily. Patient was taking Lasix 40 mg PO daily prior to admission.
-Follow volume status as patient has had ER visit for orthostasis and syncope in 07/19/2024 and admission 07/2024
-Coreg, lisinopril and spironolactone as above. Jardiance was stopped as patient cannot afford and as outlined above this is not something he wishes to discuss again or get into currently it is very stressful for him.
Telemetry personally reviewed: Normal sinus rhythm 6 beat NSVT
Progress Note - Med Spec
Subjective
Date of Service: December 13, 2024
CP free on NTG gtt
No SOB
Objective
Labs:
Labs
Hgb 11.4 g/dL (13.0-18.0) L 12/12/24 05:09
Hct 34.4 % (39.0-52.0) L 12/12/24 05:09
Plt Count 207 10^3/uL (130-400) 12/12/24 05:09
PT 13.4 Sec (11.4-14.6) 12/11/24 14:25
INR 0.99 12/11/24 14:25
APTT 45.6 Sec (23.4-35.0) H 12/13/24 00:59
Sodium 136 mmol/L (135-145) 12/12/24 05:09
Potassium 4.5 mmol/L (3.5-5.1) 12/12/24 05:09
BUN 18 mg/dl (9-20) 12/12/24 05:09
Creatinine 0.9 mg/dL (0.7-1.3) 12/12/24 05:09
Glucose 252 mg/dl (70-99) H 12/12/24 05:09
Troponins
12/11/24 12/11/24 12/11/24
14:25 17:52 22:38
Troponin I 0.161 H* 0.247 H* D 0.287 H*
12/12/24
05:09
Troponin I 0.181 H* D
Vital Signs and I&O:
Vital Signs
Temp Pulse Resp BP Pulse Ox
98.7 F 79 18 98/60 95
12/13/24 04:59 12/13/24 08:24 12/13/24 04:59 12/13/24 08:24 12/13/24 04:59
Vital Signs
Temp Pulse Resp BP Pulse Ox
98.7 F 79 18 98/60 95
12/13/24 04:59 12/13/24 08:24 12/13/24 04:59 12/13/24 08:24 12/13/24 04:59
Intake & Output
12/11/24 12/12/24 12/13/24 12/14/24
06:59 06:59 06:59 06:59
Intake Total 1169 / 1169
Output Total 650 / 650
Balance 519 / 519
Physical Exam
Physical Exam
GEN: No distress, awake, Ox3
HEENT: supple, anicteric, mmm
LUNGS: CTA, no wheezes/rales
CV: Reg, S1/S2, no murmur
ABD: soft, BS+, NT/ND
EXT: No edema
NEURO: Gross non-focal
SKIN: No rash
--- NOTE | 2024-12-13 09:30 | PTCARENOTE ---
To U/S via stretcher accompanied by vol. services.
[2024-12-13 09:35] LABS: Hematocrit 33.0 % (39.0-52.0); Hemoglobin 10.9 g/dL (13.0-18.0); Mean Corp Hgb Conc. 33.0 g/dL (33.0-37.0); Mean Corpuscular Volume 95.7 fL (80.0-94.0); Nucleated Red Blood Cells % 0 % (-); Platelet Count 208 10^3/uL (130-400); Red Cell Dist. Width 14.1 % (11.5-14.5)
[2024-12-13 09:42] LABS: INR 1.10; PT 14.5 Sec (11.4-14.6)
[2024-12-13 09:44] LABS: APTT 60.1 Sec (23.4-35.0)
[2024-12-13 10:18] LABS: ALT (SGPT) 21 U/L (0-50); AST (SGOT) 22 U/L (17-59); Albumin 3.3 g/dl (3.5-5.0); Alkaline Phosphatase 93 U/L (38-126); Blood Urea Nitrogen 19 mg/dl (9-20); Calcium 8.6 mg/dl (8.4-10.2); Carbon Dioxide 27 mmol/L (22-30); Chloride 104 mmol/L (98-107); Estimated Creatinine Clearance 85 ml/min; Glucose 228 mg/dl (70-99); Potassium 4.1 mmol/L (3.5-5.1); Sodium 134 mmol/L (135-145); Total Protein 5.7 g/dl (6.3-8.2); eGFR > 60.00
[2024-12-13] MEDS: NOVOLOG FLEXPEN-LOW RESISTANCE 2 UNITS SC ×2 (10:42→13:50)
[2024-12-13] MEDS: NOVOLOG FLEXPEN 10 UNITS SC ×3 (10:42→17:14)
[2024-12-13 12:05] LABS: Urine Character Clear (Clear)
--- NOTE | 2024-12-13 12:35 | PTCARENOTE ---
U/A sent to lab as ordered. patient had large diarrhea, cleaned patient up and returned back to bed to rest.
[2024-12-13 12:58] LABS: Urine Urothelial Cell 0-2 /LPF (FEW)
[2024-12-13 13:00] LABS: Urine Red Blood Cell 0-2 /HPF (0-2)
--- NOTE | 2024-12-13 13:04 | W.PN.UPDATE ---
Update Note
Progress Note Update
STS Risk Calculation:
Procedure Type:�Isolated CABG
Perioperative Outcome Estimate %
Operative Mortality 1.58%
Morbidity & Mortality 8.31%
Stroke 0.766%
Renal Failure 2.09%
Reoperation 1.68%
Prolonged Ventilation 4.34%
Deep Sternal Wound Infection 0.398%
Long Hospital Stay (>14 days) 5.54%
Short Hospital Stay (<6 days)* 36.6%
Clinical Summary
Planned Surgery: Isolated CABG, Urgent, First cardiovascular surgery
Demographics: 69 year old, male, 111.3kg, 178cm, BMI: 35.1 kg/m�
Lab Values: Creatinine: 1 mg/dL, Hematocrit: 33%, WBC Count: 8.5 10�/�L, Platelet Count: 602783 cells/�L
PreOp Medications: Insulin diabetes control
Substance Abuse: Never smoker
Risk Factors / Comorbidities: Insulin-dependent Diabetes Mellitus, Hypertension, Syncope
Pulmonary RF: Sleep Apnea
Cardiac Status: Acute and chronic heart failure, NYHA Class II, Ejection Fraction = 50%
Coronary Artery Disease: 2 vessels diseased, Non-ST Elevation AK, AK: 1 to 7 Days
Valve Disease: Mild MR
[2024-12-13 13:13] LABS: Urine White Cell 0-2 /HPF (0-5)
[2024-12-13 13:50] LABS: Glucose - Point of Care 207 mg/dl (70-99)
--- NOTE | 2024-12-13 15:38 | W.CVOR.SURPR ---
CVOR Surgeon Immed Pre Op
-
I have examined this patient prior to performance of the scheduled procedure.
The patient's condition is unchanged from the time of the dictated/written History and
Physical and the patient is able to undergo the scheduled procedure.
Planning for CABG x4 (WONG-LAD, SVG-Diag, SVG-OM1, SVG-LPLB/LPDA) and LAAL. He understand risks, benefits and expected course and agrees to move forward with procedure.
--- NOTE | 2024-12-13 15:49 | W.PN.HOSP.TC ---
Today's Communication/Plan
-
for OR tomorrow
Assessment / Plan
Assessment / Plan
1. Chest pain
Rule out ACS
- Troponin max of 0.287 trending down
- Currently on aspirin and nitro/heparin drip
- EKG reviewed
- Left heart catheterization yesterday showed multivessel disease
- Cardiothoracic surgeon involved in care and patient is planned to undergo CABG tomorrow
2. Insulin-dependent diabetes mellitus
-Noncompliant with diet
-Hbga1c of 7.5
-Currently on low-dose of NovoLog Premeal 10 units and Lantus 30 unit at night time
-Metformin on hold due to potential need for heart catheterization/contrast need
-Unable to afford Trulicity
3. Acute on chronic systolic congestive heart failure
- Patient getting IV diuretic therapy
- Monitor weight and creatinine
- Not hypoxic/dyspneic
4. Mild cognitive impairment
- Reported some ing issues
- Continue supportive measures
- Continue donepezil
Hyponatremia -monitor
Essential hypertension
History of orthostatic hypotension
Benign prostatic hyperplasia
History of spinal stenosis/lumbar radiculopathy
Obstructive sleep apnea
Gastroesophageal reflux disease
Depression/anxiety
Obesity
Diabetic retinopathy
DVT prophylaxis heparin drip
Full code
Anticipated Discharge: > 48 hours
Subjective/Interval History
-
Date of Service: December 13, 2024
No complaints overnight
Denies of any chest discomfort/headache
Objective Data
-
Labs:
Laboratory Results
12/13/24 12/13/24 12/13/24
09:22 09:22 17:00
WBC 8.5
Hgb 10.9 L
Hct 33.0 L
Plt Count 208
PT 14.5
INR 1.10
APTT 60.1 H Cancelled Pending
Sodium 134 L
Potassium 4.1
Chloride 104
Carbon Dioxide 27
BUN 19
Creatinine 1.0
Glucose 228 H
Calcium 8.6
Total Bilirubin 1.1
AST 22
ALT 21
Alkaline Phosphatase 93
Vital Signs:
Vital Signs
Temp Pulse Resp BP Pulse Ox
98.5 F 75 18 103/61 96
12/13/24 12:40 12/13/24 12:40 12/13/24 12:40 12/13/24 12:40 12/13/24 12:40
I&O
12/12/24 12/13/24 12/14/24
06:59 06:59 06:59
Intake Total 1169 / 1169
Output Total 650 / 650
Balance 519 / 519
Review of Systems
-
Respiratory: Reports No Symptoms
Cardiac: Reports No Symptoms
Abdomen/GI: Reports No Symptoms
Physical Exam
-
General: No Apparent Distress
HEENT: Negative Oxygen
Respiratory: Clear to Auscultation; Negative Wheezes
Cardiac: Regular Rhythm and S1/S2; Negative Murmur
GI: Soft, Nontender and Nondistended
Musculoskeletal: No Edema
Neuro: Awake, Alert, Oriented and No Motor Deficits
--- NOTE | 2024-12-13 16:00 | CM ---
spoke to pt in room, we discussed preop CABG teaching including driving and lifting restrictions. he is prev indep, lives in an apt with 8 steps to enter. he uses a cane when needed. he has the ct surgery book. pt agreeable to a f/u visit with the
ct transitional care nurses after dc. cm role explained and all questions naswered. plan is for CABG tomorrow am.
[2024-12-13 17:12] LABS: Glucose - Point of Care 99 mg/dl (70-99)
[2024-12-13] MEDS: NOVOLOG FLEXPEN-LOW RESISTANCE SC (17:14)
[2024-12-13] MEDS: LIPITOR 80 MG PO (17:14)
[2024-12-13] MEDS: NITROGLYCERIN PREMIX 250 IV (17:19)
[2024-12-13 17:41] LABS: APTT 76.8 Sec (23.4-35.0)
[2024-12-13 21:43] LABS: Glucose - Point of Care 197 mg/dl (70-99)
[2024-12-13] MEDS: ARICEPT 5 MG PO (22:17)
[2024-12-13] MEDS: LANTUS 0.3 UNITS SC (22:17)
[2024-12-13] MEDS: FLOMAX 0.4 MG PO (22:17)
--- NOTE | 2024-12-13 22:32 | PTCARENOTE ---
Received patient at change of shift. Sr with a first degree HB on the monitor, HR in the 70s. Heparin and Nitro running as per protocol, see documentation. Patient clipped and showered with No complaints from pt at this time, call cotto within reach.
[2024-12-14] VITALS (15 sets, daily range): BP systolic 97–138; BP diastolic 67–81; BMI 35.2
[2024-12-14 00:04] LABS: APTT 57.0 Sec (23.4-35.0)
[2024-12-14 05:42] LABS: Glucose - Point of Care 220 mg/dl (70-99)
[2024-12-14] MEDS: BACTROBAN 2% OINTMENT 1 APPLIC NASAL ×2 (06:01→20:06)
[2024-12-14] MEDS: PROTONIX 40 MG PO (06:02)
[2024-12-14] MEDS: MAGNESIUM OXIDE 400 MG PO (06:02)
[2024-12-14] MEDS: LOPRESSOR 25 MG PO (06:02)
[2024-12-14 06:11] LABS: Hematocrit 32.7 % (39.0-52.0); Hemoglobin 10.6 g/dL (13.0-18.0); Mean Corp Hgb Conc. 32.4 g/dL (33.0-37.0); Mean Corpuscular Volume 94.8 fL (80.0-94.0); Nucleated Red Blood Cells % 0 % (-); Platelet Count 211 10^3/uL (130-400); Red Cell Dist. Width 13.9 % (11.5-14.5)
[2024-12-14 06:12] LABS: APTT 80.2 Sec (23.4-35.0)
[2024-12-14 07:06] LABS: ALT (SGPT) 20 U/L (0-50); AST (SGOT) 22 U/L (17-59); Albumin 3.4 g/dl (3.5-5.0); Alkaline Phosphatase 86 U/L (38-126); Blood Urea Nitrogen 19 mg/dl (9-20); Calcium 8.4 mg/dl (8.4-10.2); Carbon Dioxide 26 mmol/L (22-30); Chloride 105 mmol/L (98-107); Estimated Creatinine Clearance 94 ml/min; Glucose 204 mg/dl (70-99); Potassium 4.3 mmol/L (3.5-5.1); Sodium 135 mmol/L (135-145); Total Protein 5.8 g/dl (6.3-8.2); eGFR > 60.00
[2024-12-14 07:17] LABS: ACT+ - POC 131 Seconds (82-134)
[2024-12-14 07:30] LABS: Urine Character Clear (Clear)
[2024-12-14 07:37] LABS: Urine White Cell 0-2 /HPF (0-5)
[2024-12-14 09:08] LABS: ACT+ - POC 438 Seconds (82-134)
[2024-12-14 09:18] LABS: ACT+ - POC 455 Seconds (82-134)
[2024-12-14 09:28] LABS: B.E. - POC -0.8 mmol/L; Glucose - POC 203 mg/dl (70-99); HCO3 - POC 24 mmol/L (21-28); Hematocrit - POC 27 % PCV (42-52); Hemodilution- POC No; Hemoglobin Calculated - POC 9.3; Ionized Calcium - POC 1.20 mmol/L (1.15-1.33); Lactate - POC 0.90 mmol/L (0.36-0.75); O2 Saturation %Calculated-POC 96.5 % (94-98); PCO2 - POC 42 mmHg (35-48); PO2 - POC 89 mmHg (83-108); POC Comment PRE; Potassium - POC 3.8 mmol/L (3.5-5.1); Sodium - POC 136 mmol/L (136-145); Specimen Type - POC Arterial; pH - POC 7.37 (7.35-7.45)
[2024-12-14 09:28] LABS: ACT+ - POC 469 Seconds (82-134)
[2024-12-14 09:35] LABS: ACT+ - POC 499 Seconds (82-134)
[2024-12-14 09:49] LABS: ACT+ - POC 498 Seconds (82-134)
[2024-12-14 10:00] LABS: B.E. - POC 3.7 mmol/L; Glucose - POC 206 mg/dl (70-99); HCO3 - POC 29 mmol/L (21-28); Hematocrit - POC 29 % PCV (42-52); Hemodilution- POC Yes; Hemoglobin Calculated - POC 10.0; Ionized Calcium - POC 1.09 mmol/L (1.15-1.33); Lactate - POC < 0.30 mmol/L (0.36-0.75); O2 Saturation %Calculated-POC 100.0 % (94-98); PCO2 - POC 43 mmHg (35-48); PO2 - POC 551 mmHg (83-108); POC Comment CPB; Potassium - POC 4.0 mmol/L (3.5-5.1); Sodium - POC 139 mmol/L (136-145); Specimen Type - POC Arterial; pH - POC 7.43 (7.35-7.45)
[2024-12-14 10:04] LABS: ACT+ - POC 536 Seconds (82-134)
[2024-12-14 10:31] LABS: ACT+ - POC 475 Seconds (82-134)
--- NOTE | 2024-12-14 10:48 | CM ---
Chart reviewed. Patient is in the OR today. Patient is independent of ADLS, lives with his in a apartment, 8 [address], ambulates with a SPC. Plan is for the patient to return home with CT Transitional RN.
[2024-12-14 10:51] LABS: ACT+ - POC 489 Seconds (82-134)
[2024-12-14 10:51] LABS: B.E. - POC 4.1 mmol/L; Glucose - POC 215 mg/dl (70-99); HCO3 - POC 28 mmol/L (21-28); Hematocrit - POC 27 % PCV (42-52); Hemodilution- POC Yes; Hemoglobin Calculated - POC 9.1; Ionized Calcium - POC 1.11 mmol/L (1.15-1.33); Lactate - POC 0.47 mmol/L (0.36-0.75); O2 Saturation %Calculated-POC 99.9 % (94-98); PCO2 - POC 37 mmHg (35-48); PO2 - POC 274 mmHg (83-108); POC Comment CPB; Potassium - POC 4.5 mmol/L (3.5-5.1); Sodium - POC 137 mmol/L (136-145); Specimen Type - POC Arterial; pH - POC 7.49 (7.35-7.45)
[2024-12-14 10:58] LABS: ACT+ - POC 461 Seconds (82-134)
[2024-12-14 11:18] LABS: B.E. - POC 2.0 mmol/L; Glucose - POC 208 mg/dl (70-99); HCO3 - POC 26 mmol/L (21-28); Hematocrit - POC 28 % PCV (42-52); Hemodilution- POC Yes; Hemoglobin Calculated - POC 9.4; Ionized Calcium - POC 1.08 mmol/L (1.15-1.33); Lactate - POC 0.73 mmol/L (0.36-0.75); O2 Saturation %Calculated-POC 99.9 % (94-98); PCO2 - POC 38 mmHg (35-48); PO2 - POC 337 mmHg (83-108); POC Comment WARM; Potassium - POC 5.0 mmol/L (3.5-5.1); Sodium - POC 137 mmol/L (136-145); Specimen Type - POC Arterial; pH - POC 7.45 (7.35-7.45)
[2024-12-14 11:24] LABS: ACT+ - POC 118 Seconds (82-134)
[2024-12-14] MEDS: CYMBALTA DELAYED RELEASE PO (11:35)
[2024-12-14 11:46] LABS: B.E. - POC 4.1 mmol/L; Glucose - POC 207 mg/dl (70-99); HCO3 - POC 28 mmol/L (21-28); Hematocrit - POC 27 % PCV (42-52); Hemodilution- POC Yes; Hemoglobin Calculated - POC 9.2; Ionized Calcium - POC 1.09 mmol/L (1.15-1.33); Lactate - POC < 0.30 mmol/L (0.36-0.75); O2 Saturation %Calculated-POC 100.0 % (94-98); PCO2 - POC 40 mmHg (35-48); PO2 - POC 408 mmHg (83-108); POC Comment CPB; Potassium - POC 4.6 mmol/L (3.5-5.1); Sodium - POC 138 mmol/L (136-145); Specimen Type - POC Arterial; pH - POC 7.46 (7.35-7.45)
[2024-12-14 12:04] LABS: B.E. - POC -0.2 mmol/L; Glucose - POC 218 mg/dl (70-99); HCO3 - POC 24 mmol/L (21-28); Hematocrit - POC 26 % PCV (42-52); Hemodilution- POC Yes; Hemoglobin Calculated - POC 8.8; Ionized Calcium - POC 1.26 mmol/L (1.15-1.33); Lactate - POC 1.22 mmol/L (0.36-0.75); O2 Saturation %Calculated-POC 99.6 % (94-98); PCO2 - POC 34 mmHg (35-48); PO2 - POC 169 mmHg (83-108); POC Comment POST; Potassium - POC 4.4 mmol/L (3.5-5.1); Sodium - POC 136 mmol/L (136-145); Specimen Type - POC Arterial; pH - POC 7.45 (7.35-7.45)
[2024-12-14] MEDS: NOVOLOG FLEXPEN SC ×4 (12:09→15:06)
[2024-12-14] MEDS: NEURONTIN PO ×3 (12:09→22:29)
[2024-12-14] MEDS: COREG PO (12:12)
[2024-12-14] MEDS: NOVOLOG FLEXPEN-LOW RESISTANCE SC (12:12)
[2024-12-14] MEDS: ALDACTONE PO (12:12)
[2024-12-14] MEDS: LOW STRENGTH ASPIRIN PO (12:13)
[2024-12-14] MEDS: LASIX IV (12:13)
[2024-12-14 12:47] LABS: Glucose - Point of Care 236 mg/dl (70-99)
[2024-12-14 12:59] LABS: B.E. -0.8 mmol/L; HCO3 24.3 mmol/L (21-28); O2 Saturation % 99.6 % (94-98); PCO2 41 mmHg (35-48); PO2 126 mmHg (83-108); Potassium 4.4 mMOL/L (3.5-5.1); Sodium 133 mMOL/L (136-145)
[2024-12-14] MEDS: ANCEF 10 IV ×2 (12:59)
[2024-12-14] MEDS: NSS 500 IV (12:59)
--- NOTE | 2024-12-14 13:07 | W.PN.CARDCBS ---
Addendum entered and electronically signed by Amari Mckenzie MD 12/14/24 15:30:
I saw and examined the patient.
The Machine Ii Engraver's note was reviewed and I agree with the note.
Comment: Briefly, 69-year-old man past medical history of CAD and ischemic cardiomyopathy who presented with chest discomfort found to be in acute heart failure. Left heart catheterization 12/12/2024 showed multivessel CAD, elevated LVEDP and
mildly reduced left ventricular systolic function with LAD territory wall motion abnormality. He was evaluated by CT surgery and underwent CABG x 4 on left atrial appendage clip earlier today.
Postoperatively he remains in CVICU where he is intubated and sedated
Remains on dobutamine for inotropic support
Appears euvolemic on exam filling pressures are reasonable based on invasive hemodynamics
Ventricular paced rhythm on review of telemetry
Agree with current cardiac meds�aspirin/Plavix, high intensity statin, beta-demetra
With reduced LV systolic function would add back home MICHELLE inhibitor as hemodynamics allow
Discussed with nursing and patient's at bedside
Original Note:
Today's Communication / Plan
-
Continue postop care
AV paced rhythm
Impression / Plan
-
PCP: Karthik [facility]NA[facility]
Cardiology: Dr. Yañez
Impression:
Admitted with edema and chest pain 12/11/2024
Previous admission for orthostasis and syncope 08/24/2024 until 08/19/2024
Previous admission for acute HF, newly reduced EF and HTN emergency 03/17/2024 until 03/21/2024
CAD
s/p NSTEMI with peak troponin 0.088 and CAD with Diag-1, mid to distal/apical LAD and proximal to mid OM1 lesions by cardiac cath that were managed medically in the setting of HTN emergency 03/18/2024
Multivessel coronary disease by cath 12/12/2024 status post CABG x 4 WONG - LAD, SVG - diagonal, SVG sequential�LPDA�L PLB, left atrial appendage clip 12/14/24
Acute HFmrEF
ICM with EF as low as 35% by echo 03/17/2024 and improved a bit to 44% by echo 07/06/2024
HTN
Hyperlipidemia
DM 2
Diabetic retinopathy
Degenerative disc disease
h/p orthostatic hypotension and syncope 07/19/2024 and 08/19/2024
Suspected obstructive sleep apnea
Cardiac cath 12/11/2024: Multivessel coronary artery disease, EF 40%
Left main: Free of angiographic disease
LAD: Proximal LAD 30% stenosis, mid LAD 60% stenosis that tapers to small distal vessel and occluded at apex with distal vessel filling via collaterals.
D1 proximal 80 to 90% stenosis
Left circumflex: Supplies medium size OM1 that has 80% proximal stenosis in tandem 60 and 70% mid vessel stenosis. Circumflex continues in the AV groove and tapers with 50% distal stenosis extending to a terminal posterolateral branch
PDA 100% mid with bridging collaterals
RCA large dominant vessel gives rise to RPDA and R PLV distally RCA and branches free of disease
Lexiscan nuclear stress test 09/14/23: Negative Lexiscan sestamibi for ischemia, fixed inferior and inferior apical defects C/W soft tissue attenuation, moderately decreased systolic function EF 33% with global hypokinesis
Echo 03/2022: EF 50-55% without regional wall motion abnormality, mild LVH, mild mitral annular calcification, mild mitral regurgitation, aortic sclerosis with mild aortic regurgitation, normal RV, normal atria, normal pulmonary artery pressure
Echo 03/07/2024: EF 35% by Grayson's method but closer to 35 to 40% visually, segmental wall motion abnormalities most pronounced in the mid to distal anterior, mid to distal lateral, mid to distal septal and possibly mild hypokinesis inferior wall,
mild concentric LVH, stage I diastolic dysfunction, normal RV size and function, mild MR, trace aortic regurgitation
Echo 07/06/2024: EF 44%, mild hypokinesis apical anterior and apical lateral segments, stage I diastolic dysfunction, normal RV size and function, mild MR, mild
Echo 12/12/2024: LVEF 50%, mild anterior and anterolateral hypokinesis, mild to moderate cLVH, mild aortic stenosis peak/mean 14/9 mmHg, mild MR
Plan:
-Admitted with Non-ST elevation DC, peak troponin 0.28 after presenting with chest pain and lower extremity edema x 2 days duration
-Left heart cath 12/12/2024 with multivessel CAD. EF 50% by echo, had been as low as 35% 03/2024
-s/p CABG x 4 WONG - LAD, SVG - diagonal, SVG sequential�LPDA�L PLB, left atrial appendage clip 12/14/24
-intubated, sedated
-on dobut@5. reportedly as closing CI dropped to 1.3, was given albumin and quickly recovered. presently 2.04
-av paced on EKG and tele
-Noncompliance with aspirin, statin in outpatient setting. Was taking Plavix at time of admission. continue DAPT, statin post op. hgb 9.5
-was on regimen of coreg, lisinopril, spironolactone, norvasc pre op. Jardiance was previously stopped as patient cannot afford
-hgbA1c 7.5%. continue diabetic mgmt
-follow volume status post op. was diuresed earlier in admission and was taking po lasix 40mg daily prior to admission
-His severe right hip discomfort is likely related to tendinitis and there is no plan for surgery per Dr. Jeevan rico.
-d/w nursing
Progress Note - Stripper Preliminary
Subjective
Date of Service: December 14, 2024
Intubated, sedated
Objective
Labs:
Labs
Hgb 10.6 g/dL (13.0-18.0) L 12/14/24 05:48
Hct 32.7 % (39.0-52.0) L 12/14/24 05:48
Plt Count 211 10^3/uL (130-400) 12/14/24 05:48
PT 14.5 Sec (11.4-14.6) 12/13/24 09:22
INR 1.10 12/13/24 09:22
APTT 80.2 Sec (23.4-35.0) H 12/14/24 05:48
Sodium 135 mmol/L (135-145) 12/14/24 05:48
Potassium 4.3 mmol/L (3.5-5.1) 12/14/24 05:48
BUN 19 mg/dl (9-20) 12/14/24 05:48
Creatinine 0.9 mg/dL (0.7-1.3) 12/14/24 05:48
Glucose 204 mg/dl (70-99) H 12/14/24 05:48
Troponins
12/11/24 12/11/24 12/11/24
: 17:52 22:38
Troponin I 0.161 H* 0.247 H* D 0.287 H*
12/12/24
05:09
Troponin I 0.181 H* D
Vital Signs and I&O:
Vital Signs
Temp Pulse Resp BP Pulse Ox
98.0 F 70 16 111/75 97
12/14/24 12:40 12/14/24 12:55 12/14/24 12:51 12/14/24 12:40 12/14/24 12:55
Vital Signs
Temp Pulse Resp BP Pulse Ox
98.0 F 70 16 111/75 97
12/14/24 12:40 12/14/24 12:55 12/14/24 12:51 12/14/24 12:40 12/14/24 12:55
Intake & Output
12/12/24 12/13/24 12/14/24 12/15/24
07:59 07:59 07:59 07:59
Intake Total 1169 / 1169 723.6 / 723.6 74.9 / 74.9
Output Total 650 / 650 1500 / 1500 75 / 75
Balance 519 / 519 -776.4 / -776.4 -0.1 / -0.1
Physical Exam
Physical Exam
GEN: No distress, intubated, sedated
HEENT: supple, mmm
LUNGS: CTA bilaterally, no wheezes/rales
CV: Reg, S1/S2, no murmur
ABD: soft, BS+, NT/ND
EXT: No cyanosis, clubbing. Trace edema of bilateral lower extremity
NEURO: Sedated
SKIN: Warm, pink, dry. No rash. Sternotomy incision clean dry and intact. Chest tubes and temp wire in place
[2024-12-14] MEDS: TYLENOL PO ×2 (13:08→22:29)
[2024-12-14 13:10] LABS: INR 1.34; PT 17.1 Sec (11.4-14.6)
[2024-12-14 13:11] LABS: APTT 31.3 Sec (23.4-35.0)
[2024-12-14 13:22] LABS: Hematocrit 29.4 % (39.0-52.0); Hemoglobin 9.5 g/dL (13.0-18.0); Platelet Count 153 10^3/uL (130-400)
[2024-12-14 13:23] LABS: Blood Urea Nitrogen 20 mg/dl (9-20); Estimated Creatinine Clearance 85 ml/min; Glucose 212 mg/dl (70-99); Magnesium 2.5 mg/dl (1.6-2.3)
--- NOTE | 2024-12-14 13:34 | W.PN.UPDATE ---
Update Note
Progress Note Update
69 yo male admitted 12/11/24 with ACS/NSTEMI in the setting of known CAD and LV dysfunction. He was deemed appropriate candidate for CABG and left atrial appendage ligation given elevated [id number] score.
IV fluids: 1200
U.O.:� 675
Blood:� none
Wires:� A + V
Drips: Levophed @ 2, Dobutamine @ 5, Insulin @ 2, Precedex @ 0.5
�
NEURO: sedated, pupils +2mm B/L
RESP: #8OT @23cm> 550/100%//. Lungs clear B/L. 2 mediastinal (0cc on arrival) and L pleural (0cc on arrival) chest tubes to -20cm suction. Sanguineous drainage
CV: RRR +S1, S2, no S3, no�rub, no murmur. Dermabond to median sternotomy. RIJ w/[place] locked @ 50cm. PA XX; CVP XX; C.O XX/CI XX
ABD: obese, round, soft, no BS
EXT: no edema, +2/4 DP pulses B/L, no femoral bruit, RLE MICHELLE wrap intact; right radial A-line intact
: Maldonado with clear yellow urine
�
A/P: POD #0 s/p CABG x 4 WONG-LAD, SVG-diag, seq SVG (off D1 graft)-LPDA and LPLA, LAAC #35mm�
TINO: report pending
- Levo off shortly after arrival
- wean and extubate
# CAD
-will require ASA, Plavix, statin, beta-demetra
�
# acute surgical blood loss anemia-expected
- initial Hb 9.5>trend CBC
# T2DM (A1C 7.5)
- insulin infusion x 48h
- diabetes nurse practitioner to follow
- On Lantus, Aspart, MFM, lisinopril
- cost prohibitive for SGLT2i
# Class I Obesity
- diabetic carb controlled diet
# BPH
- on Flomax at home
�
# Chronic R hip pain d/t remote fall
- need PT/OT
--- NOTE | 2024-12-14 13:40 | PTCARENOTE ---
Patient received from [facility] at 1240; Sedated and intubated; AV paced with prolonged QT on monitor; VSS; Friction rub present; Epicardial AV wires present with temporary pacemaker settings DDD 70/16.0/0.5 70/20.0/2.0; +2 DP and radial pulses present;
Lungs diminished at bases; ETT size 8 positioned and secured at 23 cm right lip; Ventilator settings SIMV 14/580/5/8 FiO2 100%; CTx3 to -20 cm wall suction draining bloody drainage - no air leak, tidaling, or crepitus noted; Hypoactive BS; Maldonado
catheter in place draining clear, yellow urine; Sternal midline incision glued, approximated, and FIRE TENDER - CDI, right groin puncture glued, approximated, and FIRE TENDER - with small amount of sanguineous drainage, right leg wrapped in MICHELLE wrap - CDI; Right
radial A-line in place, [place] Pretty present in OKJ Cordis at 50 cm - all lines zeroed and leveled; PIVx2 - #20 left hand and #18 LAC; Insulin, precedex, and dobutamine infusing - see nursing flowsheets for further details; see nursing documentation
for further details.
CO: 4.64
CI: 2.04
SVR: 1,017
[2024-12-14 14:05] LABS: Glucose - Point of Care 220 mg/dl (70-99)
[2024-12-14 15:04] LABS: Glucose - Point of Care 174 mg/dl (70-99)
[2024-12-14] MEDS: PACERONE PO ×2 (15:05→22:30)
[2024-12-14] MEDS: LR 250 ML IV (15:38)
[2024-12-14 15:58] LABS: Glucose - Point of Care 157 mg/dl (70-99)
--- NOTE | 2024-12-14 16:21 | PTCARENOTE ---
RT in room and patient placed on CPAP breathing trial; EPOC ABG due at 1650
--- NOTE | 2024-12-14 16:58 | W.PN.CT.SURG ---
CT Surgery Operative Note
-
CARDIAC SURGERY OPERATIVE REPORT
Preoperative Diagnosis: Multivessel Coronary Artery Disease with symptoms and NSTEMI
Postoperative Diagnosis: Same
Procedure(s) Performed:
1. Standard Sternotomy with Aortic and Right Atrial Cannulation
2. Internal Mammary Artery Harvesting, Left
3. Coronary artery bypass grafting x 4 (In situ WONG to LAD, Ao to RSVG to diagonal, RSVG to LPLB/L PDA in sequence)
4. Endoscopic vein harvesting of R saphenous vein
5. Transesophageal echocardiography
6. Placement of Temporary Ventricular Pacing Wires
7. Placement of temporary atrial pacing wires
8. Left atrial appendage ligation (35mm AtriClip)
Date of Surgery: 12/14/2024
Comorbidities:
1. Hypertension
2. Hyperlipidemia
3. Chronic systolic heart failure (EF about 45%)
4. DM 2
5. Diabetic neuropathy
6. Medication noncompliance
Attending Surgeon: Liz Mares MD, MPH
Assistants: Yajaira Hercules PA-C (present and necessary to first assistant, endoscopic vein harvest, retraction, suction, exposure, suture management, and wound closure under my direction)
Anesthesiology: Arnold Angel MD and Ernesto Peñaloza CRNA
Scrub and Circulating RNs: Dexter Dickerson RN, Nba Hernandez RN
Critical Care Clinical Nurse Specialist: Kristyn Bill CCP
Anesthesia: GETA
EBL: per perfusion records
Products: None
CPB Time: 99 minutes
Aortic Cross Clamp Time: 77 minutes
Indication(s) for Procedures: 69-year-old male presented with NSTEMI in setting of known CAD and chronic systolic heart failure with reduced EF to about 40 to 45%. He is questionable medication compliance versus low health literacy leading to
confusion with medications and treatment course for his multiple medical problems. He has ongoing shortness of breath and chest pressure, with complaints of lower extremity swelling.
Conduit(s) Quality:
WONG -large vessel with excellent flow
RSVG -uniform size vessel some moderate sclerosis distally, no significant varicosities
Target(s) Quality:
LPDA -this was very large vessel with an excellent lumen free of disease. Flow on pump with cardioplegia was 70 mL at a pressure of 80 mmHg. Sequential flow probe was 28 mL with a pulse index of 2.4
LPLB -this was a good-sized vessel with a lumen of at least 1.5 mm which is also free of disease. Flow on pump with cardioplegia running was 60 mL at a pressure of 80. Sequential flow probe was 28 mL with a pulse index of 2.4.
Diagonal -very large vessel with a very large lumen but was free of disease. Flow and pump with cardioplegia running was 50 mL at a pressure of 80. Flow probe measured 41 mL with a pulse index of 2.6
LAD -the vessel is large though heavily calcified in the mid and distal area consistent lobe was seen on CT scan. There was a soft spot in the distal part of the mid LAD that we open and did have some calcium on the wall and some notable calcium
distally, however a 1 mm probe easily passed proximally. Flow probe showed 20 mL with a pulse index of 4.2.
Findings: TINO with notable left ventricular systolic dysfunction, EF about 35% - 40% and mild LVH, mild MR. He was notably very bradycardic prior to going on pump during WONG takedown requiring significant pressors, this was likely related to
ischemia. His echo also showed anterior and lateral wall motion abnormalities. Post CABG his LV did show improvement with EF 40-45% stable MR and improved lateral and anterior wall motion. The WONG was harvested in a skeletonized fashion.
Following bypass grafting, test dose cardioplegia was given down each distal and confirmed patency and hemostasis. Each distal was probed both proximally and distally to confirm disease and patency, respectively.
Description of Procedure: The patient was taken to the operating room. Their identity and procedure to be performed were verified and they were positioned supine on the operating table. Induction via general anesthesia with endotracheal intubation
was performed and central venous access and arterial monitoring were inserted. A preoperative transesophageal echocardiogram was performed to assess cardiac function and valvular function. The patient was then prepped and draped from chin to feet in
a sterile fashion. A preoperative time-out was performed with all members of the team present. A midline chest incision was performed along with median sternotomy. Simultaneous endoscopic access of the right lower extremity for saphenous vein
harvest was obtained along with administration of an initial 5,000 units of IV heparin. A RulTract sternal retractor was positioned to exposure the left internal mammary bed. The mammary was harvested and found to have good flow. A bulldog clamp was
applied to the distal end of the mammary after dividing it. It was wrapped in a papaverine soaked RayTec and replaced back into the left hemithorax. The RulTract was exchanged for a median sternal retractor. The innominate vein was isolated. Full
heparinization was given (a total of 70,000 units). We created a pericardial well. The aortic cannulation site was chosen where it was soft, pliable, and free of calcium. Cannulation was performed with an arterial cannula in the ascending aorta and
a triple-stage venous cannula through the right atrial appendage. The arterial cannula line had an appropriate bounce and correlating pressures with test dosing. Next, a root vent/antegrade cannula was inserted into the ascending aorta. The ACT was
confirmed to be over 400 and retrograde autologous priming was performed before commencing cardiopulmonary bypass. The pulmonary artery was away from the aorta to facilitate a clamp site. The aortic cross-clamp was placed after decreasing
the flow on the bypass and mean arterial pressure. A total of 1.2L initial dose of antegrade Del-Nido cardioplegia solution was given and planned for re-dosing every 75 minutes as necessary. There was rapid electro-mechanical arrest of the heart at
400 cc of cardioplegia. The left ventricle was observed for distention on echocardiogram and manual palpation. Cold slush was placed into a sponge and topically on the RV while we systemically cooled to 34 degrees centigrade.
First I position the heart to expose left atrial appendage and visually inspected to measure. We then placed a 35 mm AtriClip to completely occlude our appendage. I positioned the heart to expose the distal branching of left circumflex to the left
PDA. A stockbridge blade was used to expose the coronary and perform the arteriotomy. Coronary Jackson scissors were used to enlarge the incision. The saphenous vein was trimmed and beveled to an appropriate size. The distal anastomosis was performed using
7-0 prolene in an end-to-side fashion. Antegrade cardioplegia was administered into the graft. Appropriate hemostasis and flow were confirmed. A suitable site on the left posterior lateral branch was chosen as a site for a sequential to the left
PDA. The vein was measured for appropriate length. We dissected and prepared the distal target in a similar fashion. A qjar-hv-uoti anastomosis was created with a 7-0 prolene. Antegrade cardioplegia was administered into the graft. Appropriate
hemostasis and flow were confirmed. The graft was measured for length to the aorta and cut. A suitable target on the large diagonal branch was identified. We dissected and freed the distal target in a similar fashion. An end-to-side anastomosis
was created with a 7-0 Prolene. Antegrade cardioplegia was administered into the graft. Appropriate hemostasis and flow were confirmed. The graft was measured for length to the aortic cut. A suitable target on the mid/distal left anterior
descending was identified. We dissected and prepared the distal target in a similar fashion. We retrieved the WONG from the chest and created a pericardial opening while being cognizant of the phrenic nerve to facilitate the course of the mammary.
The distal end of the mammary was prepped and beveled to size. We verified orientation and length of the BG and found brisk flow. An end-to-side anastomosis was created with a 7-0 prolene. We temporarily released the bulldog clamp on the mammary to
inspect flow. Perfusion to the LAD territory was visualized and hemostasis was confirmed. The bull clamp was replaced on the mammary. The heart was filled and the root was distended with antegrade cardioplegia to make final assessment of graft
length and orientation. We created 1 aortotomy using a #11 blade then a 4.0mm aortic punch as the sequential vein was cut a bit too short and would be taught if anastomosed to the aorta. The proximal anastomosis was created in an end-to-side
fashion using 6-0 prolene. At the the same time, we re-warmed to 36.5 degrees centigrade. The bulldog clamp was removed from the mammary. Temporary bipolar ventricular pacing wires were placed on the base of the right ventricle. The patient was
placed in a Trendelenburg position and flows on bypass were lowered. The aortic cross clamp was removed and flows were slowly brought back up. I then placed 2 silver bulldog clamps on the vein anastomosed to the aorta and found good position
whereby sequential vein proximal would lie in good position. A veinotomy was made and an end to side anastomosis was completed using 7-0 Prolene. All bypass grafts were inspected and were free from kinking or twisting. The distal and proximal
anastomoses appeared hemostatic. At this point we decided to place temporary monopolar A wires as we noticed some dyssynchrony with ventricular pacing. Once transesophageal echocardiography appeared satisfactory for de-airing, the flows were
temporarily lowered for root vent removal. After verifying acceptable parameters, we initiated weaning from cardiopulmonary bypass. Once we were off cardiopulmonary bypass, the venous cannula was clamped and removed. A test dose of protamine was
administered and the patient was monitored for any adverse reaction before resuming protamine. Once half of the protamine dose was delivered, pump suckers were turned off and the systolic blood pressure was lowered for aortic decannulation. The
aortic cannula was removed and pursestrings were tied down. All cannulation sites were oversewn with a 4-0 prolene. The mammary bed was inspected and hemostasis was confirmed. Once the mediastinum was hemostatic, 19Fr Minesh drain was placed in the
left pleural cavity and two 24Fr Minesh drains were placed within the pericardium. The sternum was approximated with 4 #7 single and 3 #8 double stainless steel wires. Fascia was approximated with #1 vicryl suture. The subcutaneous, dermis and
epidermis were closed in layers in a running fashion. The skin wound was cleansed and dressed.
All instrument, sponge, and needle counts were confirmed to be correct x 2 at the end of the operation. The patient was transferred to the cardiac intensive care unit in critical but stable condition.
I, Dr. Liz Mares, was present, scrubbed for, and performed all critical elements of this procedure.
Liz Mares MD, MPH
Cardiothoracic Surgeon
[facility]
This operative dictation was created using the [employer]eper dictation system. Please excuse any grammatical, typographical, or 'sound alike' errors
[2024-12-14 17:00] LABS: B.E. - POC 1.5 mmol/L; Blood Urea Nitrogen - POC 20 mg/dl (3-120); Chloride - POC 105 mmol/L (96-111); Creatinine - POC 1.08 mg/dl (0.3-1.0); Glucose - POC 148 mg/dl (70-99); HCO3 - POC 27 mmol/L (21-28); Hematocrit - POC 30 % PCV (42-52); Hemodilution- POC No; Hemoglobin Calculated - POC 10.1; Ionized Calcium - POC 1.26 mmol/L (1.15-1.33); Lactate - POC 0.80 mmol/L (0.36-0.75); O2 Saturation %Calculated-POC 94.3 % (94-98); PCO2 - POC 46 mmHg (35-48); PO2 - POC 74 mmHg (83-108); Potassium - POC 4.4 mmol/L (3.5-5.1); Sodium - POC 142 mmol/L (136-145); Specimen Type - POC Arterial; pH - POC 7.38 (7.35-7.45)
[2024-12-14 17:02] LABS: Glucose - Point of Care 151 mg/dl (70-99)
--- NOTE | 2024-12-14 17:07 | PTCARENOTE ---
EPOC ABG reviewed at bedside with ROB Bennett; RT at bedside; Patient extubated at 1700 and placed on 6L NC; ROB Bennett notified regarding CI <2
CO: 4.32
CI: 1.90
SVR: 1,185
--- NOTE | 2024-12-14 17:10 | RESPNOTE ---
Respiratory: patient extubated @ 1700 without incident no stridor, no wheeze.
[2024-12-14 17:23] LABS: Hematocrit 30.2 % (39.0-52.0); Hemoglobin 9.9 g/dL (13.0-18.0); Platelet Count 159 10^3/uL (130-400)
[2024-12-14 18:01] LABS: Glucose - Point of Care 131 mg/dl (70-99)
[2024-12-14] MEDS: LIPITOR PO (18:05)
[2024-12-14] MEDS: LOW STRENGTH ASPIRIN 81 MG PO (18:07)
[2024-12-14] MEDS: OFIRMEV 100 IV (18:08)
--- NOTE | 2024-12-14 18:15 | PTCARENOTE ---
Patient complaining of mild pain - PRN IV Ofirmev given accordingly; Patient disoriented to place, time, and situation and speaking confused at times - CVNP Rebecca Bennett notified and narcotics placed on hold
CO: 5.95
CI: 2.61
SVR: 887
[2024-12-14] MEDS: ZOFRAN 4 MG IV (18:54)
[2024-12-14] MEDS: SENOKOT PO (19:48)
--- NOTE | 2024-12-14 20:00 | PTCARENOTE ---
Patient received from RN @ 1900. Patient lying in bed w/ call cotto in reach. AOx3 and follows all commands. Patient pleasant and cooperative. 100% V-paced on monitor w/ BBB and prolonged QT. HR 78 BP 118/55. Bilateral trace edema noted in
hands. A and V wires set to DDD A- wire 70/16/0.5 V-wire 70/20/0.8. Heart sounds audible w/ rub noted. Radial and pedal pulses present. Lungs diminished bilaterally. POX 93% 6L NC. Left pleural and 2x mediastinal chest tubes set to -20 suction
draining Red fluid. No crepitus, tidaling, or air leaks. Hypoactive bowel sounds w/ round non-tender belly. Maldonado draining clear yellow urine. Sternal incision well approximated BEATA. Right groin puncture approximated and covered by bill wrap.
Small scant drainage noted on bill wrap. Right knee bill wrap clean dry and intact. RIJ cordis w/ swan @ 50 CVP 7 PAP 34/14 CI 2.29. Right radial A-line leveled and zeroed. 2 PIV patent and intact. Dobut, Insulin, and Cardene infusing per order.
See worklist for more details.
[2024-12-14] MEDS: ANCEF 5 IV (20:01)
[2024-12-14 20:06] LABS: Glucose - Point of Care 126 mg/dl (70-99)
[2024-12-14 22:16] LABS: Glucose - Point of Care 133 mg/dl (70-99)
[2024-12-14] MEDS: ARICEPT PO (22:37)
--- NOTE | 2024-12-14 22:38 | PTCARENOTE ---
DELFIN Stoner at bedside to check underlying rhythm. Pacer box changed to VVI 60/20 by DELFIN Stoner. Patient HR 80 using intrinsic rhythm.
[2024-12-14] MEDS: CARDENE 200 IV (22:48)
[2024-12-14 22:59] LABS: Glucose - Point of Care 125 mg/dl (70-99)
[2024-12-14] MEDS: TORADOL 15 MG IV (23:29)
[2024-12-14] MEDS: NOVOLIN R INSULIN INFUSION 100 IV (23:30)
[2024-12-15] VITALS (33 sets, daily range): BP systolic 111–152; BP diastolic 58–80; PULSE 80; O2SAT 92; BMI 35.2
[2024-12-15 00:06] LABS: Glucose - Point of Care 133 mg/dl (70-99)
[2024-12-15 00:50] LABS: B.E. -1.3 mmol/L; HCO3 23.7 mmol/L (21-28); O2 Saturation % 98.2 % (94-98); O2 Therapy 6L; PCO2 40 mmHg (35-48); PO2 93 mmHg (83-108); Potassium 4.1 mMOL/L (3.5-5.1)
[2024-12-15 01:10] LABS: Glucose - Point of Care 124 mg/dl (70-99)
--- NOTE | 2024-12-15 01:28 | RESPNOTE ---
PT does not use BIPAP at home, but does snore and probably does need it. PT is ordered BIPAP for HS use, it is at the bedside on STBY. PT was a post-op from today and is sleeping with a 6L n/c in place. ABG was checked and looks pretty good, so
we will leave the n/c in place and see how the night goes (per CVPA) and if we need to place it, we will.
[2024-12-15 01:59] LABS: Glucose - Point of Care 116 mg/dl (70-99)
[2024-12-15 03:00] LABS: Glucose - Point of Care 116 mg/dl (70-99)
[2024-12-15] MEDS: ANCEF 5 IV ×2 (04:03→13:07)
--- NOTE | 2024-12-15 04:28 | PTCARENOTE ---
Patient reassessed. SR w/ BBB and prolonged QT on monitor. BP 124/62 HR 86 POX 96% 6L NC. Labs obtained.
[2024-12-15 04:41] LABS: Hematocrit 29.8 % (39.0-52.0); Hemoglobin 9.9 g/dL (13.0-18.0); Mean Corp Hgb Conc. 33.2 g/dL (33.0-37.0); Mean Corpuscular Volume 94.9 fL (80.0-94.0); Platelet Count 191 10^3/uL (130-400); Red Cell Dist. Width 13.8 % (11.5-14.5)
[2024-12-15 04:58] LABS: Blood Urea Nitrogen 25 mg/dl (9-20); Calcium 8.1 mg/dl (8.4-10.2); Carbon Dioxide 24 mmol/L (22-30); Chloride 110 mmol/L (98-107); Estimated Creatinine Clearance 77 ml/min; Glucose 117 mg/dl (70-99); Magnesium 2.3 mg/dl (1.6-2.3); Potassium 4.1 mmol/L (3.5-5.1); Sodium 140 mmol/L (135-145); eGFR > 60.00
[2024-12-15 05:10] LABS: Glucose - Point of Care 122 mg/dl (70-99)
[2024-12-15] MEDS: CARDENE 200 IV (05:24)
[2024-12-15] MEDS: TYLENOL 975 MG PO ×3 (05:27→21:24)
[2024-12-15 07:13] LABS: Glucose - Point of Care 119 mg/dl (70-99)
--- NOTE | 2024-12-15 07:28 | CON.INTV ---
Consultation
Consultation Request
Date/Time Consultation Requested: 12/14/2024
Date/Time Consultation Performed: 12/15/2024
Medical History
-
Chief Complaint: Chest pain
History of Present Illness:
Patient is a 69-year-old gentleman who presented to the hospital with chest discomfort as well as increasing pedal edema and weight gain. Patient was noted to have elevated troponin and was diagnosed with acute coronary syndrome with non-ST
elevation TX. Patient was treated with aspirin, heparin, diuretics and cardiology service evaluated the patient. An angiogram was pursued which showed multivessel coronary artery disease. CT surgery was subsequently consulted and patient was
taken to the OR for coronary artery bypass graft. Postprocedure, he was admitted to CVICU and training assistant consultation was requested for further input.
Past Medical History: Reports Other
Additional Past Medical History:
CAD/NSTEMI
HTN
Orthostatic hypotension
Chronic systolic heart failure with reduced EF 44%
DM 2
diabetic neuropathy
Diabetic retinopathy
Dementia with history of sundowning
BPH
spinal stenosis/lumbar radiculopathy
UTI with prostatitis
Melanoma removal from chest 2004
Sleep apnea
GERD
Anxiety depression
Past Surgical History: Reports Other
Additional Past Surgical History:
Cholecystectomy
Laminectomy
Deviated septum
Cardiac cath with stents
Melanoma removal chest 2004
Social History
Tobacco: Non-smoker
Alcohol: None
Drug: None
Living: With Family
Employment: Retired
Family History
Family History: Other (Father history Parkinson's, melanoma, DM 2, mother lung CA)
Allergies / Home Medications
Allergies
Allergy/AdvReac Type Severity Reaction Status Date / Time
hydromorphone (From Dilaudid) Allergy Unknown Verified 08/24/24 13:02
Home Medications
�Medication �Instructions �Recorded �Confirmed �Last Taken �Type
carvedilol 12.5 mg tablet 12.5 mg PO BID #60 tabs 03/21/24 12/11/24 12/11/24 Rx
donepezil 5 mg tablet 5 mg PO HS Mental Health/Anxiety 08/24/24 12/11/24 12/10/24 History
insulin aspart U-100 100 unit/mL 30 sliding scale dose SC AC 08/24/24 12/11/24 12/11/24 History
(3 mL) subcutaneous pen (Novolog Diabetes
FlexPen U-100 Insulin aspart)
insulin glargine 100 unit/mL (3 70 unit SC HS Diabetes 08/24/24 12/11/24 12/10/24 History
mL) subcutaneous pen (Lantus
Solostar U-100 Insulin)
potassium chloride 20 mEq 20 meq PO DAILY Supplement 08/24/24 12/11/24 12/11/24 History
tablet,extended release
spironolactone 25 mg tablet 25 mg PO DAILY Fluid 08/24/24 12/11/24 12/11/24 History
Retention/Swelling
tamsulosin 0.4 mg capsule 0.4 mg PO HS Urinary Issue 08/24/24 12/11/24 12/10/24 History
amlodipine 2.5 mg tablet (Norvasc) 2.5 mg PO DAILY Blood Pressure 12/11/24 12/11/24 12/11/24 History
aspirin 325 mg tablet 325 mg PO BIDPRN PRN MILD PAIN 12/11/24 12/11/24 12/11/24 History
duloxetine 60 mg capsule,delayed 120 mg PO DAILY Mental 12/11/24 12/11/24 12/11/24 History
release Health/Anxiety
furosemide 40 mg tablet (Lasix) 40 mg PO DAILY Fluid 12/11/24 12/11/24 12/11/24 History
Retention/Swelling
lisinopril 20 mg tablet 20 mg PO DAILY Blood Pressure 12/11/24 12/11/24 12/11/24 History
metformin 1,000 mg tablet 1,000 mg PO BID Diabetes 12/11/24 12/11/24 12/11/24 History
Review of Systems
-
Hematologic/Lymphatic: Other (Comfortably. no new symptoms reported)
Vitals / Labs / Diagnostic Testing
Vital Signs
Temp Pulse Resp BP Pulse Ox
98.0 F 70 14 97/67 100
12/14/24 13:00 12/14/24 13:05 12/14/24 13:05 12/14/24 13:00 12/14/24 13:05
Laboratory Results
12/13/24 12/13/24 12/14/24
17:12 23:32 05:48
APTT 76.8 H 57.0 H 80.2 H
pH
pCO2
pO2
HCO3
O2 Delivery Level
12/14/24
12:38
APTT
pH 7.38
pCO2 41
pO2 126 H
HCO3 24.3
O2 Delivery Level Not Reportable
Diagnostic Testing:
Physical Exam
-
HEENT: Normocephalic
Cardiovascular: S1/S2
Respiratory: Clear
GI: Soft and Distended
Neurology: Awake and Alert
Skin: Warm
General: Comfortable
Assessment
-
69-year-old patient with non-STEMI, noted to have multivessel coronary artery disease, s/p coronary artery bypass graft and left atrial appendage exclusion, POD # 0
Titrate off pressors per protocol, currently dobutamine infusing at 3. Off Levophed. MAP of 78, Nicardipine infusing at 7.5
ECHO reviewed with EF 50%
PA catheter readings reviewed, /, mean 23
Management of chest tubes per primary service. No air leak noted
Extubated, on nasal canula. 94% on 6 Ltr O2.
CXR with left lower lobe atelectasis.
Maintain supplement oxygen as needed
Encouraged IS
Reportedly history of obstructive sleep apnea.
Can add nebulizers if needed
Aspiration precautions
Encouraged incentive spirometry, OOB/ambulation/early mobility
Advance diet as tolerated following extubation
GI prophylaxis: Protonix
Monitor critical I/O's
Maldonado/chest tube output
Hb/platelets postoperatively, mild drift
Trend CBC for now
Can transfuse if indicated for Hb <7, plt <50 in surgical patients
DVT prophylaxis including SCDs
Insulin protocol initiated and ongoing
Transition to SQ/off as indicated per team
Other medical diagnoses:
- Mild Aortic stenosis
- Mild Mitral regurgitation
- Mild bronchiectasis. Minimal focal changes on CT. No ET tube secretions noted. Can pursue further work up as out patient.
- Pulmonary Nodule. RUL 8 mm. Has been stable, suspect benign etiology.
- Ankylosing spondylitis of thoracic spine
- CAD, h/o TX
- IDDM. Insulin infusion currently.
- HFrEF, 44%, more recently 50%
- Mild cognitive impairment
- STIVEN
- Depression/Anxiety
- GETD
- Spinal stenosis
Critical Care time [58] mins -- The patient is admitted for acute critical illness for the treatment of vital organ failure and/or prevention of further life-threatening conditions. Total care includes time spent in review of history, physical exam,
medications, hemodynamic/ventilator parameters, laboratory data, imaging and discussion with house staff, pharmacy, respiratory therapy, manager of data, and nursing
Data:
LHC 11/2024: 1. Multivessel coronary artery disease
2. Mild LV dysfunction
ECHO 11/2024: 1. Normal left ventricular size. Mildly decreased left ventricular systolic function. Mild anterior and anterolateral hypokinesis. Mild to moderate concentric left ventricular hypertrophy. Left ventricular ejection fraction is 50% by
visual estimate.
2. Mild aortic stenosis with peak/mean gradient of 14/9 mmHg respectively.
3. Mild mitral regurgitation.
4. Compared to your previous echo from 2024, EF was noted to be 44% at that time, otherwise no significant change.
--- NOTE | 2024-12-15 07:37 | W.PN.ANS.POP ---
Anesthesia Post Operative
- Anesthesia Post Op Note
Vital Signs Stable-See Nursing Note: Yes (pt remains on Cardene, Levo, and Dobutamine gtts)
Airway Patent: Yes
Adequate Pain Control: Yes
Change in Mental Status: No
Current Postoperative Nausea & Vomiting: No
Anesthesia Complications: No
General Anesthetic Recall: No
Unplanned Admission: No
Post Op Hydration Adequate: Yes
--- NOTE | 2024-12-15 07:38 | W.PN.CT ---
Today's Communication / Plan
-
-pod#1
-no issues overnight
-CI 3.33, CO 7.59. Drips: Dobut 3, Cardene 7.5, Insilin
-CT outputs: 2 meds 160/210, L pleur 50/180 in 12/24 hrs
-wean off Dobut as tolerating
-continue Maldonado while on Dobut
-continue Insulin
-current meds (ASA, Plavix, Lipitor, Amio, Cymbalta, Protonix, Aricept). Hold BB while on Dobut
-monitor Qt on Amio and Aricept
-encourage IS, OOB
Assessment / Plan
-
- Mv-CAD with symptoms and NSTEMI- s/p CABG x4 (In situ WONG to LAD, Ao to RSVG to diagonal, RSVG to LPLB/L PDA in sequence); Left atrial appendage ligation (35mm AtriClip) on 12/14/[address] Mares, pod #1
- Intraop TINO: Preop LVEF 35-40%, mild LVH, mild MR. His echo also showed anterior and lateral wall motion abnormalities. Post CABG, his LV did show improvement with EF 40-45% stable MR and improved lateral and anterior wall motion.
- Hypertension
- Hyperlipidemia
- Chronic systolic heart failure (EF about 45%)
- DM 2 (HgA1c 7.5%)
- Diabetic neuropathy
- Medication noncompliance
- Orthostasis with prior syncopal episodes (approx 3 mos ago)
- Chronic R hip pain d/t prior fall, gets cortisone injections, uses cane
- Acute postop blood loss anemia- stable
- Acute postop pulmonary insufficiency/atelectasis
- Acute postop hypovolemia with subsequent hypervolemia
Discussed patient care with: Nursing and Care Team
Subjective
-
Date of Service: December 15, 2024
Objective Data
-
PT 17.1 Sec (11.4-14.6) H 12/14/24 12:38
INR 1.34 12/14/24 12:38
APTT 31.3 Sec (23.4-35.0) 12/14/24 12:38
Vital Signs
Vital Signs
Temp Pulse Resp BP Pulse Ox
98.3 F 84 21 133/69 94
12/15/24 00:00 12/15/24 00:05 12/15/24 00:05 12/15/24 00:00 12/15/24 00:05
CT Intake/Output/Weight
12/14/24 12/14/24 12/15/24
06:59 18:59 06:59
Intake Total 899.6 / 1316.9 417.3 / 1316.9
Output Total 700 / 1500 550 / 1010 460 / 1010
Balance -700 / -776.4 349.6 / 306.9 -42.7 / 306.9
SaO2: 94
Physical Exam
-
General: Awake and Oriented
Cardiovascular: Regular rate & rhythm, No Murmurs and Rub
Respiratory: Decreased Breath Sounds
Sternum: Stable
Incision: Clean, Dry and Intact
Extremities: No Edema
Abdomen: soft, nondistended, nontender, decreased bowel sounds
Data Reviewed
-
Lab Results: Results Reviewed
Medications: Active Meds Reviewed
Chest X-Ray: Report Reviewed and Image Reviewed
ECG: Report Reviewed and Image Reviewed
--- NOTE | 2024-12-15 08:00 | PTCARENOTE ---
pt received from previous RN, oriented, in bed. SR 1st degree AVB w/ occasional PVCs on the monitor, HR 70-80s. +rub. A&V wires, VVI 60/20. SBP 110-130s. Cardene gtt titrated as ordered. PAP 30s/10s. CVP~8. CI >2. Dobutamine gtt running as ordered.
palpable pulses, trace generalized edema. pt on 6LNC, 92% POX. lungs diminished. IS encouraged. CTx3, no air leak or crepitus noted. pt abdomen round, s/n, denies n/v. tolerating clears. hypoactive BS. Maldonado in place, clear yellow urine. sternal
incision BEATA, approximated. chest tube site c/d/i. R groin puncture [employer]. RLE MICHELLE bandage in place. RIJ cordis/swan maintained. R radial [place] flushed, zeroed, and calibrated. PIV x2. insulin gtt running as ordered. see worklist for VS, I&O, and
assessment.
[2024-12-15] MEDS: PACERONE 200 MG PO ×3 (08:26→21:24)
[2024-12-15] MEDS: MAGNESIUM OXIDE 400 MG PO ×2 (08:26→19:08)
[2024-12-15] MEDS: PROTONIX 40 MG PO (08:26)
[2024-12-15] MEDS: NEURONTIN 100 MG PO ×3 (08:27→21:24)
[2024-12-15] MEDS: NOVOLOG FLEXPEN SC (08:27)
[2024-12-15] MEDS: PLAVIX 75 MG PO (08:27)
[2024-12-15] MEDS: LIDOCAINE 4% PATCH 1 PATCH TOPICAL (08:27)
[2024-12-15] MEDS: SENOKOT 8.6 MG PO ×2 (08:27→19:08)
[2024-12-15] MEDS: CYMBALTA DELAYED RELEASE 120 MG PO (08:27)
[2024-12-15] MEDS: LOW STRENGTH ASPIRIN 81 MG PO (08:27)
[2024-12-15] MEDS: BACTROBAN 2% OINTMENT 1 APPLIC NASAL ×2 (08:28→19:09)
[2024-12-15 08:32] LABS: Glucose - Point of Care 109 mg/dl (70-99)
--- NOTE | 2024-12-15 08:50 | PN.DE.MGMTRT ---
Insulin Management
- -
12/15/2024 Diabetes Management Consult
Patient admitted 12/11, with chest pain, diabetes management consult 12/15. PMH MVCAD, mild LV dysfunction, OH in 2016, HTN, CHF, malignant melanoma, HCL, neuropathy, BPH. RASTA with prostatitis, anxiety, depression, dementia with sundowners,
diabetes. Patient had cardiac cath 12/12 - MV CAD. CABG 12/14.
Prior to admission patient was taking novolog up to 30 units ss ac and lantus 70 units @ hs. In the past he took trulicity and Jardiance but stopped due to cost. A1C on admission 7.5%, cr today 1.1, eGFR > 60.
Patient is awake alert and oriented able to discuss diabetes care, at bedside and supportive.
Patient currently receiving critical care glycemic protocol insulin infusion at 2.6 to 4 units per hour. Will continue insulin infusion today and assess in AM for readiness to transition to home regimen.
Will ask CM to check cost of Jardiance/Farxiga.
Discussed with nurse.
Will follow.
Diabetes History
- -
Type of Diabetes: 2 requiring insulin
Pre-Admission Diabetes Regimen
12/14/24 12/15/24
12:38 04:08
Creatinine 1.0 1.1
Lab Results
Hemoglobin A1c 7.5 % (4.0-5.6) H 12/12/24 05:09
Insulin Pump Settings
IP Diabetes Regimen
12/14/24 12/14/24 12/14/24
12:38 12:44 13:59
Glucose 212 H
POC Glucose 236 H 220 H
12/14/24 12/14/24 12/14/24
15:01 15:56 16:59
Glucose
POC Glucose 174 H 157 H 151 H
12/14/24 12/14/24 12/14/24
18:00 20:04 22:14
Glucose
POC Glucose 131 H 126 H 133 H
12/14/24 12/15/24 12/15/24
22:57 00:04 01:09
Glucose
POC Glucose 125 H 133 H 124 H
12/15/24 12/15/24 12/15/24
01:57 02:58 04:08
Glucose 117 H
POC Glucose 116 H 116 H
12/15/24 12/15/24 12/15/24
05:08 07:11 08:31
Glucose
POC Glucose 122 H 119 H 109 H
Meal type: Lunch
Patient Education
[2024-12-15] MEDS: FLOMAX 0.4 MG PO (10:22)
[2024-12-15] MEDS: TORADOL 15 MG IV ×2 (10:22→19:06)
[2024-12-15 10:28] LABS: Glucose - Point of Care 129 mg/dl (70-99)
--- NOTE | 2024-12-15 10:56 | W.PN.CARDCBS ---
Addendum entered and electronically signed by Seamus Hilliard MD 12/15/24 12:14:
I saw and examined the patient.
The Pathology Supervisor's note was reviewed and I agree with the note.
Comment:
GEN: No distress, awake, Ox3
HEENT: supple, anicteric, mmm
LUNGS: CTA, no wheezes/rales
CV: Reg, S1/S2, 1/6 syst LSB, no gallop
ABD: soft, BS+, NT/ND
EXT: No edema
NEURO: Gross non-focal
SKIN: sternotomy
Plan:
Remains in sinus rhythm. Overall doing well. Continue to wean pressors.
Creatinine 1.1. Hemoglobin stable at 9.9
Start amiodarone
Continue aspirin and Plavix.
Original Note:
Today's Communication / Plan
-
continue post op care. weaning dobutamine
in SR
Impression / Plan
-
PCP: Karthik SHARMA
Cardiology: Dr. Yañez
Impression:
Admitted with edema and chest pain 12/11/2024
Previous admission for orthostasis and syncope 08/24/2024 until 08/19/2024
Previous admission for acute HF, newly reduced EF and HTN emergency 03/17/2024 until 03/21/2024
CAD
s/p NSTEMI with peak troponin 0.088 and CAD with Diag-1, mid to distal/apical LAD and proximal to mid OM1 lesions by cardiac cath that were managed medically in the setting of HTN emergency 03/18/2024
Multivessel coronary disease by cath 12/12/2024 status post CABG x 4 WONG - LAD, SVG - diagonal, SVG sequential�LPDA�L PLB, left atrial appendage clip 12/14/24
Acute HFmrEF
ICM with EF as low as 35% by echo 03/17/2024 and improved a bit to 44% by echo 07/06/2024
HTN
Hyperlipidemia
DM 2
Diabetic retinopathy
Degenerative disc disease
h/p orthostatic hypotension and syncope 07/19/2024 and 08/19/2024
Suspected obstructive sleep apnea
Cardiac cath 12/11/2024: Multivessel coronary artery disease, EF 40%
Left main: Free of angiographic disease
LAD: Proximal LAD 30% stenosis, mid LAD 60% stenosis that tapers to small distal vessel and occluded at apex with distal vessel filling via collaterals.
D1 proximal 80 to 90% stenosis
Left circumflex: Supplies medium size OM1 that has 80% proximal stenosis in tandem 60 and 70% mid vessel stenosis. Circumflex continues in the AV groove and tapers with 50% distal stenosis extending to a terminal posterolateral branch
PDA 100% mid with bridging collaterals
RCA large dominant vessel gives rise to RPDA and R PLV distally RCA and branches free of disease
Lexiscan nuclear stress test 09/14/23: Negative Lexiscan sestamibi for ischemia, fixed inferior and inferior apical defects C/W soft tissue attenuation, moderately decreased systolic function EF 33% with global hypokinesis
Echo 03/2022: EF 50-55% without regional wall motion abnormality, mild LVH, mild mitral annular calcification, mild mitral regurgitation, aortic sclerosis with mild aortic regurgitation, normal RV, normal atria, normal pulmonary artery pressure
Echo 03/07/2024: EF 35% by Grayson's method but closer to 35 to 40% visually, segmental wall motion abnormalities most pronounced in the mid to distal anterior, mid to distal lateral, mid to distal septal and possibly mild hypokinesis inferior wall,
mild concentric LVH, stage I diastolic dysfunction, normal RV size and function, mild MR, trace aortic regurgitation
Echo 07/06/2024: EF 44%, mild hypokinesis apical anterior and apical lateral segments, stage I diastolic dysfunction, normal RV size and function, mild MR, mild
Echo 12/12/2024: LVEF 50%, mild anterior and anterolateral hypokinesis, mild to moderate cLVH, mild aortic stenosis peak/mean 14/9 mmHg, mild MR
Plan:
-Admitted with Non-ST elevation AR, peak troponin 0.28 after presenting with chest pain and lower extremity edema x 2 days duration
-Left heart cath 12/12/2024 with multivessel CAD. EF 50% by echo, had been as low as 35% 03/2024
-s/p CABG x 4 WONG - LAD, SVG - diagonal, SVG sequential�LPDA�L PLB, left atrial appendage clip 12/14/24
-doing well
-deline as able.
-presently on dobut@1, cardene @5.
-EKG 12/15 SR with 1st degree av block and LVH
-continue post op care
-Noncompliance with aspirin, statin in outpatient setting. Was taking Plavix at time of admission. continue DAPT, statin post op. hgb 9.9
-was on regimen of coreg, lisinopril, spironolactone, norvasc pre op. Jardiance was previously stopped as patient cannot afford
-hgbA1c 7.5%. continue diabetic mgmt
-follow volume status post op. was diuresed earlier in admission and was taking po lasix 40mg daily prior to admission
-His severe right hip discomfort is likely related to tendinitis and there is no plan for surgery per ortho, Dr. Jeevan Mcfadden.
-d/w patient and at bedside
Progress Note - Intranet Developer
Subjective
Date of Service: December 15, 2024
reports some chest tightness and difficulty breathing improved with pain medication. overall states feeling well
Objective
Labs:
12/15/24 04:08
12/15/24 04:08
Labs
Hgb 9.9 g/dL (13.0-18.0) L 12/15/24 04:08
Hct 29.8 % (39.0-52.0) L 12/15/24 04:08
Plt Count 191 10^3/uL (130-400) D 12/15/24 04:08
PT 17.1 Sec (11.4-14.6) H 12/14/24 12:38
INR 1.34 12/14/24 12:38
APTT 31.3 Sec (23.4-35.0) 12/14/24 12:38
Sodium 140 mmol/L (135-145) 12/15/24 04:08
Potassium 4.1 mmol/L (3.5-5.1) 12/15/24 04:08
BUN 25 mg/dl (9-20) H 12/15/24 04:08
Creatinine 1.1 mg/dL (0.7-1.3) 12/15/24 04:08
Glucose 117 mg/dl (70-99) H 12/15/24 04:08
Vital Signs and I&O:
Vital Signs
Temp Pulse Resp BP Pulse Ox
98.7 F 87 19 139/70 95
12/15/24 09:00 12/15/24 10:40 12/15/24 10:40 12/15/24 10:33 12/15/24 10:40
Vital Signs
Temp Pulse Resp BP Pulse Ox
98.7 F 87 19 139/70 95
12/15/24 09:00 12/15/24 10:40 12/15/24 10:40 12/15/24 10:33 12/15/24 10:40
Intake & Output
12/13/24 12/14/24 12/15/24 12/16/24
07:59 07:59 07:59 07:59
Intake Total 1169 / 1169 723.6 / 723.6 1799.4 / 1894.9 229.5 / 229.5
Output Total 650 / 650 1500 / 1500 1390 / 1445 55 / 55
Balance 519 / 519 -776.4 / -776.4 409.4 / 449.9 174.5 / 174.5
Physical Exam
Physical Exam
GEN: No distress, awake, alert, oriented x3. sitting in chair
HEENT: supple, anicteric, mmm, eomi
LUNGS: Diminished BS B/L, no wheezes
CV: Reg, S1/S2, 1/6 murmur
ABD: soft, BS+, NT/ND
EXT: No cyanosis, clubbing, edema
NEURO: Gross non-focal
SKIN: Warm, pink, dry. No rash. Sternotomy incision c/d/i. CTs in place. cordis in place
: wetzel
[2024-12-15 11:10] LABS: Glucose - Point of Care 113 mg/dl (70-99)
--- NOTE | 2024-12-15 11:35 | PTCARENOTE ---
pt VSS, L pleural CT dc'd per orders. dressing c/d/i. pt OOB to chair w/ PT/OT. IS encouraged. pt c/o pain, PRN Toradol IVP given.
[2024-12-15] MEDS: NSS IV (11:50)
[2024-12-15] MEDS: NOVOLOG FLEXPEN 4 UNITS SC ×2 (13:07→17:55)
[2024-12-15 13:10] LABS: Glucose - Point of Care 99 mg/dl (70-99)
[2024-12-15] MEDS: FERRLECIT 110 MG IV (14:20)
--- NOTE | 2024-12-15 14:21 | CM ---
Addendum entered by Sarika Saez RN 12/16/24 11:12:
Placed a free 30 day coupon in the patient's red discharge folder.
Original Note:
Chart reviewed. Patient is independent of ADLS, lives with his in a apartment, [address], uses a SPC. Patient unable to afford his Farxiga. Gave patient and his the application for Pace along with [employer] medication assistance contact
number. Patient will not qualify for Pace until next year due to gross income. Plan is for the patient to return home with CT Transitional RN. CM to follow
[2024-12-15 14:53] LABS: Glucose - Point of Care 222 mg/dl (70-99)
--- NOTE | 2024-12-15 16:00 | PTCARENOTE ---
pt VSS, Dobutamine gtt off @~1200 per BUSINESS TECHNOLOGY ARCHITECT. IS encouraged. Joel cross'd per order. pt placed back to bed w/ 2 person assist after lunch.
[2024-12-15 16:26] LABS: Glucose - Point of Care 184 mg/dl (70-99)
[2024-12-15] MEDS: NOVOLIN R INSULIN INFUSION 100 IV (16:26)
[2024-12-15 17:20] LABS: Glucose - Point of Care 122 mg/dl (70-99)
[2024-12-15] MEDS: LIPITOR 80 MG PO (17:55)
--- NOTE | 2024-12-15 18:21 | PTCARENOTE ---
R radial [place] dc'd as ordered, dressing c/d/i. RIMaria L martines dc'd as ordered, RIJ cordis maintained, dressing c/d/i. A&V wires insulated. OOB to chair x2 assist.
--- NOTE | 2024-12-15 19:00 | PTCARENOTE ---
report received from previous RN, walking rounds done. pt AAOx4, in chair. SR w 1st degree AVB w occasional PVCs on monitor, HR 70-80s. +audible rub. epicardial A&V wires intact to back up VVI 60/20. SBP 120s. +peripheral pulses, trace generalized
edema noted. PXO 94% on 2LNC. bilateral breath sounds present. IS encouraged. CTx3 intact to -20cm wall suction, drainage WNL, no air leak or crepitus noted. ABD soft, nontender. +BS. pt DTV. all surgical sites stable. RIJ cordis intact w KVO
infusing. PIV x2 intact and patent. insulin gtt infusing per glycemic protocol. see worklist for full assessment, VS, and interventions.
[2024-12-15 19:07] LABS: Glucose - Point of Care 153 mg/dl (70-99)
[2024-12-15] MEDS: REMOVE LIDOCAINE PATCH 1 PATCH REMOVE (19:09)
[2024-12-15 21:22] LABS: Glucose - Point of Care 137 mg/dl (70-99)
[2024-12-15] MEDS: ARICEPT 5 MG PO (21:24)
--- NOTE | 2024-12-15 23:00 | PTCARENOTE ---
no changes in assessment. pt in bed, sleeping. SRs. POX 93% on 2LNC. CT output WNL pt still DTV, minimal amount on bladder scan. all surgical sites stable. insulin gtt maintained per glycemic protocol.
[2024-12-16] VITALS (33 sets, daily range): BP systolic 101–145; BP diastolic 48–80; PULSE 85–89; O2SAT 94; BMI 35.8
[2024-12-16 00:07] LABS: Glucose - Point of Care 92 mg/dl (70-99)
--- NOTE | 2024-12-16 01:02 | W.PN.CT ---
Today's Communication / Plan
-
-pod#2
-no issues overnight
-CT outputs: 2 meds: 100/195
-transition Insulin drip per endocrine
-current meds (ASA, Plavix, Lipitor, Amio, Cymbalta, Protonix, Aricept). Start metoprolol 12.5 bid
-monitor Qt on Amio and Aricept
-encourage IS, OOB
Assessment / Plan
-
- Mv-CAD with symptoms and NSTEMI- s/p CABG x4 (In situ WONG to LAD, Ao to RSVG to diagonal, RSVG to LPLB/L PDA in sequence); Left atrial appendage ligation (35mm AtriClip) on 12/14/[address] Mares, pod #2
- Intraop TINO: Preop LVEF 35-40%, mild LVH, mild MR. His echo also showed anterior and lateral wall motion abnormalities. Post CABG, his LV did show improvement with EF 40-45% stable MR and improved lateral and anterior wall motion.
- Hypertension
- Hyperlipidemia
- Chronic systolic heart failure (EF about 45%)
- DM 2 (HgA1c 7.5%)
- Diabetic neuropathy
- Medication noncompliance
- Orthostasis with prior syncopal episodes (approx 3 mos ago)
- Chronic R hip pain d/t prior fall, gets cortisone injections, uses cane
- Acute postop blood loss anemia- stable
- Acute postop pulmonary insufficiency/atelectasis
- Acute postop hypovolemia with subsequent hypervolemia
Subjective
Procedure
s/p CABG x4 (In situ WONG to LAD, Ao to RSVG to diagonal, RSVG to LPLB/L PDA in sequence); Left atrial appendage ligation (35mm AtriClip) on 12/14/[address] Mares
-
Date of Service: December 16, 2024
Objective Data
-
Lab Results
12/16/24 04:09
12/16/24 04:09
PT 17.1 Sec (11.4-14.6) H 12/14/24 12:38
INR 1.34 12/14/24 12:38
APTT 31.3 Sec (23.4-35.0) 12/14/24 12:38
Vital Signs
Vital Signs
Temp Pulse Resp BP Pulse Ox
98.4 F 73 18 121/64 94
12/15/24 23:00 12/16/24 00:00 12/16/24 00:00 12/16/24 00:00 12/16/24 00:00
CT Intake/Output/Weight
12/15/24 12/15/24 12/16/24
06:59 18:59 06:59
Intake Total 832.8 / 1799.4 733.8 / 832.8 99 / 832.8
Output Total 805 / 1390 350 / 410 60 / 410
Balance 27.8 / 409.4 383.8 / 422.8 39 / 422.8
SaO2: 94
Physical Exam
-
General: AOx3
Cardiovascular: Regular rate & rhythm
Respiratory: Decreased Breath Sounds
Sternum: Stable
Incision: Clean, Dry and Intact
Extremities: No Edema
[2024-12-16 02:40] LABS: Glucose - Point of Care 162 mg/dl (70-99)
--- NOTE | 2024-12-16 03:00 | PTCARENOTE ---
no changes in assessment. pt in bed, sleeping. SR 70s. POX 92% on 2LNC. CT output WNL. all surgical sites stable. insulin gtt maintained per glycemic protocol.
[2024-12-16 04:14] LABS: Glucose - Point of Care 128 mg/dl (70-99)
[2024-12-16 04:26] LABS: Hematocrit 27.6 % (39.0-52.0); Hemoglobin 9.2 g/dL (13.0-18.0); Mean Corp Hgb Conc. 33.3 g/dL (33.0-37.0); Mean Corpuscular Volume 96.8 fL (80.0-94.0); Platelet Count 184 10^3/uL (130-400); Red Cell Dist. Width 14.2 % (11.5-14.5)
[2024-12-16 04:53] LABS: Blood Urea Nitrogen 32 mg/dl (9-20); Calcium 8.1 mg/dl (8.4-10.2); Carbon Dioxide 27 mmol/L (22-30); Chloride 106 mmol/L (98-107); Estimated Creatinine Clearance 77 ml/min; Glucose 119 mg/dl (70-99); Magnesium 2.5 mg/dl (1.6-2.3); Potassium 4.1 mmol/L (3.5-5.1); Sodium 135 mmol/L (135-145); eGFR > 60.00
[2024-12-16 06:04] LABS: Glucose - Point of Care 107 mg/dl (70-99)
[2024-12-16] MEDS: TYLENOL 975 MG PO ×3 (06:05→22:52)
--- NOTE | 2024-12-16 07:51 | PN.DE.MGMTRT ---
Insulin Management
- -
12/16/2024 Diabetes Management Follow up
Patient admitted 12/11, with chest pain, diabetes management consult 12/15. PMH: MVCAD, mild LV dysfunction, VA in 2016, HTN, CHF, malignant melanoma, HCL, neuropathy, BPH. RASTA with prostatitis, anxiety, depression, dementia with sundowners,
diabetes. Patient had cardiac cath 12/12 - MV CAD. CABG 12/14.
Prior to admission patient was taking NovoLog up to 30 units ss AC and Lantus 70 units @ HS. In the past he took Trulicity and Jardiance but stopped due to cost. A1C on admission 7.5%, Cr today 1.1, eGFR > 60.
Patient is awake alert and oriented, sitting up in chair, able to discuss diabetes care.
Patient currently receiving critical care glycemic protocol insulin infusion at 4 to 8 units per hour.
Will transition off insulin infusion to SQ regimen. Give NPH 15 units at 11:00 am, stop insulin infusion 1 hr after NPH has been administered.
Start Lantus 30 units @ HS, NovoLog 10 units AC and low corrective insulin with meals. Resume Metformin 1000mg BID, 1st dose at dinner time.
Will ask CM to check cost of Jardiance/Farxiga.
Discussed with nurse. Will cont to follow
Diabetes History
- -
Type of Diabetes: 2 requiring insulin
Pre-Admission Diabetes Regimen
12/16/24
04:09
Creatinine 1.1
Lab Results
Hemoglobin A1c 7.5 % (4.0-5.6) H 12/12/24 05:09
Insulin Pump Settings
IP Diabetes Regimen
12/15/24 12/15/24 12/15/24
08:31 10:27 11:08
Glucose
POC Glucose 109 H 129 H 113 H
12/15/24 12/15/24 12/15/24
13:09 14:51 16:25
Glucose
POC Glucose 99 222 H 184 H
12/15/24 12/15/24 12/15/24
17:18 19:06 21:21
Glucose
POC Glucose 122 H 153 H 137 H
12/15/24 12/16/24 12/16/24
23:59 02:38 04:09
Glucose 119 H
POC Glucose 92 162 H
12/16/24 12/16/24
04:13 06:02
Glucose
POC Glucose 128 H 107 H
Meal type: Breakfast
Patient Education
[2024-12-16 07:57] LABS: Glucose - Point of Care 100 mg/dl (70-99)
--- NOTE | 2024-12-16 08:00 | PTCARENOTE ---
pt received from previous RN, oriented, in bed. SR 1st degree AVB on the monitor, HR 70-80s. A&V wires insulated. SBP 110-130s. palpable pulses, trace/+1 generalized edema. pt on RA, 94% POX. lungs diminished. IS encouraged. CTx2, no air leak or
crepitus noted. pt abdomen round, s/n, denies n/v. tolerating diet. +BS. voids in urinal. sternal incision DIRECTOR OF SEARCH ENGINE OPTIMIZATION, approximated. chest tube site c/d/i. R groin puncture BEATA. RLE incision approximated. RIJ cordis maintained. PIV x2. insulin gtt running
as ordered. see worklist for VS, I&O, and assessment.
--- NOTE | 2024-12-16 08:07 | W.PN.INTV ---
Today's Communication / Plan
Recommendations
- Transition insulin infusion per protocol
- Outpatient follow-up with [facility] pulmonary clinic for pulmonary nodule as well as underlying sleep apnea
- Vice President Of Instruction service will sign off once patient is transferred out of ICU
Assessment
-
69-year-old patient with non-STEMI, noted to have multivessel coronary artery disease, s/p coronary artery bypass graft and left atrial appendage exclusion, POD # 2
Titrated off pressors per protocol, 115/69, not requiring any pressors
ECHO reviewed with EF 50%
Management of chest tubes per primary service. No air leak noted
Extubated, on nasal canula. 93% on RA. Work of breathing normal.
CXR with left lower lobe atelectasis.
As needed supplemental O2.
Encouraged IS
Reported history of obstructive sleep apnea., has not been on CPAP for many years.
Can add nebulizers if needed
Aspiration precautions
Encouraged incentive spirometry, OOB/ambulation/early mobility
Advance diet as tolerated following extubation
GI prophylaxis: Protonix
Monitor critical I/O's
[place]/chest tube output
Hb/platelets postoperatively, mild drift
Trend CBC for now
Can transfuse if indicated for Hb <7, plt <50 in surgical patients
DVT prophylaxis including SCDs
Insulin protocol initiated and ongoing
Transition to SQ/off as indicated per team
Other medical diagnoses:
- Mild Aortic stenosis
- Mild Mitral regurgitation
- Mild bronchiectasis. Minimal focal changes on CT. No ET tube secretions noted. Can pursue further work up as out patient.
- Pulmonary Nodule. RUL 8 mm. Has been stable, suspect benign etiology. Out patient follow up with Pulmonary clinic.
- Ankylosing spondylitis of thoracic spine
- CAD, h/o TX
- IDDM. Insulin infusion currently.
- HFrEF, 44%, more recently 50%
- Mild cognitive impairment
- STIVEN. Has not been on CPAP for few years. Will address as out patient.
- Depression/Anxiety
- GETD
- Spinal stenosis
Critical Care time [38] mins -- The patient is admitted for acute critical illness for the treatment of vital organ failure and/or prevention of further life-threatening conditions. Total care includes time spent in review of history, physical exam,
medications, hemodynamic/ventilator parameters, laboratory data, imaging and discussion with house staff, pharmacy, respiratory therapy, robotype operator, and nursing
Data:
LHC 11/2024: 1. Multivessel coronary artery disease
2. Mild LV dysfunction
ECHO 11/2024: 1. Normal left ventricular size. Mildly decreased left ventricular systolic function. Mild anterior and anterolateral hypokinesis. Mild to moderate concentric left ventricular hypertrophy. Left ventricular ejection fraction is 50% by
visual estimate.
2. Mild aortic stenosis with peak/mean gradient of 14/9 mmHg respectively.
3. Mild mitral regurgitation.
4. Compared to your previous echo from 2024, EF was noted to be 44% at that time, otherwise no significant change.
Subjective Dataa
Subjective Data
Date of Service:
Date of Service: December 16, 2024
Subjective:
Patient comfortably sitting in chair in no acute distress.
Review of Systems
Genitourinary: Other (All 14 systems reviewed and negative except as stated above in the history of present illness.)
Objective Data
Data Reviewed
Vital Signs / I&O / Oxygen:
Vital Signs
Temp Pulse Resp BP Pulse Ox
98.6 F 81 18 115/69 93
12/16/24 08:00 12/16/24 08:00 12/16/24 08:00 12/16/24 08:00 12/16/24 06:00
Intake and Output
12/15/24 12/16/24 12/17/24
06:59 06:59 06:59
Intake Total 1732.4 / 1799.4 922.4 / 936.4
Output Total 1355 / 1390 800 / 800 10 / 10
Balance 377.4 / 409.4 122.4 / 136.4
SaO2 [CPAP/PSV] 95
SaO2 [SIMV] 96
SaO2 93
Nasal Cannula flow liters per 2
minute
Physical Exam
General: Comfortable
HEENT: Normocephalic
Cardiovascular: S1-S2
Respiratory: Clear and Non-Labored Respirations
GI: Soft and Non Distended
Neurology: Awake and Alert
Skin: Warm
Labs/Micro/Reports
Lab Data
12/16/24 04:09
12/16/24 04:09
[2024-12-16] MEDS: PROTONIX 40 MG PO (08:42)
[2024-12-16] MEDS: SENOKOT 8.6 MG PO ×2 (08:42→20:51)
[2024-12-16] MEDS: FLOMAX 0.4 MG PO (08:42)
[2024-12-16] MEDS: LOW STRENGTH ASPIRIN 81 MG PO (08:42)
[2024-12-16] MEDS: NEURONTIN 100 MG PO ×3 (08:42→22:51)
[2024-12-16] MEDS: FARXIGA 10 MG PO (08:42)
[2024-12-16] MEDS: CYMBALTA DELAYED RELEASE 120 MG PO (08:42)
[2024-12-16] MEDS: PLAVIX 75 MG PO (08:42)
[2024-12-16] MEDS: PACERONE 200 MG PO ×3 (08:43→22:51)
[2024-12-16] MEDS: NOVOLOG FLEXPEN 4 UNITS SC (08:43)
[2024-12-16] MEDS: LASIX 40 MG IV (08:43)
[2024-12-16] MEDS: LIDOCAINE 4% PATCH 1 PATCH TOPICAL (08:44)
[2024-12-16] MEDS: BACTROBAN 2% OINTMENT 1 APPLIC NASAL ×2 (08:44→20:50)
--- NOTE | 2024-12-16 08:47 | W.PN.CARDCBS ---
Addendum entered and electronically signed by Seamus Hilliard MD 12/16/24 10:26:
I saw and examined the patient.
The Control Operator Flow Coat's note was reviewed and I agree with the note.
Comment: GEN: No distress, awake, Ox3
HEENT: supple, anicteric, mmm
LUNGS: CTA, no wheezes/rales
CV: Reg, S1/S2, 1/6 syst LSB, no rub
ABD: soft, BS+, NT/ND
EXT: No edema
NEURO: Gross non-focal
SKIN: No rash
Plan:
Overall doing well. Minimal chest pains.
Remains in sinus rhythm. Hemoglobin at 9.2. Continue amiodarone.
Continue lisinopril and Farxiga.
Creatinine at 1.1.
Addendum entered and electronically signed by Yumiko Panchal PA-C 12/16/24 09:14:
Discussed with case management and CT surgery. Patient presently on Farxiga. He was on Jardiance as an outpatient, however stopped as he could not afford. He would qualify for a 1 month co-pay card. As also with diabetes, would defer to diabetic
management as to regimen for discharge. From cardiac standpoint okay to continue for now.
Original Note:
Today's Communication / Plan
-
Continue postop care
Continue diuresis
Out of bed/ambulate
Impression / Plan
-
PCP: Karthik SHARMA
Cardiology: Dr. Yañez
Impression:
Admitted with edema and chest pain 12/11/2024
Previous admission for orthostasis and syncope 08/24/2024 until 08/19/2024
Previous admission for acute HF, newly reduced EF and HTN emergency 03/17/2024 until 03/21/2024
CAD
s/p NSTEMI with peak troponin 0.088 and CAD with Diag-1, mid to distal/apical LAD and proximal to mid OM1 lesions by cardiac cath that were managed medically in the setting of HTN emergency 03/18/2024
Multivessel coronary disease by cath 12/12/2024 status post CABG x 4 WONG - LAD, SVG - diagonal, SVG sequential�LPDA�L PLB, left atrial appendage clip 12/14/24
Acute HFmrEF
ICM with EF as low as 35% by echo 03/17/2024 and improved a bit to 44% by echo 07/06/2024
HTN
Hyperlipidemia
DM 2
Diabetic retinopathy
Degenerative disc disease
h/p orthostatic hypotension and syncope 07/19/2024 and 08/19/2024
Suspected obstructive sleep apnea
Cardiac cath 12/11/2024: Multivessel coronary artery disease, EF 40%
Left main: Free of angiographic disease
LAD: Proximal LAD 30% stenosis, mid LAD 60% stenosis that tapers to small distal vessel and occluded at apex with distal vessel filling via collaterals.
D1 proximal 80 to 90% stenosis
Left circumflex: Supplies medium size OM1 that has 80% proximal stenosis in tandem 60 and 70% mid vessel stenosis. Circumflex continues in the AV groove and tapers with 50% distal stenosis extending to a terminal posterolateral branch
PDA 100% mid with bridging collaterals
RCA large dominant vessel gives rise to RPDA and R PLV distally RCA and branches free of disease
Lexiscan nuclear stress test 09/14/23: Negative Lexiscan sestamibi for ischemia, fixed inferior and inferior apical defects C/W soft tissue attenuation, moderately decreased systolic function EF 33% with global hypokinesis
Echo 03/2022: EF 50-55% without regional wall motion abnormality, mild LVH, mild mitral annular calcification, mild mitral regurgitation, aortic sclerosis with mild aortic regurgitation, normal RV, normal atria, normal pulmonary artery pressure
Echo 03/07/2024: EF 35% by Grayson's method but closer to 35 to 40% visually, segmental wall motion abnormalities most pronounced in the mid to distal anterior, mid to distal lateral, mid to distal septal and possibly mild hypokinesis inferior wall,
mild concentric LVH, stage I diastolic dysfunction, normal RV size and function, mild MR, trace aortic regurgitation
Echo 07/06/2024: EF 44%, mild hypokinesis apical anterior and apical lateral segments, stage I diastolic dysfunction, normal RV size and function, mild MR, mild
Echo 12/12/2024: LVEF 50%, mild anterior and anterolateral hypokinesis, mild to moderate cLVH, mild aortic stenosis peak/mean 14/9 mmHg, mild MR
Plan:
-Admitted with Non-ST elevation MT, peak troponin 0.28 after presenting with chest pain and lower extremity edema x 2 days duration
-Left heart cath 12/12/2024 with multivessel CAD. EF 50% by echo, had been as low as 35% 03/2024
-s/p CABG x 4 WONG - LAD, SVG - diagonal, SVG sequential�LPDA�L PLB, left atrial appendage clip 12/14/24
- Continues to do well
- Off pressors
- Last chest tube to come out today
- In sinus rhythm on review of telemetry overnight
- Continue diuresis. Was taking po lasix 40mg daily prior to admission
- Noncompliance with aspirin, statin in outpatient setting. Was taking Plavix at time of admission. continue DAPT post op.
- was on regimen of coreg, lisinopril, spironolactone, norvasc pre op. Jardiance was previously stopped as patient cannot afford - currently it is noted he is on farxiga. resume OP regimen as able
- hgbA1c 7.5%. continue diabetic mgmt
- OOB/IS as able
- His severe right hip discomfort is likely related to tendinitis and there is no plan for surgery per Dr. Jeevan rico.
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
Progress Note - Conveyor Technician
Subjective
Date of Service: December 16, 2024
Doing well. No complaints
Objective
Labs:
12/16/24 04:09
12/16/24 04:09
Labs
Hgb 9.2 g/dL (13.0-18.0) L 12/16/24 04:09
Hct 27.6 % (39.0-52.0) L 12/16/24 04:09
Plt Count 184 10^3/uL (130-400) 12/16/24 04:09
PT 17.1 Sec (11.4-14.6) H 12/14/24 12:38
INR 1.34 12/14/24 12:38
APTT 31.3 Sec (23.4-35.0) 12/14/24 12:38
Sodium 135 mmol/L (135-145) 12/16/24 04:09
Potassium 4.1 mmol/L (3.5-5.1) 12/16/24 04:09
BUN 32 mg/dl (9-20) H 12/16/24 04:09
Creatinine 1.1 mg/dL (0.7-1.3) 12/16/24 04:09
Glucose 119 mg/dl (70-99) H 12/16/24 04:09
Vital Signs and I&O:
Vital Signs
Temp Pulse Resp BP Pulse Ox
98.6 F 81 18 115/69 93
12/16/24 08:00 12/16/24 08:00 12/16/24 08:00 12/16/24 08:43 12/16/24 06:00
Vital Signs
Temp Pulse Resp BP Pulse Ox
98.6 F 81 18 115/69 93
12/16/24 08:00 12/16/24 08:00 12/16/24 08:00 12/16/24 08:43 12/16/24 06:00
Intake & Output
12/14/24 12/15/24 12/16/24 12/17/24
07:59 07:59 07:59 07:59
Intake Total 723.6 / 723.6 1799.4 / 1894.9 869.4 / 883.4
Output Total 1500 / 1500 1390 / 1445 765 / 775
Balance -776.4 / -776.4 409.4 / 449.9 104.4 / 108.4
Physical Exam
Physical Exam
GEN: No distress, awake, alert, oriented x3. sitting in chair
HEENT: supple, anicteric, mmm, eomi
LUNGS: CTA B/L, no wheezes
CV: Reg, S1/S2, 1/6 murmur
ABD: soft, BS+, NT/ND
EXT: No cyanosis, clubbing, edema
NEURO: Gross non-focal
SKIN: Warm, pink, dry. No rash. Sternotomy incision c/d/i. CT in place.
[2024-12-16] MEDS: ZESTRIL 20 MG PO (10:03)
[2024-12-16] MEDS: LOPRESSOR 12.5 MG PO (10:03)
[2024-12-16 10:06] LABS: Glucose - Point of Care 236 mg/dl (70-99)
[2024-12-16] MEDS: NOVOLIN N vial 0.15 UNITS SC (11:06)
[2024-12-16 11:09] LABS: Glucose - Point of Care 190 mg/dl (70-99)
--- NOTE | 2024-12-16 11:14 | CM ---
Chart reviewed. Patient OOB ambulating the halls. Patient is independent of ADLS, lives with his son in a apartment, [address], ambulates with a SPC. Plan is for the patient to return home with CT Transitional RN. CM to follow
--- NOTE | 2024-12-16 12:00 | PTCARENOTE ---
Addendum entered by Damaris Crowell RN 12/16/24 19:19:
insulin gtt dc'd as ordered.
Original Note:
pt VSS, no changes in assessment. OOB in chair for lunch, IS encouraged. at bedside. no c/o pain. voids in urinal.
[2024-12-16] MEDS: NOVOLOG FLEXPEN 10 UNITS SC ×2 (12:08→16:11)
[2024-12-16 12:09] LABS: Glucose - Point of Care 154 mg/dl (70-99)
[2024-12-16] MEDS: NOVOLOG FLEXPEN-LOW RESISTANCE 1 UNITS SC ×2 (12:09→16:11)
[2024-12-16] MEDS: NSS IV (12:49)
--- NOTE | 2024-12-16 12:50 | PTCARENOTE ---
pt placed back to bed, A&V wire pulled by ZACHARY Mckeon, q15 VS completed.
--- NOTE | 2024-12-16 14:00 | PTCARENOTE ---
Med CTs dc'd as ordered, dressing c/d/i. resting between care.
--- NOTE | 2024-12-16 16:00 | PTCARENOTE ---
pt VSS, OOB to chair for dinner. no c/o pain. pt ambulated in hallway w/ RW and assist. voids in urinal.
[2024-12-16 16:13] LABS: Glucose - Point of Care 184 mg/dl (70-99)
[2024-12-16] MEDS: FERRLECIT 110 MG IV (16:14)
[2024-12-16] MEDS: GLUCOPHAGE 1000 MG PO (16:14)
[2024-12-16] MEDS: LIPITOR 80 MG PO (18:22)
[2024-12-16] MEDS: REMOVE LIDOCAINE PATCH 1 PATCH REMOVE (20:51)
--- NOTE | 2024-12-16 21:30 | PTCARENOTE ---
Patient received resting in bed watching television. Patient A+A+Ox3. No neurological deficits noted. No c/o headache, dizziness or lightheadedness. O2 at 2L HS. SpO2 95%. s/p Chest tubes and AV Wires - Dressing intact. Sinus Rhythm with
First Degree AV Block. Heart rate 70's. Blood pressure 125/65 (84). Patient with no c/o chest pain, pressure or discomfort. Abdomen round, soft, nontender. Normoactive bowel sounds in all four quads. No BM. Positive flatus. No c/o nausea.
No vomiting. Voided 500 ml light maxx, yellow urine. Positive, palpable pulses. Trace edema. Sternal incision intact. Right groin puncture site intact. Right lower extremity incision intact. Right I.J. Cordis removed per orders without
difficulty. Assessment as documented.
[2024-12-16 22:45] LABS: Glucose - Point of Care 169 mg/dl (70-99)
[2024-12-16] MEDS: ARICEPT 5 MG PO (22:51)
[2024-12-16] MEDS: LANTUS 0.3 UNITS SC (22:52)
[2024-12-17] VITALS (11 sets, daily range): BP systolic 129–154; BP diastolic 63–87; PULSE 75; O2SAT 93; BMI 35.8
--- NOTE | 2024-12-17 00:30 | PTCARENOTE ---
Patient sleeping without difficulty. Assessment/Interventions as documented.
--- NOTE | 2024-12-17 01:48 | W.PN.CT ---
Addendum entered and electronically signed by Manny Truong MD 12/17/24 08:20:
I saw and examined the patient.
The PA's note was reviewed and I agree with the note.
Comment:
POD#3 s/p CABG x 4 (LS)
Doing well
Continue current medications
OOB/IS/ambulate - CXR w/ bibasilar atelectasis (L>R) - strongly encourage IS, repeat CXR in AM tomorrow
Original Note:
Today's Communication / Plan
-
No issues overnight�
DC (Epicardial wires, MS Chest, Cordis)�on 12/16
Current meds (ASA, Plavix, Lipitor, Amio, Cymbalta, Protonix, Aricept,�lopresor).�
Monitor Qt on Amio and Aricept
PT/OT�
Encourage IS, OOB�
Assessment / Plan
-
- Mv-CAD with symptoms and NSTEMI- s/p CABG x4 (In situ WONG to LAD, Ao to RSVG to diagonal, RSVG to LPLB/L PDA in sequence); Left atrial appendage ligation (35mm AtriClip) on 12/14/[address] Mares, pod #3
- Intraop TINO: Preop LVEF 35-40%, mild LVH, mild MR. His echo also showed anterior and lateral wall motion abnormalities. Post CABG, his LV did show improvement with EF 40-45% stable MR and improved lateral and anterior wall motion.
- Hypertension
- Hyperlipidemia
- Chronic systolic heart failure (EF about 45%)
- DM 2 (HgA1c 7.5%)
- Diabetic neuropathy
- Medication noncompliance
- Orthostasis with prior syncopal episodes (approx 3 mos ago)
- Chronic R hip pain d/t prior fall, gets cortisone injections, uses cane
- Acute postop blood loss anemia- stable
- Acute postop pulmonary insufficiency/atelectasis
- Acute postop hypovolemia with subsequent hypervolemia
Subjective
Procedure
s/p CABG x4 (In situ WONG to LAD, Ao to RSVG to diagonal, RSVG to LPLB/L PDA in sequence); Left atrial appendage ligation (35mm AtriClip) on 12/14/[address] Mares
-
Date of Service: December 17, 2024
Objective Data
-
PT 17.1 Sec (11.4-14.6) H 12/14/24 12:38
INR 1.34 12/14/24 12:38
APTT 31.3 Sec (23.4-35.0) 12/14/24 12:38
Vital Signs
Vital Signs
Temp Pulse Resp BP Pulse Ox
98.5 F 74 16 129/66 94
12/16/24 22:50 12/17/24 00:00 12/16/24 22:50 12/16/24 22:51 12/16/24 22:50
CT Intake/Output/Weight
12/16/24 12/16/24 12/17/24
06:59 18:59 06:59
Intake Total 188.6 / 936.4 104.8 / 344.8 240 / 344.8
Output Total 450 / 800 1565 / 2515 950 / 2515
Balance -261.4 / 136.4 -1460.2 / -2170.2 -710 / -2170.2
SaO2: 94
Physical Exam
-
General: Awake
Cardiovascular: Regular rate & rhythm
Respiratory: Clear, Equal and Wheeze
Sternum: Stable
Incision: Clean, Dry and Intact
Extremities: No Edema
[2024-12-17 04:11] LABS: Hematocrit 28.3 % (39.0-52.0); Hemoglobin 8.9 g/dL (13.0-18.0); Mean Corp Hgb Conc. 31.4 g/dL (33.0-37.0); Mean Corpuscular Volume 99.3 fL (80.0-94.0); Platelet Count 209 10^3/uL (130-400); Red Cell Dist. Width 14.3 % (11.5-14.5)
[2024-12-17 04:28] LABS: Blood Urea Nitrogen 26 mg/dl (9-20); Calcium 8.2 mg/dl (8.4-10.2); Carbon Dioxide 28 mmol/L (22-30); Chloride 106 mmol/L (98-107); Estimated Creatinine Clearance 85 ml/min; Glucose 172 mg/dl (70-99); Magnesium 2.3 mg/dl (1.6-2.3); Potassium 4.6 mmol/L (3.5-5.1); Sodium 134 mmol/L (135-145); eGFR > 60.00
--- NOTE | 2024-12-17 04:30 | PTCARENOTE ---
Patient A+A+Ox3. No neurological deficits noted. AM lab work collected and sent. Patient given CHG bath and linens changed. Washed face. Chest tube dressing changed. Standing scale weight 113.2 kg. Patient back to bed.
Assessment/Interventions as documented.
[2024-12-17] MEDS: TYLENOL PO (05:00)
[2024-12-17 07:50] LABS: Glucose - Point of Care 166 mg/dl (70-99)
[2024-12-17] MEDS: NOVOLOG FLEXPEN 10 UNITS SC ×3 (07:50→16:50)
[2024-12-17] MEDS: NOVOLOG FLEXPEN-LOW RESISTANCE 1 UNITS SC ×2 (07:51→16:50)
[2024-12-17] MEDS: BACTROBAN 2% OINTMENT 1 APPLIC NASAL ×2 (07:52→20:47)
[2024-12-17] MEDS: CYMBALTA DELAYED RELEASE 120 MG PO (08:40)
[2024-12-17] MEDS: ZESTRIL 20 MG PO (08:41)
[2024-12-17] MEDS: FARXIGA 10 MG PO (08:41)
[2024-12-17] MEDS: PLAVIX 75 MG PO (08:41)
[2024-12-17] MEDS: FLOMAX 0.4 MG PO (08:41)
[2024-12-17] MEDS: LOW STRENGTH ASPIRIN 81 MG PO (08:41)
[2024-12-17] MEDS: GLUCOPHAGE 1000 MG PO ×2 (08:41→16:50)
[2024-12-17] MEDS: NEURONTIN 100 MG PO ×3 (08:42→22:19)
[2024-12-17] MEDS: PACERONE 200 MG PO ×3 (08:42→22:19)
[2024-12-17] MEDS: PROTONIX 40 MG PO (08:42)
[2024-12-17] MEDS: SENOKOT 8.6 MG PO (08:42)
[2024-12-17] MEDS: LIDOCAINE 4% PATCH TOPICAL (08:43)
--- NOTE | 2024-12-17 08:52 | W.PN.CARDCBS ---
Today's Communication / Plan
-
Remains in sinus rhythm and doing well. Continue amiodarone.
EF has been in the 35 to 50% range. Would resume low-dose carvedilol over next 24 hours.
Continue Farxiga and lisinopril
Hemoglobin stable at 8.9. Creatinine at 1.0
Continue aspirin, Plavix, and atorvastatin.
Impression / Plan
-
PCP: Karthik SHARMA
Cardiology: Dr. Yañez
Impression:
Admitted with edema and chest pain 12/11/2024
Previous admission for orthostasis and syncope 08/24/2024 until 08/19/2024
Previous admission for acute HF, newly reduced EF and HTN emergency 03/17/2024 until 03/21/2024
CAD
s/p NSTEMI with peak troponin 0.088 and CAD with Diag-1, mid to distal/apical LAD and proximal to mid OM1 lesions by cardiac cath that were managed medically in the setting of HTN emergency 03/18/2024
Multivessel coronary disease by cath 12/12/2024 status post CABG x 4 WONG - LAD, SVG - diagonal, SVG sequential�LPDA�L PLB, left atrial appendage clip 12/14/24
Acute HFmrEF
ICM with EF as low as 35% by echo 03/17/2024 and improved a bit to 44% by echo 07/06/2024
HTN
Hyperlipidemia
DM 2
Diabetic retinopathy
Degenerative disc disease
h/p orthostatic hypotension and syncope 07/19/2024 and 08/19/2024
Suspected obstructive sleep apnea
Cardiac cath 12/11/2024: Multivessel coronary artery disease, EF 40%
Left main: Free of angiographic disease
LAD: Proximal LAD 30% stenosis, mid LAD 60% stenosis that tapers to small distal vessel and occluded at apex with distal vessel filling via collaterals.
D1 proximal 80 to 90% stenosis
Left circumflex: Supplies medium size OM1 that has 80% proximal stenosis in tandem 60 and 70% mid vessel stenosis. Circumflex continues in the AV groove and tapers with 50% distal stenosis extending to a terminal posterolateral branch
PDA 100% mid with bridging collaterals
RCA large dominant vessel gives rise to RPDA and R PLV distally RCA and branches free of disease
Lexiscan nuclear stress test 09/14/23: Negative Lexiscan sestamibi for ischemia, fixed inferior and inferior apical defects C/W soft tissue attenuation, moderately decreased systolic function EF 33% with global hypokinesis
Echo 03/2022: EF 50-55% without regional wall motion abnormality, mild LVH, mild mitral annular calcification, mild mitral regurgitation, aortic sclerosis with mild aortic regurgitation, normal RV, normal atria, normal pulmonary artery pressure
Echo 03/07/2024: EF 35% by Grayson's method but closer to 35 to 40% visually, segmental wall motion abnormalities most pronounced in the mid to distal anterior, mid to distal lateral, mid to distal septal and possibly mild hypokinesis inferior wall,
mild concentric LVH, stage I diastolic dysfunction, normal RV size and function, mild MR, trace aortic regurgitation
Echo 07/06/2024: EF 44%, mild hypokinesis apical anterior and apical lateral segments, stage I diastolic dysfunction, normal RV size and function, mild MR, mild
Echo 12/12/2024: LVEF 50%, mild anterior and anterolateral hypokinesis, mild to moderate cLVH, mild aortic stenosis peak/mean 14/9 mmHg, mild MR
Plan:
-Admitted with Non-ST elevation [place], peak troponin 0.28 after presenting with chest pain and lower extremity edema x 2 days duration
-Left heart cath 12/12/2024 with multivessel CAD. EF 50% by echo, had been as low as 35% 03/2024
-s/p CABG x 4 OWNG - LAD, SVG - diagonal, SVG sequential�LPDA�L PLB, left atrial appendage clip 12/14/24
- Continues to do well
- Chest tubes are out.
- In sinus rhythm on review of telemetry overnight. Continue amiodarone.
- Continue diuresis. Was taking po lasix 40mg daily prior to admission
- Noncompliance with aspirin, statin in outpatient setting. Was taking Plavix at time of admission. continue DAPT post op.
- was on regimen of coreg, lisinopril, spironolactone, norvasc pre op. Jardiance was previously stopped as patient cannot afford - currently it is noted he is on farxiga. resume OP regimen as able
- hgbA1c 7.5%. continue diabetic mgmt
- OOB/IS as able
- His severe right hip discomfort is likely related to tendinitis and there is no plan for surgery per ortho, Dr. Jeevan Mcfadden.
Progress Note - Leather Stamper
Subjective
Date of Service: December 17, 2024
Overall looks good. No significant chest pains. Remains in sinus rhythm. Continue amiodarone
Objective
Labs:
12/17/24 03:51
12/17/24 03:51
Labs
Hgb 8.9 g/dL (13.0-18.0) L 12/17/24 03:51
Hct 28.3 % (39.0-52.0) L 12/17/24 03:51
Plt Count 209 10^3/uL (130-400) 12/17/24 03:51
PT 17.1 Sec (11.4-14.6) H 12/14/24 12:38
INR 1.34 12/14/24 12:38
APTT 31.3 Sec (23.4-35.0) 12/14/24 12:38
Sodium 134 mmol/L (135-145) L 12/17/24 03:51
Potassium 4.6 mmol/L (3.5-5.1) 12/17/24 03:51
BUN 26 mg/dl (9-20) H 12/17/24 03:51
Creatinine 1.0 mg/dL (0.7-1.3) 12/17/24 03:51
Glucose 172 mg/dl (70-99) H 12/17/24 03:51
Vital Signs and I&O:
Vital Signs
Temp Pulse Resp BP Pulse Ox
98 F 76 18 157/78 95
12/17/24 08:00 12/17/24 08:00 12/17/24 08:00 12/17/24 08:41 12/17/24 08:00
Vital Signs
Temp Pulse Resp BP Pulse Ox
98 F 76 18 157/78 95
12/17/24 08:00 12/17/24 08:00 12/17/24 08:00 12/17/24 08:41 12/17/24 08:00
Intake & Output
12/15/24 12/16/24 12/17/24 12/18/24
06:59 06:59 06:59 06:59
Intake Total 1732.4 / 1799.4 922.4 / 936.4 344.8 / 344.8 240 / 240
Output Total 1355 / 1390 800 / 800 2865 / 2865
Balance 377.4 / 409.4 122.4 / 136.4 -2520.2 / -2520.2 240 / 240
--- NOTE | 2024-12-17 09:35 | PTCARENOTE ---
Pt AAOx4, comfortable in chair, walk to bathroom with assistance, working with PT today, VS stable
[2024-12-17] MEDS: NSS IV (12:32)
--- NOTE | 2024-12-17 12:33 | PTCARENOTE ---
Pt in bed after PT will get up for lunch pt comfortable and stable
[2024-12-17 12:49] LABS: Glucose - Point of Care 125 mg/dl (70-99)
[2024-12-17] MEDS: NOVOLOG FLEXPEN-LOW RESISTANCE SC (12:52)
[2024-12-17] MEDS: FERRLECIT 110 MG IV (13:23)
[2024-12-17] MEDS: TYLENOL 975 MG PO ×2 (13:24→22:19)
--- NOTE | 2024-12-17 16:30 | PTCARENOTE ---
VSS. NSR on tele with rates in the 70s. BP 137/73. POX 92% on RA. Surgical sites stable. Pt denies pain.
[2024-12-17] MEDS: LIPITOR 80 MG PO (16:50)
[2024-12-17 16:53] LABS: Glucose - Point of Care 188 mg/dl (70-99)
--- NOTE | 2024-12-17 19:18 | PTCARENOTE ---
~[id number]: Handoff report received from Violetta FRENCH on [facility]. Around 1745, patient ambulated to new room. OOB in chair. AOx4, NSR on tele 80s, SBP 130s, RA satting 92%. Patient denies pain at this time. Sternum, R groin and R leg incisions BEATA with
surgical glue. Ax1 walker to ambulate. Chest tube dressing CDI and wire site covered with 4x4 CDI. All needs met at this time, call cotto within reach. Handoff report given to nightshift RN.
[2024-12-17] MEDS: ROXICODONE 5 MG PO (20:47)
[2024-12-17] MEDS: LOPRESSOR 12.5 MG PO (20:47)
[2024-12-17] MEDS: SENOKOT PO (20:47)
[2024-12-17] MEDS: REMOVE LIDOCAINE PATCH REMOVE (20:47)
[2024-12-17 22:19] LABS: Glucose - Point of Care 145 mg/dl (70-99)
[2024-12-17] MEDS: LANTUS 0.3 UNITS SC (22:19)
[2024-12-17] MEDS: ARICEPT 5 MG PO (22:19)
--- NOTE | 2024-12-17 23:45 | PTCARENOTE ---
received the patient at the change of shift. AAOx3. SR on tele 70s-80s. bp stable. 93% on RA. surgical incisions intact. 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 oob with the rolling walker, assist x1. sternal precautions maintained. BM x1. patient complaining of moderate sternal
incision pain. reviewed medications with patient. PRN oxy 5 mg given, see mar. patient states 'i think it helped. i was able to fall asleep.'
at approx 2230- RN assisted patient to the bathroom. once returned to bed, RN noticed some dribbling of urine. patient states when he pees its not a steady stream. bladder scan 490. denies discomfort/pain. encouraged patient to try to empty
bladder. unsuccessful. updated Van [employer]. order placed for straight cath. straight cath completed- 475cc maxx urine. patient tolerated well.
[2024-12-18] VITALS (10 sets, daily range): BP systolic 125–161; BP diastolic 66–79; PULSE 90; BMI 35.3
[2024-12-18] MEDS: TYLENOL 975 MG PO ×3 (04:50→22:51)
[2024-12-18 05:16] LABS: Hematocrit 31.9 % (39.0-52.0); Hemoglobin 10.0 g/dL (13.0-18.0); Mean Corp Hgb Conc. 31.3 g/dL (33.0-37.0); Mean Corpuscular Volume 100.6 fL (80.0-94.0); Platelet Count 260 10^3/uL (130-400); Red Cell Dist. Width 14.1 % (11.5-14.5)
--- NOTE | 2024-12-18 05:27 | W.PN.CT ---
Addendum entered and electronically signed by Manny Truong MD 12/18/24 09:13:
I saw and examined the patient.
The PA's note was reviewed and I agree with the note.
Comment:
POD#4
Doing well
Check 2V CXR
D/C home today
Original Note:
Today's Communication / Plan
-
- POD #4
- No overnight events
- Current meds (ASA, Plavix, Lipitor, Amio, Cymbalta, Protonix, Aricept, Lopressor)
- OOB/IS
- 2V CXR today, noted bibasilar atelectasis yesterday
- DC planning, possibly home soon
Assessment / Plan
-
- Mv-CAD with symptoms and NSTEMI- s/p CABG x4 (In situ WONG to LAD, Ao to RSVG to diagonal, RSVG to LPLB/L PDA in sequence); Left atrial appendage ligation (35mm AtriClip) on 12/14/[address] Mares, pod #4
- Intraop TINO: Preop LVEF 35-40%, mild LVH, mild MR. His echo also showed anterior and lateral wall motion abnormalities. Post CABG, his LV did show improvement with EF 40-45% stable MR and improved lateral and anterior wall motion.
- Hypertension
- Hyperlipidemia
- Chronic systolic heart failure (EF about 45%)
- DM 2 (HgA1c 7.5%)
- Diabetic neuropathy
- Medication noncompliance
- Orthostasis with prior syncopal episodes (approx 3 mos ago)
- Chronic R hip pain d/t prior fall, gets cortisone injections, uses cane
- Acute postop blood loss anemia- stable
- Acute postop pulmonary insufficiency/atelectasis
- Acute postop hypovolemia with subsequent hypervolemia
Subjective
Procedure
s/p CABG x4 (In situ WONG to LAD, Ao to RSVG to diagonal, RSVG to LPLB/L PDA in sequence); Left atrial appendage ligation (35mm AtriClip) on 12/14/[address] Mares
-
Date of Service: December 18, 2024
Objective Data
-
Lab Results
12/18/24 04:51
PT 17.1 Sec (11.4-14.6) H 12/14/24 12:38
INR 1.34 12/14/24 12:38
APTT 31.3 Sec (23.4-35.0) 12/14/24 12:38
Vital Signs
Vital Signs
Temp Pulse Resp BP Pulse Ox
97.9 F 68 16 139/74 97
12/18/24 04:56 12/18/24 04:49 12/18/24 04:56 12/18/24 04:49 12/18/24 04:56
CT Intake/Output/Weight
12/17/24 12/17/24 12/18/24
06:59 18:59 06:59
Intake Total 240 / 344.8 720 / 870 150 / 870
Output Total 1300 / 2865 325 / 800 475 / 800
Balance -1060 / -2520.2 395 / 70 -325 / 70
SaO2: 97
Physical Exam
-
General: Awake and Oriented
Cardiovascular: Regular rate & rhythm and No Murmurs
Respiratory: Clear and Equal
Sternum: Stable
Incision: Clean and Dry
Extremities: No Edema and No Erythema
Data Reviewed
-
Lab Results: Results Reviewed
Medications: Active Meds Reviewed
Chest X-Ray: Report Reviewed
ECG: Report Reviewed
[2024-12-18 05:31] LABS: Blood Urea Nitrogen 23 mg/dl (9-20); Calcium 8.7 mg/dl (8.4-10.2); Carbon Dioxide 28 mmol/L (22-30); Chloride 106 mmol/L (98-107); Estimated Creatinine Clearance 95 ml/min; Glucose 171 mg/dl (70-99); Magnesium 2.2 mg/dl (1.6-2.3); Potassium 4.9 mmol/L (3.5-5.1); Sodium 139 mmol/L (135-145); eGFR > 60.00
--- NOTE | 2024-12-18 06:39 | PTCARENOTE ---
no urine output this morning. bladder scan 550cc. no urge to urinate. assisted patient to the bathroom to attempt to pee. patient was able to urinate 250 cc on his own.
[2024-12-18 07:30] LABS: Glucose - Point of Care 204 mg/dl (70-99)
[2024-12-18] MEDS: NOVOLOG FLEXPEN-LOW RESISTANCE 2 UNITS SC (07:44)
[2024-12-18] MEDS: NOVOLOG FLEXPEN 10 UNITS SC ×3 (07:44→18:06)
[2024-12-18] MEDS: LOW STRENGTH ASPIRIN 81 MG PO (07:46)
[2024-12-18] MEDS: NEURONTIN 100 MG PO ×3 (07:46→22:52)
[2024-12-18] MEDS: LOPRESSOR 12.5 MG PO (07:46)
[2024-12-18] MEDS: PACERONE 200 MG PO ×3 (07:46→22:51)
[2024-12-18] MEDS: SENOKOT PO ×2 (07:46→21:05)
[2024-12-18] MEDS: PLAVIX 75 MG PO (07:46)
[2024-12-18] MEDS: FARXIGA 10 MG PO (07:46)
[2024-12-18] MEDS: GLUCOPHAGE 1000 MG PO ×2 (07:46→18:06)
[2024-12-18] MEDS: CYMBALTA DELAYED RELEASE 120 MG PO (07:47)
[2024-12-18] MEDS: PROTONIX 40 MG PO (07:47)
[2024-12-18] MEDS: FLOMAX 0.4 MG PO ×2 (07:47→09:50)
[2024-12-18] MEDS: LIDOCAINE 4% PATCH 1 PATCH TOPICAL (07:47)
[2024-12-18] MEDS: ZESTRIL 20 MG PO (07:47)
[2024-12-18] MEDS: BACTROBAN 2% OINTMENT 1 APPLIC NASAL (07:47)
[2024-12-18] MEDS: NSS IV (11:35)
[2024-12-18 12:09] LABS: Glucose - Point of Care 149 mg/dl (70-99)
[2024-12-18] MEDS: NOVOLOG FLEXPEN-LOW RESISTANCE SC (12:09)
--- NOTE | 2024-12-18 15:21 | CON.MD ---
Consultation - Medical
-
pt s/p CABG
post op retention
reports years of hesitancy/weak stream- managed by primary with single flomax
discharge with wetzel and flomax bid
call dr eduardo's office to schedule outpt f/u
Consultation
-
Date/Time Consultation Requested: 12/18/24 at noon
Date/Time Consultation Performed: at 2:30 pm
Requesting Provider: CT surgery
Performing Provider: dr eduardo
Reason for Consultation: post op urinary retention
[2024-12-18 18:06] LABS: Glucose - Point of Care 161 mg/dl (70-99)
[2024-12-18] MEDS: LIPITOR 80 MG PO (18:06)
[2024-12-18] MEDS: NOVOLOG FLEXPEN-LOW RESISTANCE 1 UNITS SC (18:06)
--- NOTE | 2024-12-18 19:21 | PTCARENOTE ---
~1448-4531: Handoff report received from nightshift RN. Pt Aox4, NSR 70s, SBP 160s, RA satting 96%. At change of shift, patient vomited x1. Patient also c/o middle back pain this AM but patient states 'I think it's just from the bed.' EKG obtained,
no changes at this time showed NSR. Pt OOB to chair. Mid back pain 04/11, lidocaine patch applied. Informed CTS PA that patient was retaining urine overnight, flomax orders adjusted by PA. Patient taken via wheelchair for 2 view CXR. All needs met at
this time.
~4872-1771: Patient returned from CXR. Additional dose of flomax given per order. Famil visiting at bedside. All needs met at this time, call cotto within reach.
~9060-9273: Patient voided in toilet, I/Os charted. PVR done of 456cc. Informed CTS PA, per Dr. Truong, put wetzel back in.
~1913-4921: PT in to see patient and work on standing up from the chair and walked to steps and did steps, tolerated. Ambulated to bathroom with Ax1 walker, liquid BM.
~2618-8800: Pt NSR 70s, RA, Ax1 walker and denies pain at this time. All needs met, call cotto within reach. handoff report given to nightshift RN.
[2024-12-18] MEDS: COREG 6.25 MG PO (20:25)
[2024-12-18] MEDS: REMOVE LIDOCAINE PATCH REMOVE (21:05)
[2024-12-18 22:51] LABS: Glucose - Point of Care 118 mg/dl (70-99)
[2024-12-18] MEDS: ARICEPT 5 MG PO (22:51)
[2024-12-18] MEDS: LANTUS 0.3 UNITS SC (22:51)
--- NOTE | 2024-12-19 01:07 | PTCARENOTE ---
Rec'd pt at change of shift. Pt AAO*3, VSS, and SR on TELE monitor. Pt denies any pain or discomfort. 2L O2 applied for sleeping as pt non cpap compliant. Joel in place and RN provided cleaning and infection prevention education for pt. Pt
ambulating with staff assistance x1 with rolling walker. Pt now resting with call cotto in reach. See MAr and flowchart for full pt care and assessment.
[2024-12-19 05:02] VITALS: BP 152/74
[2024-12-19 05:03] VITALS: BMI 35.0
[2024-12-19] MEDS: TYLENOL 975 MG PO ×2 (05:10→15:05)
--- NOTE | 2024-12-19 06:44 | W.PN.UPDATE ---
Update Note
Progress Note Update
pt stable
urine remains clear
home with wetzel/VN and flomax bid
outpt f/u with dr eduardo
--- NOTE | 2024-12-19 07:43 | PN.DE.MGMTRT ---
Insulin Management
- -
12/19/2024: Diabetes Management Follow up
Patient admitted 12/11, with chest pain, diabetes management consult 12/15. PMH: MVCAD, mild LV dysfunction, IL in 2016, HTN, CHF, malignant melanoma, HCL, neuropathy, BPH. RASTA with prostatitis, anxiety, depression, dementia with sundowners,
diabetes. Patient had cardiac cath 12/12 - MV CAD. CABG 12/14.
Prior to admission patient was taking NovoLog up to 30 units ss AC and Lantus 70 units @ HS. In the past he took Trulicity and Jardiance but stopped due to cost. A1C on admission 7.5%, Cr today 1.1, eGFR > 60.
Patient is awake alert and oriented, sitting up in chair, able to discuss diabetes care.
Transitioned off critical care glycemic protocol insulin infusion to his out patient regimen on 12/15
premeal glucose yesterday stable and in range 149 to 161, HS glucose was 118, received Lantus 30 units, Fasting this AM.
Will cont current regimen: Farxiga 10mg daily, Metformin 1000mg BID, Lantus 30 units @ HS, NovoLog 10 units AC and low corrective insulin w/ meals.
Discussed with nurse. Will cont to follow
Meds at discharge: Farxiga 10mg daily, Metformin 1000mg BID, Lantus 30 units @ HS, NovoLog 10 units AC
Diabetes History
- -
Type of Diabetes: 2 requiring insulin
Pre-Admission Diabetes Regimen
Lab Results
Hemoglobin A1c 7.5 % (4.0-5.6) H 12/12/24 05:09
Insulin Pump Settings
IP Diabetes Regimen
12/18/24 12/18/24 12/18/24
12:08 18:05 22:50
POC Glucose 149 H 161 H 118 H
Meal type: Lunch
Meal type: Breakfast
Meal type: Breakfast
Amount consumed: 95%
Amount consumed: 100%
Amount consumed: 100%
Patient Education
[2024-12-19 08:08] VITALS: BP 163/79
[2024-12-19 08:54] LABS: Glucose - Point of Care 142 mg/dl (70-99)
[2024-12-19] MEDS: NOVOLOG FLEXPEN-LOW RESISTANCE SC ×2 (08:55→12:53)
[2024-12-19] MEDS: NOVOLOG FLEXPEN 10 UNITS SC ×2 (09:33→12:53)
[2024-12-19] MEDS: FARXIGA 10 MG PO (09:34)
[2024-12-19] MEDS: FLOMAX 0.8 MG PO (09:34)
[2024-12-19] MEDS: CYMBALTA DELAYED RELEASE 120 MG PO (09:34)
[2024-12-19] MEDS: LOW STRENGTH ASPIRIN 81 MG PO (09:35)
[2024-12-19] MEDS: NEURONTIN 100 MG PO ×2 (09:35→15:05)
[2024-12-19] MEDS: PLAVIX 75 MG PO (09:35)
[2024-12-19] MEDS: SENOKOT PO (09:36)
[2024-12-19] MEDS: ZESTRIL 20 MG PO (09:36)
[2024-12-19] MEDS: PACERONE 200 MG PO ×2 (09:37→15:05)
[2024-12-19] MEDS: GLUCOPHAGE 1000 MG PO (09:37)
[2024-12-19] MEDS: LIDOCAINE 4% PATCH 1 PATCH TOPICAL (09:39)
[2024-12-19] MEDS: COREG PO (10:09)
[2024-12-19] MEDS: COREG 6.25 MG PO (10:20)
[2024-12-19] MEDS: LASIX 40 MG PO (10:20)
[2024-12-19] MEDS: NORVASC 2.5 MG PO (10:21)
[2024-12-19 10:56] VITALS: BP 131/75
--- NOTE | 2024-12-19 11:10 | W.PN.CARDCBS ---
Addendum entered and electronically signed by Jose Yañez MD 12/19/24 11:37:
I saw and examined the patient.
The SURVEY CREW CHIEF or PA's note was reviewed and I agree with the note.
Comment: General: Well developed, well nourished in NAD.
Neck: Supple, no JVD, HJR, carotids +2 B/L, no bruits bilaterally.
Heart: Non displaced PMI, RRR, no murmurs, No S3, S4, no rubs.
Lungs: Scattered rhonchi
Sternal dressings noted
Extremities: No clubbing, cyanosis or edema bilaterally.
Neuro: Grossly nonfocal, awake, alert and oriented x3.
Stable cardiology status for discharge to home. Follow-up arranged
Original Note:
Today's Communication / Plan
-
Probably going home today
Impression / Plan
-
PCP: Karthik SHARMA
Cardiology: Dr. Yañez
Impression:
Admitted with edema and chest pain 12/11/2024
Previous admission for orthostasis and syncope 08/24/2024 until 08/19/2024
Previous admission for acute HF, newly reduced EF and HTN emergency 03/17/2024 until 03/21/2024
CAD
s/p NSTEMI with peak troponin 0.088 and CAD with Diag-1, mid to distal/apical LAD and proximal to mid OM1 lesions by cardiac cath that were managed medically in the setting of HTN emergency 03/18/2024
Multivessel coronary disease by cath 12/12/2024 status post CABG x 4 WONG - LAD, SVG - diagonal, SVG sequential�LPDA�L PLB, left atrial appendage clip 12/14/24
Acute HFmrEF
ICM with EF as low as 35% by echo 03/17/2024 and improved a bit to 44% by echo 07/06/2024
HTN
Hyperlipidemia
DM 2
Diabetic retinopathy
Degenerative disc disease
h/p orthostatic hypotension and syncope 07/19/2024 and 08/19/2024
Suspected obstructive sleep apnea
Cardiac cath 12/11/2024: Multivessel coronary artery disease, EF 40%
Left main: Free of angiographic disease
LAD: Proximal LAD 30% stenosis, mid LAD 60% stenosis that tapers to small distal vessel and occluded at apex with distal vessel filling via collaterals.
D1 proximal 80 to 90% stenosis
Left circumflex: Supplies medium size OM1 that has 80% proximal stenosis in tandem 60 and 70% mid vessel stenosis. Circumflex continues in the AV groove and tapers with 50% distal stenosis extending to a terminal posterolateral branch
PDA 100% mid with bridging collaterals
RCA large dominant vessel gives rise to RPDA and R PLV distally RCA and branches free of disease
Lexiscan nuclear stress test 09/14/23: Negative Lexiscan sestamibi for ischemia, fixed inferior and inferior apical defects C/W soft tissue attenuation, moderately decreased systolic function EF 33% with global hypokinesis
Echo 03/2022: EF 50-55% without regional wall motion abnormality, mild LVH, mild mitral annular calcification, mild mitral regurgitation, aortic sclerosis with mild aortic regurgitation, normal RV, normal atria, normal pulmonary artery pressure
Echo 03/07/2024: EF 35% by Grayson's method but closer to 35 to 40% visually, segmental wall motion abnormalities most pronounced in the mid to distal anterior, mid to distal lateral, mid to distal septal and possibly mild hypokinesis inferior wall,
mild concentric LVH, stage I diastolic dysfunction, normal RV size and function, mild MR, trace aortic regurgitation
Echo 07/06/2024: EF 44%, mild hypokinesis apical anterior and apical lateral segments, stage I diastolic dysfunction, normal RV size and function, mild MR, mild
Echo 12/12/2024: LVEF 50%, mild anterior and anterolateral hypokinesis, mild to moderate cLVH, mild aortic stenosis peak/mean 14/9 mmHg, mild MR
Plan:
-Admitted with NSTEMI, peak troponin 0.28 after presenting with chest pain and lower extremity edema x 2 days duration
-Troponin peaked at 0.287 this admission and patient was managed as NSTEMI. Cardiac cath 12/12/2024 showed MV CAD. Patient had CABG with WONG-to LAD, SVG-diagonal, SVG [id number] and LAURA clip 12/14/24
-EF preserved at 50% by echo 12/12/2024
-Patient was taking aspirin 325 mg BID for arthritis pain the week leading up to admission and is now recommended aspirin 81 mg daily as ordered
-New to Plavix 75 mg daily in the setting of NSTEMI, likely 6 months of therapy and will follow-up as an outpatient.
-There was concern about DAPT and the possibility of upcoming hip surgery/injection, but Dr. Holcomb talked with the patient's outpatient orthopedist and there is no DJD in his hip and patient is being managed for soft tissue pain
-Patient was previously tolerating Jardiance 10 mg daily, but stopped on his own as he felt he could not afford. Patient's says that they are able to afford all necessary medications and to disregard what patient says about ability to afford
medications.
-LDL 148 and patient had stopped taking atorvastatin on his own prior to admission. New to atorvastatin 80 mg daily
-Outpatient dose of Lasix 40 mg PO daily has been continued
-Patient was given amiodarone 200 mg TID postop and has remained in SR
-Outpatient dose of Coreg 12.5 mg BID has been continued
-Outpatient dose of lisinopril 20 mg daily has been continued
-Outpatient dose of amlodipine 2.5 mg daily has been continued
HPI: Patient came to the ER yesterday with complaints of chest pain and LE edema for 2 days and cardiology is now consulted. Patient was last seen in the office 08/10/2024 and was still taking his Plavix, but had actually stopped taking his aspirin
back in May for unclear reasons. Patient had also stopped taking his atorvastatin for unclear reasons. Patient reports being under an incredible amount of stress due to right hip pain. I reviewed ER visit in June and admission in July both for
orthostasis and syncope and it appears patient was under a lot of anxiety and stress at that time for financial reasons that he does not want to elaborate on. Patient says that starting 2 days ago he had increased LE edema and feels swollen in his
hands. He says his feet are painful to walk on. He denies any bloating. He denies any orthopnea. He says he also started with chest pain that happens at rest and with exertion. He came to the ER for ongoing chest pain yesterday and chest pain
was improved following a second NTG SL. Patient was started on nitro gtt and is now pain-free at 20 mcg. Heparin gtt is also running. Patient was admitted in March of this year with chest pain in the setting of HTN emergency and had cardiac
cath that showed Diag-1, mid to distal/apical LAD and proximal to mid OM1 lesions by cardiac cath that were managed medically. He was started on aspirin and Plavix at that time, but as noted above he stopped taking his aspirin in May for unclear
reasons, but remains on Plavix 75 mg daily. In the last 2 weeks he has had increased right hip pain and says he is taking aspirin 325 mg 2-3 times a day for his hip pain. Patient stopped taking atorvastatin
Progress Note - Artificial Pearl Maker
Subjective
Date of Service: December 19, 2024
He feels well, waiting for CXR result
Objective
Labs:
12/18/24 04:51
12/18/24 04:51
Labs
Hgb 10.0 g/dL (13.0-18.0) L 12/18/24 04:51
Hct 31.9 % (39.0-52.0) L 12/18/24 04:51
Plt Count 260 10^3/uL (130-400) D 12/18/24 04:51
PT 17.1 Sec (11.4-14.6) H 12/14/24 12:38
INR 1.34 12/14/24 12:38
APTT 31.3 Sec (23.4-35.0) 12/14/24 12:38
Sodium 139 mmol/L (135-145) 12/18/24 04:51
Potassium 4.9 mmol/L (3.5-5.1) 12/18/24 04:51
BUN 23 mg/dl (9-20) H 12/18/24 04:51
Creatinine 0.9 mg/dL (0.7-1.3) 12/18/24 04:51
Glucose 171 mg/dl (70-99) H 12/18/24 04:51
Vital Signs and I&O:
Vital Signs
Temp Pulse Resp BP Pulse Ox
97.7 F 86 16 163/79 96
12/19/24 10:54 12/19/24 10:54 12/19/24 10:54 12/19/24 09:36 12/19/24 10:54
Vital Signs
Temp Pulse Resp BP Pulse Ox
97.7 F 86 16 163/79 96
12/19/24 10:54 12/19/24 10:54 12/19/24 10:54 12/19/24 09:36 12/19/24 10:54
Intake & Output
12/17/24 12/18/24 12/19/24 12/20/24
06:59 06:59 06:59 06:59
Intake Total 344.8 / 344.8 870 / 870 480 / 480
Output Total 2865 / 2865 1050 / 1050 2400 / 2400
Balance -2520.2 / -2520.2 -180 / -180 -1920 / -0
Physical Exam
Physical Exam
GEN: NAD. AAOx3
LUNGS: RA. No wheeze
CV: SR on tele.
[2024-12-19] MEDS: NSS IV (11:38)
[2024-12-19 12:52] LABS: Glucose - Point of Care 135 mg/dl (70-99)
--- NOTE | 2024-12-19 13:03 | W.DCSUMMARY ---
Discharge Summary
Discharge Data
Date of Admission: 12/11/24
Date of Discharge: 12/19/24
Total time spent discharging patient (in min): 50
-
Pending Results: No
Hospital Course
Primary care physician:
Dr. Angeles
Outpatient city secretary:
Dr. Yañez
Inpatient consultants:
DM management ordering box operator, DCA, Anesthesia, food clerk
Procedures:
1. Coronary artery bypass grafting x 4 (In situ WONG to LAD, Ao to RSVG to diagonal, RSVG to LPLB/L PDA in sequence), and LAAC
Primary Diagnosis:
1. Multivessel CAD
Secondary Diagnoses:
- Hypertension
- Hyperlipidemia
- Chronic systolic heart failure (EF about 45%)
- DM 2 (HgA1c 7.5%)
- Diabetic neuropathy
- Medication noncompliance
- Orthostasis with prior syncopal episodes (approx 3 mos ago)
- Chronic R hip pain d/t prior fall, gets cortisone injections, uses cane
- Acute postop blood loss anemia- stable
- Acute postop pulmonary insufficiency/atelectasis
- Acute postop hypovolemia with subsequent hypervolemia
HPI: 69-year-old gentleman who presented to the hospital with chest discomfort as well as increasing pedal edema and weight gain. Patient was noted to have elevated troponin and was diagnosed with acute coronary syndrome with non-ST elevation IA.
Patient was treated with aspirin, heparin, diuretics and cardiology service evaluated the patient. An angiogram was pursued which showed multivessel coronary artery disease. CT surgery was subsequently consulted and patient was taken to the OR for
coronary artery bypass graft.
Hospital course:
Patient initially admitted on 12/11 with a NSTEMI. Left heart cath revealed multivessel disease and patient was taken to the CV OR on 12/[address] Card. Postoperatively he returned to the CVICU on dobutamine, Levophed, insulin, and Precedex
infusions. Levophed was weaned off and dobutamine was weaned down. Patient was weaned off Precedex and was extubated by 1705. On 12/15 postoperative day 1, left pleural chest tube was discontinued patient was started on Cardene overnight for
hypertension but was weaned off, dobutamine was weaned off, and oral medications were started. On 12/16 postoperative day 2, epicardial wires were pulled along with mediastinal chest tubes. He was diuresed with 40 mg of IV Lasix. Due to continued
hypertension lisinopril was started along with transitioning off insulin drip to Farxiga Farxiga. On 12/17 postoperative day 3 patient was diuresed but overall doing well. On 12/18 postoperative day 4, patient had urinary retention overnight and
through the morning. Flomax was increased Maldonado was replaced and urology was consulted. On 12/19 postoperative day 5, blood pressure medications were once again uptitrated and Maldonado will stay in place with 1 week follow-up with urology.
Home medication changes:
see below
Discharge Plan
-
Patient Disposition: Home (Routine Discharge)
Discharge Diagnosis/Procedures: Coronary artery bypass grafting x 4 (In situ WONG to LAD, Ao to RSVG to diagonal, RSVG to LPLB/L PDA in sequence)
Condition: Good
Diet: Low Cholesterol, Diabetic, Carb Controlled and Restrict fluids to 64 oz
Activity: No strenuous activity
Driving Restrictions: Not until seen by your Dr
Bathing Restrictions: OK to Shower
Other Services: Cardiac Rehab
Specialty Instructions: Weigh Daily- Call MD for wt gain/loss 3 lbs overnight/5 lbs in 1 week
Activity Restrictions/Additional Instructions:
ACTIVITY:
-No strenuous activity: no heavy lifting, pushing, pulling anything over 15 pounds for one month
-continue to use stairs as tolerated
DRIVING RESTRICTIONS:
-No driving for one month or until approved by your surgeon
WOUND CARE:
-Shower daily. Use soap & water.
-No lotions, creams or powders on incision area.
DIET:
-continue a low fat/low cholesterol diet.
-IF you are diabetic, continue carb controlled diet.
CARDIAC REHAB:
-Please make appointment to start in 5-6 weeks with your local hospital program. (See Cardiac Rehabilitation Discharge Booklet).
SPECIALTY INSTRUCTIONS:
-Weigh yourself daily. Call your physician for any weight gain/loss of 3 lbs overnight or 5 lbs in one week.
-REPORT any clicking noise or uneven appearance of your sternum to your surgeon immediately.
-If you smoke, you are instructed to quit. The [place] smoking hotline phone number is [phone]
Referrals:
CT Transitional Care Nurse [Outside]
Referral Note: The Cardiothoracic Transitional Care Nurse will call you to set up a visit in 1-2 days.
[facility] [Outside] - 01/30/25 1:00 pm
Referral Note: Cardiac Rehab Orientation appointment is on 01/30/2025 at 1pm.
The Cardiac Rehab gym is located on the first floor of the [facility].
Tri Manriquez PA-C [Specified Professional Personl, Cardiology] - 01/23/25 10:00 am
Chris Terrazas MD [Active, Pulmonary Medicine] - in six weeks
Jorge Angeles CRNP [Family Provider, Internal Medicine]
Liz Mares MD [Active, Cardiac Surgery] - 01/11/25 9:30 am
Prescriptions:
New
atorvastatin 80 mg Tablet
80 mg PO QPM Qty: 30 1RF
clopidogrel 75 mg Tablet
75 mg PO DAILY Qty: 30 0RF
acetaminophen 325 mg Tablet
650 mg PO Q4HPRN PRN (Reason: mild pain,headache,temp >101F ) Qty: 0 0RF
aspirin 81 mg Tablet,Chewable
81 mg PO DAILY Qty: 0 0RF
oxycodone 5 mg Tablet
2.5 mg PO Q4HPRN PRN (Reason: mild to severe pain) Qty: 10 0RF
dapagliflozin propanediol 10 mg Tablet
10 mg PO DAILY Qty: 30 1RF
tamsulosin 0.4 mg Capsule
0.4 mg PO BID Qty: 30 0RF
insulin aspart U-100 [Novolog FlexPen U-100 Insulin] 100 unit/mL (3 mL) Insulin Pen
10 unit SC AC Qty: 5 0RF
Rx Instructions:
take 10 units before eac meal
insulin glargine [Lantus Solostar U-100 Insulin] 100 unit/mL (3 mL) Insulin Pen
30 unit SC DAILY Qty: 5 0RF
Rx Instructions:
take 30 units at bedtime
(DME) pen needle, diabetic [Cassie Pen Needle] 32 gauge x 5/32' Needle
Qty: 200 0RF
Rx Instructions:
1 box of 200 needles
refer to insulin instructions
Continued
carvedilol 12.5 mg Tablet
12.5 mg PO BID Qty: 60 0RF
donepezil 5 mg Tablet
5 mg PO HS
potassium chloride 20 mEq Tablet Extended Release
20 meq PO DAILY
amlodipine [Norvasc] 2.5 mg Tablet
2.5 mg PO DAILY
furosemide [Lasix] 40 mg Tablet
40 mg PO DAILY
lisinopril 20 mg Tablet
20 mg PO DAILY
metformin 1,000 mg Tablet
1,000 mg PO BID
duloxetine 60 mg Capsule,Delayed Release(Dr/Ec)
120 mg PO DAILY
Discontinued
spironolactone 25 mg Tablet
25 mg PO DAILY
tamsulosin 0.4 mg Capsule
0.4 mg PO HS
insulin aspart U-100 [Novolog FlexPen U-100 Insulin] 100 unit/mL (3 mL) Insulin Pen
30 sliding scale dose SC AC
insulin glargine [Lantus Solostar U-100 Insulin] 100 unit/mL (3 mL) Insulin Pen
70 unit SC HS
aspirin 325 mg Tablet
325 mg PO BIDPRN PRN (Reason: MILD PAIN)
Discharge Orders:
Discharge Patient (As Directed); Ordered 12/19/24
Ordered By: Raeann Martell
Care Plan Goals
Care Plan Goals:
Problem: Readiness for enhanced knowledge related to diagnosis and treatment plan
Goal: Understand your diagnosis and treatment plan needs, including medications if applicable.
Instructions: Know your diagnosis, underlying causes and treatment plan options, including medications if applicable. Consult with your health care team to learn about your diagnosis and treatment plan, including medications if applicable.
Discharge Date and Time
Print Language: MALTESE
[2024-12-19 14:20] VITALS: BP 107/85
[2024-12-19 15:06] VITALS: BP 107/85
== END 2024-12-19 16:00 | disposition home or self-care (01) | DRG 233 ==
LOC: IVU 16:32
PROVIDERS: Anesthesiology; Clinical Nurse Specialist Family Health; Hospitalist; Nurse Practitioner; Physician Assistant Medical; ADMITTING PHYSICIAN Internal Medicine; ATTENDING PHYSICIAN Student in an Organized Health Care Education/Training Program; CONSULT PHYSICIAN Internal Medicine; CONSULT PHYSICIAN Specialist; EMERGENCY PHYSICIAN Emergency Medicine; FAMILY PHYSICIAN Nurse Practitioner Adult Health; OTHER PHYSICIAN Internal Medicine Interventional Cardiology
PROC: B2111ZZ Fluoroscopy of Multiple Coronary Arteries using Low Osmolar Contrast (ICD-10-PCS; 2024-12-12)
PROC: 4A023N7 Measurement of Cardiac Sampling and Pressure, Left Heart, Percutaneous Approach (ICD-10-PCS; 2024-12-12)
PROC: 06BP4ZZ Excision of Right Saphenous Vein, Percutaneous Endoscopic Approach (ICD-10-PCS; 2024-12-14)
PROC: 021009W Bypass Coronary Artery, One Artery from Aorta with Autologous Venous Tissue, Open Approach (ICD-10-PCS; 2024-12-14)
PROC: 02100A3 Bypass Coronary Artery, One Artery from Coronary Artery with Autologous Arterial Tissue, Open Approach (ICD-10-PCS; 2024-12-14)
PROC: 0211093 Bypass Coronary Artery, Two Arteries from Coronary Artery with Autologous Venous Tissue, Open Approach (ICD-10-PCS; 2024-12-14)
PROC: 03B10ZZ Excision of Left Internal Mammary Artery, Open Approach (ICD-10-PCS; 2024-12-14)
PROC: B24BZZ4 Ultrasonography of Heart with Aorta, Transesophageal (ICD-10-PCS; 2024-12-14)
DX: I25.10 Atherosclerotic heart disease of native coronary artery without angina pectoris (principal); J95.2 Acute pulmonary insufficiency following nonthoracic surgery; I50.22 Chronic systolic (congestive) heart failure; D62 Acute posthemorrhagic anemia; J98.11 Atelectasis; F03.94 Unspecified dementia, unspecified severity, with anxiety; F03.93 Unspecified dementia, unspecified severity, with mood disturbance; E11.40 Type 2 diabetes mellitus with diabetic neuropathy, unspecified; Z91.148 Patient's other noncompliance with medication regimen for other reason; G89.29 Other chronic pain; E86.1 Hypovolemia; I11.0 Hypertensive heart disease with heart failure; Z79.4 Long term (current) use of insulin; Z79.84 Long term (current) use of oral hypoglycemic drugs; I95.1 Orthostatic hypotension; E11.319 Type 2 diabetes mellitus with unspecified diabetic retinopathy without macular edema; N40.0 Benign prostatic hyperplasia without lower urinary tract symptoms; Z85.820 Personal history of malignant melanoma of skin; K21.9 Gastro-esophageal reflux disease without esophagitis; G47.33 Obstructive sleep apnea (adult) (pediatric); F32.A Depression, unspecified; Z83.3 Family history of diabetes mellitus; Z80.1 Family history of malignant neoplasm of trachea, bronchus and lung; Z82.0 Family history of epilepsy and other diseases of the nervous system; Z80.8 Family history of malignant neoplasm of other organs or systems; Z79.82 Long term (current) use of aspirin; Z79.899 Other long term (current) drug therapy; Z79.02 Long term (current) use of antithrombotics/antiplatelets; I25.2 Old myocardial infarction; E66.812 Obesity, class 2; Z68.35 Body mass index [BMI] 35.0-35.9, adult; E78.2 Mixed hyperlipidemia; J47.9 Bronchiectasis, uncomplicated; M45.4 Ankylosing spondylitis of thoracic region
CPT/HCPCS: 71045; 71046; 71250; 80048; 80053; 80061; 81003; 81015; 82248; 82330; 82565; 82805; 82947; 82962; 83036; 83735; 83880; 84132; 84302; 84484; 84520; 85014; 85018; 85025; 85027; 85049; 85610; 85730; 86850; 86900; 86901; 86920; 93005; 93306; 93312; 93320; 93325; 93458; 93880; 93970; 94002; 96374; 96375; 96376; 97110; 97116; 97163; 97167; 97530; 97535; 99152; 99153; 99291; C1769; C1894; J1250; J2916; P9045; P9047; Q9967

== ENCOUNTER 2025-02-22 11:07 | Outpatient (RCR) | payer OTHER, SELFPAY ==
[2025-01-30 14:39] LABS: Glucose - Point of Care 210 mg/dl (70-99)
[2025-01-30 15:06] LABS: Glucose - Point of Care 199 mg/dl (70-99)
[2025-02-01 10:53] LABS: Glucose - Point of Care 227 mg/dl (70-99)
[2025-02-01 11:38] LABS: Glucose - Point of Care 175 mg/dl (70-99)
[2025-02-08 11:10] LABS: Glucose - Point of Care 219 mg/dl (70-99)
[2025-02-08 11:59] LABS: Glucose - Point of Care 169 mg/dl (70-99)
[2025-02-15 11:07] LABS: Glucose - Point of Care 113 mg/dl (70-99)
[2025-02-15 12:04] LABS: Glucose - Point of Care 131 mg/dl (70-99)
[2025-02-20 11:00] LABS: Glucose - Point of Care 137 mg/dl (70-99)
[2025-02-20 11:55] LABS: Glucose - Point of Care 132 mg/dl (70-99)
[2025-02-22 10:52] LABS: Glucose - Point of Care 136 mg/dl (70-99)
[2025-02-22 11:36] LABS: Glucose - Point of Care 139 mg/dl (70-99)
== END 2025-02-22 23:59 | disposition home or self-care (01) ==
LOC: CRHB 11:07
PROVIDERS: ATTENDING PHYSICIAN Internal Medicine Cardiovascular Disease
DX: I25.10 Atherosclerotic heart disease of native coronary artery without angina pectoris (principal); I21.4 Non-ST elevation (NSTEMI) myocardial infarction (principal); I25.2 Old myocardial infarction (principal); Z95.1 Presence of aortocoronary bypass graft
CPT/HCPCS: 82962; G0422; G0423